=== PATIENT | male | born 1945 | race Caucasian/White ===

== ENCOUNTER 2017-01-24 19:49 | Inpatient (IN) | payer OTHER ==
[~2017-01-24] VITALS: Ht 162.6 cm; Wt 56.8 kg
[~2017-01-24 19:49] MED LIST: ASPEC81 PO; CHIA1POW PO; CHOL100027 PO; CYAN100020 PO; FOLI800T PO; LEVO150T PO; LPT40 PO; MULTCAP36 PO; NTRGSL/4 UT; PLV75 PO
[2017-01-24] MEDS ORDERED: SODIUM CHLORIDE 0.9% 500ML 500 ML IV STA (20:34)
[2017-01-24] MEDS ORDERED: ACETAMINOPHEN 500 MG TAB PO STA (20:34)
--- NOTE | 2017-01-24 20:34 | EMERGENCY ROOM VISIT NOTE ---
History Report prepared by Crystal: Brittany Patel Under the Supervision of: Dr. Kunal Alexandra M.D. First contact with patient: 20:16 Chief Complaint: ILLNESS Stated Complaint: ILLNESS History of Present Illness The patient is a 71 year old male who presents to the Emergency Room with complaints of constant chills beginning today. The patient states that he was running on the treadmill today when he began to feel cold. He reports that he has had chills and shakiness since with some difficulty speaking that has improved with warming up. He denies any cough, sore throat, fever, abdominal pain, and nausea. Source of History: patient Onset: today Position: other (global) Quality: other (chills) Timing: constant Associated Symptoms: No fevers, No sorethroat, No cough, No nausea, No abdominal pain Note: Pt complains of shakiness and difficulty speaking that has resolved. Review of Systems See HPI for pertinent positives & negatives. A total of 10 systems reviewed and were otherwise negative. Past Medical & Surgical Medical Problems: (1) Cardiac ischemia (2) Coronary artery disease (3) Hypotension (4) Myocardial infarction (5) Pneumonia (6) Wide-complex tachycardia Surgical Problems: (1) H/O cardiac catheterization (2) Stented coronary artery Family History Cancer Diabetes mellitus Heart disease Social History Smoking Status: Former Smoker Alcohol Use: none Housing Status: lives alone Occupation Status: retired Current/Historical Medications Scheduled Aspirin (Aspirin Ec), 81 MG PO DAILY Atorvastatin (Lipitor), 40 MG PO DAILY Cholecalciferol (Vitamin D 1000 Unit), 1,000 INTER.UNIT PO TID Coenzyme Q10 (Ubidecarenone) (Co Q 10), 300 MG PO DAILY Cyanocobalamin (Vitamin B12), 1,000 MCG PO DAILY Enalapril Maleate (Vasotec), 0.5 MG PO BID Flaxseed (Linseed) (Flax Seeds), 2 TBS PO BID Folic Acid (Folic Acid), 800 MCG PO DAILY Levofloxacin (Levaquin), 500 MG PO DAILY Levothyroxine Sodium (Levothyroxine Sodium), 100 MCG PO DAILY Metoprolol Succinate (Metoprolol Succinate ER), 25 MG PO DAILY Multiple Vitamins W/ Minerals (Preservision/Lutein), 1 CAP PO AMPM Nitroglycerin (Nitrostat), 0.4 MG UT PRN Allergies Coded Allergies: No Known Allergies (Unverified , 07/15/14) Physical Exam Vital Signs Date Time Temp Pulse Resp B/P (MAP) Pulse Ox O2 Delivery O2 Flow Rate FiO2 01/25/17 00:35 79 20 99 01/25/17 00:30 117/63 01/25/17 00:20 72 24 98 01/25/17 00:05 66 19 97 01/25/17 00:00 110/58 01/24/17 23:50 68 14 98 01/24/17 23:35 63 19 97 01/24/17 23:30 114/65 01/24/17 23:24 66 25 99 01/24/17 23:15 135/70 01/24/17 23:09 70 24 99 01/24/17 23:06 65 01/24/17 22:49 68 23 99 01/24/17 22:34 61 20 97 01/24/17 22:30 116/67 01/24/17 22:19 66 24 98 01/24/17 22:04 65 99 01/24/17 22:00 111/64 01/24/17 21:49 54 18 98 01/24/17 21:44 37.2 56 17 98 01/24/17 21:30 123/71 01/24/17 21:29 61 21 100 01/24/17 21:14 58 13 100 01/24/17 21:09 58 100 01/24/17 20:54 61 19 01/24/17 20:49 37.0 59 24 01/24/17 20:34 55 100 01/24/17 20:30 131/72 01/24/17 20:19 62 100 01/24/17 20:04 60 100 Room Air 01/24/17 20:02 147/71 01/24/17 19:54 37.5 58 18 118/64 100 Room Air Physical Exam GENERAL: Patient is a healthy-appearing well-nourished [] HEAD: Normocephalic atraumatic EYES: Ocular movements intact pupils equal and react to light OROPHARYNX mucous membranes are moist no exudates present no erythema or edema present NECK: Supple no nuchal rigidity CHEST: Good equal expansion LUNGS: Clear and equal to auscultation CARDIAC: Normal S1 and S2 ABDOMEN: Soft nontender no guarding BACK: No CVA tenderness EXTREMITIES: No pain upon palpation normal muscle strength in all groups no clubbing cyanosis or edema NEURO: Patient is following commands and answering questions appropriately. Alert and oriented x3 Cranial Nerves 2-12 grossly intact Medical Decision & Procedures ER Provider Diagnostic Interpretation: Radiology results as stated below per my review and radiologist interpretation: CT HEAD: No acute intracranial process. Involutional changes. Radiologist: Ashley Damico M.D. CHEST ONE VIEW PORTABLE FINDINGS: No pneumothorax. No pleural effusions. The heart remains mildly enlarged. There are hazy bibasilar densities. The upper lung zones are clear. No pneumothorax. No pleural effusions. IMPRESSION: 1. Hazy bibasilar densities. This favors a pneumonia. Recommend follow-up to ensure resolution. 2. Stable cardiomegaly. Electronically signed by: Jefferson Chino M.D. 01/24/2017 9:56 PM Dictated Date/Time: 01/24/2017 9:54 PM Laboratory Results 01/24/17 18:55 Red Blood Count 3.90, Mean Corpuscular Volume 96.4, Mean Corpuscular Hemoglobin 32.1, Mean Corpuscular Hemoglobin Concent 33.2, Mean Platelet Volume 10.7, Neutrophils (%) (Auto) 76.9, Lymphocytes (%) (Auto) 14.1, Monocytes (%) (Auto) 6.1, Eosinophils (%) (Auto) 2.4, Basophils (%) (Auto) 0.5, Neutrophils # (Auto) 3.17, Lymphocytes # (Auto) 0.58, Monocytes # (Auto) 0.25, Eosinophils # (Auto) 0.10, Basophils # (Auto) 0.02 01/24/17 18:55 Test 01/24/17 18:55 01/24/17 22:45 White Blood Count 4.12 K/uL (4.8-10.8) Red Blood Count 3.90 M/uL (4.7-6.1) Hemoglobin 12.5 g/dL (14.0-18.0) Hematocrit 37.6 % (42-52) Mean Corpuscular Volume 96.4 fL (80-100) Mean Corpuscular Hemoglobin 32.1 pg (25-34) Mean Corpuscular Hemoglobin Concent 33.2 g/dl (32-36) Platelet Count 140 K/uL (130-400) Mean Platelet Volume 10.7 fL (7.4-10.4) Neutrophils (%) (Auto) 76.9 % Lymphocytes (%) (Auto) 14.1 % Monocytes (%) (Auto) 6.1 % Eosinophils (%) (Auto) 2.4 % Basophils (%) (Auto) 0.5 % Neutrophils # (Auto) 3.17 K/uL (1.4-6.5) Lymphocytes # (Auto) 0.58 K/uL (1.2-3.4) Monocytes # (Auto) 0.25 K/uL (0.11-0.59) Eosinophils # (Auto) 0.10 K/uL (0-0.5) Basophils # (Auto) 0.02 K/uL (0-0.2) RDW Standard Deviation 44.3 fL (36.4-46.3) RDW Coefficient of Variation 12.8 % (11.5-14.5) Immature Granulocyte % (Auto) 0.0 % Immature Granulocyte # (Auto) 0.00 K/uL (0.00-0.02) Urine Color YELLOW Urine Appearance CLEAR (CLEAR) Urine pH 7.5 (4.5-7.5) Urine Specific [place] 1.017 (1.000-1.030) Urine Protein NEG (NEG) Urine Glucose (UA) NEG (NEG) Urine Ketones NEG (NEG) Urine Occult Blood NEG (NEG) Urine Nitrite NEG (NEG) Urine Bilirubin NEG (NEG) Urine Urobilinogen NEG (NEG) Urine Leukocyte Esterase NEG (NEG) Anion Gap 6.0 mmol/L (3-11) Est Creatinine Clear Calc Drug Dose 66.4 ml/min Estimated GFR () 101.2 Estimated GFR (Non- 87.3 BUN/Creatinine Ratio 22.4 (10-20) Calcium Level 8.9 mg/dl (8.5-10.1) Total Bilirubin 0.4 mg/dl (0.2-1) Direct Bilirubin 0.2 mg/dl (0-0.2) Aspartate Amino Transf (AST/SGOT) 38 U/L (15-37) Alanine Aminotransferase (ALT/SGPT) 52 U/L (12-78) Alkaline Phosphatase 71 U/L (45-117) Total Creatine Kinase 195 U/L (39-308) Total Protein 7.0 gm/dl (6.4-8.2) Albumin 3.6 gm/dl (3.4-5.0) Bedside Glucose 94 mg/dl (70-99) Labs reviewed by ED physician. Medications Administered Medications (Trade) Dose Ordered Sig/Merna Route Start Time Stop Time Status Last Admin Dose Admin Sodium Chloride 500 ml @ 999 mls/hr Q31M STAT IV 01/24/17 20:34 01/24/17 21:04 DC 01/24/17 21:08 999 MLS/HR Acetaminophen (Tylenol Tab) 1,000 mg NOW STAT PO 01/24/17 20:34 01/24/17 20:36 DC 01/24/17 20:52 1,000 MG Levofloxacin (Levaquin / D5W) 500 mg NOW STAT IV 01/24/17 22:44 01/24/17 22:45 DC 01/24/17 23:17 500 MG ED Course 2016: Past medical records reviewed. The patient was evaluated in room C12. A complete history and physical examination was performed. 2033: Tylenol Tab 1000mg PO, Sodium Chloride 500 ml @ 999 mls/hr IV. 2239: Azithromycin 500mg PO. 2244: Levofloxacin 500mg IV. 2345: Upon reexamination the patient is doing well. I discussed results and treatment plan with the patient. He verbalizes agreement and understanding. The patient is ready for discharge. Medical Decision Differential diagnosis: Etiologies such as viral syndrome, otitis, pharyngitis, pneumonia, influenza, meningitis, urinary tract infection, sepsis, bacteremia, as well as others were entertained. This is a 71-year-old male who presents emergency department complaining of rigors. Upon arrival to the emergency department the patient does not have an elevation in his white blood count cell count is afebrile. Serial abdominal examinations were performed on the patient in the emergency department and at no time did the patient exhibited a surgical abdomen. An IV was established, patient given normal saline bolus. He does appear to have pneumonia on his chest x-ray therefore the patient will be started on Levaquin. As her is discussing this with the patient he appeared to become somewhat confused therefore he was sent for a CAT scan of the head which did not show any acute process. His blood sugar at that point was 90 and the patient was fed this seemed to resolve the confusion. I believe based on this that the patient can safely be discharged home. The patient does not wish to stay and is asking to be discharged home. However upon reevaluating the patient he is again confused so I discussed the case with the hospitalist service who agreed to admit the patient. Medication Reconcilliation Current Medication List: was personally reviewed by me Blood Pressure Screening Patient's blood pressure: Normal blood pressure Blood pressure disposition: Did not require urgent referral Impression Primary Impression: Pneumonia Scribe Attestation The scribe's documentation has been prepared under my direction and personally reviewed by me in its entirety. I confirm that the note above accurately reflects all work, treatment, procedures, and medical decision making performed by me. Departure Information Dispostion Home / Self-Care Prescriptions Levofloxacin (Levaquin) 500 Mg Tab 500 MG PO DAILY for 7 Days, #7 TAB Prov: Kunal Alexandra MD 01/24/17 Referrals Randell Gómez M.D. (PCP) Patient Instructions My [facility] Problem Qualifiers Primary Impression: Pneumonia Pneumonia type: due to unspecified organism Laterality: bilateral Lung location: unspecified part of lung Qualified Codes: J18.9 - Pneumonia, unspecified organism
[2017-01-24 21:19] LABS: URINE APPEARANCE CLEAR (CLEAR); URINE BILIRUBIN NEG (NEG); URINE COLOR YELLOW; URINE NITRITE NEG (NEG); URINE PH 7.5 (4.5-7.5); URINE SPECIFIC GRAVITY 1.017 (1.000-1.030); UROBILINOGEN NEG (NEG)
[2017-01-24 21:20] LABS: MANUAL MICROSCOPIC REQUIRED? NO; REVIEW REQ? NO
[2017-01-24] MEDS ORDERED: NTRGSL/4 UT (21:41)
[2017-01-24] MEDS ORDERED: ENAL2.5T PO (21:41)
[2017-01-24] MEDS ORDERED: COEN1CAP17 PO (21:41)
[2017-01-24] MEDS ORDERED: ASPI81TA28 PO (21:41)
[2017-01-24] MEDS ORDERED: ATOR-24 PO (21:41)
[2017-01-24] MEDS ORDERED: LEVO100T7 PO (21:41)
[2017-01-24] MEDS ORDERED: TPRSR/25 PO (21:41)
[2017-01-24 21:44] LABS: BASO % 0.5 %; BASO ABS # 0.02 K/uL (0-0.2); COMPLETE YES; EOS % 2.4 %; HEMATOCRIT 37.6 % (42-52); LYMPH % 14.1 %; LYMPH ABS # 0.58 K/uL (1.2-3.4); MEAN CELL VOLUME 96.4 fL (80-100); MEAN CORPUSCULAR HEMOGLOBIN 32.1 pg (25-34); MEAN CORPUSCULAR HGB CONC 33.2 g/dl (32-36); MEAN PLATELET VOLUME 10.7 fL (7.4-10.4); MONO % 6.1 %; NEUT % 76.9 %; PLATELET COUNT 140 K/uL (130-400); WHITE BLOOD COUNT 4.12 K/uL (4.8-10.8)
--- NOTE | 2017-01-24 21:57 | DIAGNOSTIC IMAGING REPORT ---
CHEST ONE VIEW PORTABLE HISTORY: Pt c/o fever COMPARISON: Chest 07/17/2014. FINDINGS: No pneumothorax. No pleural effusions. The heart remains mildly enlarged. There are hazy bibasilar densities. The upper lung zones are clear. No pneumothorax. No pleural effusions. IMPRESSION: 1. Hazy bibasilar densities. This favors a pneumonia. Recommend follow-up to ensure resolution. 2. Stable cardiomegaly. Electronically signed by: Jefferson Chino M.D. 01/24/2017 9:56 PM Dictated Date/Time: 01/24/2017 9:54 PM
[2017-01-24] MEDS ORDERED: FLAXPOW2 PO (22:08)
[2017-01-24 22:10] LABS: BUN/CREATININE RATIO 22.4 (10-20); CALCIUM 8.9 mg/dl (8.5-10.1); CREATININE 0.83 mg/dl (0.60-1.40); POTASSIUM 4.3 mmol/L (3.5-5.1)
[2017-01-24] MEDS ORDERED: AZITHROMYCIN 250 MG TAB PO STA (22:39)
[2017-01-24] MEDS ORDERED: LEVAQUIN 500MG / 100ML D5W IV STA (22:44)
[2017-01-24] MEDS ORDERED: LEVO-366 PO (23:40)
[2017-01-25] VITALS (7 sets, daily range): BP systolic 91–117; BP diastolic 52–65; PULSE 40–106; TEMP 36.9–37.7; O2SAT 90–98; Ht 162.6 cm; Wt 56.8 kg
--- NOTE | 2017-01-25 02:55 | History and Physical ---
History & Physical Date & Time of Service: Jan 25, 2017 at 02:42 Chief Complaint: Pneumonia Primary Care Physician: Randell Gómez M.D. History of Present Illness Source: patient, clinic records, hospital records 71 year old male with history of CAD, Mitral Valve Regurgitation, CKD 2, HLD, Hypothyroidism presenting with chills x [address] Paniagua for Primary Care. Patient was apparently at his usual state of health, until earlier today, after working out in the treadmill, patient apparently had shaking chills, apparent difficulty in speaking per ER Physician documentation. He was then brought to the ER for evaluation. He arrived with stable VS, CXR showed bibasilar pneumonia and was given Levofloxacin IV. Patient was about to be discharged when he was noticed to be confused, which appears to be waxing and waning. CT head negative. On exam, patient seen resting in bed, comfortable, not in distress. States he feels fine overall, Oriented x 2. Answers most questions appropriately, occasionally has to think hard with simple questions, and forgets easily. Denies active dyspnea, cough, chills, headache, changes with vision, focal weakness/numbness. Denies abdominal pain, dysuria, diarrhea. No other symptoms. Past Medical/Surgical History Medical Problems: (1) Cardiac ischemia Status: Resolved (2) Coronary artery disease Status: Chronic (3) Hypotension Status: Resolved (4) Myocardial infarction Status: Resolved (5) Wide-complex tachycardia Status: Resolved Surgical Problems: (1) H/O cardiac catheterization Status: Resolved (2) Stented coronary artery Status: Chronic Family History Cancer Diabetes mellitus Heart disease Social History Smoking Status: Former Smoker Smokeless Tobacco Use: No Alcohol Use: none Drug Use: none Marital Status: single Housing status: lives alone Occupational Status: retired Allergies Coded Allergies: No Known Allergies (Unverified , 07/15/14) Home Medications Scheduled Aspirin (Aspirin Ec), 81 MG PO DAILY Atorvastatin (Lipitor), 40 MG PO DAILY Cholecalciferol (Vitamin D 1000 Unit), 1,000 INTER.UNIT PO TID Coenzyme Q10 (Ubidecarenone) (Co Q 10), 300 MG PO DAILY Cyanocobalamin (Vitamin B12), 1,000 MCG PO DAILY Enalapril Maleate (Vasotec), 0.5 MG PO BID Flaxseed (Linseed) (Flax Seeds), 2 TBS PO BID Folic Acid (Folic Acid), 800 MCG PO DAILY Levofloxacin (Levaquin), 500 MG PO DAILY Levothyroxine Sodium (Levothyroxine Sodium), 100 MCG PO DAILY Metoprolol Succinate (Metoprolol Succinate ER), 25 MG PO DAILY Multiple Vitamins W/ Minerals (Preservision/Lutein), 1 CAP PO AMPM Nitroglycerin (Nitrostat), 0.4 MG UT PRN Review of Systems Constitutional- (+) as noted above, no fever; no weight loss Eyes- no acute visual changes ENT- no sinus drainage; no pharyngitis Pulmonary- no cough, no wheezing, no shortness of breath Cardiac- no chest pain, no palpitations, no orthopnea, no dependent edema GI- no nausea, no vomiting, no diarrhea, no melena, no hematochezia - no dysuria, no hematuria Musculoskeletal- no arthralgias, no myalgias Derm- no rashes, no new skin lesions, no changing skin lesions Hematologic- no unusual bruising, no unusual bleeding Lymphatics- no adenopathy Endocrine- no polyuria or polydipsia; no heat or cold intolerance Neuro- no headaches, no focal neurologic symptoms Psych- no anxiety, no depression Physical Exam Vital Signs Date Time Temp Pulse Resp B/P (MAP) Pulse Ox O2 Delivery O2 Flow Rate FiO2 01/25/17 01:30 116/59 01/25/17 01:25 66 21 97 01/25/17 01:10 66 19 97 01/25/17 01:00 108/59 01/25/17 00:55 65 23 97 01/25/17 00:40 73 25 98 01/25/17 00:35 79 20 99 01/25/17 00:30 117/63 01/25/17 00:20 72 24 98 01/25/17 00:05 66 19 97 01/25/17 00:00 110/58 01/24/17 23:50 68 14 98 01/24/17 23:35 63 19 97 01/24/17 23:30 114/65 01/24/17 23:24 66 25 99 01/24/17 23:15 135/70 01/24/17 23:09 70 24 99 01/24/17 23:06 65 01/24/17 22:49 68 23 99 01/24/17 22:34 61 20 97 01/24/17 22:30 116/67 01/24/17 22:19 66 24 98 01/24/17 22:04 65 99 01/24/17 22:00 111/64 01/24/17 21:49 54 18 98 01/24/17 21:44 37.2 56 17 98 01/24/17 21:30 123/71 01/24/17 21:29 61 21 100 01/24/17 21:14 58 13 100 01/24/17 21:09 58 100 01/24/17 20:54 61 19 01/24/17 20:49 37.0 59 24 01/24/17 20:34 55 100 01/24/17 20:30 131/72 01/24/17 20:19 62 100 01/24/17 20:04 60 100 Room Air 01/24/17 20:02 147/71 01/24/17 19:54 37.5 58 18 118/64 100 Room Air General Appearance: WD/WN, no apparent distress Head: normocephalic, atraumatic Eyes: normal inspection, PERRL, EOMI, sclerae normal ENT: normal ENT inspection, hearing grossly normal, pharynx normal Neck: supple, no adenopathy, thyroid normal, no JVD, trachea midline Respiratory/Chest: chest non-tender, lungs clear, normal breath sounds, no respiratory distress, no accessory muscle use Cardiovascular: regular rate, rhythm, no edema, no JVD, no murmur, normal peripheral pulses Abdomen/GI: normal bowel sounds, non tender, soft Back: normal inspection, no CVA tenderness Extremities/Musculoskelatal: normal inspection, no calf tenderness, normal capillary refill, no pedal edema Neurologic/Psych: sonoscope operator II-XII nml as tested (except for possible mild right facial droop), no motor/sensory deficits, alert, normal mood/affect, oriented x 3 Skin: normal color, warm/dry, no rash Lymphatic: no adenopathy Diagnostics Laboratory Results Results Past 24 Hours Test 01/24/17 18:55 01/24/17 22:45 01/25/17 02:23 Range/Units White Blood Count 4.12 4.8-10.8 K/uL Red Blood Count 3.90 4.7-6.1 M/uL Hemoglobin 12.5 14.0-18.0 g/dL Hematocrit 37.6 42-52 % Mean Corpuscular Volume 96.4 80-100 fL Mean Corpuscular Hemoglobin 32.1 25-34 pg Mean Corpuscular Hemoglobin Concent 33.2 32-36 g/dl Platelet Count 140 130-400 K/uL Mean Platelet Volume 10.7 7.4-10.4 fL Neutrophils (%) (Auto) 76.9 % Lymphocytes (%) (Auto) 14.1 % Monocytes (%) (Auto) 6.1 % Eosinophils (%) (Auto) 2.4 % Basophils (%) (Auto) 0.5 % Neutrophils # (Auto) 3.17 1.4-6.5 K/uL Lymphocytes # (Auto) 0.58 1.2-3.4 K/uL Monocytes # (Auto) 0.25 0.11-0.59 K/uL Eosinophils # (Auto) 0.10 0-0.5 K/uL Basophils # (Auto) 0.02 0-0.2 K/uL RDW Standard Deviation 44.3 36.4-46.3 fL RDW Coefficient of Variation 12.8 11.5-14.5 % Immature Granulocyte % (Auto) 0.0 % Immature Granulocyte # (Auto) 0.00 0.00-0.02 K/uL Urine Color YELLOW Urine Appearance CLEAR CLEAR Urine pH 7.5 4.5-7.5 Urine Specific [place] 1.017 1.000-1.030 Urine Protein NEG NEG Urine Glucose (UA) NEG NEG Urine Ketones NEG NEG Urine Occult Blood NEG NEG Urine Nitrite NEG NEG Urine Bilirubin NEG NEG Urine Urobilinogen NEG NEG Urine Leukocyte Esterase NEG NEG Sodium Level 138 136-145 mmol/L Potassium Level 4.3 3.5-5.1 mmol/L Chloride Level 103 98-107 mmol/L Carbon Dioxide Level 29 21-32 mmol/L Anion Gap 6.0 3-11 mmol/L Blood Urea Nitrogen 19 7-18 mg/dl Creatinine 0.83 0.60-1.40 mg/dl Est Creatinine Clear Calc Drug Dose 66.4 ml/min Estimated GFR () 101.2 Estimated GFR (Non- 87.3 BUN/Creatinine Ratio 22.4 10-20 Random Glucose 89 70-99 mg/dl Calcium Level 8.9 8.5-10.1 mg/dl Total Bilirubin 0.4 0.2-1 mg/dl Direct Bilirubin 0.2 0-0.2 mg/dl Aspartate Amino Transf (AST/SGOT) 38 15-37 U/L Alanine Aminotransferase (ALT/SGPT) 52 12-78 U/L Alkaline Phosphatase 71 45-117 U/L Total Creatine Kinase 195 39-308 U/L Total Protein 7.0 6.4-8.2 gm/dl Albumin 3.6 3.4-5.0 gm/dl Bedside Glucose 94 110 70-99 mg/dl Microbiology Results 01/25/17 Blood Culture, Ordered Pending 01/25/17 Blood Culture, Ordered Pending Diagnostic Radiology CHEST ONE VIEW PORTABLE HISTORY: Pt c/o fever COMPARISON: Chest 07/17/2014. FINDINGS: No pneumothorax. No pleural effusions. The heart remains mildly enlarged. There are hazy bibasilar densities. The upper lung zones are clear. No pneumothorax. No pleural effusions. IMPRESSION: 1. Hazy bibasilar densities. This favors a pneumonia. Recommend follow-up to ensure resolution. 2. Stable cardiomegaly. CT head initial read: no acute intracranial process EKG pending Impression Assessment and Plan 71 year old male with history of CAD, Mitral Valve Regurgitation, CKD 2, HLD, Hypothyroidism presenting with chills x 1 day. CHILLS, LIKELY SECONDARY TO PNEUMONIA, BILATERAL BASES - ff up sputum, blood, urine cultures - given Levaquin at the ER with some confusion noted after - Ceftri + Doxy IV ordered NSS at 100cc/hr (monitor volume status, has history of mitral valve regurgitation) ALTERED MENTAL STATUS - patient noted to have mild confusion, forgetfulness , apparently after Levaquin dose - CT head negative check Brain MRI without contrast to r/o Acute CVA check UDS - neurochecks HISTORY OF CAD - denies cardiac symptoms - ekg pending - continue Aspirin, Metoprolol, Enalapril HISTORY OF MITRAL VALVE REGURGITATION - monitor while on IV fluids CKD 2 - stable DVT proph - SCDs for now FULL CODE PER PATIENT DISPOSITION lives at home, alone, independent ff up with PCP Dr. Gómez VTE Prophylaxis VTE Risk Assessment Done? Y/N: Yes Risk Level: Moderate Given or contraindicated: SCD's
[2017-01-25 03:18] LABS: BENZODIAZEPINE, URINE NEG (NEG); COCAINE,URINE NEG (NEG); PHENCYCLIDINE, URINE NEG (NEG)
[2017-01-25] MEDS: SODIUM CHLORIDE 0.9% 1000ML 1,000 ML IV SCH ×3 (04:25→23:56)
[2017-01-25] MEDS: CEFTRIAXONE SOD INJ 2,000 MG in DEXTROSE 5% 50ML 50 ML IV SCH (05:27)
[2017-01-25] MEDS: LEVOTHYROXINE 100 MCG TAB PO SCH (05:27)
[2017-01-25 05:29] LABS: BASO % 0.3 %; BASO ABS # 0.02 K/uL (0-0.2); COMPLETE YES; EOS % 0.7 %; HEMATOCRIT 32.8 % (42-52); IG% 0.2 %; LYMPH % 12.2 %; MEAN CELL VOLUME 94.3 fL (80-100); MEAN CORPUSCULAR HEMOGLOBIN 32.2 pg (25-34); MEAN CORPUSCULAR HGB CONC 34.1 g/dl (32-36); MEAN PLATELET VOLUME 9.7 fL (7.4-10.4); MONO % 8.9 %; NEUT % 77.7 %; PLATELET COUNT 113 K/uL (130-400); RED BLOOD COUNT 3.48 M/uL (4.7-6.1); WHITE BLOOD COUNT 5.72 K/uL (4.8-10.8)
[2017-01-25 05:47] LABS: BUN/CREATININE RATIO 17.8 (10-20); CREATININE 0.91 mg/dl (0.60-1.40)
[2017-01-25 05:53] LABS: CKMB/CK RATIO 2.1 (0-3.0)
--- NOTE | 2017-01-25 06:29 | DIAGNOSTIC IMAGING REPORT ---
CT HEAD WITHOUT CONTRAST (CT) CLINICAL HISTORY: Acute change in mental status COMPARISON STUDY: No previous studies for comparison. TECHNIQUE: Axial CT of the brain is performed from the vertex to the skull base. IV contrast was not administered for this examination. A dose lowering technique was utilized adhering to the principles of ALARA. CT DOSE: 537.48 mGy.cm FINDINGS: No intra or extra-axial mass lesions are visualized. There is no CT evidence of acute cortical infarction. There is no evidence of midline shift. There is no acute hemorrhage. No calvarial fractures are visualized. There are patchy white matter hypodensities likely on a small vessel basis. There is no evidence of pathologic ventricular dilatation. There is no evidence of acute sinusitis IMPRESSION: No acute intracranial findings Electronically signed by: Nick Miller M.D. 01/25/2017 6:27 AM Dictated Date/Time: 01/25/2017 6:27 AM
--- NOTE | 2017-01-25 06:50 | DIAGNOSTIC IMAGING REPORT ---
BRAIN WITHOUT CONTRAST HISTORY: Mental status change r/o cava TECHNIQUE: Multiplanar multisequence MRI of the brain was performed without the use of contrast. COMPARISON STUDY: None. FINDINGS: There are no areas of restricted diffusion to suggest acute infarction. The midline structures are intact. The paranasal sinuses are clear. The mastoid air cells are clear. The ventricles and sulci are within normal limits for age. There is no mass, hematoma, midline shift. The major vascular flow-voids at the skull base are well maintained. Chronic small vessel change of aging. Mild cerebral atrophy. IMPRESSION: No acute intracranial abnormality. Age-related change The above report was generated using voice recognition software. It may contain grammatical, syntax or spelling errors. Electronically signed by: Elias Chang M.D. 01/25/2017 6:49 AM Dictated Date/Time: 01/25/2017 6:47 AM
[2017-01-25] MEDS ORDERED: PERFLUTREN LIPID MICROSPHERE (DEFINITY) IV ONE (07:11)
[2017-01-25] MEDS: DOXYCYCLINE IV 100 MG in DEXTROSE 5% 100ML 100 ML IV SCH ×2 (07:56→21:07)
[2017-01-25] MEDS ORDERED: METOPROLOL SUCC 25MG EXT REL TAB PO SCH (09:00)
[2017-01-25] MEDS: ASPIRIN 81 MG ECTAB PO SCH (09:52)
[2017-01-25] MEDS: ENALAPRIL MALEATE 5 MG TAB PO SCH ×2 (09:52→21:08)
[2017-01-25] MEDS: ATORVASTATIN 40 MG TAB PO SCH (09:52)
[2017-01-25 11:33] LABS: CKMB/CK RATIO 1.7 (0-3.0)
--- NOTE | 2017-01-25 15:15 | Progress Note ---
Internal Med Progress Note Date of Service: Jan 25, 2017. Provider Documentation: SUBJECTIVE: Seen and examined at bedside States feeling much better today confusion resolved Denies chest pain, cough, SOB Offers no other symptoms OBJECTIVE: Vital Signs-as noted below Physical Exam: General Appearance:Moderately built and nourished, no apparent distress Head: normocephalic, Atraumatic Eyes: normal inspection, EOMI, PERRL Neck: supple, Trachea midline Respiratory/Chest: Normal breath sounds, CTA Cardiovascular: S1, S2, No murmur Abdomen/GI:Soft, Non tender, Bowel sounds present Extremities/Musculoskelatal:normal inspection, no edema Neurologic/Psych:grossly no focal neurological deficits Skin: normal color, warm Lab data as noted below. ASSESSMENT & PLAN: Patient is a 71 yr male with H/O CAD, Mitral Valve Regurgitation, CKD 2, HLD, Hypothyroidism presented with chills x 1 day. 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 Gómez Vital Signs: Date Time Temp Pulse Resp B/P (MAP) Pulse Ox O2 Delivery O2 Flow Rate FiO2 01/25/17 15:17 37.0 49 18 91/56 (68) 98 Room Air 01/25/17 12:29 Room Air 01/25/17 10:55 37.7 106 20 95/57 (70) 97 01/25/17 08:00 Room Air 01/25/17 07:19 37.2 20 111/65 (80) 90 01/25/17 02:30 Room Air 01/25/17 02:30 37.5 60 16 117/52 01/25/17 01:30 116/59 01/25/17 01:25 66 21 97 01/25/17 01:10 66 19 97 01/25/17 01:00 108/59 01/25/17 00:55 65 23 97 01/25/17 00:40 73 25 98 01/25/17 00:35 79 20 99 01/25/17 00:30 117/63 01/25/17 00:20 72 24 98 01/25/17 00:05 66 19 97 01/25/17 00:00 110/58 01/24/17 23:50 68 14 98 01/24/17 23:35 63 19 97 01/24/17 23:30 114/65 01/24/17 23:24 66 25 99 01/24/17 23:15 135/70 01/24/17 23:09 70 24 99 01/24/17 23:06 65 01/24/17 22:49 68 23 99 01/24/17 22:34 61 20 97 01/24/17 22:30 116/67 01/24/17 22:19 66 24 98 01/24/17 22:04 65 99 01/24/17 22:00 111/64 01/24/17 21:49 54 18 98 01/24/17 21:44 37.2 56 17 98 01/24/17 21:30 123/71 01/24/17 21:29 61 21 100 01/24/17 21:14 58 13 100 01/24/17 21:09 58 100 01/24/17 20:54 61 19 01/24/17 20:49 37.0 59 24 01/24/17 20:34 55 100 01/24/17 20:30 131/72 01/24/17 20:19 62 100 01/24/17 20:04 60 100 Room Air 01/24/17 20:02 147/71 01/24/17 19:54 37.5 58 18 118/64 100 Room Air Lab Results: Results Past 24 Hours Test 01/24/17 18:55 01/24/17 22:45 01/25/17 02:23 01/25/17 02:53 Range/Units White Blood Count 4.12 4.8-10.8 K/uL Red Blood Count 3.90 4.7-6.1 M/uL Hemoglobin 12.5 14.0-18.0 g/dL Hematocrit 37.6 42-52 % Mean Corpuscular Volume 96.4 80-100 fL Mean Corpuscular Hemoglobin 32.1 25-34 pg Mean Corpuscular Hemoglobin Concent 33.2 32-36 g/dl Platelet Count 140 130-400 K/uL Mean Platelet Volume 10.7 7.4-10.4 fL Neutrophils (%) (Auto) 76.9 % Lymphocytes (%) (Auto) 14.1 % Monocytes (%) (Auto) 6.1 % Eosinophils (%) (Auto) 2.4 % Basophils (%) (Auto) 0.5 % Neutrophils # (Auto) 3.17 1.4-6.5 K/uL Lymphocytes # (Auto) 0.58 1.2-3.4 K/uL Monocytes # (Auto) 0.25 0.11-0.59 K/uL Eosinophils # (Auto) 0.10 0-0.5 K/uL Basophils # (Auto) 0.02 0-0.2 K/uL RDW Standard Deviation 44.3 36.4-46.3 fL RDW Coefficient of Variation 12.8 11.5-14.5 % Immature Granulocyte % (Auto) 0.0 % Immature Granulocyte # (Auto) 0.00 0.00-0.02 K/uL Urine Color YELLOW Urine Appearance CLEAR CLEAR Urine pH 7.5 4.5-7.5 Urine Specific [place] 1.017 1.000-1.030 Urine Protein NEG NEG Urine Glucose (UA) NEG NEG Urine Ketones NEG NEG Urine Occult Blood NEG NEG Urine Nitrite NEG NEG Urine Bilirubin NEG NEG Urine Urobilinogen NEG NEG Urine Leukocyte Esterase NEG NEG Sodium Level 138 136-145 mmol/L Potassium Level 4.3 3.5-5.1 mmol/L Chloride Level 103 98-107 mmol/L Carbon Dioxide Level 29 21-32 mmol/L Anion Gap 6.0 3-11 mmol/L Blood Urea Nitrogen 19 7-18 mg/dl Creatinine 0.83 0.60-1.40 mg/dl Est Creatinine Clear Calc Drug Dose 66.4 ml/min Estimated GFR () 101.2 Estimated GFR (Non- 87.3 BUN/Creatinine Ratio 22.4 10-20 Random Glucose 89 70-99 mg/dl Calcium Level 8.9 8.5-10.1 mg/dl Total Bilirubin 0.4 0.2-1 mg/dl Direct Bilirubin 0.2 0-0.2 mg/dl Aspartate Amino Transf (AST/SGOT) 38 15-37 U/L Alanine Aminotransferase (ALT/SGPT) 52 12-78 U/L Alkaline Phosphatase 71 45-117 U/L Total Creatine Kinase 195 39-308 U/L Total Protein 7.0 6.4-8.2 gm/dl Albumin 3.6 3.4-5.0 gm/dl Bedside Glucose 94 110 70-99 mg/dl Urine Opiates Screen NEG NEG Urine Methadone, Qualitative NEG NEG Urine Barbiturates NEG NEG Urine Phencyclidine (PCP) Level NEG NEG Ur Amphetamine/Methamphetamine NEG NEG MDMA (Ecstasy) Screen NEG NEG Urine Benzodiazepines Screen NEG NEG Urine Cocaine Metabolite NEG NEG Urine Marijuana (THC) NEG NEG Test 01/25/17 05:19 01/25/17 10:54 Range/Units White Blood Count 5.72 4.8-10.8 K/uL Red Blood Count 3.48 4.7-6.1 M/uL Hemoglobin 11.2 14.0-18.0 g/dL Hematocrit 32.8 42-52 % Mean Corpuscular Volume 94.3 80-100 fL Mean Corpuscular Hemoglobin 32.2 25-34 pg Mean Corpuscular Hemoglobin Concent 34.1 32-36 g/dl Platelet Count 113 130-400 K/uL Mean Platelet Volume 9.7 7.4-10.4 fL Neutrophils (%) (Auto) 77.7 % Lymphocytes (%) (Auto) 12.2 % Monocytes (%) (Auto) 8.9 % Eosinophils (%) (Auto) 0.7 % Basophils (%) (Auto) 0.3 % Neutrophils # (Auto) 4.44 1.4-6.5 K/uL Lymphocytes # (Auto) 0.70 1.2-3.4 K/uL Monocytes # (Auto) 0.51 0.11-0.59 K/uL Eosinophils # (Auto) 0.04 0-0.5 K/uL Basophils # (Auto) 0.02 0-0.2 K/uL RDW Standard Deviation 42.3 36.4-46.3 fL RDW Coefficient of Variation 12.6 11.5-14.5 % Immature Granulocyte % (Auto) 0.2 % Immature Granulocyte # (Auto) 0.01 0.00-0.02 K/uL Sodium Level 140 136-145 mmol/L Potassium Level 4.0 3.5-5.1 mmol/L Chloride Level 108 98-107 mmol/L Carbon Dioxide Level 29 21-32 mmol/L Anion Gap 3.0 3-11 mmol/L Blood Urea Nitrogen 16 7-18 mg/dl Creatinine 0.91 0.60-1.40 mg/dl Est Creatinine Clear Calc Drug Dose 58.1 ml/min Estimated GFR () 96.6 Estimated GFR (Non- 83.3 BUN/Creatinine Ratio 17.8 10-20 Random Glucose 91 70-99 mg/dl Calcium Level 8.0 8.5-10.1 mg/dl Total Creatine Kinase 165 172 39-308 U/L Creatine Kinase MB 3.5 2.9 0.5-3.6 ng/ml Creatine Kinase MB Ratio 2.1 1.7 0-3.0 Troponin I 0.042 0.044 0-0.045 ng/ml Microbiology Results 01/25/17 Blood Culture, Received Pending 01/25/17 Blood Culture, Received Pending 01/25/17 Urine Culture, Received Pending
--- NOTE | 2017-01-25 16:11 | ECHOCARDIOGRAM REPORT ---
*NOTICE TO RECEIVING [employer] This information is strictly Confidential and protected under [place] law. [place] law prohibits you from making any further disclosure of this information unless further disclosure is expressly permitted by the written consent of the person to whom it pertains or is authorized by law. A general authorization for the release of medical or other information is not sufficient for this purpose. Hospital accepts no responsibility if the information is made available to any other person, INCLUDING THE PATIENT. Interpretation Summary * Name: BRUNO MAGANA Study Date: 01/25/2017 06:33 AM BP: 117/52 mmHg * [facility]\S\N289\S\1 HR: 69 * : 1945 (M/d/yyyy) Gender: Male Height: 72 in * Age: 71 yrs Ethnicity: [place] Weight: 125 lb * Ordering Physician: Lan Little * Referring Physician: Self, Referred * Performed By: Patricia Santiago RCS * * Reason For Study: T WAVE INVERSIONS LATERAL LEADS * BSA: 1.7 m2 * -- Conclusions -- * The left ventricle is moderately dilated. * Akinesis of the entire apical, anterior and anteroseptal siddiqui * Ejection Fraction = 20-25%. * The right ventricle is mildly dilated. * The right ventricular systolic function is mildly reduced. * The left atrial size is normal. * The right atrium is moderately dilated. * There is mild mitral regurgitation. Procedure Details * A complete two-dimensional transthoracic echocardiogram was performed (2D, M-mode, Doppler and color flow Doppler). * A saline contrast injection was performed to assess for cardiac shunting. * The injection was performed through an intravenous line in the right arm. * The attending nurse who injected the saline contrast was PATITO ORR, RN. * A total of 10 cc of agitated saline was given. * A contrast injection of Definity was performed to improve assessment of LV function. * Contrast was injected into an intravenous site in the right arm. * One vial of Definity ultrasound contrast was diluted in normal saline to a total volume of 10 ml. A total of '2' ml of solution was administered during imaging. * Lot # [id number] of Definity utilized for procedure. * Expiration date 1 OCT 18. * The attending nurse who injected the contrast agent was PATITO ORR, RN. Left Ventricle * The left ventricle is moderately dilated. * Ejection Fraction = 20-25%. * Akinesis of the entire apical, anterior and anteroseptal siddiqui Right Ventricle * The right ventricle is mildly dilated. * The right ventricular systolic function is mildly reduced. Atria * The left atrial size is normal. * The right atrium is moderately dilated. Mitral Valve * The mitral valve anatomy is normal. * There is mild mitral regurgitation. Tricuspid Valve * The tricuspid valve is not well visualized. * Significant tricuspid regurgitation is absent. Aortic Valve * The aortic valve is tricuspid. The leaflet thickness if normal. There is no aortic stenosis, and no significant insufficiency. * Aortic stenosis is absent. * Trace aortic regurgitation. Pulmonic Valve * The pulmonic valve is not well visualized. Great Vessels * The aortic root and proximal ascending aorta are normal sized. Pericardium/Pleural * There is no pericardial effusion. MMode 2D Measurements and Calculations IVSd 1.5 cm IVSs 1.9 cm LVIDd 4.7 cm LVIDs 3.3 cm LVPWd 1.3 cm LVPWs 1.4 cm IVS/LVPW 1.1 FS 30.3 % EDV(Teich) 104.2 ml ESV(Teich) 44.1 ml EF(Teich) 57.7 % EDV(cubed) 106.3 ml ESV(cubed) 35.9 ml EF(cubed) 66.2 % % IVS thick 33.1 % % LVPW thick 10.9 % LV mass(C)d 260.8 grams LV mass(C)dI 149.5 grams/m\S\2 LV mass(C)s 217.5 grams LV mass(C)sI 124.7 grams/m\S\2 SV(Teich) 60.1 ml SI(Teich) 34.5 ml/m\S\2 SV(cubed) 70.3 ml SI(cubed) 40.3 ml/m\S\2 Ao root diam 3.5 cm Ao root area 9.6 cm\S\2 ACS 2.6 cm LA dimension 3.2 cm LA/Ao 0.92 LVOT diam 2.0 cm LVOT area 3.1 cm\S\2 Doppler Measurements and Calculations MV E max krissy 76.0 cm/sec MV A max krissy 84.7 cm/sec MV E/A 0.90 MV P1/2t max krissy 106.9 cm/sec MV P1/2t 78.7 msec MVA(P1/2t) 2.8 cm\S\2 MV dec slope 397.8 cm/sec\S\2 MV dec time 0.32 sec Ao V2 max 110.7 cm/sec Ao max PG 4.9 mmHg Ao max PG (full) 1.4 mmHg DAMIEN(V,A) 2.7 cm\S\2 DAMIEN(V,D) 2.7 cm\S\2 AI max krissy 431.0 cm/sec AI max PG 74.3 mmHg AI dec slope 128.0 cm/sec\S\2 AI P1/2t 986.4 msec LV V1 max PG 3.5 mmHg LV V1 max 93.8 cm/sec MR max krissy 533.3 cm/sec MR max PG 113.8 mmHg PA V2 max 95.3 cm/sec PA max PG 3.6 mmHg PI max krissy 175.3 cm/sec PI max PG 12.3 mmHg PI dec slope 132.6 cm/sec\S\2 PI P1/2t 387.1 msec TR max krissy 265.9 cm/sec
[2017-01-25 17:46] LABS: CKMB/CK RATIO 1.5 (0-3.0)
[2017-01-26] VITALS (8 sets, daily range): BP systolic 105–114; BP diastolic 54–65; PULSE 39–52; TEMP 36.5–36.9; O2SAT 97–99
[2017-01-26 00:36] LABS: BASO % 0.3 %; BASO ABS # 0.01 K/uL (0-0.2); COMPLETE YES; EOS % 3.3 %; HEMATOCRIT 33.8 % (42-52); IG% 0.3 %; LYMPH % 27.9 %; LYMPH ABS # 1.03 K/uL (1.2-3.4); MEAN CELL VOLUME 97.4 fL (80-100); MEAN CORPUSCULAR HEMOGLOBIN 32.6 pg (25-34); MEAN CORPUSCULAR HGB CONC 33.4 g/dl (32-36); MEAN PLATELET VOLUME 9.9 fL (7.4-10.4); MONO % 7.6 %; NEUT % 60.6 %; PLATELET COUNT 101 K/uL (130-400); RED BLOOD COUNT 3.47 M/uL (4.7-6.1); WHITE BLOOD COUNT 3.69 K/uL (4.8-10.8)
[2017-01-26 00:56] LABS: BUN/CREATININE RATIO 20.1 (10-20); CALCIUM 8.3 mg/dl (8.5-10.1); CREATININE 0.97 mg/dl (0.60-1.40); MAGNESIUM 1.8 mg/dl (1.8-2.4); POTASSIUM 4.3 mmol/L (3.5-5.1)
[2017-01-26 01:07] LABS: THYROID STIMULATING HORMONE 0.913 uIu/ml (0.300-4.500)
[2017-01-26] MEDS ORDERED: MAGNESIUM SULFATE 1GM / D5W 1 GM in PREMIXED IN D5W 100 ML IV ONE (01:30)
[2017-01-26] MEDS ORDERED: ATROPINE SO4 1 MG/ML 1ML VIAL IV PRN (05:00)
[2017-01-26] MEDS: LEVOTHYROXINE 100 MCG TAB PO SCH (06:06)
[2017-01-26] MEDS: CEFTRIAXONE SOD INJ 2,000 MG in DEXTROSE 5% 50ML 50 ML IV SCH (06:06)
[2017-01-26] MEDS: DOXYCYCLINE IV 100 MG in DEXTROSE 5% 100ML 100 ML IV SCH (08:19)
[2017-01-26] MEDS: ASPIRIN 81 MG ECTAB PO SCH (08:22)
[2017-01-26] MEDS: ENALAPRIL MALEATE 5 MG TAB PO SCH (08:22)
[2017-01-26] MEDS: ATORVASTATIN 40 MG TAB PO SCH (08:22)
[2017-01-26] MEDS ORDERED: METOPROLOL SUCC 25MG EXT REL TAB PO SCH (09:00)
--- NOTE | 2017-01-26 10:12 | Clinical Documentation Query ---
CLINICAL DOCUMENTATION QUERY Dr. ROBLES, In your clinical opinion is this patient being managed for: ( X ) Likely Toxic encephalopathy possibly due to levaquin infusion, treated and resolved but unsure ( ) Not Agree ( ) Other explanation of clinical findings (Please Explain) ( ) Unable to determine (Please Define) ( ) Need to Discuss The medical record reflects the following clinical findings, treatment, and risk factors. Clinical Indicators: 71 yo male presented with chills, pneumonia. Initially presented as alert and oriented however at one point pt became slightly confused. Initially BG was 90 and pt was fed which seemed to improve the confusion however shortly thereafter confusion returned and was suggested that it was possibly related to IV levaquin infusion, administered earlier. Treatment: neuro work up with CT head, Brain MRI, neurochecks, other antibiotics selected for treatment (IV rocephin and IV doxycycline) Risk Factors: IV levaquin Please clarify and document your clinical opinion in the progress notes and discharge summary. Terms such as "probable", "suspected", "likely", "questionable", "possible", or "still to be ruled out" are acceptable. IF IN AGREEMENT, YOU MUST DOCUMENT ABOVE DIAGNOSTIC STATEMENT IN DAILY PROGRESS NOTES AND DISCHARGE SUMMARY. This document is not part of the patient's record. Thank You, Fara Kumar RN [phone]
--- NOTE | 2017-01-26 15:10 | Progress Note ---
Internal Med Progress Note Date of Service: Jan 26, 2017. Provider Documentation: SUBJECTIVE: Seen and examined at bedside Doing well Denies chest pain, cough, SOB, dizziness Offers no other symptoms Eager to get discharged OBJECTIVE: Vital Signs-as noted below Physical Exam: General Appearance:Moderately built and nourished, no apparent distress Head: normocephalic, Atraumatic Eyes: normal inspection, EOMI, PERRL Neck: supple, Trachea midline Respiratory/Chest: Normal breath sounds, CTA Cardiovascular: S1, S2, No murmur Abdomen/GI:Soft, Non tender, Bowel sounds present Extremities/Musculoskelatal:normal inspection, no edema Neurologic/Psych:grossly no focal neurological deficits Skin: normal color, warm Lab data as noted below. ASSESSMENT & PLAN: Patient is a 71 yr male with H/O CAD, Mitral Valve Regurgitation, CKD 2, HLD, Hypothyroidism presented with chills x 1 day. COMMUNITY ACQUIRED PNEUMONIA blood, urine cultures pending Received Levaquin in ER with some confusion noted after Continue Ceftriaxone, Doxycycline S/P IV fluids ALTERED MENTAL STATUS Resolved Likely secondary to Levaquin CT head/MRI head negative H/O CAD denies cardiac symptoms EKG showed some changes from previous [place] continue Aspirin, Metoprolol, Enalapril Cardiac enzymes negative ECHO unchanged from previous Discussed with cardiology Dr. Veras about EKG, ECHO and sinus bradycardia Will discontinue Metoprolol for now Follow up with on 01/28/17 at 9:45 am as outpatient H/O MITRAL VALVE REGURGITATION monitor while on IV fluids CKD II stable DVT px SCDs Code Status: FULL CODE DISPOSITION Plan to discharge home today Follow up with Dr. Gómez on 01/31/17 at 2:45pm Follow up with Cardiology on 01/28/17 at 9:45AM Your Metoprolol is discontinued secondary to low heart rate (Bradycardia) Complete the antibiotic course as prescribed Seek immediate medical attention if your symptoms reoccur or worsen PROCEDURES: ECHO: * The left ventricle is moderately dilated. * Akinesis of the entire apical, anterior and anteroseptal siddiqui * Ejection Fraction = 20-25%. * The right ventricle is mildly dilated. * The right ventricular systolic function is mildly reduced. * The left atrial size is normal. * The right atrium is moderately dilated. * There is mild mitral regurgitation. Vital Signs: Date Time Temp Pulse Resp B/P (MAP) Pulse Ox O2 Delivery O2 Flow Rate FiO2 01/26/17 15:10 36.9 48 16 108/65 (79) 99 Room Air 01/26/17 12:41 Room Air 01/26/17 11:28 36.9 47 18 105/61 (76) 98 Room Air 01/26/17 08:27 98 Room Air 01/26/17 08:07 36.7 52 16 114/54 (74) 98 Room Air 01/26/17 08:00 Room Air 01/26/17 04:00 98 Room Air 01/26/17 03:57 36.5 39 18 105/58 (74) 97 01/26/17 00:00 98 Room Air 01/25/17 23:12 36.9 40 18 100/61 (74) 98 Room Air 01/25/17 20:00 Room Air 01/25/17 19:35 37.1 46 18 92/54 (67) 98 Room Air 01/25/17 16:00 98 Room Air Lab Results: Results Past 24 Hours Test 01/25/17 16:56 01/26/17 00:18 Range/Units Total Creatine Kinase 185 39-308 U/L Creatine Kinase MB 2.7 0.5-3.6 ng/ml Creatine Kinase MB Ratio 1.5 0-3.0 Troponin I 0.028 0-0.045 ng/ml White Blood Count 3.69 4.8-10.8 K/uL Red Blood Count 3.47 4.7-6.1 M/uL Hemoglobin 11.3 14.0-18.0 g/dL Hematocrit 33.8 42-52 % Mean Corpuscular Volume 97.4 80-100 fL Mean Corpuscular Hemoglobin 32.6 25-34 pg Mean Corpuscular Hemoglobin Concent 33.4 32-36 g/dl Platelet Count 101 130-400 K/uL Mean Platelet Volume 9.9 7.4-10.4 fL Neutrophils (%) (Auto) 60.6 % Lymphocytes (%) (Auto) 27.9 % Monocytes (%) (Auto) 7.6 % Eosinophils (%) (Auto) 3.3 % Basophils (%) (Auto) 0.3 % Neutrophils # (Auto) 2.24 1.4-6.5 K/uL Lymphocytes # (Auto) 1.03 1.2-3.4 K/uL Monocytes # (Auto) 0.28 0.11-0.59 K/uL Eosinophils # (Auto) 0.12 0-0.5 K/uL Basophils # (Auto) 0.01 0-0.2 K/uL RDW Standard Deviation 45.3 36.4-46.3 fL RDW Coefficient of Variation 12.9 11.5-14.5 % Immature Granulocyte % (Auto) 0.3 % Immature Granulocyte # (Auto) 0.01 0.00-0.02 K/uL Sodium Level 145 136-145 mmol/L Potassium Level 4.3 3.5-5.1 mmol/L Chloride Level 111 98-107 mmol/L Carbon Dioxide Level 30 21-32 mmol/L Anion Gap 4.0 3-11 mmol/L Blood Urea Nitrogen 19 7-18 mg/dl Creatinine 0.97 0.60-1.40 mg/dl Est Creatinine Clear Calc Drug Dose 54.5 ml/min Estimated GFR () 89.4 Estimated GFR (Non- 77.1 BUN/Creatinine Ratio 20.1 10-20 Random Glucose 79 70-99 mg/dl Calcium Level 8.3 8.5-10.1 mg/dl Magnesium Level 1.8 1.8-2.4 mg/dl Thyroid Stimulating Hormone (TSH) 0.913 0.300-4.500 uIu/ml
[2017-01-26] MEDS ORDERED: DOXY-300 PO (15:29)
[2017-01-26] MEDS ORDERED: CEFU1TAB35 PO (15:29)
--- NOTE | 2017-01-26 15:32 | Discharge Summary ---
Discharge Summary Date of Service Jan 26, 2017. Discharge Summary Admission Date: Jan 25, 2017 at 00:54 Discharge Date: Jan 26, 2017 Discharge Disposition: Home Principal Diagnosis: Pneumonia, Sinus bradycardia Procedures: MRI Brain: No acute intracranial abnormality. Age-related change ECHO: * The left ventricle is moderately dilated. * Akinesis of the entire apical, anterior and anteroseptal siddiqui * Ejection Fraction = 20-25%. * The right ventricle is mildly dilated. * The right ventricular systolic function is mildly reduced. * The left atrial size is normal. * The right atrium is moderately dilated. * There is mild mitral regurgitation. Consultations: None Pending Studies/Follow-Up: Follow up with Dr. Gómez on 01/31/17 at 2:45pm Follow up with Cardiology on 01/28/17 at 9:45AM Your Metoprolol is discontinued secondary to low heart rate (Bradycardia) Complete the antibiotic course as prescribed Seek immediate medical attention if your symptoms reoccur or worsen Medication Reconciliation New Medications: Cefuroxime Axetil (Cefuroxime Axetil) 500 Mg Tab 500 MG PO BID for 5 Days, #10 TAB Doxycycline (Monohydrate) (Doxycycline) 100 Mg Cap 100 MG PO BID for 5 Days, #10 CAP Continued Medications: Aspirin (Aspirin Ec) 81 Mg Tab 81 MG PO DAILY Atorvastatin (Lipitor) 40 Mg Tab 40 MG PO DAILY, TAB Cholecalciferol (Vitamin D 1000 Unit) 1,000 Unit Cap 1000 INTER.UNIT PO TID, CAP Coenzyme Q10 (Ubidecarenone) (Co Q 10) 100 Mg Cap 300 MG PO DAILY Cyanocobalamin (Vitamin B12) 1,000 Mcg Tab 1000 MCG PO DAILY Enalapril Maleate (Vasotec) 2.5 Mg Tab 0.5 TAB PO BID, #90 Flaxseed (Linseed) (Flax Seeds) 1 Pow Pow 2 TBS PO BID Folic Acid (Folic Acid) 800 Mcg Tab 800 MCG PO DAILY Levothyroxine Sodium (Levothyroxine Sodium) 100 Mcg Tab 100 MCG PO DAILY, #90 Multiple Vitamins W/ Minerals (Preservision/Lutein) 1 Cap Cap 1 CAP PO AMPM Nitroglycerin (Nitrostat) 0.4 Mg Tab 0.4 MG UT PRN, BTL Discontinued Medications: Levofloxacin (Levaquin) 500 Mg Tab 500 MG PO DAILY for 7 Days, #7 TAB Metoprolol Succinate (Metoprolol Succinate ER) 25 Mg Tabcr 25 MG PO DAILY, #90 Admission Information HPI (per Admitting provider): 71 year old male with history of CAD, Mitral Valve Regurgitation, CKD 2, HLD, Hypothyroidism presenting with chills x [address] Paniagua for Primary Care. Patient was apparently at his usual state of health, until earlier today, after working out in the treadmill, patient apparently had shaking chills, apparent difficulty in speaking per ER Physician documentation. He was then brought to the ER for evaluation. He arrived with stable VS, CXR showed bibasilar pneumonia and was given Levofloxacin IV. Patient was about to be discharged when he was noticed to be confused, which appears to be waxing and waning. CT head negative. On exam, patient seen resting in bed, comfortable, not in distress. States he feels fine overall, Oriented x 2. Answers most questions appropriately, occasionally has to think hard with simple questions, and forgets easily. Denies active dyspnea, cough, chills, headache, changes with vision, focal weakness/numbness. Denies abdominal pain, dysuria, diarrhea. No other symptoms. Physical Exam (per Admitting): General Appearance: WD/WN, no apparent distress Head: normocephalic, atraumatic Eyes: normal inspection, PERRL, EOMI, sclerae normal ENT: normal ENT inspection, hearing grossly normal, pharynx normal Neck: supple, no adenopathy, thyroid normal, no JVD, trachea midline Respiratory/Chest: chest non-tender, lungs clear, normal breath sounds, no respiratory distress, no accessory muscle use Cardiovascular: regular rate, rhythm, no edema, no JVD, no murmur, normal peripheral pulses Abdomen/GI: normal bowel sounds, non tender, soft Back: normal inspection, no CVA tenderness Extremities/Musculoskelatal: normal inspection, no calf tenderness, normal capillary refill, no pedal edema Neurologic/Psych: treatment manager II-XII nml as tested (except for possible mild right facial droop), no motor/sensory deficits, alert, normal mood/affect, oriented x 3 Skin: normal color, warm/dry, no rash Lymphatic: no adenopathy Hospital Course Patient is a 71 yr male with H/O CAD, Mitral Valve Regurgitation, CKD 2, HLD, Hypothyroidism presented with chills x 1 day. COMMUNITY ACQUIRED PNEUMONIA blood, urine cultures pending Received Levaquin in ER with some confusion noted after Continue Ceftriaxone, Doxycycline S/P IV fluids ALTERED MENTAL STATUS Resolved Likely secondary to Levaquin CT head/MRI head negative H/O CAD denies cardiac symptoms EKG showed some changes from previous DC continue Aspirin, Metoprolol, Enalapril Cardiac enzymes negative ECHO unchanged from previous Discussed with cardiology Dr. Veras about EKG, ECHO and sinus bradycardia Will discontinue Metoprolol for now Follow up with on 01/28/17 at 9:45 am as outpatient H/O MITRAL VALVE REGURGITATION monitor while on IV fluids CKD II stable DVT px SCDs Code Status: FULL CODE DISPOSITION Plan to discharge home today Follow up with Dr. Gómez on 01/31/17 at 2:45pm Follow up with Cardiology on 01/28/17 at 9:45AM Your Metoprolol is discontinued secondary to low heart rate (Bradycardia) Complete the antibiotic course as prescribed Seek immediate medical attention if your symptoms reoccur or worsen PROCEDURES: ECHO: * The left ventricle is moderately dilated. * Akinesis of the entire apical, anterior and anteroseptal siddiqui * Ejection Fraction = 20-25%. * The right ventricle is mildly dilated. * The right ventricular systolic function is mildly reduced. * The left atrial size is normal. * The right atrium is moderately dilated. * There is mild mitral regurgitation. Total time spent on discharge = 32 minutes This includes examination of the patient, discharge planning, medication reconciliation, and communication with other providers. Discharge Instructions Discharge Instructions Date of Service Jan 26, 2017. Admission Reason for Admission: Pneumonia Discharge Discharge Diagnosis / Problem: Pneumonia, Sinus bradycardia Discharge Goals Goal(s): Decrease discomfort, Improve function Activity Recommendations Activity Limitations: per Instructions/Follow-up section Lifting Limitations: gradually increase as tolerated Exercise/Sports Limitations: gradually increase as tolerated Driving or Machine Use: Do not drive until cleared by your refueler . Instructions / Follow-Up Instructions / Follow-Up Follow up with Dr. Gómez on 01/31/17 at 2:45pm Follow up with Cardiology on 01/28/17 at 9:45AM Your Metoprolol is discontinued secondary to low heart rate (Bradycardia) Complete the antibiotic course as prescribed Seek immediate medical attention if your symptoms reoccur or worsen Current Hospital Diet Patient's current hospital diet: AHA Diet (Heart Healthy) Discharge Diet Recommended Diet: AHA Diet (Heart Healthy) Pending Studies Studies pending at discharge: no Medical Emergencies . Who to Call and When: Medical Emergencies: If at any time you feel your situation is an emergency, please call 911 immediately. . Non-Emergent Contact Non-Emergency issues call your: Primary Care Provider, Weapons Officer [employer] Call Non-Emergent contact if: you have a fever, your pain is not controlled, your pain is worsening, your pain is unusual for you, your pain is concerning you, you have any medication questions Seek immediate medical attention if your symptoms reoccur or worsen . . "Provider Documentation" section prepared by Alexey Sinclair. . VTE Core Measure Inpt VTE Proph given/why not?: SCD's
[2017-02-23] MEDS ORDERED: TPRSR25 PO (17:05)
[2017-02-23] MEDS ORDERED: CRD200 PO (17:05)
== END 2017-01-26 18:06 | disposition home or self-care (01) | DRG 195 ==
LOC: C.EDC 19:53 → C.MED 01-25 00:54 → ENRESERV 01-25 01:10
PROVIDERS: ADMIT Internal Medicine; ATTEND Internal Medicine
DX: J18.9 Pneumonia, unspecified organism (principal); R00.1 Bradycardia, unspecified; R41.82 Altered mental status, unspecified; T37.8X5A Adverse effect of other specified systemic anti-infectives and antiparasitics, initial encounter; Y92.239 Unspecified place in hospital as the place of occurrence of the external cause; I25.10 Atherosclerotic heart disease of native coronary artery without angina pectoris; I34.0 Nonrheumatic mitral (valve) insufficiency; N18.2 Chronic kidney disease, stage 2 (mild); E78.5 Hyperlipidemia, unspecified; E03.9 Hypothyroidism, unspecified; I25.2 Old myocardial infarction; Z95.5 Presence of coronary angioplasty implant and graft; Z87.891 Personal history of nicotine dependence; Z79.82 Long term (current) use of aspirin; Z79.899 Other long term (current) drug therapy

== ENCOUNTER 2017-02-23 13:15 | Observation (INO) | payer OTHER ==
[2017-02-23] VITALS (10 sets, daily range): BP systolic 107–139; BP diastolic 60–81; PULSE 45–61; TEMP 36.6–36.8; O2SAT 98–100; Ht 162.6 cm; Wt 55.2 kg
[~2017-02-23] VITALS: Ht 162.6 cm; Wt 55.2 kg
[~2017-02-23 13:15] MED LIST changes: -ASPEC81 PO; +ASPI81TA28 PO; +ATOR-24 PO; +CEFAZOLIN 1000MG/55 ML D5W IV SCH; +CEFAZOLIN IV 1,000 MG in DEXTROSE 5% 50ML IV SCH; +CEFU1TAB35 PO; -CHIA1POW PO; +COEN1CAP17 PO; +DOXY-300 PO; +ENAL2.5T PO; +FLAXPOW2 PO; +LACTATED RINGER'S 1000ML IV SCH; +LEVO100T7 PO; -LEVO150T PO; -LPT40 PO; -PLV75 PO
--- NOTE | 2017-02-23 14:36 | History & Physical Bridge Note ---
H&P Re-Evaluation Bridge Note: I have examined the patient, reviewed the History & Physical and in the interval since the performance of the History & Physical I have noted the following changes of clinical significance: No changes noted
--- NOTE | 2017-02-23 14:36 | Procedure Note ---
Pre-Mod Sedation Assessment General Date of Moderate Sedation: Feb 23, 2017. Vital Signs: Vital Signs Past 12 Hours Date Time Temp Pulse Resp B/P (MAP) Pulse Ox O2 Delivery O2 Flow Rate FiO2 02/23/17 13:44 36.7 45 20 109/60 (76) 100 Room Air Review Cardiovascular: regular rate, rhythm, + bradycardia Abdomen: soft Lungs: lungs clear Airway Class: II Pre-Sedation Airway Assessment Oral Cavity: WNL Short Thick Neck: No Hx of Sleep Apnea: No Smoking Status: Former Smoker Mallampati Classification: Class II ASA Classification: Class II Procedure Planning Contraindications-for Mod Sed: None Yes Notes The planned sedation has been discussed with the patient and consent obtained. I have identified the patient, determined the appropriateness of sedation and have assessed the patient immediately prior to the procedure. All medicine(s) and interventions are by my order.
[2017-02-23] MEDS ORDERED: BACITRACIN 50000 UNIT VIAL ONE (14:56)
[2017-02-23] MEDS ORDERED: LIDOCAINE HCL 1% 20 ML VIAL ONE (14:56)
[2017-02-23] MEDS ORDERED: MIDAZOLAM HCL 5 MG/ML 1 ML VIAL ONE (15:07)
[2017-02-23] MEDS ORDERED: FENTANYL CITRATE INJ 50 MCG/1 ML 2 ML VIAL ONE (15:07)
[2017-02-23] MEDS ORDERED: NITROGLYCERIN 0.4 MG SL PER TAB CHARGE UT SCH (17:00)
[2017-02-23] MEDS ORDERED: ACETAMINOPHEN 325 MG TAB PO PRN (17:00)
--- NOTE | 2017-02-23 17:03 | Procedure Note ---
Post-Mod Sedation Assessment General Date of Moderate Sedation Feb 23, 2017. Vital Signs: Vital Signs Past 12 Hours Date Time Temp Pulse Resp B/P (MAP) Pulse Ox O2 Delivery O2 Flow Rate FiO2 02/23/17 16:45 60 16 119/70 (86) 100 Mask 02/23/17 13:44 36.7 45 20 109/60 (76) 100 Room Air Review - Discharge Criteria Vital Signs Stable: Yes Alert/Oriented/Conversant: Yes Returned to Baseline Mental St: Yes Nausea Absent/Minimal: Yes Pain/Discomfort/Absent/Minimal: Yes Normal/Baseline Respirations: Yes Active Bleeding?: No Pt Received D/C Instructions: N/A Prescriptions Given: None Specific Proced. D/C Criteria Distal Pulses Present (Cardiac: N/A Groin site assessed-Card Cath: N/A Voided Prior To Discharge: N/A Discharged Patients Adult Escort/Transportation: N/A
--- NOTE | 2017-02-23 17:04 | [facility] Post Operative Brief Note ---
Immediate Operative Summary Operative Date Feb 23, 2017. Pre-Operative Diagnosis ICM, SINUS BRADYCARDIA Post-Operative Diagnosis SAME Procedure(s) Performed DUAL CHAMBER RATE RESPONSIVE ICD Surgeon ABDOULAYE BREEN Label Press Operator Surgeon(s) NONE Estimated Blood Loss <20CC Findings SEE OFFICIAL REPORT Fluids (cc crystalloids) 250CC Specimens NONE Drains NONE Anesthesia 5MG VERSED AND 100MCG FENTATNYL Complication(s) None Disposition PCU
[2017-02-23] MEDS ORDERED: CRD200 PO (17:05)
[2017-02-23] MEDS ORDERED: TPRSR25 PO (17:05)
--- NOTE | 2017-02-23 17:06 | Discharge Instructions ---
Discharge Instructions Date of Service Feb 23, 2017. Admission Reason for Admission: Ischemic Cardiomyopathy Discharge Discharge Diagnosis / Problem: ICM, SINUS BRADYCARDIA Discharge Goals Goal(s): Improve function Activity Recommendations Activity Limitations: as noted below Lifting Limitations: no more than 10 pounds (DO NOT LIFT THE LEFT ELBOW OVER THE LEFT SHOULDER FOR 1 MONTH; DO NOT LIFT MORE THAN 10 POUNDS WITH THE LEFT ARM FOR 2 WEEKS) Shower/Bathe: tomorrow Driving or Machine Use: resume 1 day after discharge . Instructions / Follow-Up Instructions / Follow-Up ACTIVITY RECOMMENDATIONS: * Do not raise affected arm over head for 4 weeks. SPECIAL CARE INSTRUCTIONS: * If bleeding occurs, apply direct pressure to area for 5 minutes. * Call your doctor if you have severe pain, fever, drainage or bleeding at site. * Keep dressing on and dry for 24 hours then remove. * Keep any scheduled doctor's appointment. * Implant Card - hand held device with website information given. SKIN IRRITATION: * You may experience some redness and/or swelling in the area where radiation was administered. If any skin irritation occurs, please contact your family physician. FOLLOW UP VISIT: Keep any scheduled doctor appointments. Current Hospital Diet Patient's current hospital diet: AHA Diet (Heart Healthy), Low Sodium Diet (2gm Na) Discharge Diet Recommended Diet: AHA Diet (Heart Healthy), Low Sodium Diet (2gm Na) Procedures Procedures Performed: DUAL CHAMBER RATE RESPONSIVE ICD Pending Studies Studies pending at discharge: no Medical Emergencies . Who to Call and When: Medical Emergencies: If at any time you feel your situation is an emergency, please call 911 immediately. . Non-Emergent Contact Non-Emergency issues call your: Mechanical Maintenance Instructor . . "Provider Documentation" section prepared by Manda Waite. . VTE Core Measure Inpt VTE Proph given/why not?: Chino Nieves
--- NOTE | 2017-02-23 17:12 | Discharge Summary ---
Discharge Summary Date of Service Feb 23, 2017. Discharge Summary Admission Date: 02/23/2017 Discharge Date: Feb 24, 2017 Discharge Disposition: Home Principal Diagnosis: ICM SINUS BRADYCARDIA Secondary Diagnoses/Problems: CAD H/O PCI TO LAD AND RCA 2BMS TO MID AND PROX RCA HLD MILD MR CKD STAGE III Procedures: DUAL CHAMBER RATE RESPONSIVE ICD Medication Reconciliation New Medications: Metoprolol Succinate (Metoprolol Succinate ER) 25 Mg Tabcr 25 MG PO QAM for 30 Days, #30 Continued Medications: Aspirin (Aspirin Ec) 81 Mg Tab 81 MG PO DAILY Atorvastatin (Lipitor) 40 Mg Tab 40 MG PO DAILY, TAB Cholecalciferol (Vitamin D 1000 Unit) 1,000 Unit Cap 1000 INTER.UNIT PO TID, CAP Coenzyme Q10 (Ubidecarenone) (Co Q 10) 100 Mg Cap 300 MG PO DAILY Cyanocobalamin (Vitamin B12) 1,000 Mcg Tab 1000 MCG PO DAILY Enalapril Maleate (Vasotec) 2.5 Mg Tab 0.5 TAB PO BID, #90 Flaxseed (Linseed) (Flax Seeds) 1 Pow Pow 2 TBS PO BID Folic Acid (Folic Acid) 800 Mcg Tab 800 MCG PO DAILY Levothyroxine Sodium (Levothyroxine Sodium) 100 Mcg Tab 100 MCG PO DAILY, #90 Nitroglycerin (Nitrostat) 0.4 Mg Tab 0.4 MG UT PRN, BTL Admission Information Physical Exam (per Admitting): aaox3, NAD Supple, No JVD Nrl S1/S2, bradycardia cta b/l no w/r/r soft nt/nd no edema b/l le no focal deficits skin intact Hospital Course pt admitted for elective icd due to icm and sinus bradycardia. Pt underwent procedure without any complications. Monitored overnight and discharged home following morning. Restarted back on toprol. Total time spent on discharge = 30 minutes This includes examination of the patient, discharge planning, medication reconciliation, and communication with other providers. Discharge Instructions ACTIVITY RECOMMENDATIONS: * Do not raise affected arm over head for 4 weeks. SPECIAL CARE INSTRUCTIONS: * If bleeding occurs, apply direct pressure to area for 5 minutes. * Call your doctor if you have severe pain, fever, drainage or bleeding at site. * Keep dressing on and dry for 48 hours then remove. * Keep any scheduled doctor's appointment. * Implant Card - hand held device with website information given. SKIN IRRITATION: * You may experience some redness and/or swelling in the area where radiation was administered. If any skin irritation occurs, please contact your family physician. FOLLOW UP VISIT: Keep any scheduled doctor appointments.
--- NOTE | 2017-02-23 18:24 | OPERATIVE REPORT ---
DATE OF OPERATION: 02/23/2017 PREOPERATIVE DIAGNOSES: Sinus bradycardia and ischemic cardiomyopathy. POSTOPERATIVE DIAGNOSES: Same. PROCEDURE: Dual chamber rate responsive implantable cardiac defibrillator under fluoroscopic guidance. SURGEON: Manda Waite DO SPA MANAGER: None. ANESTHESIA: Moderate conscious sedation was given under my supervision by Yuan Shine, start time 15:16, end times 6-45, a total of 5 mg of Versed and a 100 mcg of fentanyl. INTRAVENOUS FLUIDS: 250 mL. ANTIBIOTICS: 1 gram Ancef. BLOOD LOSS: Less than 20 mL. COMPLICATIONS: None. CONDITION: Stable. URINE OUTPUT: Not applicable. SPECIMENS: None. FINDINGS: See below. DRAINS: None. INDICATIONS FOR PROCEDURE: This is a 71-year-old gentleman who has a past medical history for ischemic cardiomyopathy, ejection fraction 20-25%, sinus bradycardia, history of VT previously reported to be amiodarone, although he does not remember it, but this was stopped secondary to sinus bradycardia, coronary artery disease, history of PCI to the LAD and RCA as well as 2 bare metal stents to the mid and proximal RCA in 2014, hyperlipidemia, mild mitral regurgitation, chronic kidney disease stage III. Due to his sinus bradycardia, ischemic cardiomyopathy, he was recommended a dual chamber implantable cardiac defibrillator. CONSENT: Consent was obtained prior to the patient going into the electrophysiology lab. The patient was informed of risks, benefits, alternatives of procedure not limited to sudden cardiac ; cardiac arrhythmias; cerebrovascular accident; myocardial infarction; injury to the blood vessels, chamber of the heart, lungs, bleeding and infection. The patient understood and agreed to go to the procedure as planned. Informed consent was obtained. DESCRIPTION OF THE PROCEDURE: The patient was brought into the electrophysiology lab in a fasting state. He was connected to continuous cardiac catheterization technician. A timeout was performed to ensure patient's identity and procedure correctly. The patient was prepped and draped over the left subclavian space in normal surgical standard fashion. Moderate sedation was given throughout. [place] precautions were maintained throughout the procedure. A 10 mL of 1% lidocaine, bupivacaine mixture were given in the left deltopectoral groove. Incision was made within left deltopectoral groove. Dissection was identified cephalic vein. The cephalic vein was identified and isolated using 0 silk ties. It was nicked with an 11 blade and the guidewire was inserted without any resistance. The 8-Israeli sheath was inserted over the guidewire without any resistance and the dilator was removed. A second guidewire was inserted through the 8-Israeli sheath to allow for retained venous access. The sheath was removed and a 9.5-Israeli sheath was inserted over the guidewire resistance. The guidewire and dilator were removed. The right ventricular defibrillator lead was then advanced into the right ventricle and positioned into the right ventricular apex under fluoroscopic guidance. There was adequate pacing and sensing thresholds and no diaphragmatic stimulation with high output pacing. The 9.5 sheath was peeled away and lead was fixated to pectoralis muscle using 0 silk suture. The 8-Israeli sheath was then advanced over this retained guidewire without any resistance. The guidewire and dilator were removed. The right atrial pacing lead was advanced into the right atrium. I initially had a blue dye, then I tried a white, then I tried the rader and at one point, we thought maybe on the lateral wall it would work, but then sludge. I then with the rader found to have , but then that did give me adequate, so I ultimately ended up using the blue dye, got into the appendage. We had stable sensing and thresholds, no diaphragmatic stimulation with high output pacing. The 8-Israeli sheath was peeled away and lead was fixated to the pectoralis muscle using 0 silk suture. A defibrillator pocket was then created over the pectoralis muscle within the fascia using blunt dissection. The area was flushed with bacitracin saline wash and inspected for hemostasis. The defibrillator was then attached to the leads making sure that the pins were in appropriate position, passed the set screws and the set screws were all tightened. A stay stitch using 0 silk suture was used to secure the device to the pectoralis muscle. There was a little bit more oozing than I liked, so I did used the Aristastat in the pocket and the incision was closed using a 2-0 Vicryl interrupted suture, followed by a 3-0 Vicryl interrupted suture, followed by a 4-0 Monocryl running stitch and Dermabond was applied and I followed them by a pressure dressing. EQUIPMENT: 1. Defibrillator Medtronic Evera MRI XT DR Hernandez [id number], serial number [id number]. 2. Atrial lead Medtronic 5076-52 cm, serial number [id number]. 3. Right ventricular lead Medtronic 6935M-62 cm, serial [id number]. INTRAOPERATIVE TESTIN. Right atrial lead: P waves 1.8 millivolts, impedance 524 ohms, threshold 0.5 volts at 1.2 milliamp. 2. Right ventricular lead: R-wave 14.0 millivolts, impedance 582 ohms, threshold 0.6 volts at 0.9 milliamps. FINAL MEASUREMENTS THROUGH THE DEVICE: 1. Right atrial lead: P-waves 1.8 millivolts, impedance 300 ohms, threshold 1 volt at 0.4 milliseconds. 2. Right ventricular lead 18.8 millivolts, impedance 513 ohms, threshold 0.5 volts at 0.4 milliseconds. 3. RV coil 53 ohms. FINAL PARAMETERS: 1. MP-R 60/130. Right atrial and right ventricular amplitude 3.5 volts, thresholds 4 milliseconds, sensitivity 0.3 millivolts. 2. A monitor VT zone at 140 beats per minute with 13 detection intervals. zone at 160 with heart rate of 76 beats per minute detection intervals. VF zone of 200 minute with 30/40 detection intervals. IMPRESSION: Successful implantation of a dual chamber implantable rate responsive cardiac defibrillator under fluoroscopic guidance secondary to sinus bradycardia and ischemic cardiomyopathy. PLAN: Monitor patient overnight, 12-lead ECG, chest x-ray. He can continue the medication. I will start him back on his beta kojo, metoprolol mg daily. I talked him about amiodarone . He is not allowed to lift the left elbow over the left shoulder for 1 month and he is not to lift more than 10 pounds with the left arm for 2 weeks. He should follow up with the [facility] office for a device and wound check in 7-10 days. I attest to the content of the Intraoperative Record and any orders documented therein. Any exception s are noted below.
[2017-02-23] MEDS ORDERED: FLAXSEED PO SCH (21:00)
[2017-02-23] MEDS: CHOLECALCIFEROL 1000 INTER.UNIT TAB PO SCH (21:07)
[2017-02-23] MEDS: ENALAPRIL MALEATE 5 MG TAB PO SCH (21:08)
[2017-02-24] MEDS: ACETAMINOPHEN/CODEINE 300/30MG TAB PO PRN ×2 (00:08→05:48)
[2017-02-24 00:10] VITALS: BP 128/78; PULSE 66; TEMP 36.8; O2SAT 98
[2017-02-24] MEDS ORDERED: IV FLUIDS COMPLETED PRN (01:00)
[2017-02-24 03:44] VITALS: BP 98/58; PULSE 62; TEMP 36.7; O2SAT 97
[2017-02-24] MEDS ORDERED: LEVOTHYROXINE 100 MCG TAB PO SCH (06:00)
--- NOTE | 2017-02-24 07:29 | DIAGNOSTIC IMAGING REPORT ---
TWO VIEW CHEST CLINICAL HISTORY: Cardiac pacemaker implantation. FINDINGS: PA and lateral chest radiographs are compared to study dated 01/24/2017. A 2-lead cardiac AICD has been placed and partially obscures the left upper chest. Leads project over the right atrial appendage and the right ventricle. The heart is enlarged and there is atherosclerotic calcification of the thoracic aorta. The pulmonary vasculature is noncongested. Chronic interstitial thickening is similar to previous. Emphysematous change is suspected. There is a questionable nodular density in the left lower lobe along the left heart border. No airspace consolidation or pleural effusion is identified. There is no pneumothorax. The skeletal structures are osteopenic. The bony thorax appears intact. Degenerative change is seen throughout the thoracic spine. IMPRESSION: 1. A 2-lead cardiac AICD has been placed as detailed above. No pneumothorax is identified post procedure. 2. Cardiomegaly without radiographic evidence of congestive failure. 3. Suspect obstructive physiology. No airspace consolidation or pleural effusion is identified. 4. There is a questionable nodular density in the left lower lung along left cardiac border. This is nonspecific and may represent overlying soft tissues. Correlation with a chest CT is recommended for confirmation and to exclude underlying pulmonary lesion. Electronically signed by: Roger Pappas M.D. 02/24/2017 7:27 AM Dictated Date/Time: 02/24/2017 7:24 AM
[2017-02-24] MEDS: ENALAPRIL MALEATE 5 MG TAB PO SCH (07:30)
[2017-02-24] MEDS: CHOLECALCIFEROL 1000 INTER.UNIT TAB PO SCH (07:30)
[2017-02-24 08:01] VITALS: BP 99/63; PULSE 59; TEMP 36.9; O2SAT 98
[2017-02-24] MEDS ORDERED: COENZYME Q10 300 MG PO SCH (09:00)
[2017-02-24] MEDS ORDERED: METOPROLOL SUCC 25MG EXT REL TAB PO SCH (09:00)
[2017-02-24] MEDS ORDERED: AMIODARONE 200 MG TAB PO SCH (09:00)
[2017-02-24] MEDS ORDERED: ATORVASTATIN 40 MG TAB PO SCH (09:00)
[2017-02-24] MEDS ORDERED: CYANOCOBALAMIN 500 MCG TAB (VIT B-12) PO SCH (09:00)
[2017-02-24] MEDS ORDERED: FoLIC ACID TAB 400 MCG TAB PO SCH (09:00)
[2017-02-24] MEDS ORDERED: ASPIRIN 81 MG ECTAB PO SCH (09:00)
--- NOTE | 2017-02-24 10:04 | Cardiology Follow-Up ---
Subjective General Date of Service: Feb 24, 2017. Chief Complaint: s/p pacemaker/ICD Pt evaluation today including: conversation w/ patient, physical exam, chart review, lab review, review of studies, review of inpatient medication list History of Present Illness Patient feeling well this AM. No significant incisional pain. Incision appears dry and intact under dressing. No chest pain or palpitations. No dizziness. Telemetry reviewed - Predominantly atrial pacing. PVC's with intermittent non sustained VT noted. asymptomatic. Allergies Coded Allergies: No Known Allergies (Unverified , 02/23/17) Social History Smoking Status: Former Smoker Hx Tobacco Use In Past Year?: No Hx Alcohol Use - Type And Amou: No Hx Substance Use - Type And Am: No Problem List Medical Problems: (1) Pneumonia Status: Acute Review of Systems Respiratory: No cough, No sputum, No wheezing, No shortness of breath, No dyspnea at rest, No hemoptysis Cardiac: No chest pain, No orthopnea, No PND, No edema, No palpitations Physical Exam Vital Signs Last Vital Signs Documentation Date Time Temp Pulse Resp B/P (MAP) Pulse Ox O2 Delivery O2 Flow Rate FiO2 02/24/17 08:01 36.9 59 18 99/63 (75) 98 Room Air Physical Exam Constitutional: General Apperance: heathly-appearing Level of Distress: NAD Psychiatric: Mental Status: active & alert Orientation: to time, to place, to person Head: normocephalic Eyes: Pupils: PERRLA Neck: supple Lungs: Respiratory effort: no dyspnea Auscultation: no wheezing, no rales/crackles Cardiovascular: Apical Impulse: not displaced Heart Auscultation: RRR, normal S1, normal S2, II/ KARIME Extremities: no edema Assessment and Plan Assessment and Plan 71 year old male 1. S/P dual chamber pacemaker/ICD implant. -tolerated procedure 2. Non sustained VT, history of with PVC's -Metoprolol succinate started - prescription sent to pharmacy -? previously on amiodarone, stopped due to bradycardia. Patient does not believe he has been taking in awhile. 3. History of ischemic cardiomyopathy 4. Abnormal Chest xray this AM - There is a questionable nodular density in the left lower lung along left cardiac border. This is nonspecific and may represent overlying soft tissues. Correlation with a chest CT is recommended for confirmation and to exclude underlying pulmonary lesion. -He was recently treated for pneumonia. -No symptoms currently -recommend f/u with PCP office in several weeks for re-evaluation - consider repeat chest xray or CT scan - will be unable to lift arm above head for imaging for 30 days. 1 week device check - already scheduled.\ Keep f/u with cardiology as scheduled as well. CARDIOLOGY ATTENDING ADDENDUM: The patient was seen and personally examined. Agree with Radha Brewster PA-C's findings and plans as documented above.
[2017-02-24 11:08] VITALS: BP 96/57; PULSE 69; TEMP 36.8; O2SAT 97
== END 2017-02-24 12:52 | disposition home or self-care (01) ==
LOC: C.ACU 13:15 → ENRESERV 16:11 → C.2E 17:02
PROVIDERS: ADMIT Internal Medicine; ATTEND Internal Medicine
DX: I25.5 Ischemic cardiomyopathy (principal); R00.1 Bradycardia, unspecified; I25.10 Atherosclerotic heart disease of native coronary artery without angina pectoris; E78.5 Hyperlipidemia, unspecified; N18.3 Chronic kidney disease, stage 3 (moderate); E03.9 Hypothyroidism, unspecified; Z79.899 Other long term (current) drug therapy; Z79.82 Long term (current) use of aspirin; Z87.891 Personal history of nicotine dependence; Z95.5 Presence of coronary angioplasty implant and graft

== ENCOUNTER 2020-12-15 19:00 | Observation (INO) ==
[2020-12-15] MEDS ORDERED: SODIUM CHLORIDE 0.9% 500 ML IV STA (19:10)
[2020-12-15] MEDS ORDERED: ONDANSETRON INJ 2 MG/ML 2 ML VIAL IV STA (19:10)
--- NOTE | 2020-12-15 19:17 | Emergency Department Note ---
Impression & Plan Abdominal pain, Diarrhea, Near syncope ED Provider Note Provider: Daron Quiles MD DATE OF SERVICE: 12/15/2020 CHIEF COMPLAINT: Abdominal pain HISTORY OF PRESENT ILLNESS: Patient is a 75-year-old gentleman history of CAD and cardiomyopathy with AICD presenting via ambulance today from his home where he lives alone with lower abdominal discomfort and a stomachache. Patient states this started today. Patient states he had a bowel movement approximately 3 days and thought that he may be constipated. Given this he took 2 tablets of Dulcolax just after lunch today. Shortly after he had experienced lower abdominal discomfort. Did have some nausea yesterday and then today. Was able to eat breakfast today. States he felt unsteady at home and like he was going to fall but did not fall. This happened several times. Patient's denies striking his head. States he is a history of some vertigo which has been unchanged. EMS report that he was so pale and diaphoretic for them with initial blood pressure of 77/49. Patient was given 600 mL of IV fluid prior to arrival and patient states upon arrival that he is feeling quite chilly and shaking. Patient denies fever at home but states he did feel a bit chilly at home but not having the shakes like now. Patient reports he has had his appendix removed. Patient lives at home alone. Patient denies chest pain or shortness of breath. REVIEW OF SYSTEMS: A total of 10 review of systems was obtained and negative except as stated above in the HPI. PAST MEDICAL HISTORY: As noted above MEDICATIONS: Reviewed home medication list SOCIAL HISTORY: Lives at home by himself PHYSICAL EXAM: GENERAL: alert and oriented on the stretcher with some mild rigors. Head: normocephalic and atraumatic EYES: No injection, discharge or icterus. PERRL NECK: Trachea midline. Supple. ENT: Mucous membranes pink and moist. LUNGS: Airway patent. No retractions. Breath sounds clear with good air entry bilaterally. HEART: Tachycardic rate and rhythm. No chest wall tenderness with a left upper chest wall AICD in place ABDOMEN: Soft with minimal lower abdominal tenderness. Not peritoneal without guarding. SKIN: Acyanotic, warm, dry, without rashes EXTREMITIES: Without swelling, tenderness or deformity NEUROLOGICAL: No focal deficits moving all extremities to command but is experiencing some tremors. No aphasia. No facial droop or slurred speech. Ambulatory here with a little bit unsteady on his feet EK bpm atrially paced rhythm without PVC. Some nonspecific lateral T wave changes noted without clear acute ST segment elevation or other depression noted. CONTINUOUS CARDIAC MONITORING: was ordered and showed a heart rate of bpm in atrially paced rhythm 1 view chest x-ray: No evidence of acute pneumonia, pulmonary edema, pneumothorax Patient's laboratory studies and imaging reviewed. Differential includes Infection, dehydration, metabolic abnormality, hypo/hyperglycemia, electrolyte disturbance, anemia, hypoxia, cardiac sources, intracerebral event, toxicologic, neurologic, as well as other pathologies. IMPRESSION/MEDICAL DECISION MAKING: Patient reports approximately 3 days of no bowel movement with some developing lower abdominal pain today predominantly after taking several tablets of Dulcolax. Patient reports nausea yesterday and today. Denies fever but does report little bit of chills at home he states now with active shaking upon arrival. Received IV fluid prior to arrival. Was somewhat diaphoretic and hypotensive for EMS upon their arrival per the report. Patient's blood pressure is improved here but somewhat tachycardic. Denies any chest pain or shortness of breath. Water was ordered. CT scan of the abdomen pelvis will be obtained. Symptoms could be related to the Dulcolax he took to stimulate a bowel movement. Is not having significant diffuse abdominal tenderness I expect with hemoperitoneum or perforation. Question if a possible infectious etiology is occurring as well given his rigors upon arrival but again he is afebrile. No anemia or leukocytosis. No severe electrolyte abnormality but lactate is elevated 3.1. Troponin is negative. EKG questions a little bit of some lateral T wave changes the patient not having chest pain. Interrogation without significant abnormality noted. Patient does relay some near syncopal episodes earlier and here has had copious amounts of diarrhea. Doubt this is C. difficile given the clinical history. Trace amount of blood was noted later with his last bowel movement. Patient states his abdominal pain is improving. CT scan was reassuring. Covid test was negative. Patient given some IV fluid hydration here. Given his significant diarrhea felt hesitant to go home given earlier events and significant mount of diarrhea. I doubt GI bleed. Given his age and the fact he lives alone I feel is reasonable to monitor him overnight resolution of his diarrhea symptoms. Believe a large component of this is related to the laxative he took earlier and will hopefully wear off over the course of the night. Hospitalist contacted. DIAGNOSIS: Abdominal pain, diarrhea, near syncope DISPOSITION: Hospitalist will evaluate Patient was agreeable with this plan. Preliminary Findings Only See Final Report For Complete Findings CT ABDOMEN & PELVIS With Contrast: Diffuse respiratory motion artifact. No acute findings. No evidence of bowel obstruction. The appendix is not identified. No evidence of diverticulitis. No abnormal fluid or regional inflammatory reaction. Radiologist: Efren Holden MD Study ready at 23:04 and initial results transmitted at 23:22 Past Med/Surg History Medical History (Updated 12/16/20 @ 00:25 by Daron Quiles M.D.) Cardiac ischemia Coronary artery disease Hypotension Ischemic cardiomyopathy Myocardial infarction Pacemaker Pneumonia Wide-complex tachycardia Surgical History H/O cardiac catheterization Stented coronary artery Family History Other Family history non-contributory Social History Smoking Status: Former smoker Tobacco Type: Cigarettes Preferred Language: Belarusian marital status: Single Current Living Situation: Alone current occupational status: retired Feels Safe at Home: Yes Allergies Allergies Allergy/AdvReac Type Severity Reaction Status Date / Time No Known Allergies Allergy Unverified 12/15/20 19:45 Home Meds Home Medications Medication Instructions Recorded Confirmed aspirin 81 mg tablet,delayed 81 mg PO DAILY 08/27/18 12/15/20 release (Aspirin Low Dose) atorvastatin 40 mg tablet 40 mg PO DAILY 08/27/18 12/15/20 cholecalciferol (vitamin D3) 25 1,000 unit PO DAILY 08/27/18 12/15/20 mcg (1,000 unit) capsule (Vitamin D3) enalapril maleate 2.5 mg tablet 2.5 mg PO DAILY 08/27/18 12/15/20 flaxseed oil 1,000 mg capsule 1,000 mg PO BID 08/27/18 12/15/20 levothyroxine 100 mcg tablet 100 mcg PO DAILY 08/27/18 12/15/20 metoprolol succinate 25 mg 25 mg PO DAILY 08/27/18 12/15/20 tablet,extended release 24 hr nitroglycerin 0.4 mg sublingual 0.4 mg SUBLINGUAL DIRECTED 08/27/18 12/15/20 tablet multivitamin 1 tab PO DAILY 12/15/20 12/15/20 Results & Data (ED) Vital Signs Vital Signs - 24 hr 12/15/20 19:08 12/15/20 19:31 12/15/20 20:21 Temperature 36.5 C Temperature Source Oral Pulse Rate 112 H 94 H 120 H Pulse Rate from SpO2 Sensor 94 H Pulse Rhythm Regular Pulse Strength Normal Respiratory Rate 32 H 24 31 H Respiratory Effort / Characteristics Non-Labored Spontaneous Respiratory Depth Normal Respiratory Pattern Regular Blood Pressure 113/68 111/64 Blood Pressure Mean 83 79 Blood Pressure Position Lying Pulse Oximetry 95 95 Oxygen Delivery Method Room Air Sepsis Recent Fever Within 48 Hours No Sepsis New/Unexplained Change in Mental Status No Sepsis Action Taken by Nursing No Action Required 12/15/20 20:30 12/15/20 21:00 12/15/20 21:30 Temperature Temperature Source Pulse Rate 118 H 79 77 Pulse Rate from SpO2 Sensor 121 H 81 77 Pulse Rhythm Pulse Strength Respiratory Rate 21 18 18 Respiratory Effort / Characteristics Respiratory Depth Respiratory Pattern Blood Pressure 119/61 131/75 129/78 Blood Pressure Mean 80 93 95 Blood Pressure Position Pulse Oximetry 84 L 100 99 Oxygen Delivery Method Sepsis Recent Fever Within 48 Hours Sepsis New/Unexplained Change in Mental Status Sepsis Action Taken by Nursing 12/15/20 22:15 12/15/20 22:30 12/15/20 23:01 Temperature Temperature Source Pulse Rate 93 H 67 76 Pulse Rate from SpO2 Sensor 67 76 Pulse Rhythm Pulse Strength Respiratory Rate 16 20 25 H Respiratory Effort / Characteristics Respiratory Depth Respiratory Pattern Blood Pressure 135/79 Blood Pressure Mean 97 Blood Pressure Position Pulse Oximetry 98 98 Oxygen Delivery Method Sepsis Recent Fever Within 48 Hours Sepsis New/Unexplained Change in Mental Status Sepsis Action Taken by Nursing 12/15/20 23:30 12/16/20 00:00 12/16/20 00:30 Temperature Temperature Source Pulse Rate 68 69 Pulse Rate from SpO2 Sensor 68 Pulse Rhythm Pulse Strength Respiratory Rate 23 23 Respiratory Effort / Characteristics Respiratory Depth Respiratory Pattern Blood Pressure 135/74 150/85 H 131/89 Blood Pressure Mean 94 106 103 Blood Pressure Position Pulse Oximetry 97 Oxygen Delivery Method Sepsis Recent Fever Within 48 Hours Sepsis New/Unexplained Change in Mental Status Sepsis Action Taken by Nursing Laboratory Data Result diagrams: 12/16/20 00:40 12/15/20 19:17 Lab Results 12/15/20 12/15/20 12/15/20 Range/Units 19:17 19:17 19:17 WBC 9.96 (4.8-10.8) K/uL RBC 4.54 L (4.7-6.1) M/uL Hgb 14.7 (14.0-18.0) g/dL Hct 41.6 L (42-52) % MCV 91.6 (80-100) fL MCH 32.4 (25-34) pg MCHC 35.3 (32-36) g/dL RDW Std Deviation 42.7 (36.4-46.3) fL RDW Coeff of Kim 12.6 (11.5-14.5) % Plt Count 172 (130-400) K/uL MPV 9.3 (7.4-10.4) fL Immature Gran % (Auto) 0.1 % Neut % (Auto) 83.2 % Lymph % (Auto) 8.1 % Cowley % (Auto) 6.6 % Eos % (Auto) 1.7 % Baso % (Auto) 0.3 % Neut # (Auto) 8.28 H (1.4-6.5) K/uL Lymph # (Auto) 0.81 L (1.2-3.4) K/uL Cowley # (Auto) 0.66 H (0.11-0.59) K/uL Eos # (Auto) 0.17 (0-0.5) K/uL Baso # (Auto) 0.03 (0-0.2) K/uL Immature Gran # (Auto) 0.01 (0.00-0.02) K/uL Sodium 136 (136-145) mmol/L Potassium 4.1 (3.5-5.1) mmol/L Chloride 105 (98-107) mmol/L Carbon Dioxide 25 (21-32) mmol/L Anion Gap 5.0 (3-11) BUN 19 H (7-18) mg/dl Creatinine 1.21 (0.6-1.4) mg/dl Est Cr Clr Drug Dosing 48.5 ml/min Est GFR ( Amer) 66.5 ml/min Est GFR (Non-Af Amer) 57.4 ml/min BUN/Creatinine Ratio 16.0 (10-20) Glucose 137 H (70-99) mg/dl Lactate 3.1 H* (0.4-2.0) mmol/L Calcium 9.0 (8.5-10.1) mg/dl Magnesium 2.2 (1.8-2.4) mg/dl Total Bilirubin 0.5 (0.2-1) mg/dl AST 18 (15-37) U/L ALT 31 (12-78) U/L Alkaline Phosphatase 62 (45-117) U/L Troponin I < 0.015 (0-0.045) ng/ml Total Protein 7.6 (6.4-8.2) gm/dl Albumin 3.6 (3.4-5.0) gm/dl Globulin 4.0 (2.5-4.0) gm/dl Albumin/Globulin Ratio 0.9 (0.9-2) Lipase 178 (73-393) U/L TSH 2.420 (0.300-4.500) uIu/ml Urine Color Urine Appearance (Clear) Urine pH (4.5-7.5) Ur Specific [place] (1.000-1.030) Urine Protein (Negative) Urine Glucose (UA) (Negative) Urine Ketones (Negative) Urine Blood (Negative) Urine Nitrite (Negative) Urine Bilirubin (Negative) Urine Urobilinogen (Negative) Ur Leukocyte Esterase (Negative) COVID-19 Eval Order SARS-CoV-2 (PCR) (Negative) 12/15/20 12/15/20 12/15/20 Range/Units 20:54 20:54 22:21 WBC (4.8-10.8) K/uL RBC (4.7-6.1) M/uL Hgb (14.0-18.0) g/dL Hct (42-52) % MCV (80-100) fL MCH (25-34) pg MCHC (32-36) g/dL RDW Std Deviation (36.4-46.3) fL RDW Coeff of Kim (11.5-14.5) % Plt Count (130-400) K/uL MPV (7.4-10.4) fL Immature Gran % (Auto) % Neut % (Auto) % Lymph % (Auto) % Cowley % (Auto) % Eos % (Auto) % Baso % (Auto) % Neut # (Auto) (1.4-6.5) K/uL Lymph # (Auto) (1.2-3.4) K/uL Cowley # (Auto) (0.11-0.59) K/uL Eos # (Auto) (0-0.5) K/uL Baso # (Auto) (0-0.2) K/uL Immature Gran # (Auto) (0.00-0.02) K/uL Sodium (136-145) mmol/L Potassium (3.5-5.1) mmol/L Chloride (98-107) mmol/L Carbon Dioxide (21-32) mmol/L Anion Gap (3-11) BUN (7-18) mg/dl Creatinine (0.6-1.4) mg/dl Est Cr Clr Drug Dosing ml/min Est GFR ( Amer) ml/min Est GFR (Non-Af Amer) ml/min BUN/Creatinine Ratio (10-20) Glucose (70-99) mg/dl Lactate (0.4-2.0) mmol/L Calcium (8.5-10.1) mg/dl Magnesium (1.8-2.4) mg/dl Total Bilirubin (0.2-1) mg/dl AST (15-37) U/L ALT (12-78) U/L Alkaline Phosphatase (45-117) U/L Troponin I (0-0.045) ng/ml Total Protein (6.4-8.2) gm/dl Albumin (3.4-5.0) gm/dl Globulin (2.5-4.0) gm/dl Albumin/Globulin Ratio (0.9-2) Lipase (73-393) U/L TSH (0.300-4.500) uIu/ml Urine Color Dark Yellow Urine Appearance Clear (Clear) Urine pH 5.5 (4.5-7.5) Ur Specific [place] 1.017 (1.000-1.030) Urine Protein Negative (Negative) Urine Glucose (UA) Negative (Negative) Urine Ketones 1+ H (Negative) Urine Blood Negative (Negative) Urine Nitrite Negative (Negative) Urine Bilirubin Negative (Negative) Urine Urobilinogen Negative (Negative) Ur Leukocyte Esterase Negative (Negative) COVID-19 Eval Order Covid19 at [facility] SARS-CoV-2 (PCR) NEGATIVE (Negative) 12/16/20 12/16/20 Range/Units 00:40 00:40 WBC (4.8-10.8) K/uL RBC (4.7-6.1) M/uL Hgb 13.9 L (14.0-18.0) g/dL Hct 38.7 L (42-52) % MCV (80-100) fL MCH (25-34) pg MCHC (32-36) g/dL RDW Std Deviation (36.4-46.3) fL RDW Coeff of Kim (11.5-14.5) % Plt Count (130-400) K/uL MPV (7.4-10.4) fL Immature Gran % (Auto) % Neut % (Auto) % Lymph % (Auto) % Cowley % (Auto) % Eos % (Auto) % Baso % (Auto) % Neut # (Auto) (1.4-6.5) K/uL Lymph # (Auto) (1.2-3.4) K/uL Cowley # (Auto) (0.11-0.59) K/uL Eos # (Auto) (0-0.5) K/uL Baso # (Auto) (0-0.2) K/uL Immature Gran # (Auto) (0.00-0.02) K/uL Sodium (136-145) mmol/L Potassium (3.5-5.1) mmol/L Chloride (98-107) mmol/L Carbon Dioxide (21-32) mmol/L Anion Gap (3-11) BUN (7-18) mg/dl Creatinine (0.6-1.4) mg/dl Est Cr Clr Drug Dosing ml/min Est GFR ( Amer) ml/min Est GFR (Non-Af Amer) ml/min BUN/Creatinine Ratio (10-20) Glucose (70-99) mg/dl Lactate 2.1 H* (0.4-2.0) mmol/L Calcium (8.5-10.1) mg/dl Magnesium (1.8-2.4) mg/dl Total Bilirubin (0.2-1) mg/dl AST (15-37) U/L ALT (12-78) U/L Alkaline Phosphatase (45-117) U/L Troponin I (0-0.045) ng/ml Total Protein (6.4-8.2) gm/dl Albumin (3.4-5.0) gm/dl Globulin (2.5-4.0) gm/dl Albumin/Globulin Ratio (0.9-2) Lipase (73-393) U/L TSH (0.300-4.500) uIu/ml Urine Color Urine Appearance (Clear) Urine pH (4.5-7.5) Ur Specific [place] (1.000-1.030) Urine Protein (Negative) Urine Glucose (UA) (Negative) Urine Ketones (Negative) Urine Blood (Negative) Urine Nitrite (Negative) Urine Bilirubin (Negative) Urine Urobilinogen (Negative) Ur Leukocyte Esterase (Negative) COVID-19 Eval Order SARS-CoV-2 (PCR) (Negative) Administered Medications Discontinued Medications Sodium Chloride (Nss) 500 mls @ 999 mls/hr IV .Q31M STA Stop: 12/15/20 19:40 Last Infusion: 12/15/20 20:54 Dose: 0 mls/hr Documented by: [id number] Admin: 12/15/20 20:00 Dose: 999 mls/hr Documented by: [id number] Sodium Chloride (Nss) 500 mls @ 999 mls/hr IV .Q31M ONE Stop: 12/15/20 21:25 Last Infusion: 12/15/20 23:45 Dose: 0 mls/hr Documented by: [id number] Admin: 12/15/20 23:15 Dose: 999 mls/hr Documented by: [id number] Ioversol (Optiray 320 100ml) 94 ml IV ONCE ONE Stop: 12/15/20 21:15 Last Admin: 12/15/20 21:14 Dose: 1 ml Documented by: [id number] Multivitamins/Minerals (Cerovite Adv Formula Tab) 1 tab PO NOW STA Stop: 12/16/20 00:37 Last Admin: 12/16/20 00:55 Dose: 1 tab Documented by: [id number] Ondansetron HCl (Ondansetron Inj 2 Mg/Ml 2 Ml Vial) 4 mg IV NOW STA Stop: 12/15/20 19:11 Last Admin: 12/15/20 20:50 Dose: 4 mg Documented by: [id number] Discharge Plan Visit Data Chief Complaint: Abdominal Pain ED Provider: Etta,Daron T Discharge Problem: Abdominal pain, Diarrhea, Near syncope Patient Disposition: Being Evaluated by Hospitalist Discharge Instructions Interventions: ED Discharge Assessment Last Done: 12/15/20 21:58 Forms Stand Alone Forms: My [facility] Prescriptions Prescriptions: No Action atorvastatin 40 mg tablet 40 mg PO DAILY RF: 0 enalapril maleate 2.5 mg tablet 2.5 mg PO DAILY RF: 0 aspirin [Aspirin Low Dose] 81 mg Tablet,Delayed Release (Dr/Ec) 81 mg PO DAILY RF: 0 levothyroxine 100 mcg tablet 100 mcg PO DAILY RF: 0 flaxseed oil 1,000 mg Capsule 1,000 mg PO BID RF: 0 metoprolol succinate 25 mg tablet extended release 24 hr 25 mg PO DAILY RF: 0 cholecalciferol (vitamin D3) [Vitamin D3] 1,000 unit Capsule 1,000 unit PO DAILY RF: 0 nitroglycerin 0.4 mg Tablet, Sublingual 0.4 mg sublingual DIRECTED RF: 0 multivitamin [Multiple Vitamin] Tablet 1 tab PO DAILY RF: 0 Referrals Referrals: Randell Gómez MD [Primary Care Provider] - Discharge Problem: Abdominal pain Qualifiers: Abdominal location: lower abdomen, unspecified Qualified Code(s): R10.30 - Lower abdominal pain, unspecified Diarrhea Qualifiers: Diarrhea type: unspecified type Qualified Code(s): R19.7 - Diarrhea, unspecified
[2020-12-15 19:46] LABS: Basophils # (auto) 0.03 K/uL (0-0.2); Basophils % (auto) 0.3 %; Eosinophils # (auto) 0.17 K/uL (0-0.5); Eosinophils % (auto) 1.7 %; Hematocrit (blood only) 41.6 % (42-52); Hemoglobin 14.7 g/dL (14.0-18.0); Immature Granulocytes # (auto) 0.01 K/uL (0.00-0.02); Immature Granulocytes % (auto) 0.1 %; Lymphocytes # (auto) 0.81 K/uL (1.2-3.4); Lymphocytes % (auto) 8.1 %; Mean Corpuscular Hemoglobin 32.4 pg (25-34); Mean Corpuscular Hgb Conc 35.3 g/dL (32-36); Mean Corpuscular Volume 91.6 fL (80-100); Mean Platelet Volume 9.3 fL (7.4-10.4); Monocytes # (auto) 0.66 K/uL (0.11-0.59); Monocytes % (auto) 6.6 %; Neutrophils # (auto) 8.28 K/uL (1.4-6.5); Neutrophils % (auto) 83.2 %; Platelet Count 172 K/uL (130-400); RDW Coefficient of Variation 12.6 % (11.5-14.5); RDW Standard Deviation 42.7 fL (36.4-46.3); Red Blood Count 4.54 M/uL (4.7-6.1); White Blood Count 9.96 K/uL (4.8-10.8)
[2020-12-15 20:07] LABS: Alanine Aminotransferase 31 U/L (12-78); Albumin Level 3.6 gm/dl (3.4-5.0); Aspartate Aminotransferase 18 U/L (15-37); Blood Urea Nitrogen 19 mg/dl (7-18); Carbon Dioxide 25 mmol/L (21-32); Chloride 105 mmol/L (98-107); Creatinine Clr Calc Pharmacy 48.5 ml/min; Est GFR (African American) 66.5 ml/min; Est GFR (Non-African American) 57.4 ml/min; Glucose 137 mg/dl (70-99); Lipase 178 U/L (73-393); Potassium 4.1 mmol/L (3.5-5.1); Sodium 136 mmol/L (136-145)
[2020-12-15 20:12] LABS: Albumin Globulin Ratio 0.9 (0.9-2); Alkaline Phosphatase 62 U/L (45-117); Bilirubin,Total 0.5 mg/dl (0.2-1); Total Protein 7.6 gm/dl (6.4-8.2); Troponin I < 0.015 ng/ml (0-0.045)
[2020-12-15] MEDS ORDERED: SODIUM CHLORIDE 0.9% 500 ML IV ONE (20:55)
[2020-12-15] MEDS ORDERED: OPTIRAY 320 100ml IV ONE (21:14)
[2020-12-15 22:37] LABS: Appearance Urine Clear (Clear); Bilirubin Urine Negative (Negative); Blood Urine Negative (Negative); Color Urine Dark Yellow; Glucose Urine UA Negative (Negative); Ketones Urine 1+ (Negative); Leukocyte Esterase Urine Negative (Negative); Nitrite Urine Negative (Negative); Protein Urine Negative (Negative); Specific Gravity Urine 1.017 (1.000-1.030); Urobilinogen Urine Negative (Negative); pH Urine 5.5 (4.5-7.5)
[2020-12-16 00:33] LABS: Magnesium 2.2 mg/dl (1.8-2.4)
--- NOTE | 2020-12-16 00:35 | History & Physical Report ---
Date of Service December 16, 2020 Assessment & Plan (1) Acute lower GI bleeding: Plan: Post laxative diarrhea Rule out C. difficile Some degree of hemodynamic instability prior to arrival at the ER chronic systolic heart failure secondary to ischemic cardiomyopathy (EF 20 to 25%, TTE 2017) sp ICD, patient on the dry side symptomatic bradycardia status post PPM, paced rhythm hypertension, patient currently normotensive although hypotensive at home as per EMS account hyperlipidemia on statin Rx hypothyroidism euthyroid as of today's TSH Hyperglycemia rule out DM past tobacco abuse OBS Medical telemetry IVF, follow lactic acid Stool C. difficile Serial H&H, transfuse PRBC if hemoglobin less than 8 and or for symptomatic anemia Appropriate to hold home aspirin until hemoglobin stable May need GI consultation if with worsening symptoms. Appropriate to hold antihypertensives until BP persistently stable. Check hemoglobin A1c DVT prophylaxis. SCDs RE L GIB Full code Text document was generated using [employer] voice recognition software. It may contain grammatical or spelling errors. Kindly contact undersigned for clarification of any documentation item in question. History of Present Illness Chief Complaint: Abdominal pain, diarrhea Primary Care Provider: Randell Gómez MD History obtained from patient and records. Medical history significant for chronic systolic heart failure secondary to ischemic cardiomyopathy (EF 20 to 25%, TTE 2017) sp ICD, symptomatic bradycardia status post PPM, CAD, hypertension, hyperlipidemia, hypothyroidism, past tobacco abuse. Last confinement February 2017 under Cardiology service for ICD placement for ischemic cardiomyopathy. Constipation symptoms noted at home about 3 days ago. Good BM after 2 tablets of Dulcolax taken 2 days ago. Recurrent constipation noted yesterday. Achy lower abdominal pain with blood tinged diarrhea noted after repeat intake of Dulcolax tablets. No chest pain, no S OB. No fever, no chills, no recent antibiotic Rx. Some lightheadedness and unsteadiness at home. SBP 70s upon arrival of EMS. Patient brought to the ER for evaluation. Patient currently uncomfortable going home. Medical History as above No prior colonoscopies as per patient. 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 Allergies Allergy/AdvReac Type Severity Reaction Status Date / Time No Known Allergies Allergy Unverified 12/15/20 19:45 Home Medications Medication Instructions Recorded Confirmed Type aspirin 81 mg tablet,delayed 81 mg PO DAILY 08/27/18 12/15/20 History release (Aspirin Low Dose) atorvastatin 40 mg tablet 40 mg PO DAILY 08/27/18 12/15/20 History cholecalciferol (vitamin D3) 25 1,000 unit PO DAILY 08/27/18 12/15/20 History mcg (1,000 unit) capsule (Vitamin D3) enalapril maleate 2.5 mg tablet 2.5 mg PO DAILY 08/27/18 12/15/20 History flaxseed oil 1,000 mg capsule 1,000 mg PO BID 08/27/18 12/15/20 History levothyroxine 100 mcg tablet 100 mcg PO DAILY 08/27/18 12/15/20 History metoprolol succinate 25 mg 25 mg PO DAILY 08/27/18 12/15/20 History tablet,extended release 24 hr nitroglycerin 0.4 mg sublingual 0.4 mg SUBLINGUAL DIRECTED 08/27/18 12/15/20 History tablet multivitamin 1 tab PO DAILY 12/15/20 12/15/20 History Past Med/Surg History Medical History (Updated 12/16/20 @ 03:00 by Jimmy Ohara MD) Cardiac ischemia Coronary artery disease Hypotension Ischemic cardiomyopathy Myocardial infarction Pacemaker Pneumonia Wide-complex tachycardia Surgical History H/O cardiac catheterization Stented coronary artery Family History Other Family history non-contributory Social History Smoking Status: Former smoker Tobacco Type: Cigarettes Smoking End Date: Pt. states quitting many years ago; Second Hand Exposure: No; Do You Dip or Chew Tobacco: No; Tobacco Cessation Education Requested by Patient: No Hx Alcohol Use: No Hx Substance Use: No Preferred Language: Dutch Communication Ability: Effective Convolute Tube Winder Required: No Beliefs That Will Affect Care: None marital status: Single Current Living Situation: Alone Current Living Situation Comment: Lives at home alone current occupational status: retired Other Information That Helps Us Care for You: No Feels Safe at Home: Yes Assistive Devices: Glasses Review of Systems Review of Systems: As per HPI, all 10 systems reviewed, all other ROS negative Physical Exam Physical Exam: GENERAL: Comfortable, pleasant, slightly hard of hearing, no respiratory distress SKIN: Normal color, warm HEENT: [place] palpebral conjunctivae, no ptosis, dry buccal mucosa NECK : Supple, no tenderness CHEST : CTA, no tenderness HEART : RRR, diminished S1 S2, systolic murmur best heard over left sternal border ABDOMEN: Some distention, minimal hypogastric tenderness EXTREMITIES : No LE swelling/tenderness, no other conspicuous deformities noted NEUROLOGIC : Coherent, no facial asymmetry, mild hearing impairment, no other gross focality Results & Data Results & Data ([facility]) Vital Signs (Past 12 Hours) Vital Signs Temp Pulse Resp BP Pulse Ox 12/15/20 20:30 118 H 21 119/61 84 L 12/15/20 20:21 120 H 31 H 12/15/20 19:31 94 H 24 111/64 95 12/15/20 19:08 36.5 C 112 H 32 H 113/68 95 Laboratory Results Laboratory Results WBC 9.96 K/uL (4.8-10.8) 12/15/20 19:17 RBC 4.54 M/uL (4.7-6.1) L 12/15/20 19:17 Hgb 14.7 g/dL (14.0-18.0) 12/15/20 19:17 Hct 41.6 % (42-52) L 12/15/20 19:17 MCV 91.6 fL (80-100) 12/15/20 19:17 MCH 32.4 pg (25-34) 12/15/20 19:17 MCHC 35.3 g/dL (32-36) 12/15/20 19:17 RDW Std Deviation 42.7 fL (36.4-46.3) 12/15/20 19:17 RDW Coeff of Kim 12.6 % (11.5-14.5) 12/15/20 19:17 Plt Count 172 K/uL (130-400) 12/15/20 19:17 MPV 9.3 fL (7.4-10.4) 12/15/20 19:17 Immature Gran % (Auto) 0.1 % 12/15/20 19:17 Neut % (Auto) 83.2 % 12/15/20 19:17 Lymph % (Auto) 8.1 % 12/15/20 19:17 [place] % (Auto) 6.6 % 12/15/20 19:17 Eos % (Auto) 1.7 % 12/15/20 19:17 Baso % (Auto) 0.3 % 12/15/20 19:17 Neut # (Auto) 8.28 K/uL (1.4-6.5) H 12/15/20 19:17 Lymph # (Auto) 0.81 K/uL (1.2-3.4) L 12/15/20 19:17 [place] # (Auto) 0.66 K/uL (0.11-0.59) H 12/15/20 19:17 Eos # (Auto) 0.17 K/uL (0-0.5) 12/15/20 19:17 Baso # (Auto) 0.03 K/uL (0-0.2) 12/15/20 19:17 Immature Gran # (Auto) 0.01 K/uL (0.00-0.02) 12/15/20 19:17 Sodium 136 mmol/L (136-145) 12/15/20 19:17 Potassium 4.1 mmol/L (3.5-5.1) 12/15/20 19:17 Chloride 105 mmol/L (98-107) 12/15/20 19:17 Carbon Dioxide 25 mmol/L (21-32) 12/15/20 19:17 Anion Gap 5.0 (3-11) 12/15/20 19:17 BUN 19 mg/dl (7-18) H 12/15/20 19:17 Creatinine 1.21 mg/dl (0.6-1.4) 12/15/20 19:17 Est Cr Clr Drug Dosing 48.5 ml/min 12/15/20 19:17 Est GFR ( Amer) 66.5 ml/min 12/15/20 19:17 Est GFR (Non-Af Amer) 57.4 ml/min 12/15/20 19:17 BUN/Creatinine Ratio 16.0 (10-20) 12/15/20 19:17 Glucose 137 mg/dl (70-99) H 12/15/20 19:17 Lactate 3.1 mmol/L (0.4-2.0) H* 12/15/20 19:17 Calcium 9.0 mg/dl (8.5-10.1) 12/15/20 19:17 Magnesium 2.2 mg/dl (1.8-2.4) 12/15/20 19:17 Total Bilirubin 0.5 mg/dl (0.2-1) 12/15/20 19:17 AST 18 U/L (15-37) 12/15/20 19:17 ALT 31 U/L (12-78) 12/15/20 19:17 Alkaline Phosphatase 62 U/L (45-117) 12/15/20 19:17 Troponin I < 0.015 ng/ml (0-0.045) 12/15/20 19:17 Total Protein 7.6 gm/dl (6.4-8.2) 12/15/20 19:17 Albumin 3.6 gm/dl (3.4-5.0) 12/15/20 19:17 Globulin 4.0 gm/dl (2.5-4.0) 12/15/20 19:17 Albumin/Globulin Ratio 0.9 (0.9-2) 12/15/20 19:17 Lipase 178 U/L (73-393) 12/15/20 19:17 TSH 2.420 uIu/ml (0.300-4.500) 12/15/20 19:17 Urine Color Dark Yellow 12/15/20 22:21 Urine Appearance Clear (Clear) 12/15/20 22:21 Urine pH 5.5 (4.5-7.5) 12/15/20 22:21 Ur Specific [place] 1.017 (1.000-1.030) 12/15/20 22:21 Urine Protein Negative (Negative) 12/15/20 22:21 Urine Glucose (UA) Negative (Negative) 12/15/20 22:21 Urine Ketones 1+ (Negative) H 12/15/20 22:21 Urine Blood Negative (Negative) 12/15/20 22:21 Urine Nitrite Negative (Negative) 12/15/20 22:21 Urine Bilirubin Negative (Negative) 12/15/20 22:21 Urine Urobilinogen Negative (Negative) 12/15/20 22:21 Ur Leukocyte Esterase Negative (Negative) 12/15/20 22:21 COVID-19 Eval Order Covid19 at [facility] 12/15/20 20:54 SARS-CoV-2 (PCR) NEGATIVE (Negative) 12/15/20 20:[address] abdomen pelvis initial read: No acute findings. No evidence of bowel obstruction. Appendix is not identified. No evidence of diverticulitis. No abnormal fluid or regional inflammatory reaction. Chest x-ray as per my interpretation borderline cardiomegaly EKG as per my interpretation : Rate 90, paced rhythm
[2020-12-16] MEDS ORDERED: CEROVITE ADV FORMULA TAB PO STA (00:36)
[2020-12-16 01:02] LABS: Hematocrit (blood only) 38.7 % (42-52); Hemoglobin 13.9 g/dL (14.0-18.0)
[2020-12-16] MEDS ORDERED: NSS + 20MEQ KCL 20 MEQ/1,000 ML BAG IV ONE (01:37)
[2020-12-16] MEDS ORDERED: PROMETHAZINE HCL 6.25 MG in SODIUM CHLORIDE 0.9% 50 ML IV PRN (02:05)
[2020-12-16] MEDS ORDERED: traMADol HCL 50 MG TABLET PO PRN (02:05)
[2020-12-16] MEDS: LEVOTHYROXINE SODIUM 100 MCG TABLET PO SCH (05:40)
[2020-12-16 07:04] LABS: Basophils # (auto) 0.01 K/uL (0-0.2); Basophils % (auto) 0.1 %; Eosinophils # (auto) 0.01 K/uL (0-0.5); Eosinophils % (auto) 0.1 %; Hematocrit (blood only) 37.4 % (42-52); Hemoglobin 13.2 g/dL (14.0-18.0); Immature Granulocytes # (auto) 0.03 K/uL (0.00-0.02); Immature Granulocytes % (auto) 0.2 %; Lymphocytes # (auto) 0.83 K/uL (1.2-3.4); Lymphocytes % (auto) 6.8 %; Mean Corpuscular Hemoglobin 31.7 pg (25-34); Mean Corpuscular Hgb Conc 35.3 g/dL (32-36); Mean Corpuscular Volume 89.9 fL (80-100); Mean Platelet Volume 8.9 fL (7.4-10.4); Monocytes # (auto) 1.11 K/uL (0.11-0.59); Monocytes % (auto) 9.1 %; Neutrophils # (auto) 10.21 K/uL (1.4-6.5); Neutrophils % (auto) 83.7 %; Platelet Count 124 K/uL (130-400); RDW Coefficient of Variation 12.8 % (11.5-14.5); RDW Standard Deviation 41.7 fL (36.4-46.3); Red Blood Count 4.16 M/uL (4.7-6.1)
[2020-12-16 07:28] LABS: Estimated Average Glucose 108 mg/dl; Hemoglobin A1C 5.4 % (4.5-5.6)
--- NOTE | 2020-12-16 07:34 | CT Scan Report ---
CT abd pelvis IV con only CLINICAL HISTORY: lower abd pain, nausea, near syncope COMPARISON STUDY: December 20, 2019 TECHNIQUE: A dose lowering technique was utilized adhering to the principles of ALARA. CT DOSE: 257.78 mGy.cm FINDINGS: Lower chest: Minimal scarring within medial basal segment of the right lower lobe. Small atelectasis at dependent portion of the right lower lobe. Evaluation of lung parenchyma is significantly limited due to motion artifact.. Liver: The contrast-enhanced liver is normal in size, contour, and attenuation. Multiple hypoattenuat ing lesions throughout right and left lobe of the liver appears similar to prior study, statistically most likely represent cysts or hemangiomas. There is minimal prominence of the central intrahepatic biliary ducts which is unchanged since prior.. Gallbladder: Is fluid-filled normal in size. No definite intraluminal calculi are seen. Possible mini mal pericholecystic edema at its distal aspect however evaluation is limited due to motion artifact. Spleen: Normal in size and attenuation. Pancreas: Unremarkable. Adrenal glands: Unremarkable. Kidneys: There is symmetric renal cortical enhancement. The kidneys are normal in size without hydron ephrosis.No definite nephrolithiasis is seen. Few renal cortical cysts are again seen on the left, la rgest is measuring 3.1 x 3.3 cm in size, stable since prior. Pelvic viscera: Urinary bladder is fluid-filled and partially decompressed which limits evaluation. P rostate gland is mildly enlarged. Bowel: Loops of small and large bowel are nondilated. Multiple fluid-filled loops of small bowel show s minimal wall thickening and diffuse mucosal enhancement . Appendix is not well seen. Possible liqu id content within the rectum. Evaluation is limited due to motion artifact. Peritoneum: There is no intraperitoneal free air or abdominal ascites. Limited exam due to very littl e amount of intra-abdominal fat and motion artifact. Vasculature: Abdominal aorta is tortuous, normal in caliber with scattered calcifications of its wall . Adenopathy: Multiple small retroperitoneal lymph nodes are seen, measuring less than 1 cm in short ax is and considered nonpathological by CT size criteria. Skeletal structures: Diffuse osteopenia and multilevel degenerative changes of the spine. IMPRESSION: 1. Fluid content, possible wall thickening and mucosal enhancement of the multiple loops of small aleida wel might represent enteritis. Fluid-filled nondilated loops of large bowel could be seen in diarrhea l state. 2. Left renal cortical cysts are stable since prior. 3. Multiple small retroperitoneal lymph nodes, could be reactive. 4. Limited exam due to motion artifact. 5. The rest of findings as above. ACT 112: Negative or not required by law. The above report was generated using voice recognition software. It may contain grammatical, syntax o r spelling errors. Electronically signed by: Patience Batista DO 12/16/2020 7:33 AM
[2020-12-16 07:36] LABS: BUN Creatinine Ratio 14.2 (10-20); Calcium 8.4 mg/dl (8.5-10.1); Creatinine Clr Calc Pharmacy 52.2 ml/min; Est GFR (African American) 80.8 ml/min; Est GFR (Non-African American) 69.7 ml/min; Potassium 4.5 mmol/L (3.5-5.1)
[2020-12-16] MEDS: ATORVASTATIN 40 MG TAB PO SCH (08:15)
[2020-12-16] MEDS: METOPROLOL SUCC 25MG EXT REL TAB PO SCH (08:15)
--- NOTE | 2020-12-16 08:52 | XRay Report ---
XR chest 1V portable CLINICAL HISTORY: low o2 COMPARISON STUDY: August 27, 2018 FINDINGS: No pneumothorax. No pleural effusion. No large infiltrates or consolidative lesions are seen. Cardiomediastinal silhouette is within upper limits of normal. Aorta is tortuous and calcified. No significant pulmonary vascular congestion.. Osseous structures: unremarkable Stable position of left-sided dual-lead pacemaker with battery pack partially obscuring left lung par enchyma. IMPRESSION: 1. No large infiltrates or consolidative lesions. 2. Cardiomediastinal silhouette is within upper limits of normal. ACT 112: Negative or not required by law. The above report was generated using voice recognition software. It may contain grammatical, syntax o r spelling errors. Electronically signed by: Patience Batista DO 12/16/2020 8:51 AM
--- NOTE | 2020-12-16 12:13 | Communication Note ---
Date of Service: December 16, 2020 Doing okay this morning. However, continues to have lower abdominal pain. Reports the pain as 3 out of 10. No further nausea or vomiting. Have been tolerating diet. CT abdomen/pelvis with Fluid content, possible wall thickening and mucosal enhancement of the multiple loops of small bowel might represent enteritis. C. difficile is pending. Diarrhea is improved. Noted to have some leukocytosis today. Lactic acidosis is resolved. Continue supportive management. Continue with maintenance IV fluids. Promethazinne as needed for nausea. Can likely be discharged tomorrow if pain is improved and have been tolerating diet.
[2020-12-16] MEDS: ACETAMINOPHEN 325 MG TAB PO PRN ×2 (12:30→23:40)
[2020-12-16 12:54] LABS: Hematocrit (blood only) 38.2 % (42-52); Hemoglobin 13.2 g/dL (14.0-18.0)
[2020-12-17] MEDS: LEVOTHYROXINE SODIUM 100 MCG TABLET PO SCH (05:32)
[2020-12-17] MEDS: ATORVASTATIN 40 MG TAB PO SCH (08:03)
[2020-12-17] MEDS: METOPROLOL SUCC 25MG EXT REL TAB PO SCH (08:03)
[2020-12-17 08:11] LABS: Hematocrit (blood only) 36.3 % (42-52); Hemoglobin 12.7 g/dL (14.0-18.0); Mean Corpuscular Hemoglobin 31.6 pg (25-34); Mean Corpuscular Volume 90.3 fL (80-100); Mean Platelet Volume 9.3 fL (7.4-10.4); Platelet Count 109 K/uL (130-400); RDW Coefficient of Variation 12.9 % (11.5-14.5); RDW Standard Deviation 42.3 fL (36.4-46.3); Red Blood Count 4.02 M/uL (4.7-6.1); White Blood Count 11.43 K/uL (4.8-10.8)
--- NOTE | 2020-12-17 08:38 | Gastrointestinal Consultation ---
Date of Consultation December 17, 2020 Assessment & Plan (1) Acute lower GI bleedin75 year old male with constipation at home, near syncopal response w/ straining after laxative use. He moved two large BMs since admission and yesterday had loose stools with bright red blood. He has remained hemodynamically stable w/ stable HGB DDX discussed; hemorrhoids, fissure, polyp, malignancy vs other He has never had a colonoscopy. Given change in bowel habits, episode of bleeding, OP colonoscopy was recommended. He deferred this. NO GI contraindication to diet Colace 100 mg twice daily Miralax 1-2 capfuls once daily Dulcolax PRN if above regimen fails Please contact us to arrange OP colonoscopy if you are agreeable to testing Recall GI as needed. Thank you for allowing us to participate in the care of this patient. Please call with any acute changes, questions or concerns. Please see addendum below with additional recommendation from my supervising physician. Supervising Physician Co-Signing Physician Notes I have seen and examined the patient with KIRSTIE Jauregui whose note reflects our findings and plan. Patient with some bleeding in the setting of constipation and vasovagal event. Patient should have an outpatient colonoscopy after he has been on a proper bowel regimen for several weeks. He does not wish to pursue colonoscopy at this time. PCP can arrange outpatient colonoscopy if patient changes his mind. Please call with questions. History of Present Illness Reason for Consultation: rectal bleeding Requesting Physician: Saniya Attending Physician: Any Zhong MD History of Present Illness 75 year old male with history of CAD, cardiac cath, cardiomyopathy sp ICD, symptomatic bradycardia status post PPM, HTN, dyslipidemia others below admitted w/ lightheadness and near syncopal evant after laxatie use. GI asked to evaluate for bleeding. Notes recent issues with constipation. Has been using dulcolax PRN at home. Notes after use this week he felt dizzy, low BP. Sought ED care. Moved large, formed BM x 2. Had a loose BM yesterday and noted fresh, bright red blood in the toilet. No black stools. This AM feeling well. No abd pain. No nausea, vomiting. No further BM or bleedign episode since yesterday. HGB stable BUN not elevated CTAP: . Fluid content, possible wall thickening and mucosal enhancement of the multiple loops of small bowel might represent enteritis. Fluid-filled nondilated loops of large bowel could be seen in diarrheal state. Left renal cortical cysts are stable since prior.Multiple small retroperitoneal lymph nodes, could be reactive. Limited exam due to motion artifact. The rest of findings as above. Allergies Allergy/AdvReac Type Severity Reaction Status Date / Time No Known Allergies Allergy Unverified 12/15/20 19:45 Home Medications Medication Instructions Recorded Confirmed Type aspirin 81 mg tablet,delayed 81 mg PO DAILY 08/27/18 12/15/20 History release (Aspirin Low Dose) atorvastatin 40 mg tablet 40 mg PO DAILY 08/27/18 12/15/20 History cholecalciferol (vitamin D3) 25 1,000 unit PO DAILY 08/27/18 12/15/20 History mcg (1,000 unit) capsule (Vitamin D3) enalapril maleate 2.5 mg tablet 2.5 mg PO DAILY 08/27/18 12/15/20 History flaxseed oil 1,000 mg capsule 1,000 mg PO BID 08/27/18 12/15/20 History levothyroxine 100 mcg tablet 100 mcg PO DAILY 08/27/18 12/15/20 History metoprolol succinate 25 mg 25 mg PO DAILY 08/27/18 12/15/20 History tablet,extended release 24 hr nitroglycerin 0.4 mg sublingual 0.4 mg SUBLINGUAL DIRECTED 08/27/18 12/15/20 History tablet multivitamin 1 tab PO DAILY 12/15/20 12/15/20 History Patient History Medical History (Updated 12/16/20 @ 03:00 by Jimmy Ohara MD) Cardiac ischemia Coronary artery disease Hypotension Ischemic cardiomyopathy Myocardial infarction Pacemaker Pneumonia Wide-complex tachycardia Surgical History H/O cardiac catheterization Stented coronary artery Family History Other Family history non-contributory Social History Smoking Status: Former smoker Tobacco Type: Cigarettes Smoking End Date: Pt. states quitting many years ago; Second Hand Exposure: No; Do You Dip or Chew Tobacco: No; Tobacco Cessation Education Requested by Patient: No Hx Alcohol Use: No Hx Substance Use: No Preferred Language: Maltese Communication Ability: Effective Auto Bumper Straightener Required: No Beliefs That Will Affect Care: None marital status: Single Current Living Situation: Alone Current Living Situation Comment: Lives at home alone current occupational status: retired Other Information That Helps Us Care for You: No Feels Safe at Home: Yes Assistive Devices: None Review of Systems Review of Systems: All systems reviewed & are unremarkable except as noted in HPI & below Physical Exam Constitutional: WD/WN, vitals as above Respiratory: normal respiratory effort, lungs clear to auscultation Cardiovascular: Rate/Rhythm: regular rate and regular rhythm Heart Sounds: + murmur Gastrointestinal (Abdomen): normal bowel sounds, soft, nontender, no hepatosplenomegaly Results & Data ([facility]) Vital Signs (Past 12 Hours) Vital Signs Temp Pulse Pulse Resp BP Pulse Ox 12/17/20 07:11 36.9 C 67 16 131/82 98 12/17/20 06:19 60 12/17/20 04:11 37 C 62 16 145/80 H 97 12/17/20 00:20 36.9 C 12/16/20 23:20 37.9 C H 67 20 113/70 97 12/16/20 22:19 64 Laboratory Results 12/17/20 12/17/20 12/16/20 Range/Units 07:55 07:55 15:13 WBC 11.43 H (4.8-10.8) K/uL RBC 4.02 L (4.7-6.1) M/uL Hgb 12.7 L (14.0-18.0) g/dL Hct 36.3 L (42-52) % MCV 90.3 (80-100) fL MCH 31.6 (25-34) pg MCHC 35.0 (32-36) g/dL RDW Std Deviation 42.3 (36.4-46.3) fL RDW Coeff of Kim 12.9 (11.5-14.5) % Plt Count 109 L (130-400) K/uL MPV 9.3 (7.4-10.4) fL Sodium Pending Potassium Pending Chloride Pending Carbon Dioxide Pending Anion Gap Pending BUN Pending Creatinine Pending Est Cr Clr Drug Dosing Pending Est GFR ( Amer) Pending Est GFR (Non-Af Amer) Pending BUN/Creatinine Ratio Pending Glucose Pending Calcium Pending Stl C. diff Tox B Gene Negative Cdiff Gene (Neg) 12/16/20 Range/Units 12:16 WBC (4.8-10.8) K/uL RBC (4.7-6.1) M/uL Hgb 13.2 L (14.0-18.0) g/dL Hct 38.2 L (42-52) % MCV (80-100) fL MCH (25-34) pg MCHC (32-36) g/dL RDW Std Deviation (36.4-46.3) fL RDW Coeff of Kim (11.5-14.5) % Plt Count (130-400) K/uL MPV (7.4-10.4) fL Sodium Potassium Chloride Carbon Dioxide Anion Gap BUN Creatinine Est Cr Clr Drug Dosing Est GFR ( Amer) Est GFR (Non-Af Amer) BUN/Creatinine Ratio Glucose Calcium Stl C. diff Tox B Gene (Neg)
[2020-12-17 08:45] LABS: BUN Creatinine Ratio 9.7 (10-20); Calcium 8.3 mg/dl (8.5-10.1); Creatinine Clr Calc Pharmacy 58.5 ml/min; Est GFR (African American) 92.7 ml/min; Est GFR (Non-African American) 79.9 ml/min
[2020-12-17] MEDS ORDERED: CEROVITE ADV FORMULA TAB PO SCH (09:00)
--- NOTE | 2020-12-17 09:55 | Discharge Summary ---
Date of Service December 17, 2020 Admission HPI Per Admitting Provider History obtained from patient and records. Medical history significant for chronic systolic heart failure secondary to ischemic cardiomyopathy (EF 20 to 25%, TTE 2017) sp ICD, symptomatic bradycardia status post PPM, CAD, hypertension, hyperlipidemia, hypothyroidism, past tobacco abuse. Last confinement February 2017 under Cardiology service for ICD placement for ischemic cardiomyopathy. Constipation symptoms noted at home about 3 days ago. Good BM after 2 tablets of Dulcolax taken 2 days ago. Recurrent constipation noted yesterday. Achy lower abdominal pain with blood tinged diarrhea noted after repeat intake of Dulcolax tablets. No chest pain, no S OB. No fever, no chills, no recent antibiotic Rx. Some lightheadedness and unsteadiness at home. SBP 70s upon arrival of EMS. Patient brought to the ER for evaluation. Patient currently uncomfortable going home. Medical History as above No prior colonoscopies as per patient. 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 Admission Exam Per Admitting Provider GENERAL: Comfortable, pleasant, slightly hard of hearing, no respiratory distress SKIN: Normal color, warm HEENT: [place] palpebral conjunctivae, no ptosis, dry buccal mucosa NECK : Supple, no tenderness CHEST : CTA, no tenderness HEART : RRR, diminished S1 S2, systolic murmur best heard over left sternal border ABDOMEN: Some distention, minimal hypogastric tenderness EXTREMITIES : No LE swelling/tenderness, no other conspicuous deformities noted NEUROLOGIC : Coherent, no facial asymmetry, mild hearing impairment, no other gross focality Principal Diagnosis Post laxative diarrhea Acute lower GI bleeding Discharge Exam Constitutional + well hydrated; no acute distress Eyes PERRL, conjunctivae normal, anicteric sclerae ENMT external ear and nose normal, oropharynx normal Respiratory normal respiratory effort, lungs clear to auscultation Cardiovascular Rate/Rhythm: regular rate and regular rhythm S1-S2 Gastrointestinal (Abdomen) normal bowel sounds, soft, nontender, no hepatosplenomegaly Musculoskeletal no cyanosis or clubbing, extremities motor strength 5/5 No pedal edema Neurologic PERRL, EOMI, accommodation nl, no face palsy, no dysarthria Psychiatric A+Ox3, euthymic affect Genitourinary no CVA tenderness Discharge Data Allergies Allergy/AdvReac Type Severity Reaction Status Date / Time No Known Allergies Allergy Unverified 12/15/20 19:45 Consultations 12/15/20 23:57 ED Decision to Admit Stat 12/16/20 15:11 Consult Gastroenterology Routine Ordered Studies 12/15/20 19:10 CT abd pelvis IV con only Urgent CT abd pelvis IV con only CLINICAL HISTORY: lower abd pain, nausea, near syncope COMPARISON STUDY: December 20, 2019 TECHNIQUE: A dose lowering technique was utilized adhering to the principles of ALARA. CT DOSE: 257.78 mGy.cm FINDINGS: Lower chest: Minimal scarring within medial basal segment of the right lower lobe. Small atelectasis at dependent portion of the right lower lobe. Evaluation of lung parenchyma is significantly limited due to motion artifact.. Liver: The contrast-enhanced liver is normal in size, contour, and attenuation. Multiple hypoattenuating lesions throughout right and left lobe of the liver appears similar to prior study, statistically most likely represent cysts or hemangiomas. There is minimal prominence of the central intrahepatic biliary ducts which is unchanged since prior.. Gallbladder: Is fluid-filled normal in size. No definite intraluminal calculi are seen. Possible minimal pericholecystic edema at its distal aspect however evaluation is limited due to motion artifact. Spleen: Normal in size and attenuation. Pancreas: Unremarkable. Adrenal glands: Unremarkable. Kidneys: There is symmetric renal cortical enhancement. The kidneys are normal in size without hydronephrosis.No definite nephrolithiasis is seen. Few renal cortical cysts are again seen on the left, largest is measuring 3.1 x 3.3 cm in size, stable since prior. Pelvic viscera: Urinary bladder is fluid-filled and partially decompressed which limits evaluation. Prostate gland is mildly enlarged. Bowel: Loops of small and large bowel are nondilated. Multiple fluid-filled loops of small bowel shows minimal wall thickening and diffuse mucosal enhancement . Appendix is not well seen. Possible liquid content within the rectum. Evaluation is limited due to motion artifact. Peritoneum: There is no intraperitoneal free air or abdominal ascites. Limited exam due to very little amount of intra-abdominal fat and motion artifact. Vasculature: Abdominal aorta is tortuous, normal in caliber with scattered calcifications of its wall. Adenopathy: Multiple small retroperitoneal lymph nodes are seen, measuring less than 1 cm in short axis and considered nonpathological by CT size criteria. Skeletal structures: Diffuse osteopenia and multilevel degenerative changes of the spine. IMPRESSION: 1. Fluid content, possible wall thickening and mucosal enhancement of the multiple loops of small bowel might represent enteritis. Fluid-filled nondilated loops of large bowel could be seen in diarrheal state. 2. Left renal cortical cysts are stable since prior. 3. Multiple small retroperitoneal lymph nodes, could be reactive. 4. Limited exam due to motion artifact. 5. The rest of findings as above. Hospital Course (1) Acute lower GI bleeding: Post laxative diarrhea C. difficile negative Had constipation and took Dulcolax at home which led to diarrhea. Initial episodes of diarrhea was nonbloody. However, subsequent bowel movement today was mixed with blood. Patient was was evaluated by gastroenterology Gastroenterology recommended outpatient evaluation with colonoscopy. Patient is reluctant about colonoscopy. Provided patient education about need for colonoscopy since he has never had 1 before. He was advised to stay today to monitor BM and Hb but he insisted he wants to go home today. Patient advised to follow-up with GI for colonoscopy outpatient Hemoglobin was 14.3 on admission, dropped to 12.7 on discharge today. Patient advised to follow up with PCP if bloody diarrhea persists so that his hemoglobin is monitored Chronic systolic heart failure secondary to ischemic cardiomyopathy (EF 20 to 25%, TTE 2017) sp ICD, patient on the dry side Status post PPM, paced rhythm Hypertension, patient currently normotensive although hypotensive at home as per EMS account Hyperlipidemia on statin Rx Hypothyroidism -euthyroid based on TSH Total Time Total Time Spent Total Time Spent (In Minutes): 50 Total Time Includes: Examination of the Patient, Discharge Planning, Medication Reconciliation and Communication With Other Providers Discharge Plan Discharge Items Patient Disposition: Home - Self-Care Reason For Visit: Constipation followed by diarrhea Discharge Diagnosis: Post laxative diarrhea Acute lower GI bleeding Activity: Resume your previous activity Non-emergency contact: Primary Care Provider and Milk Treater Call non-emergency contact if: you have any medication questions and your symptoms worsen Follow-up/Referrals: Randell Gómez MD [Primary Care Provider] - Kathleen Healy CRNP [Nurse Practitioner] - (Call within the week for follow-up appointment with gastroenterology) Diet: Regular Addtl Attending Provider Instructions: Mr Khalil You came to the hospital complaining of diarrhea that started after taking Dulcolax with constipation. You also had bloody bowel movement while in the hospital. You were evaluated by cane burner who recommended outpatient colonoscopy. You are currently hesitant about the colonoscopy. However, this is strongly recommended since you have never had a colonoscopy before. Please ensure you call gastroenterology outpatient to schedule colonoscopy. Please ensure follow-up with your primary care doctor. It was a pleasure taking care of you. Pending Studies at Discharge: No Stand-Alone Forms: My [facility], Smoking Cessation Medications and DC Order Prescriptions: Continued atorvastatin 40 mg tablet 40 mg PO DAILY RF: 0 enalapril maleate 2.5 mg tablet 2.5 mg PO DAILY RF: 0 aspirin [Aspirin Low Dose] 81 mg Tablet,Delayed Release (Dr/Ec) 81 mg PO DAILY RF: 0 levothyroxine 100 mcg tablet 100 mcg PO DAILY RF: 0 flaxseed oil 1,000 mg Capsule 1,000 mg PO BID RF: 0 metoprolol succinate 25 mg tablet extended release 24 hr 25 mg PO DAILY RF: 0 cholecalciferol (vitamin D3) [Vitamin D3] 1,000 unit Capsule 1,000 unit PO DAILY RF: 0 nitroglycerin 0.4 mg Tablet, Sublingual 0.4 mg sublingual DIRECTED RF: 0 multivitamin Tablet 1 tab PO DAILY RF: 0 Discharge Orders: Discharge Order (Routine); Ordered 12/17/20 Ordered By: Any Zhong Admission Data Admit Date/Time: 12/16/20 00:39 Attending Provider: Any Zhong I. Admit Provider: Jimmy Ohara Primary Care Provider: Randell Gómez Other Providers: Jimmy Ohara ; Julien Garcias ; Parisa White ; Quinn Sepulveda ; Abi Robb ; Yuan Bowen ; Kaz Uribe ; Juan Bae ; Carmine Constantino ; Kathleen Healy ; Cayla Mujica ; Nayla Mejia ; Marce Keene ; Castro Payton ; Gregory Kothari Other Interventions: Discharge Summary Assessment (RN) Last Done: 12/17/20 16:00
--- NOTE | 2020-12-18 05:47 | Electrocardiogram Report ---
Test Reason : Blood Pressure : / mmHG Vent. Rate : 088 BPM Atrial Rate : 090 BPM P-R Int : 296 ms QRS Dur : 116 ms QT Int : 352 ms P-R-T Axes : 000 -76 092 degrees QTc Int : 425 ms Atrial-paced rhythm with prolonged AV conduction Left anterior fascicular block Left ventricular hypertrophy with QRS widening and repolarization abnormality Poor R wave progression, consider anterior NJ vs. lead placement vs. LVH Abnormal ECG When compared with ECG of 20-DEC-2019 17:26, Left anterior fascicular block is now Present Confirmed by Rick Farmer ([id number]) on 12/18/2020 5:46:50 AM Referred By: REFERRED SELF Confirmed By:Rick Farmer
== END 2020-12-17 19:39 | disposition home or self-care (01) ==
LOC: EDINP 19:00 → ED 19:00 → SUATTDRO 12-16 00:39 → 2N 12-16 03:24

== ENCOUNTER 2023-06-09 03:03 | Observation (INO) ==
[2023-06-09] MEDS ORDERED: METOPROLOL TARTRATE 1 MG/ML VIAL IV STA ×2 (03:26→04:04)
[2023-06-09] MEDS ORDERED: SODIUM CHLORIDE 0.9% 1,000 ML IV SCH (03:30)
[2023-06-09 03:41] LABS: Basophils # (auto) 0.03 K/uL (0.00-0.20); Basophils % (auto) 0.4 %; Eosinophils # (auto) 0.07 K/uL (0.00-0.50); Hematocrit (blood only) 35.3 % (42.0-52.0); Hemoglobin 12.2 g/dl (14.0-18.0); Immature Granulocytes # (auto) 0.02 K/uL (0.01-0.20); Immature Granulocytes % (auto) 0.3 %; Lymphocytes # (auto) 0.43 K/uL (1.20-3.40); Lymphocytes % (auto) 6.2 %; Mean Corpuscular Hemoglobin 30.6 pg (25.0-34.0); Mean Corpuscular Hgb Conc 34.6 g/dL (32.0-36.0); Mean Corpuscular Volume 88.5 fL (80.0-100.0); Mean Platelet Volume 8.2 fL (9.4-12.4); Monocytes # (auto) 0.67 K/uL (0.11-0.59); Monocytes % (auto) 9.6 %; Neutrophils # (auto) 5.76 K/uL (1.40-6.50); Neutrophils % (auto) 82.5 %; Platelet Count 288 K/uL (130-400); RDW Coefficient of Variation 11.9 % (11.5-14.5); RDW Standard Deviation 38.7 fL (36.4-46.3); Red Blood Count 3.99 M/uL (4.70-6.10); White Blood Count 6.98 K/ul (4.8-10.8)
--- NOTE | 2023-06-09 03:53 | Emergency Department Note ---
Impression & Plan Atrial fibrillation with rapid ventricular response ED Provider Note NAME: BRUNO MAGANA AGE: 77 SEX: Male INFORMANT: Patient ED PROVIDER(S): Lauro Cervantes MD CHIEF COMPLAINT: Palpitations PLAN: Disposition: Admitted Outpatient prescription management: none Referral: None MEDICAL DECISION MAKING: Patient presented because of palpitations. He was found to be in atrial fibrillation with rapid ventricular response. Patient does have a significant cardiac history. Laboratory testing performed. ECG showed no ischemia. Patient was treated with IV NSS and metoprolol was ordered. Patient spontaneously converted to sinus before metoprolol and blood pressure improved. Patients troponin is elevated and his mag and potassium are low normal. He was given mag and potassium IV. Discussed interrogation with the [employer] rep who noted significant episodes of ventricular dysrhythmias and one requiring burst pacing. Patient will need admission. Consulted with the hospitalist service for admission. Care/management discussed with: Discussed patient's prehospital course with assistant boiler operator. Level of care consideration(s): After review of the information above and other included data, I feel the patient requires escalation of care to admission. Triage Nursing notes: reviewed and agree them. Vital Signs: reviewed and remarkable for tachycardia Additional History obtained from: Marketing Operations Specialist Chronic Medical/Social Conditions affecting care: CAD Prior/ Outside/ External records reviewed: none Differential Diagnosis: Premature contractions, electrolyte abnormality, cardiac dysrhythmia, thyroid dysfunction, pulmonary embolism, infection, gastrointestinal, as well as other pathologies. Diagnostics, independently interpreted by me: ECG: Twelve-lead ECG reveals atrial fibrillation with rapid ventricular response at 130 bpm. Left axis deviation and nonspecific interventricular conduction delay present. Cardiac Monitoring: Cardiac monitoring ordered by me: The patient was placed on continuous cardiac monitoring and observed. It revealed atrial fibrillation at 147 bpm Medical decision rules: none Imaging studies: CXR reveals mild PVC and enlarge cardiac silhouette. HPI: 77 year old Male arrives for evaluation of palpitations. This started this evening and is persisting. The patient also notes the following associated symptoms, chest tightness and mild dizziness. The patient has taken no medication for relieving factors. Current pain is rated as 0/10. Pt denies LOC, headache, fevers, chills, diaphoresis, visual changes, neck pain, chest pain, breathing difficulties, nausea, vomiting, abdominal pain, back pain, melena, hematochezia, urinary symptoms, numbness, weakness, lymphadenopathy, rash, or other complaints. PAST MEDICAL HISTORY: See Below, CAD, possible atrial fibrillation PAST SURGICAL HISTORY: See Below, pacemaker SOCIAL HISTORY: See Below, retired HOME MEDICATIONS: See Below ALLERGIES: See Below VITALS: See Below PHYSICAL EXAMINATION: GENERAL: Awake, alert, well-appearing, in no distress HENT: Normocephalic, atraumatic. Oropharynx unremarkable. EYES: Normal conjunctiva. Sclera non-icteric. NECK: Inspection normal. Non-tender. Supple. No nuchal rigidity. FROM. No masses. RESPIRATORY: Clear to auscultation. No wheezes. No rales. Normal respiratory effort. CARDIAC: Tachycardic rate. Irregular rhythm. No murmurs. No rubs. Extremities warm and well perfused. Pulses equal. No JVD. GI: Soft, non-distended. No tenderness to palpation. No rebound or guarding. No masses. RECTAL: Deferred. MUSCULOSKELETAL: Atraumatic. Chest examination reveals no tenderness. The back is symmetrical on inspection without obvious abnormality. There is no CVA tenderness to palpation. No joint edema. LOWER EXTREMITIES: Calves are equal size bilaterally and non-tender. No edema. No discoloration. NEURO: Normal sensorium. No sensory or motor deficits noted. SKIN: No rash or jaundice noted. PROCEDURES: none CRITICAL CARE: none OBSERVATION NOTE: none Past Med/Surg History Medical History (Updated 06/09/23 @ 14:11 by Daniel Del Angel MD) Pacemaker Wide-complex tachycardia Pneumonia Ischemic cardiomyopathy Hypotension Cardiac ischemia Coronary artery disease Myocardial infarction Surgical History Stented coronary artery H/O cardiac catheterization Family History Other Family history non-contributory Social History Smoking Status: Former smoker Tobacco Type: Cigarettes Second Hand Exposure: No; Do You Dip or Chew Tobacco: No; Hx Alcohol Use: No Hx Substance Use: No Preferred Language: Irish Communication Ability: Effective Gallery Or Museum Attendant Required: No Beliefs That Will Affect Care: None marital status: Single Current Living Situation: Alone Current Living Situation Comment: Lives at home alone current occupational status: retired Feels Safe at Home: Yes Assistive Devices: None Allergies Allergies Allergy/AdvReac Type Severity Reaction Status Date / Time No Known Allergies Allergy Verified 06/09/23 08:13 Home Meds Home Medications Medication Instructions Recorded Confirmed atorvastatin 40 mg tablet 40 mg PO HS 08/27/18 06/09/23 cholecalciferol (vitamin D3) 25 See Rx Instructions .Route .COMPLEX 08/27/18 06/09/23 mcg (1,000 unit) capsule (Vitamin D3) enalapril maleate 2.5 mg tablet 1.25 mg PO BID 08/27/18 06/09/23 levothyroxine 100 mcg tablet 100 mcg PO DAILYBB 08/27/18 06/09/23 nitroglycerin 0.4 mg sublingual 0.4 mg sublingual DIRECTED PRN 08/27/18 06/09/23 tablet Chest Pain multivitamin 1 tab PO QPM 12/15/20 06/09/23 vit C 250 mg-vit E 90 mg-zinc 40 1 tab PO BID 08/25/21 06/09/23 mg-copper 1 [id number] capsule (PreserVision AREDS-2) Previous Rx's Medication Instructions Recorded amiodarone 200 mg tablet 200 mg PO BID 30 days #60 tabs 06/10/23 apixaban 5 mg tablet (Eliquis) 5 mg PO BID 30 days #60 tabs 06/10/23 aspirin 81 mg chewable tablet 81 mg PO QAM #30 tabs 06/10/23 Results & Data (ED) Vital Signs Vital Signs - 24 hr 06/09/23 03:25 Temperature 36.8 C Temperature Source Oral Pulse Rate 147 H Respiratory Rate 18 Blood Pressure 117/72 Blood Pressure Mean 87 Pulse Oximetry 92 Oxygen Delivery Method Room Air Sepsis Recent Fever Within 48 Hours No Sepsis New/Unexplained Change in Mental Status No Sepsis Action Taken by Nursing No Action Required Laboratory Data 06/10/23 06:28 06/10/23 06:28 Lab Results 06/09/23 Range/Units 03:16 WBC 6.98 (4.8-10.8) K/ul RBC 3.99 L (4.70-6.10) M/uL Hgb 12.2 L (14.0-18.0) g/dl Hct 35.3 L (42.0-52.0) % MCV 88.5 (80.0-100.0) fL MCH 30.6 (25.0-34.0) pg MCHC 34.6 (32.0-36.0) g/dL RDW Std Deviation 38.7 (36.4-46.3) fL RDW Coeff of Kim 11.9 (11.5-14.5) % Plt Count 288 (130-400) K/uL MPV 8.2 L (9.4-12.4) fL Immature Gran % (Auto) 0.3 % Neut % (Auto) 82.5 % Lymph % (Auto) 6.2 % Schley % (Auto) 9.6 % Eos % (Auto) 1.0 % Baso % (Auto) 0.4 % Neut # (Auto) 5.76 (1.40-6.50) K/uL Lymph # (Auto) 0.43 L (1.20-3.40) K/uL Schley # (Auto) 0.67 H (0.11-0.59) K/uL Eos # (Auto) 0.07 (0.00-0.50) K/uL Baso # (Auto) 0.03 (0.00-0.20) K/uL Immature Gran # (Auto) 0.02 (0.01-0.20) K/uL PT 11.8 (9.0-12.0) Seconds INR 1.1 (0.9-1.1) APTT 26 (21-31) Seconds PTT Ratio 0.9 Sodium 132 L (136-145) mmol/L Potassium 3.7 (3.5-5.1) mmol/L Chloride 98 (98-107) mmol/L Carbon Dioxide 26 (21-32) mmol/L Anion Gap 8 (3-11) BUN 18 (6-23) mg/dl Creatinine 0.90 (0.6-1.4) mg/dl Est Cr Clr Drug Dosing 57.9 ml/min Est GFR ( Amer) 93.8 ml/min Est GFR (Non-Af Amer) 80.9 ml/min BUN/Creatinine Ratio 20.0 (10-20) Glucose 159 H (70-99(Fasting)) mg/dl Calcium 9.3 (8.6-10.3) mg/dl Magnesium 1.8 (1.7-2.4) mg/dl Total Bilirubin 0.6 (0.2-1.0) mg/dl AST 24 (13-39) U/L ALT 18 (7-52) U/L Alkaline Phosphatase 60 (34-104) U/L Troponin I High Sens 30.4 H (0-20) pg/ml Total Protein 7.6 (6.0-8.3) gm/dl Albumin 3.6 (3.4-5.0) gm/dl Globulin 4.0 (2.5-4.0) gm/dl Albumin/Globulin Ratio 0.9 (0.9-2) TSH 5.646 H (0.300-4.500) uIu/ml Free T4 1.09 (0.61-1.60) ng/dl Administered Medications Discontinued Medications Amiodarone HCl (Amiodarone 200 Mg Tab) 200 mg PO NOW ONE Stop: 06/09/23 11:16 Last Admin: 06/09/23 12:17 Dose: 200 mg Documented By: OSWALD Amiodarone HCl (Amiodarone 200 Mg Tab) 200 mg PO TID [facility] Stop: 07/09/23 13:59 Last Admin: 06/10/23 08:21 Dose: 200 mg Documented By: Admin: 06/09/23 21:40 Dose: 200 mg Documented By: Admin: 06/09/23 15:39 Dose: 200 mg Documented By: OSWALD Aspirin (Aspirin 81 Mg Chew) 81 mg PO QAM [facility] Stop: 07/09/23 08:59 Last Admin: 06/10/23 08:20 Dose: 81 mg Documented By: Admin: 06/09/23 09:24 Dose: 81 mg Documented By: OSWALD Atorvastatin Calcium (Atorvastatin 40 Mg Tab) 40 mg PO HS [facility] Stop: 07/09/23 20:59 Last Admin: 06/09/23 21:39 Dose: 40 mg Documented By: FROY Bisacodyl (Bisacodyl 5 Mg Tabec) 5 mg PO BID PRN PRN Reason: Constipation Stop: 07/09/23 15:39 Last Admin: 06/09/23 16:14 Dose: 5 mg Documented By: OSWALD Bisacodyl (Bisacodyl 5 Mg Tabec) 5 mg PO BID [facility] Stop: 07/09/23 20:59 Last Admin: 06/10/23 08:20 Dose: 5 mg Documented By: Admin: 06/09/23 21:39 Dose: 5 mg Documented By: FROY Enalapril Maleate (Enalapril Maleate 5 Mg Tab) 1.25 mg PO BID [facility] Stop: 07/09/23 08:59 Last Admin: 06/10/23 08:20 Dose: 1.25 mg Documented By: Admin: 06/09/23 21:40 Dose: 1.25 mg Documented By: Admin: 06/09/23 09:25 Dose: 1.25 mg Documented By: OSWALD Enoxaparin Sodium (Enoxaparin Inj 40 Mg/0.4 Ml Syr) 40 mg SQ QAM [facility] Stop: 07/09/23 08:59 Last Admin: 06/10/23 08:21 Dose: 40 mg Documented By: Admin: 06/09/23 09:26 Dose: 40 mg Documented By: OSWALD Sodium Chloride (Nss) 1,000 mls @ 125 mls/hr IV .Q8H [facility] Stop: 07/09/23 03:29 Last Admin: 06/09/23 04:57 Dose: Not Given Documented By: JOSELIN Sodium Chloride (Nss) 500 mls @ 999 mls/hr IV .Q31M ONE Stop: 06/09/23 04:34 Last Infusion: 06/09/23 04:52 Dose: Infused Documented By: Admin: 06/09/23 04:08 Dose: 999 mls/hr Documented By: JOSELIN Potassium Chloride (K Issa / Wtr) 10 meq in 100 mls @ 100 mls/hr IV ONE ONE Stop: 06/09/23 05:08 Last Admin: 06/09/23 05:12 Dose: Not Given Documented By: JOSELIN Magnesium Sulfate/Dextrose (Magnesium Sulfate / D5w) 1 gm in 100 mls @ 50 mls/hr IV ONE ONE Stop: 06/09/23 06:08 Last Infusion: 06/09/23 07:54 Dose: Infused Documented By: Admin: 06/09/23 05:13 Dose: 50 mls/hr Documented By: JOSELIN Sodium Chloride (Nss) 250 mls @ 999 mls/hr IV .Q16M ONE Stop: 06/09/23 04:59 Last Infusion: 06/09/23 05:03 Dose: Infused Documented By: Admin: 06/09/23 04:54 Dose: 999 mls/hr Documented By: JOSELIN Potassium Chloride/Sodium Chloride (Normal Saline W/20 Meq Kcl) 20 meq in 1,000 mls @ 60 mls/hr IV .[id number] ONE; Protocol Stop: 06/09/23 21:50 Last Infusion: 06/09/23 14:13 Dose: Infused Documented By: Admin: 06/09/23 06:11 Dose: 60 mls/hr Documented By: JOSELIN Levothyroxine Sodium (Levothyroxine Sodium 100 Mcg Tablet) 100 mcg PO DAILYBB [facility] Stop: 07/09/23 08:59 Last Admin: 06/10/23 06:17 Dose: 100 mcg Documented By: Admin: 06/09/23 09:34 Dose: Not Given Documented By: OSWALD Metoprolol Succinate (Metoprolol Succ 25mg Ext Rel Tab) 25 mg PO QAM [facility] Stop: 07/09/23 08:59 Last Admin: 06/10/23 08:20 Dose: 25 mg Documented By: Admin: 06/09/23 09:24 Dose: 25 mg Documented By: OSWALD Metoprolol Tartrate (Metoprolol Tartrate 1 Mg/Ml Vial) 5 mg IV NOW STA Stop: 06/09/23 03:27 Last Admin: 06/09/23 04:19 Dose: Not Given Documented By: JOSELIN Metoprolol Tartrate (Metoprolol Tartrate 1 Mg/Ml Vial) 2.5 mg IV NOW STA Stop: 06/09/23 04:05 Last Admin: 06/09/23 04:52 Dose: Not Given Documented By: JOSELIN Multivitamins (Multivitamin Tab) 1 tab PO QPM [facility] Stop: 07/09/23 20:59 Last Admin: 06/09/23 21:39 Dose: 1 tab Documented By: FROY Multivitamins/Minerals (Cerovite Adv Formula Tab) 1 tab PO BID [facility] Stop: 07/09/23 08:59 Last Admin: 06/10/23 08:20 Dose: 1 tab Documented By: Admin: 06/09/23 21:39 Dose: 1 tab Documented By: Admin: 06/09/23 09:24 Dose: 1 tab Documented By: OSWALD Potassium Chloride (Potassium Chloride Crtab 20 Meq Tabcr) 40 meq PO NOW ONE Stop: 06/09/23 05:16 Last Admin: 06/09/23 05:13 Dose: 40 meq Documented By: JOSELIN Discharge Plan Visit Data Chief Complaint: Tachycardia Stated Complaint: ILLNESS, TACHYCARDIA ED Provider: Lauro Cervantes Discharge Problem: Atrial fibrillation with rapid ventricular response Patient Disposition: Admitted As Inpatient Discharge Instructions Interventions: ED Discharge Assessment Last Done: 06/09/23 08:02
[2023-06-09 03:58] LABS: Albumin Globulin Ratio 0.9 (0.9-2); Albumin Level 3.6 gm/dl (3.4-5.0); Bilirubin,Total 0.6 mg/dl (0.2-1.0); Calcium 9.3 mg/dl (8.6-10.3); Creatinine Clr Calc Pharmacy 57.9 ml/min; Est GFR (African American) 93.8 ml/min; Est GFR (Non-African American) 80.9 ml/min; Magnesium 1.8 mg/dl (1.7-2.4); Potassium 3.7 mmol/L (3.5-5.1); Total Protein 7.6 gm/dl (6.0-8.3)
[2023-06-09 04:03] LABS: Troponin I High Sensitivity 30.4 pg/ml (0-20)
[2023-06-09] MEDS ORDERED: SODIUM CHLORIDE 0.9% 500 ML IV ONE (04:04)
[2023-06-09] MEDS ORDERED: MAGNESIUM SULFATE / D5W 1 GM/100 ML BAG IV ONE (04:09)
[2023-06-09] MEDS ORDERED: POTASSIUM CHLORIDE / WTR 10 MEQ/100 ML PLCT IV ONE (04:09)
[2023-06-09 04:10] LABS: INR 1.1 (0.9-1.1); Partial Thromboplastin Ratio 0.9; Partial Thromboplastin Time 26 Seconds (21-31); Prothrombin Time 11.8 Seconds (9.0-12.0)
[2023-06-09 04:13] LABS: Thyroid Stimulating Hormone 5.646 uIu/ml (0.300-4.500)
[2023-06-09] MEDS ORDERED: SODIUM CHLORIDE 0.9% 250 ML IV ONE (04:44)
[2023-06-09 04:47] LABS: T4 Free Thyroxine 1.09 ng/dl (0.61-1.60)
--- OUTSIDE RECORDS SUMMARY | 2023-06-09 04:54 | External Medical Summary | Summary of Care ---
Author Name Unknown Organization [facility] Address [address] [place] [address] Phone [phone] Care Team Providers Care Manager Treasury Name Role Phone Randell Gómez MD Primary Care Provider Reason for Visit * Reason Onset Date Comments Advice 02/07/2023 Appointment 02/07/2023 Encounter Details Date Type Department Care Team (Late st Contact Info) Description 02/07/2023 Telephone Family Medicine [address] [place] [phone] Randell Gómez MD [address] [place] [address] [place] [phone] Advice; Appointment Allergies Active Allergy Reactions Criticality Noted Date Comments Peanut-Containing Drug Products 08/2021 Tongue tingling documented as of this encounter (statuses as of 05/09/2023) Medications Medication Sig Dispensed Refills Start Date End Date Status VITAMIN D 1000 UNITS PO CAPS 3 capsules daily 0 Active GROUND FLAX SEEDS PO POWD 2 tablespoons 2 times a day 0 Active ASPIRIN 81 MG PO TABS 1 tab daily--chewable 0 07/19/2014 Active One-A-Day Mens 50+ Oral Tablet Take by mouth . 0 Active Ondansetron 4 MG Oral Tablet Disintegrating (Zofran) Place on tongue 1 Tablet every 6 hours as needed for Nausea. 20 Tablet 0 01/05/2022 Active Metoprolol Succinate ER 25 MG Oral Tablet Extended Release 24 Hour (toPROL XL)Indications:Ather osclerosis of [place] coronary artery of [place] heart without angina pectoris,Ischemic cardiomyopathy Take 1 Tablet by mouth in the morning. 90 Tablet 3 06/21/2022 Active Atorvastatin Calcium 40 MG Oral Tablet (Lipitor)Indications :Atherosclerosis of [place] coronary artery of [place] heart without angina pectoris,Dyslipidemi a, goal LDL below 70 Take 1 Tablet by mouth at bedtime. 100 Tablet 2 01/18/2023 Active documented as of this encounter (statuses as of 05/09/2023) Active Problems Problem Noted Date Diagnosed Date HTN, goal below 140/90 12/02/2020 Ischemic cardiomyopathy 03/03/[address] 03/03/2017 Dyslipidemia, goal LDL below 70 04/22/2009 Overview: Acquired hypothyroidism 10/18/2007 Overview: TSH 4.78 ADVANCE DIRECTIVE INFORMATION 04/19/2005 Overview: No, Advance Directive brochure given to patient at prior appointment. Mitral valve regurgitation 07/21/2004 Overview: 1-2+ by echo 01/21 Coronary artery disease invo lving lyt[place] coronary artery of [place] heart without angina pectoris Iron deficiency anemia secon davy to inadequate dietary iron intake [place] (myocardial infarction) documented as of this encounter (statuses as of 05/09/2023) Resolved Problems Problem Noted Date Diagnosed Date Resolved Date Kidney disease, chronic, sta ge III (GFR 30-59 ml/min) 10/15/2010 10/28/2011 Overview: GFR 55.1 Mixed dyslipidemia 9 Overview: Per Lipid Taxonomy. CKD (chronic kidney disease), stage II 04/27/2021 documented as of this encounter (statuses as of 05/09/2023) Immunizations Name Administration Dates Next Due COVID-19 mRNA, LNP-s, No Pre serve, 2-Dose Series (Moderna) 07/19/2020,06/21/2020 COVID-19, mRNA, LNP-s, PF, B ooster, 100mcg/0.5mg (Moderna) 08/18/2021,03/17/2021 Covid-19, Mrna, Lnp-s, Pf, B ivalent, 30 Mcg, IM, 12 yrs and above (Pfizer) 05/04/2022 Pneumococcal Conjugate Vacc, 13 Valent (Prevnar) 10/28/2015 Pneumococcal Polysaccharide PPV23 (Pneumovax) 10/21/2008 Season Influenza, Quad, PF, Adjuvanted, 65+ Yrs, IM (FLUAD) 03/04/2020 Seasonal Influenza, PF, 6 M & above, IM , (FluLaval or Fluzone) 02/21/2018,03/07/2017 Seasonal Influenza, Quadriva lent Hd (Fluzone Hd) 01/28/2022,03/12/2021 Seasonal Influenza, Quadriva lent, No Preserve, IM 03/02/2016,03/18/2015 Seasonal Influenza, Split, I IV3, With Preserve, Inj 02/28/2014,02/15/2013,02/15/2012,02/17,02/10/2010,01/28/2009,02/27/2008 ,02/16/2007,02/17/2006 Seasonal Influenza, Trivalen t, Adjuvanted, 65+ yrs 03/14/2019 TDAP (age 10 and older)(Boostrix) 11/06/2012 documented as of this encounter Social History Tobacco Use Types Packs/Day Years Used Date Smoking Tobacco: Former Cigarettes 1 10 Q uit: 11/29/1970 Smokeless Tobacco: Former Snuff, Chew Quit: 11/01/1994 Alcohol Use Standard Drinks/Week Comments No 0 (1 standard drink = 0.6 oz pur e alcohol) PHQ-2 Answer Date Recorded PHQ-2 Score -1 02/03/2020 Hunger Vital Sign Answer Date Recorded Worried About Running Out of Food in the Last Ye ar Never true 05/03/2019 Ran Out of Food in the Last Year Never true 05/03/2019 Sex and Gender Information Value Date Recorded Sex Assigned at Not on file Gender Identity Not on file Sexual Orientation Not on file Job Start Date Occupation Industry Not on file Not on file Not on file documented as of this encounter Miscellaneous Notes * Telephone Encounter - Anthony Gutierrez OSA - 02/07/2023 3:07 PM EDT Reason for patient's call: Patients appointment with cardiology was cancelled on 02/08/23 and patient is calling to reschedule. Caller was [facility] to [facility] at the nurse line. documented in this encounter Plan of Treatment Upcoming Encounters Date Type Department Care Team (Late st Contact Info) Description 06/09/2023 3:30 PM EST Office Visit Cardiology [address] [place] [phone] Radha Brewster PA-C [address] [place] [phone] 07/12/2023 9:30 AM EST Cardiac Studies Cardiology [address] [place] [phone] [facility] [address] [place] [phone] 11/02/2023 5:40 PM EDT Office Visit Family Medicine [address] [place] [phone] Alphonse Ravi MD [address] [place] [address] [place] [phone] Health Maintenance Due Date Last Done Comments Hepatitis C Screening 1963 Zoster Vaccines (1 of 2) 1993 Depression Screening 02/25/2021 02/26/2020 DTaP,Tdap,and Td Vaccines (2 - Td or Tdap) 11/06/2022 11/06/2012 GFR 04/20/2024 04/20/2023, 10/15, 04/28/2022, Additional history exists TSH 04/20/2024 04/20/2023, 10/15, 10/27/2021, Additional history exists Albumin/Creatinine Ratio 11/03/2025 023, 10/27/2021, 04/30/2021, Additional history exists Pneumococcal Vaccine: 65+ Years Completed 10/28/2015, 10/21/2008, 04/20/2001, Additional history exists COVID-19 Vaccine Completed 04/20/2023, , 08/18/2021, Additional history exists Influenza Vaccine (FLU shot) Completed 10/2022, 01/28/2022, 03/12/2021, Additional history exists GARDASIL-HPV IMMUNIZATION SERIES Aged Out No longer eligible based on patient's age to complete this topic Hepatitis B Aged Out No longer eligi ble based on patient's age to complete this topic MENINGOCOCCAL (MENACTRA/MENVEO) Aged Out No longer eligible based on patient's age to complete this topic documented as of this encounter Medical Devices Not on filedocumented as of this encounter Care Teams Manager Treasury Relationship Specialty Start Date End Date Randell Gómez MD [address] [place] [address] [place] [phone] PCP - General 12/29/1995 documented as of this encounter
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
--- OUTSIDE RECORDS SUMMARY | 2023-06-09 04:55 | External Medical Summary ---
Author Name Unknown Address Unknown Organization [id number]:LABORATORY [facility] [place] - [address] [place] [id number] Laboratory Report Ordering Provider Test Date Status BERNICE RYDER 04/20/2023 08:58:14 Final Observation Date Value Abnormality Reference (Units ) Status Folic Acid 04/20/2023 08:58:14 >20.0 >4.5 (ng/ mL) Final Performing Location LAB[facility]ATORY [facility] - [address] [place] [address]
--- OUTSIDE RECORDS SUMMARY | 2023-06-09 04:55 | External Medical Summary ---
Author Name Unknown Address Unknown Organization [id number]:[facility]AT[facility] - [address] [place] [id number] Laboratory Report Ordering Provider Test Date Status BERNICE RYDER 04/20/2023 08:58:14 Final Observation Date Value Abnormality Reference (Units ) Status Iron 04/20/2023 08:58:14 100 45-176 (ug /dL) Final Performing Location [facility]ATORY [facility] - [address] [place] [address]
--- OUTSIDE RECORDS SUMMARY | 2023-06-09 04:55 | External Medical Summary | Summary of Care ---
Author Name Unknown Organization [facility] Address [address] [place] [address] Phone [phone] Care Team Providers Care Precipitator Name Role Phone Randell Queen MD Primary Care Provider Reason for Visit * Reason Onset Date Comments Medication Refill 01/16/2023 Encounter Details Date Type Department Care Team Description 01/16/2023 Refill Family Medicine [address] [place] [address] Randell Queen MD [address] [place], [place] [address] [address] Atherosclerosis of [place] coronary artery of [place] heart without angina pectoris; Dyslipidemia, goal LDL below 70 Allergies Active Allergy Reactions Severity Noted Date Comments Peanut-Containing Drug Products 08/2021 Tongue tingling documented as of this encounter (statuses as of 01/18/2023) Medications Medication Sig Dispensed Refills Start Date [...] for Nausea. 20 Tablet 0 01/05/2022 Active Escitalopram Oxalate 10 MG Oral Tablet (Lexapro)Indication s:RAFA (generalized anxiety disorder) Take by mouth 1 Tablet in the morning. 30 Tablet 5 01/28/2022 Active Nitroglycerin 0.4 MG Sublingual Tablet Sublingual (Nitrostat)Indicati ons:Atherosclerosis of [place] coronary artery of [place] heart without angina pectoris one tablet under the tongue every 5 minutes as needed for chest pain; if 3 tablets needed go to the ER 25 Tablet 11 04/06/2022 Active Additional Information Patient not taking.Reported on 12/02/2022 Metoprolol Succinate ER 25 MG Oral Tablet Extended Release 24 Hour (toPROL XL)Indications:Athe rosclerosis of [place] coronary artery of [place] heart without angina pectoris,Ischemic cardiomyopathy Take 1 Tablet by mouth in the morning. 90 Tablet 3 06/21/2022 Active Levothyroxine Sodium 100 MCG Oral Tablet (Levoxyl)Indication s:Acquired hypothyroidism Take 1 Tablet by mouth daily first thing in the morning. (at least 30 min prior to breakfast or other meds) 90 Tablet 1 08/10/2022 Active Enalapril Maleate 2.5 MG Oral Tablet (Vasotec)Indication s:Atherosclerosis of [place] coronary artery of [place] heart without angina pectoris,LV dysfunction take 1/2 tablet twice a day 90 Tablet 1 11/08/2022 Active Atorvastatin Calcium 40 MG Oral Tablet (Lipitor)Indication s:Atherosclerosis of [place] coronary artery of [place] heart without angina pectoris,Dyslipidem ia, goal LDL below 70 Take 1 Tablet by mouth at bedtime. 100 Tablet 2 01/18/2023 Active Atorvastatin Calcium 40 MG Oral Tablet (Lipitor)Indication s:Atherosclerosis of [place] coronary artery of [place] heart without angina pectoris,Dyslipidem ia, goal LDL below 70 Take 1 Tablet by mouth at bedtime. 90 Tablet 1 07/26/2022 3 Discontinu ed(Refill) documented as of this encounter (statuses as of 01/18/2023) Active Problems Problem Noted Date HTN, goal below 140/90 12/02/2020 Ischemic cardiomyopathy 03/03/[address] 7 Dyslipidemia, goal LDL below 70 04/22/20 09 Overview: Acquired hypothyroidism 10/18/2007 Overview: TSH 4.78 ADVANCE DIRECTIVE INFORMATION 04/19/2005 Overview: No, Advance Directive brochure given to patient at prior appointment. Mitral valve regurgitation 07/21/2004 Overview: 1-2+ by echo 01/21 Coronary artery disease invo lving [place] coronary artery of [place] heart without angina pectoris Iron deficiency anemia secondary to inad equate dietary iron intake Old [place] (myocardial infarction) documented as of this encounter (statuses as of 01/18/2023) Resolved Problems Problem Noted Date Resolved Date Kidney disease, chronic, stage III (GFR 30-59 ml /min) 10/15/2010 10/28/2011 Overview: GFR 55.1 Mixed dyslipidemia 04/22/2009 Overview: Per Lipid Taxonomy. CKD (chronic kidney disease), stage II 04/27/2021 documented as of this encounter (statuses as of 01/18/2023) Immunizations Name Administration Dates Next Due COVID-19 mRNA, LNP-s, No Pre serve, 2-Dose Series (Moderna) 07/19/2020,06/21/2020 Covid-19 Mrna, Lnp-s, No Pre serve, Booster (Moderna) 08/18/2021,03/17/2021 Covid-19, Mrna, Lnp-s, Pf, B ivalent, 30 Mcg, IM, 12 yrs and above (Pfizer) 05/04/2022 Pneumococcal Conjugate Vacc, 13 Valent (Prevnar) 10/28/2015 Pneumococcal Polysaccharide PPV23 (Pneumovax) 10/21/2008 Season Influenza, Quad, PF, Adjuvanted, 65+ Yrs, IM (FLUAD) 03/04/2020 Seasonal Influenza, PF, 6 mo ns & Above, IM , (Flulaval) 02/21/2018,03/07/2017 Seasonal Influenza, Quadriva lent Hd (Fluzone [...] drink = 0.6 oz pur e alcohol) Food Insecurity Answer Date Recorded Within the past 12 months, y ou worried that your food would run out before you got money to buy more. Never true 05/03/2019 Within the past 12 months, t he food you bought just didn't last and you didn't have money to get more. Never true 05/03/2019 Sex Assigned at Date Recorded Not on file Job Start Date Occupation Industry Not on file Not on file Not on file documented as of this encounter Miscellaneous Notes * Telephone Encounter - Alka Mancia RPh - 01/18/2023 11:24 AM EDT Signed Prescriptions: Disp Refills Atorvastatin Calcium 40 MG Oral Tablet (Li*100 Ta*2 Sig: Take 1Tablet by mouth at bedtime.Authorizing Provider: RANDELL QUEEN User: ALKA MANCIA documented in this encounter Plan of Treatment Upcoming Encounters Date Type Specialty Care Team Description 02/08/2023 Cardiac Studies Cardiology Yudy Wilkins [address] [place] [phone] 04/21/2023 Office Visit Family Medicine Randell Queen MD [address] [place] [address] [place] [phone] 06/09/2023 Office Visit Cardiology Radha Brewster PA-C [address] [place] [address] Health Maintenance Due Date Last Done Comments Hepatitis C Screening 1963 Zoster Vaccines (1 of 2) 1993 Depression Screening, Annual for Pts 12 and Over 02/25/2021 02/26/2020 DTaP,Tdap,and Td Vaccines (2 - Td or Tdap) 11/06/2022 11/06/2012 Influenza Vaccine (FLU shot) (#1) 2023 01/28/2022, 03/12/2021, 03/04/2020, Additional history exists GFR 11/04/2023 11/03/2022, 04/15, 10/27/2021, Additional history exists TSH 11/04/2023 11/03/2022, 10/14, 04/30/2021, Additional history exists Albumin/Creatinine Ratio 11/03/2025 023, 10/27/2021, 04/30/2021, Additional history exists Pneumococcal Vaccine: 65+ Years Completed 10/28/2015, 10/21/2008, 04/20/2001, Additional history exists COVID-19 Vaccine Completed 05/04/2022, 09/2021, 03/17/2021, Additional history exists GARDASIL-HPV IMMUNIZATION SERIES Aged [...] as of this encounter Visit Diagnoses Diagnosis Atherosclerosis of [place] coronary artery of [place] heart without angina pectoris Dyslipidemia, goal LDL below 70 Other and unspecified hyperlipidemia documented in this encounter Care Teams Precipitator Relationship Specialty Start Date End Date Randell Queen MD [address] [place] [address] [place] [address] PCP - General 12/29/1995 documented as of this encounter
--- OUTSIDE RECORDS SUMMARY | 2023-06-09 04:55 | External Medical Summary | Summary of Care ---
Author Name Unknown Organization [facility] Address [address] [place] [address] Phone [phone] Care Team Providers Care Pediatric Orthodontist Name Role Phone Randell Gómez MD Primary Care Provider [phone] Encounter Details Date Type Department Care Team (Late st Contact Info) Description 04/20/2023 1:00 PM EST Immunization Ancillary [address] [place] [address] [facility] Covid19 Vaccine [address] [place] [address] Allergies Active Allergy Reactions Criticality Noted Date Comments Peanut-Containing Drug Products 0408/2021 Tongue tingling documented as of this encounter (statuses as of 04/20/2023) Medications Medication Sig Dispensed Refills Start Date [...] Active Escitalopram Oxalate 10 MG Oral Tablet (Lexapro)Indications :RAFA (generalized anxiety disorder) Take by mouth 1 Tablet in the morning. 30 Tablet 5 01/28/2022 Active Metoprolol Succinate ER 25 MG Oral Tablet Extended Release 24 Hour (toPROL XL)Indications:Ather osclerosis of [place] coronary artery of [place] heart without angina pectoris,Ischemic cardiomyopathy Take 1 Tablet by mouth in the morning. 90 Tablet 3 06/21/2022 Active Enalapril Maleate 2.5 MG Oral Tablet (Vasotec)Indications :Atherosclerosis of [place] coronary artery of [place] heart without angina pectoris,LV dysfunction take 1/2 tablet twice a day 90 Tablet 1 11/08/2022 Active Atorvastatin Calcium 40 MG Oral Tablet (Lipitor)Indications :Atherosclerosis of [place] coronary artery of [place] heart without angina pectoris,Dyslipidemi a, goal LDL below 70 Take 1 Tablet by mouth at bedtime. 100 Tablet 2 01/18/2023 Active Levothyroxine Sodium 100 MCG Oral Tablet (Levoxyl)Indications :Acquired hypothyroidism Take 1 Tablet by mouth daily first thing in the morning. (at least 30 min prior to breakfast or other meds) 90 Tablet 3 02/09/2023 Active Nitroglycerin 0.4 MG Sublingual Tablet Sublingual (Nitrostat)Indicatio ns:Atherosclerosis of [place] coronary artery of [place] heart without angina pectoris take 1 tablet under the tongue every 5 minutes as needed for chest pain; if 3 tablets needed go to the er. 25 Tablet 3 04/11/2023 Active documented as of this encounter (statuses as of 04/20/2023) Active Problems Problem Noted Date Diagnosed Date HTN, goal below 140/90 12/02/2020 Ischemic cardiomyopathy 03/03/[address] 03/03/2017 Dyslipidemia, goal LDL below 70 04/22/2009 Overview: Acquired hypothyroidism 10/18/2007 Overview: TSH 4.78 ADVANCE DIRECTIVE INFORMATION 04/19/2005 Overview: No, Advance Directive brochure given to patient at prior appointment. Mitral valve regurgitation 07/21/2004 Overview: 1-2+ by echo 01/21 Coronary artery disease invo lving [place] coronary artery of [place] heart without angina pectoris Iron deficiency anemia secon davy to inadequate dietary iron intake Old [place] (myocardial infarction) documented as of this encounter (statuses as of 04/20/2023) Resolved Problems Problem Noted Date Diagnosed Date Resolved Date Kidney disease, chronic, sta ge III (GFR 30-59 ml/min) 10/15/2010 10/28/2011 Overview: GFR 55.1 Mixed dyslipidemia 9 Overview: Per Lipid Taxonomy. CKD (chronic kidney disease), stage II 04/27/2021 documented as of this encounter (statuses as of 04/20/2023) Immunizations Name Administration Dates Next Due COVID-19 [...] on file documented as of this encounter Plan of Treatment Upcoming Encounters Date Type Department Care Team (Late st Contact Info) Description 04/21/2023 5:00 PM EST Office Visit Family Medicine [address] [place] [phone] Randell Gómez MD [address] [place] [address] [place] [address] 06/09/2023 3:30 PM EST Office Visit Cardiology [address] [place] [address] Radha Brewster PA-C [address] [place] [address] 07/12/2023 9:30 AM EST Cardiac Studies Cardiology [address] [place] [address] [facility], Pacer [facility] [address] [place] [address] Health Maintenance Due Date Last Done Comments Hepatitis C Screening 1963 Zoster Vaccines (1 of 2) 1993 Depression Screening 02/25/2021 02/26/2020 DTaP,Tdap,and Td Vaccines (2 - Td or Tdap) 11/06/2022 11/06/2012 COVID-19 Vaccine (6 - season) 2023 04/20/2023, 05/04/2022, 08/18/2021, Additional history exists GFR 11/04/2023 11/03/2022, 04/15, 10/27/2021, Additional history exists TSH 11/04/2023 11/03/2022, 10/14, 04/30/2021, Additional history exists Albumin/Creatinine Ratio 11/03/2025 023, 10/27/2021, 04/30/2021, Additional history exists Pneumococcal Vaccine: 65+ Years Completed 10/28/2015, 10/21/2008, 04/20/2001, Additional history exists Influenza Vaccine (FLU shot) [...] filedocumented as of this encounter Care Teams Pediatric Orthodontist Relationship Specialty Start Date End Date Randell Gómez MD [address] [place] [address] [place] [address] PCP - General 12/29/1995 documented as of this encounter
--- OUTSIDE RECORDS SUMMARY | 2023-06-09 04:55 | External Medical Summary ---
Author Name Unknown Address Unknown Organization [id number]:[facility] [address] [place] [address] Laboratory Report Ordering Provider Test Date Status BRITNIBERNICE 04/20/2023 08:58:14 Final Observation Date Value Abnormality Reference (Units ) Status PSA 04/20/2023 08:58:14 0.74 <4.10 (ng/ mL) Final Performing Location [facility] - [address] [place] [address]
--- OUTSIDE RECORDS SUMMARY | 2023-06-09 04:55 | External Medical Summary ---
Author Name Unknown Address Unknown Organization [id number]:LABORATORY [facility] - [address] [place] [address] Laboratory Report Ordering Provider Test Date Status BERNICE RYDER 04/20/2023 08:58:14 Final Observation Date Value Abnormality Reference (Units ) Status TSH 04/20/2023 08:58:14 3.16 0.27-4.20 (uIU/mL) Final Performing Location [facility] - [address] [place] [address]
--- OUTSIDE RECORDS SUMMARY | 2023-06-09 04:55 | External Medical Summary ---
Author Name Unknown Address Unknown Organization [id number]:[facility]ORY [facility] - [address] [facility] [address] [facility] [address] Laboratory Report Ordering Provider Test Date Status BERNICE RYDER 04/20/2023 08:58:14 Final Observation Date Value Abnormality Reference (Units ) Status WBC, Total 04/20/2023 08:58:14 4.84 4.00-10.80 (K/uL) Final RBC 04/20/2023 08:58:14 4.33 4.50-5.25 (M/uL) Final Hemoglobin 04/20/2023 08:58:14 14.0 14.0-16.8 (g/dL) Final HCT 04/20/2023 08:58:14 41.6 40.0-48.4 (%) Final MCV 04/20/2023 08:58:14 96.1 82.0-99.5 (fL) Final MCH 04/20/2023 08:58:14 32.3 27.0-34.0 (pg) Final MCHC 04/20/2023 08:58:14 33.7 32.0-36.0 (g/dL) Final RDW 04/20/2023 08:58:14 12.4 11.5-15.5 (%) Final Platelets 04/20/2023 08:58:14 173 140-400 (K/uL) Final MPV 04/20/2023 08:58:14 10.1 6.6-11.1 (fL) Final Nucleated erythrocytes/100 leukocytes [Ratio] in Blood by Automated count 04/20/2023 08:58:14 0 <=0 (/100 WBCs) Final Performing Location [facility]ORY [facility] - [address] [place] [address]
--- OUTSIDE RECORDS SUMMARY | 2023-06-09 04:55 | External Medical Summary | Summary of Care ---
Author Name Unknown Organization [facility] Address [address] [place] [facility] [place] [place] [address] Phone [phone] Care Team Providers Care Early Childhood Education Worker Name Role Phone Randell Gómez MD Primary Care Provider Reason for Visit * Reason Comments eRx-Medication Refill Encounter Details Date Type Department Care Team (Late st Contact Info) Description 04/08/2023 Refill Cardiology, [facility] [address] [place] [phone] Master Moya PA-C [address] [place] [address] Atherosclerosis of [place] coronary artery of [place] heart without angina pectoris Allergies Active Allergy Reactions Criticality Noted Date Comments Peanut-Containing Drug Products 08/2021 Tongue tingling documented as of this encounter (statuses as of 04/11/2023) Medications Medication Sig Dispensed Refills Start Date End Date Status VITAMIN D 1000 UNITS PO CAPS 3 capsules daily 0 Active GROUND FLAX SEEDS PO POWD 2 tablespoons 2 times a day 0 Active ASPIRIN 81 MG PO TABS 1 tab daily--chewable 0 5 Active One-A-Day Mens 50+ Oral Tablet Take by mouth . 0 Active Ondansetron 4 MG Oral Tablet Disintegrating (Zofran) Place on tongue 1 Tablet every 6 hours as needed for Nausea. 20 Tablet 0 2 Active Escitalopram Oxalate 10 MG Oral Tablet (Lexapro)Indication s:RAFA (generalized anxiety disorder) Take by mouth 1 Tablet in the morning. 30 Tablet 5 2 Active Metoprolol Succinate ER 25 MG Oral Tablet Extended Release 24 Hour (toPROL XL)Indications:Athe rosclerosis of [place] coronary artery of [place] heart without angina pectoris,Ischemic cardiomyopathy Take 1 Tablet by mouth in the morning. 90 Tablet 3 3 Active Enalapril Maleate 2.5 MG Oral Tablet (Vasotec)Indication s:Atherosclerosis of [place] coronary artery of [place] heart without angina pectoris,LV dysfunction take 1/2 tablet twice a day 90 Tablet 1 3 Active Atorvastatin Calcium 40 MG Oral Tablet (Lipitor)Indication s:Atherosclerosis of [place] coronary artery of [place] heart without angina pectoris,Dyslipidem ia, goal LDL below 70 Take 1 Tablet by mouth at bedtime. 100 Tablet 2 3 Active Levothyroxine Sodium 100 MCG Oral Tablet (Levoxyl)Indication s:Acquired hypothyroidism Take 1 Tablet by mouth daily first thing in the morning. (at least 30 min prior to breakfast or other meds) 90 Tablet 3 3 Active Nitroglycerin 0.4 MG Sublingual Tablet Sublingual (Nitrostat)Indicati ons:Atherosclerosis of [place] coronary artery of [place] heart without angina pectoris take 1 tablet under the tongue every 5 minutes as needed for chest pain; if 3 tablets needed go to the er. 25 Tablet 3 3 Active Nitroglycerin 0.4 MG Sublingual Tablet Sublingual (Nitrostat)Indicati ons:Atherosclerosis of [place] coronary artery of [place] heart without angina pectoris one tablet under the tongue every 5 minutes as needed for chest pain; if 3 tablets needed go to the ER 25 Tablet 11 2 04/11/20 23 Discontinued documented as of this encounter (statuses as of 04/11/2023) Active Problems Problem Noted Date Diagnosed Date HTN, goal below 140/90 12/02/2020 Ischemic cardiomyopathy 03/03/[address] 03/03/2017 Dyslipidemia, goal LDL below 70 04/22/2009 Overview: Acquired hypothyroidism 10/18/2007 Overview: TSH 4.78 ADVANCE DIRECTIVE INFORMATION 04/19/2005 Overview: No, Advance Directive brochure given to patient at prior appointment. Mitral valve regurgitation 07/21/2004 Overview: 1-2+ by echo 01/21 Coronary artery disease invo lving [place] coronary artery of [place] heart without angina pectoris Iron deficiency anemia secon davy to inadequate dietary iron intake Old [place] (myocardial infarction) documented as of this encounter (statuses as of 04/11/2023) Resolved Problems Problem Noted Date Diagnosed Date Resolved Date Kidney disease, chronic, sta ge III (GFR 30-59 ml/min) 10/15/2010 10/28/2011 Overview: GFR 55.1 Mixed dyslipidemia 9 Overview: Per Lipid Taxonomy. CKD (chronic kidney disease), stage II 04/27/2021 documented as of this encounter (statuses as of 04/11/2023) Immunizations Name Administration Dates Next Due COVID-19 [...] encounter Miscellaneous Notes * Telephone Encounter - Master Moya PA-C - 04/11/2023 3:16 PM EST Signed Prescriptions: Disp Refills Nitroglycerin 0.4 MG Sublingual Tablet Sub*25 Tab*3 Sig: take 1 tablet under the tongue every 5 minutes as needed for chest pain; if 3 tablets needed go to the er. Authorizing Provider: MASTER MOYA * Telephone Encounter - Gretel Forte COT - 04/11/2023 8:18 AM ESTPending Prescriptions: Disp Refills Nitroglycerin 0.4 MG Sublingual Tablet Sub*25 Tab*3 Sig: take 1 tablet under the tongue every 5 minutes as needed for chest pain; if 3 tablets needed go to the er. * Telephone Encounter - Gretel Forte COT - 04/11/2023 8:13 AM EST Did you pend patient's preferred pharmacy and medication before forwarding?yes Pharmacy: [id number] [address] [facility] Pending Prescriptions: Disp Refills Nitroglycerin 0.4 MG Sublingual Tablet [place]*25 Tab*3 Sig: take 1 tablet under the tongue every 5 minutes as needed for chest pain; if 3 tablets needed go to the er. Last Visit: 05/02/2020 (in office), Visit date not found (telemedicine) Next Visit: Visit date not found If no future appointments scheduled, and last appointment is greater than a year ago, please schedule patient for a follow-up appointment Last date the medication was ordered: 04-06-2022 Is this request for a controlled substance?No Urine Drug Screen:No results found for this or any previous visit. Patient Phone Numbers Labs: Lab Results Component Value Date/Time CREAT 1.0 11/03/2022 10:45 AM CREAT 0.83 09/10/2021 12:00 AM CREAT 1.0 04/24/2020 09:48 AM POTASSIUM 4.4 11/03/2022 10:45 AM POTASSIUM 4.2 09/10/2021 12:00 AM POTASSIUM 4.6 04/24/2020 09:48 AM TSH 1.86 11/03/2022 10:45 AM TSH 1.17 04/24/2020 09:48 AM LDLCALC 42 11/03/2022 10:45 AM LDLCALC 42 11/02/2019 09:45 AM LDLCALC 130. 03/27/1996 12:21 PM LDLDIRECT NOT APPLICABLE 11/02/2019 09:45 AM ALT 26 11/03/2022 10:45 AM ALT 41 04/24/2020 09:48 AM * Telephone Encounter - Interface, E-Rx Ss Inbound - 04/10/2023 4:32 PM EST Pending Prescriptions: Disp Refills Nitroglycerin 0.4 MG Sublingual Tablet Sub*25 Tab*0 Sig: take 1tablet under the tongue every 5 minutes as needed for chest pain; if 3 tablets needed go to the er.- documented in this encounter Plan of Treatment Upcoming Encounters Date Type Department Care Team (Late st Contact Info) Description 04/21/2023 5:00 PM EST Office Visit Family Medicine [address] [place] [phone] Randell Gómez MD [address] [place] [address] [place] [address] 06/09/2023 3:30 PM EST Office Visit Cardiology [address] [place] [address] Master Moya PA-C [address] [place] [address] 07/12/2023 9:30 AM EST Cardiac Studies Cardiology [address] [place] [address] [facility] [address] [place] [address] Health Maintenance Due Date Last Done Comments Hepatitis C Screening 1963 Zoster Vaccines (1 of 2) 1993 Depression Screening 02/25/2021 02/26/2020 DTaP,Tdap,and Td Vaccines (2 - Td or Tdap) 11/06/2022 11/06/2012 COVID-19 Vaccine (6 - season) 2023 05/04/2022, 08/18/2021, 03/17/2021, Additional history exists Influenza Vaccine (FLU shot) (#1) 2023 01/28/2022, 03/12/2021, 03/04/2020, Additional history exists GFR 11/04/2023 11/03/2022, 04/15, 10/27/2021, Additional history exists TSH 11/04/2023 11/03/2022, 10/14, 04/30/2021, Additional history exists Albumin/Creatinine Ratio 11/03/2025 023, 10/27/2021, 04/30/2021, Additional history exists Pneumococcal Vaccine: 65+ Years Completed 10/28/2015, 10/21/2008, 04/20/2001, Additional history exists GARDASIL-HPV IMMUNIZATION SERIES Aged [...] this encounter Visit Diagnoses Diagnosis Atherosclerosis of [place] coronary artery of [place] heart without angina pectoris documented in this encounter Care Teams Early Childhood Education Worker Relationship Specialty Start Date End Date Randell Gómez MD [address] [place] [address] [place] [phone] PCP - General 12/29/1995 documented as of this encounter
--- OUTSIDE RECORDS SUMMARY | 2023-06-09 04:55 | External Medical Summary ---
Author Name Unknown Address Unknown Organization K01:[facility] [place] - [address] [place] [address] Laboratory Report Ordering Provider Test Date Status BERNICE RYDER 04/20/2023 08:58:14 Final Observation Date Value Abnormality Reference (Units ) Status Vitamin B12 04/20/2023 08:58:14 1527 Above high normal 232-1245 (pg/mL) Final Performing Location [facility] - [address] [place] [address]
--- OUTSIDE RECORDS SUMMARY | 2023-06-09 04:55 | External Medical Summary | Summary of Care ---
Author Name Unknown Organization [facility] Address [address] [place] [address] Phone [phone] Care Team Providers Care Surface Hydrologist Name Role Phone Randell Queen MD Primary Care Provider Reason for Visit * Reason Onset Date Comments Medication Refill 02/08/2023 Encounter Details Date Type Department Care Team Description 02/08/2023 Refill Family Medicine [address] [place] [phone] Randell Queen MD [address] [place], [place] [address] [address] Acquired hypothyroidism Allergies Active Allergy Reactions Severity Noted Date Comments Peanut-Containing Drug Products 08/2021 Tongue tingling documented as of this encounter (statuses as of 02/09/2023) Medications Medication Sig Dispensed Refills Start Date [...] MG Sublingual Tablet Sublingual (Nitrostat)Indicati ons:Atherosclerosis of [place] coronary artery of [place] heart without angina pectoris one tablet under the tongue every 5 minutes as needed for chest pain; if 3 tablets needed go to the ER 25 Tablet 11 04/06/2022 Active Additional Information Patient not taking.Reported on 12/02/2022 Metoprolol Succinate ER 25 MG Oral Tablet Extended Release 24 Hour (toPROL XL)Indications:Athe rosclerosis of [place] coronary artery of [place] heart without angina pectoris,Ischemic cardiomyopathy Take 1 Tablet by mouth in the morning. 90 Tablet 3 06/21/2022 Active Enalapril Maleate 2.5 MG Oral Tablet (Vasotec)Indication s:Atherosclerosis of [place] coronary artery of [place] heart without angina pectoris,LV dysfunction take 1/2 tablet twice a day 90 Tablet 1 11/08/2022 Active Atorvastatin Calcium 40 MG Oral Tablet (Lipitor)Indication s:Atherosclerosis of [place] coronary artery of [place] heart without angina pectoris,Dyslipidem ia, goal LDL below 70 Take 1 Tablet by mouth at bedtime. 100 Tablet 2 01/18/2023 Active Levothyroxine Sodium 100 MCG Oral Tablet (Levoxyl)Indication s:Acquired hypothyroidism Take 1 Tablet by mouth daily first thing in the morning. (at least 30 min prior to breakfast or other meds) 90 Tablet 3 02/09/2023 Active Levothyroxine Sodium 100 MCG Oral Tablet (Levoxyl)Indication s:Acquired hypothyroidism Take 1 Tablet by mouth daily first thing in the morning. (at least 30 min prior to breakfast or other meds) 90 Tablet 1 08/10/2022 3 Discontinu ed(Refill) documented as of this encounter (statuses as of 02/09/2023) Active Problems Problem Noted Date HTN, goal below 140/90 12/02/2020 Ischemic cardiomyopathy 03/03/[address] 7 Dyslipidemia, goal LDL below 70 04/22/20 09 Overview: Acquired hypothyroidism 10/18/2007 Overview: TSH 4.78 ADVANCE DIRECTIVE INFORMATION 04/19/2005 Overview: No, Advance Directive brochure given to patient at prior appointment. Mitral valve regurgitation 07/21/2004 Overview: 1-2+ by echo 01/21 Coronary artery disease invo lving [place] coronary artery of [place] heart without angina pectoris Iron deficiency anemia secondary to inad equate dietary iron intake [place] (myocardial infarction) documented as of this encounter (statuses as of 02/09/2023) Resolved Problems Problem Noted Date Resolved Date Kidney disease, chronic, stage III (GFR 30-59 ml /min) 10/15/2010 10/28/2011 Overview: GFR 55.1 Mixed dyslipidemia 04/22/2009 Overview: Per Lipid Taxonomy. CKD (chronic kidney disease), stage II 04/27/2021 documented as of this encounter (statuses as of 02/09/2023) Immunizations Name Administration Dates Next Due COVID-19 [...] encounter Miscellaneous Notes * Telephone Encounter - Roberto Cox RPh - 02/09/2023 11:44 AM EDTSigned Prescriptions: Disp Refills Levothyroxine Sodium 100 MCG Oral Tablet (*90 Tab*3 Sig: Take 1 Tablet by mouth daily first thing in the morning. (at least 30 min prior to breakfast or other meds)Authorizing Provider: RANDELL QUEEN User: ROBERTO COX documented in this encounter Plan of Treatment Upcoming Encounters Date Type Specialty Care Team Description 04/21/2023 Office Visit Family Medicine Randell Queen MD [address] [place] [address] [place] [id number] 06/09/2023 Office Visit Cardiology Radha Brewster PA-C [address] [place] [address] 07/12/2023 Cardiac Studies [facility]iology [facility] [address] [place] [address] Health Maintenance Due Date Last Done Comments [...] of this encounter Visit Diagnoses Diagnosis Acquired hypothyroidism Unspecified hypothyroidism documented in this encounter Care Teams Surface Hydrologist Relationship Specialty Start Date End Date Randell Queen MD [address] [place] [address] [place] [phone] PCP - General 12/29/1995 documented as of this encounter
--- OUTSIDE RECORDS SUMMARY | 2023-06-09 04:55 | External Medical Summary | Summary of Care ---
Author Name Unknown Organization [facility] Address [address] [place] [address] Phone [phone] Care Team Providers Care Mat Maker Name Role Phone Randell Gómez MD Primary Care Provider Reason for Visit * Reason Comments Outpatient Testing Encounter Details Date Type Department Care Team (Late st Contact Info) Description 04/20/2023 9:00 AM EST Laboratory Laboratory [address] [place] [phone] [place] [address] Iron deficiency anemia secondary to inadequate dietary iron intake; Nocturia; Acquired hypothyroidism; Ischemic cardiomyopathy; Atherosclerosis of [place] coronary artery of [place] heart without angina pectoris; Dyslipidemia, goal LDL below 70; HTN, goal below 140/90 Allergies Active Allergy Reactions Criticality Noted Date [...] Release 24 Hour (toPROL XL)Indications:Ather osclerosis of [place] coronary artery of [place] heart without angina pectoris,Ischemic cardiomyopathy Take 1 Tablet by mouth in the morning. 90 Tablet 3 06/21/2022 Active Enalapril Maleate 2.5 MG Oral Tablet (Vasotec)Indications :Atherosclerosis of [place] coronary artery of [place] heart without angina pectoris,LV dysfunction take 1/2 tablet twice a day 90 Tablet 1 11/08/2022 Active Atorvastatin Calcium 40 MG Oral Tablet (Lipitor)Indications :Atherosclerosis of [place] coronary artery of [place] heart without angina pectoris,Dyslipidemi a, goal LDL [...] MG Sublingual Tablet Sublingual (Nitrostat)Indicatio ns:Atherosclerosis of [place] coronary artery of [place] heart without angina pectoris take 1 tablet [...] echo 01/21 Coronary artery disease invo [place]ving [place] coronary artery of [place] heart without angina pectoris Iron deficiency anemia secon davy to inadequate dietary iron intake [place] (myocardial infarction) documented as of this encounter (statuses as of 04/20/2023) Resolved Problems Problem Noted Date Diagnosed Date Resolved Date Kidney disease, chronic, sta ge III (GFR 30-59 ml/min) 10/15/2010 10/28/2011 Overview: GFR 55.1 Mixed dyslipidemia Overview: Per Lipid Taxonomy. CKD (chronic kidney [...] 5:00 PM EST Office Visit Family Medicine [address] [place] [phone] Randell Gómez MD [address] [place] [address] [place] [address] 06/09/2023 3:30 PM EST Office Visit Cardiology [address] [place] [address] Radha Brewster PA-C [address] [place] [address] 07/12/2023 9:30 AM EST Cardiac Studies Cardiology [address] [place] [address] Yudy Wilkins [facility] [address] [place] [address] Pending Results Name Type Priority Associated Diagnoses Date /Time CBC Lab Routine Iron deficiency anemia secondary to inadequate dietary iron intake 04/20/2023 8:58 AM EST IRON Lab Routine Iron deficiency anemia secondary to inadequate dietary iron intake 04/20/2023 8:58 AM EST VITAMIN B12 Lab Routine Iron deficiency anemia secondary to inadequate dietary iron intake 04/20/2023 8:58 AM EST FOLIC ACID Lab Routine Iron deficiency anemia secondary to inadequate dietary iron intake 04/20/2023 8:58 AM EST PSA Lab Routine Nocturia 04/20/2023 8:58 AM EST TSH WITH FREE T4 IF INDICATED Lab Routine Acquired hypothyroidism Ischemic cardiomyopathy 04/20/2023 8:58 AM EST COMPREHENSIVE METABOLIC PANEL Lab Routine Atherosclerosis of [place] coronary artery of [place] heart without angina pectoris Dyslipidemia, goal LDL below 70 Ischemic cardiomyopathy HTN, goal below 140/90 04/20/2023 8:58 AM EST LIPID PANEL WITH DIRECT LDL IF TG IS HIGH Lab Routine Dyslipidemia, goal LDL below 70 04/20/2023 8:58 AM EST Health Maintenance Due Date Last Done Comments Hepatitis C Screening 1963 Zoster Vaccines (1 of 2) 1993 Depression Screening 02/25/2021 02/26/2020 DTaP,Tdap,and Td Vaccines (2 - Td or Tdap) 11/06/2022 11/06/2012 COVID-19 Vaccine ( - 2022- season) 2023 05/04/2022, 08/18/2021, 03/17/2021, Additional history [...] as of this encounter Visit Diagnoses Diagnosis Iron deficiency anemia secondary to inadequate dietary iron intake Nocturia Acquired hypothyroidism Unspecified hypothyroidism Ischemic cardiomyopathy Other specified forms of chronic ischemic heart disease Atherosclerosis of [place] coronary artery of [place] heart without angina pectoris Dyslipidemia, goal LDL below 70 Other and unspecified hyperlipidemia HTN, goal below 140/90 Unspecified essential hypertension documented in this encounter Care Teams Mat Maker Relationship Specialty Start Date End Date Randell Gómez MD [address] [place] [address] [place] [address] PCP - General 12/29/1995 documented as of this encounter
--- OUTSIDE RECORDS SUMMARY | 2023-06-09 04:55 | External Medical Summary | Summary of Care ---
Author Name Unknown Organization [facility] Address [address] [facility] [address] Phone [phone] Care Team Providers Care Provider Scribe Name Role Phone Randell Gómez MD Primary Care Provider Encounter Details Date Type Department Care Team (Late st Contact Info) Description 04/20/2023 9:40 AM EST Immunization Ancillary [address] [place] [address] [place] [address] [place] [address] Arrived Allergies Active Allergy Reactions Criticality Noted Date [...] Release 24 Hour (toPROL XL)Indications:Ather osclerosis of [place] coronary artery of [place] heart without angina pectoris,Ischemic cardiomyopathy Take 1 Tablet by mouth in the morning. 90 Tablet 3 06/21/2022 Active Enalapril Maleate 2.5 MG Oral Tablet (Vasotec)Indications :Atherosclerosis of [place] coronary artery of [place] heart without angina pectoris,LV dysfunction take 1/2 tablet twice a day 90 Tablet 1 11/08/2022 Active Atorvastatin Calcium 40 MG Oral Tablet (Lipitor)Indications :Atherosclerosis of [place] coronary artery of [place] heart without angina pectoris,Dyslipidemi a, goal LDL [...] MG Sublingual Tablet Sublingual (Nitrostat)Indicatio ns:Atherosclerosis of [place] coronary artery of [place] heart without angina pectoris take 1 tablet [...] echo 01/21 Coronary artery disease invo lving [place] coronary artery of [place] heart without angina pectoris Iron deficiency anemia secon davy to inadequate dietary iron intake [place] (myocardial infarction) documented as of this encounter [...] Description 04/20/2023 1:00 PM EST Immunization Ancillary [address] [place] [address] [place], Covid19 Vaccine [address] [place] [address] 04/21/2023 5:00 PM EST Office Visit Family Medicine [address] [place] [phone] Randell Gómez MD [address] [place] [address] [place] [address] 06/09/2023 3:30 PM EST Office Visit Cardiology [address] [place] [address] Radha Brewster PA-C [address] [place] [address] 07/12/2023 9:30 AM EST Cardiac Studies Cardiology [address] [place] [address] [facility] [address] [place] [address] Health Maintenance Due Date Last Done Comments Hepatitis C Screening 1963 Zoster Vaccines (1 of 2) 1993 Depression Screening 02/25/2021 02/26/2020 DTaP,Tdap,and Td Vaccines (2 - Td or Tdap) 11/06/2022 11/06/2012 COVID-19 Vaccine (6 - 2022- season) 2023 04/20/2023, 05/04/2022, 08/18/2021, Additional history [...] filedocumented as of this encounter Care Teams Provider Scribe Relationship Specialty Start Date End Date Randell Gómez MD [address] [place] [address] [place] [phone] PCP - General 12/29/1995 documented as of this encounter
[2023-06-09] MEDS ORDERED: NSS + 20MEQ KCL 20 MEQ/1,000 ML BAG IV ONE (05:11)
[2023-06-09] MEDS ORDERED: POTASSIUM CHLORIDE CRTAB 20 MEQ TABCR PO ONE (05:15)
--- NOTE | 2023-06-09 06:13 | History & Physical Report ---
Date of Service June 09, 2023 Assessment & Plan (1) Dizziness: Plan: Secondary to paroxysmal A-fib (new onset) causing hypotension Likely TBS, history symptomatic bradycardia status post PPM Patient currently NSR post spontaneous conversion at the ER Troponin elevation secondary to rapid A-fib New onset anemia, FOBT done at the ER was negative chronic systolic heart failure secondary to ischemic cardiomyopathy, patient on the dry side hx CAD hypertension, patient hypotensive upon arrival at the ER Hyperlipidemia, on statin Rx hypothyroidism, TSH slight elevated past tobacco abuse. OBS PCU IVF Follow device interrogation result Follow troponin TTE, Cardiology consult Re: PAF Anemia workup, transfuse PRBC to maintain hemoglobin of at least 8 and or for symptomatic anemia DVT prophylaxis. Lovenox subcu Full code Text document was generated using [employer] voice recognition software. It may contain grammatical or spelling errors. Kindly contact undersigned for clarification of any documentation item in question. History of Present Illness Chief Complaint: Dizziness Primary Care Provider: Randell Gómez MD History obtained from patient and records. Medical history significant for chronic systolic heart failure secondary to ischemic cardiomyopathy (EF 25 to 29%, TTE 2021) sp ICD, symptomatic bradycardia status post PPM, CAD, hypertension, hyperlipidemia, hypothyroidism, anxiety disorder, past tobacco abuse. Last confinement December 2020 for acute LGIB. Patient noted dizziness described as lightheadedness while bending over at home yesterday. Denies headache, chest pain, SOB, abdominal pain, overt GI/ bleed. Patient compliant with home medications. Patient noted to be in rapid A-fib upon arrival at the ER. Heart rate 130s to 140s, lowest SBP of 80s. Spontaneous conversion to NSR after IVF administration at the ER. Medical History as above No prior colonoscopies as per patient. 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 Allergies Allergy/AdvReac Type Severity Reaction Status Date / Time No Known Allergies Allergy Verified 06/09/23 08:13 Home Medications Medication Instructions Recorded Confirmed Type atorvastatin 40 mg tablet 40 mg PO HS 08/27/18 06/09/23 History cholecalciferol (vitamin D3) 25 See Rx Instructions .Route .COMPLEX 08/27/18 06/09/23 History mcg (1,000 unit) capsule (Vitamin D3) enalapril maleate 2.5 mg tablet 1.25 mg PO BID 08/27/18 06/09/23 History levothyroxine 100 mcg tablet 100 mcg PO DAILYBB 08/27/18 06/09/23 History metoprolol succinate 25 mg 25 mg PO QAM 08/27/18 06/09/23 History tablet,extended release 24 hr nitroglycerin 0.4 mg sublingual 0.4 mg sublingual DIRECTED PRN 08/27/18 06/09/23 History tablet Chest Pain multivitamin 1 tab PO QPM 12/15/20 06/09/23 History vit C 250 mg-vit E 90 mg-zinc 40 1 tab PO BID 08/25/21 06/09/23 History mg-copper 1 [id number] capsule (PreserVision AREDS-2) aspirin 81 mg chewable tablet 81 mg PO QAM 06/09/23 06/09/23 History Past Med/Surg History Medical History (Updated 06/09/23 @ 07:34 by Jimmy Ohara MD) Pacemaker Wide-complex tachycardia Pneumonia Ischemic cardiomyopathy Hypotension Cardiac ischemia Coronary artery disease Myocardial infarction Surgical History Stented coronary artery H/O cardiac catheterization Family History Other Family history non-contributory Social History Smoking Status: Former smoker Tobacco Type: Cigarettes Second Hand Exposure: No; Do You Dip or Chew Tobacco: No; Hx Alcohol Use: No Hx Substance Use: No Preferred Language: Kyrgyz Communication Ability: Effective Black Powder Glazing Operator Required: No Beliefs That Will Affect Care: None marital status: Single Current Living Situation: Alone Current Living Situation Comment: Lives at home alone current occupational status: retired Feels Safe at Home: Yes Assistive Devices: None Review of Systems Review of Systems: As per HPI, all other systems reviewed and negative Physical Exam Physical Exam: GENERAL: Comfortable, pleasant, slightly hard of hearing, slightly anxious, no respiratory distress SKIN: Pallor, warm HEENT: Bespectacled, pale palpebral conjunctivae, no ptosis, dry buccal mucosa NECK : Supple, no tenderness CHEST : CTA, no tenderness HEART : RRR, diminished S1 S2, systolic murmur ABDOMEN: Some distention, no tenderness RECTAL : Intact sphincter, yellow brown stool (FOBT negative) EXTREMITIES : No LE swelling/tenderness, no other conspicuous deformities noted NEUROLOGIC : Coherent, no facial asymmetry, mild hearing impairment, no other gross focality Results & Data Results & Data Vital Signs (Past 12 Hours) Vital Signs Temp Pulse Pulse Resp BP BP Pulse Ox 06/09/23 04:41 82 16 89/51 L 95 06/09/23 04:18 133 H 16 92/68 L 95 06/09/23 04:09 139 H 06/09/23 03:54 131 H 22 88/72 L 92 06/09/23 03:50 93 06/09/23 03:25 36.8 C 147 H 18 117/72 92 O2 Del Method 06/09/23 04:41 Room Air 06/09/23 04:18 Room Air 06/09/23 04:09 06/09/23 03:54 Room Air 06/09/23 03:50 Room Air 06/09/23 03:25 Room Air Laboratory Results Laboratory Results WBC 6.98 K/ul (4.8-10.8) 06/09/23 03:16 RBC 3.99 M/uL (4.70-6.10) L 06/09/23 03:16 Hgb 12.2 g/dl (14.0-18.0) L 06/09/23 03:16 Hct 35.3 % (42.0-52.0) L 06/09/23 03:16 MCV 88.5 fL (80.0-100.0) 06/09/23 03:16 MCH 30.6 pg (25.0-34.0) 06/09/23 03:16 MCHC 34.6 g/dL (32.0-36.0) 06/09/23 03:16 RDW Std Deviation 38.7 fL (36.4-46.3) 06/09/23 03:16 RDW Coeff of Kim 11.9 % (11.5-14.5) 06/09/23 03:16 Plt Count 288 K/uL (130-400) 06/09/23 03:16 MPV 8.2 fL (9.4-12.4) L 06/09/23 03:16 Immature Gran % (Auto) 0.3 % 06/09/23 03:16 Neut % (Auto) 82.5 % 06/09/23 03:16 Lymph % (Auto) 6.2 % 06/09/23 03:16 [place] % (Auto) 9.6 % 06/09/23 03:16 Eos % (Auto) 1.0 % 06/09/23 03:16 Baso % (Auto) 0.4 % 06/09/23 03:16 Neut # (Auto) 5.76 K/uL (1.40-6.50) 06/09/23 03:16 Lymph # (Auto) 0.43 K/uL (1.20-3.40) L 06/09/23 03:16 [place] # (Auto) 0.67 K/uL (0.11-0.59) H 06/09/23 03:16 Eos # (Auto) 0.07 K/uL (0.00-0.50) 06/09/23 03:16 Baso # (Auto) 0.03 K/uL (0.00-0.20) 06/09/23 03:16 Immature Gran # (Auto) 0.02 K/uL (0.01-0.20) 06/09/23 03:16 PT 11.8 Seconds (9.0-12.0) 06/09/23 03:16 INR 1.1 (0.9-1.1) 06/09/23 03:16 APTT 26 Seconds (21-31) 06/09/23 03:16 PTT Ratio 0.9 06/09/23 03:16 Sodium 132 mmol/L (136-145) L 06/09/23 03:16 Potassium 3.7 mmol/L (3.5-5.1) 06/09/23 03:16 Chloride 98 mmol/L (98-107) 06/09/23 03:16 Carbon Dioxide 26 mmol/L (21-32) 06/09/23 03:16 Anion Gap 8 (3-11) 06/09/23 03:16 BUN 18 mg/dl (6-23) 06/09/23 03:16 Creatinine 0.90 mg/dl (0.6-1.4) 06/09/23 03:16 Est Cr Clr Drug Dosing 57.9 ml/min 06/09/23 03:16 Est GFR ( Amer) 93.8 ml/min 06/09/23 03:16 Est GFR (Non-Af Amer) 80.9 ml/min 06/09/23 03:16 BUN/Creatinine Ratio 20.0 (10-20) 06/09/23 03:16 Glucose 159 mg/dl (70-99(Fasting)) H 06/09/23 03:16 Calcium 9.3 mg/dl (8.6-10.3) 06/09/23 03:16 Magnesium 1.8 mg/dl (1.7-2.4) 06/09/23 03:16 Total Bilirubin 0.6 mg/dl (0.2-1.0) 06/09/23 03:16 AST 24 U/L (13-39) 06/09/23 03:16 ALT 18 U/L (7-52) 06/09/23 03:16 Alkaline Phosphatase 60 U/L (34-104) 06/09/23 03:16 Troponin I High Sens 30.4 pg/ml (0-20) H 06/09/23 03:16 Total Protein 7.6 gm/dl (6.0-8.3) 06/09/23 03:16 Albumin 3.6 gm/dl (3.4-5.0) 06/09/23 03:16 Globulin 4.0 gm/dl (2.5-4.0) 06/09/23 03:16 Albumin/Globulin Ratio 0.9 (0.9-2) 06/09/23 03:16 TSH 5.646 uIu/ml (0.300-4.500) H 06/09/23 03:16 Free T4 1.09 ng/dl (0.61-1.60) 06/09/23 03:16 Diagnostic Findings Chest x-ray as per my interpretation cardiomegaly EKG as per my interpretation : Rate 140, A-fib, LAD, LAFB, LVH, anteroseptal infarct, T wave abnormalities lateral leads
[2023-06-09 06:46] LABS: Reticulocyte % 1.2 % (0.50-2.00); Reticulocytes # 0.04 10^6/uL (0.020-0.100)
[2023-06-09 06:47] LABS: Hematocrit (blood only) 32.4 % (42.0-52.0); Hemoglobin 11.2 g/dl (14.0-18.0)
--- NOTE | 2023-06-09 06:58 | XRay Report ---
XR chest 1V portable CLINICAL HISTORY: Dysrhythmia. COMPARISON STUDY: Chest CT December 20, 2019. Chest radiograph December 11, 2021. FINDINGS: Left subclavian pacer/AICD is in place. There is no pneumothorax or pleural effusion. Cardi ac silhouette has increased in size since prior exam. There is pulmonary vascular congestion without overt pulmonary edema. There is no consolidation to suggest pneumonia. IMPRESSION: 1. Increase in size of the cardiac silhouette. This could be due to increase in cardiomegaly or a sup erimposed pericardial effusion. 2. Pulmonary vascular congestion without overt pulmonary edema. ACT 112: Negative or not required by law. Electronically signed by: Prasanna Cabrera M.D. 06/09/2023 6:57 AM
[2023-06-09 07:22] LABS: Troponin I High Sensitivity 325.1 pg/ml (0-20)
[2023-06-09 07:28] LABS: Folate (Folic Acid),Ser orPlas 21.26 ng/ml (>5.38)
[2023-06-09] MEDS ORDERED: ACETAMINOPHEN 325 MG TAB PO PRN (08:00)
[2023-06-09] MEDS ORDERED: NITROGLYCERIN SL 0.4 MG/TAB TAB SL PRN (08:13)
--- NOTE | 2023-06-09 08:46 | Cardiology Consultation ---
Date of Consultation June 09, 2023 Assessment & Plan (1) Paroxysmal atrial fibrillation with rapid ventricular response: (2) Elevated troponin: (3) Coronary artery disease: (4) Ischemic cardiomyopathy: Plan 77-year-old male with longstanding history of severe ischemic heart disease and ischemic cardiomyopathy with thinned and akinetic LV apex and severly reduced ejection fraction Patient last evening at rest lapsed into atrial fibrillation with rapid ventricular response with associated symptoms of dizziness and tachypalpitations. Patient with spontaneous conversion to sinus rhythm. Impression: 1. Atrial fibrillation with rapid ventricular response: Spontaneous conversion to sinus but poor tolerance of arrhythmia including hypotension and symptoms. Severe underlying ischemic heart disease noted. Pacer defibrillator already in place. Will begin antiarrhythmic therapy with oral amiodarone maintain telemetry additional 24 to 48 hours. EKG in a.m. 2. Elevated troponin secondary to demand issues of rapid ventricular response. Known severe coronary artery disease 3. Severe ischemic cardiomyopathy ejection fraction 20 to 25% with thinned and expanded apical infarct. Patient on appropriate medical therapies. No signs of congestive heart failure. May consider Entresto in future versus this admission depending on clinical course. Antiarrhythmic control most pressing History of Present Illness Reason for Consultation: Paroxysmal atrial fibrillation Attending Physician: Junior Yoder MD History of Present Illness Patient is a 77-year-old male with outpatient records reflecting underlying cardiac issues 1. Extensive coronary artery disease. 2. Ischemic cardiomyopathy, EF 20-25%, status post ICD placement, 02/23/2017, [employer] Evera MRI XT DR RAYA MELO 1 D4 3. 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 4. Dyslipidemia. 5. Stage III chronic kidney disease. 6. Mitral regurgitation. 7. Hypothyroidism. Patient presents now noting acute onset of symptoms of fatigue shortness of breath and tachypalpitation with mild dizziness last evening. No chest pains, no syncope noted near syncope. No fevers or chills. No productive cough. No bleeding difficulties. Presented to the ER was found to be in atrial fibrillation with rapid response. Received IV metoprolol and IV fluids with spontaneous conversion to sinus rhythm. No further arrhythmias overnight Currently comfortable without cardiac complaint. Notes no chest pains or dizziness. No recent change in exercise capacity or symptom complaint. No signs of edema or fluid overload. Tolerating current medications as an outpatient. Review of records reflect prior use of amiodarone for atrial and ventricular arrhythmias Normally functioning pacer defibrillator in place Allergies Allergy/AdvReac Type Severity Reaction Status Date / Time No Known Allergies Allergy Verified 06/09/23 08:13 Home Medications Medication Instructions Recorded Confirmed Type atorvastatin 40 mg tablet 40 mg PO HS 08/27/18 06/09/23 History cholecalciferol (vitamin D3) 25 See Rx Instructions .Route .COMPLEX 08/27/18 06/09/23 History mcg (1,000 unit) capsule (Vitamin D3) enalapril maleate 2.5 mg tablet 1.25 mg PO BID 08/27/18 06/09/23 History levothyroxine 100 mcg tablet 100 mcg PO DAILYBB 08/27/18 06/09/23 History metoprolol succinate 25 mg 25 mg PO QAM 08/27/18 06/09/23 History tablet,extended release 24 hr nitroglycerin 0.4 mg sublingual 0.4 mg sublingual DIRECTED PRN 08/27/18 06/09/23 History tablet Chest Pain multivitamin 1 tab PO QPM 12/15/20 06/09/23 History vit C 250 mg-vit E 90 mg-zinc 40 1 tab PO BID 08/25/21 06/09/23 History mg-copper 1 [id number] capsule (PreserVision AREDS-2) aspirin 81 mg chewable tablet 81 mg PO QAM 06/09/23 06/09/23 History Patient History Medical History (Updated 06/09/23 @ 14:11 by Daniel Del Angel MD) Pacemaker Wide-complex tachycardia Pneumonia Ischemic cardiomyopathy Hypotension Cardiac ischemia Coronary artery disease Myocardial infarction Surgical History Stented coronary artery H/O cardiac catheterization Family History Other Family history non-contributory Social History Smoking Status: Former smoker Tobacco Type: Cigarettes Second Hand Exposure: No; Do You Dip or Chew Tobacco: No; Hx Alcohol Use: No Hx Substance Use: No Preferred Language: Cymro Communication Ability: Effective Camera Repairer Required: No Beliefs That Will Affect Care: None marital status: Single Current Living Situation: Alone Current Living Situation Comment: Lives at home alone current occupational status: retired Feels Safe at Home: Yes Assistive Devices: None Review of Systems Review of Systems: All systems reviewed & are unremarkable except as noted in HPI & below Physical Exam Constitutional: + thin; no acute distress Eyes: PERRL, conjunctivae normal, anicteric sclerae ENMT: external ear and nose normal, oropharynx normal Neck: trachea midline, no thyromegaly Respiratory: normal respiratory effort, lungs clear to auscultation Cardiovascular: Rate/Rhythm: regular rate and regular rhythm Heart Sounds: normal S1, normal S2 and + murmur Vessels: no JVD Extremities: no edema Chest (Breasts): Chest: + pacemaker Skin: no rashes, warm and dry Results & Data Vital Signs (Past 12 Hours) Vital Signs Temp Pulse Pulse Resp BP BP Pulse Ox 06/09/23 08:09 78 06/09/23 06:00 83 18 112/75 100 06/09/23 04:41 82 16 89/51 L 95 06/09/23 04:18 133 H 16 92/68 L 95 06/09/23 04:09 139 H 06/09/23 03:54 131 H 22 88/72 L 92 06/09/23 03:50 93 06/09/23 03:25 36.8 C 147 H 18 117/72 92 O2 Del Method 06/09/23 08:09 06/09/23 06:00 Room Air 06/09/23 04:41 Room Air 06/09/23 04:18 Room Air 06/09/23 04:09 06/09/23 03:54 Room Air 06/09/23 03:50 Room Air 06/09/23 03:25 Room Air Laboratory Results Laboratory Results - last 24 hr 06/09/23 06/09/23 06/09/23 03:16 06:25 06:29 WBC 6.98 RBC 3.99 L Hgb 12.2 L 11.2 L Hct 35.3 L 32.4 L MCV 88.5 MCH 30.6 MCHC 34.6 RDW Std Deviation 38.7 RDW Coeff of Kim 11.9 Plt Count 288 MPV 8.2 L Immature Gran % (Auto) 0.3 Neut % (Auto) 82.5 Lymph % (Auto) 6.2 [place] % (Auto) 9.6 Eos % (Auto) 1.0 Baso % (Auto) 0.4 Reticulocyte % (Auto) 1.20 Neut # (Auto) 5.76 Lymph # (Auto) 0.43 L [place] # (Auto) 0.67 H Eos # (Auto) 0.07 Baso # (Auto) 0.03 Reticulocyte # 0.040 Immature Gran # (Auto) 0.02 PT 11.8 INR 1.1 APTT 26 PTT Ratio 0.9 Sodium 132 L Potassium 3.7 Chloride 98 Carbon Dioxide 26 Anion Gap 8 BUN 18 Creatinine 0.90 Est Cr Clr Drug Dosing 57.9 Est GFR ( Amer) 93.8 Est GFR (Non-Af Amer) 80.9 BUN/Creatinine Ratio 20.0 Glucose 159 H Lactate 1.2 Calcium 9.3 Magnesium 1.8 Iron 34 L Transferrin 162 L Ferritin 171.0 Total Bilirubin 0.6 AST 24 ALT 18 Alkaline Phosphatase 60 Troponin I High Sens 30.4 H 325.1 H* D Total Protein 7.6 Albumin 3.6 Globulin 4.0 Albumin/Globulin Ratio 0.9 Vitamin B12 1299 H Folate 21.26 TSH 5.646 H Free T4 1.09 Blood Type O Negative Antibody Screen NEGATIVE Diagnostic Findings Outpatient cardiology note September 2016-CAD (S/P LARGE ANTERIOR NE ; S/P NSTEMI 07/28, Rx BARE METAL STENTING 60 & 80 RCA IN [facility], OTHER ANATOMY AT THAT TIME: CALCIFIED DISTAL LEFT MAIN, UNABLE TO PASS IVUS CATHETER THRU DISTAL LEFT MAIN, 70 & 100 LAD, CALCIFIC OSTIAL Cx DISEASE [EXTENSION OF LM DISEASE])
[2023-06-09] MEDS: ASPIRIN 81 MG CHEW PO SCH (09:24)
[2023-06-09] MEDS: METOPROLOL SUCC 25MG EXT REL TAB PO SCH (09:24)
[2023-06-09] MEDS: CEROVITE ADV FORMULA TAB PO SCH ×2 (09:24→21:39)
[2023-06-09] MEDS: ENALAPRIL MALEATE 5 MG TAB PO SCH ×2 (09:25→21:40)
[2023-06-09] MEDS: ENOXAPARIN INJ 40 MG/0.4 ML SYR SQ SCH (09:26)
[2023-06-09] MEDS: LEVOTHYROXINE SODIUM 100 MCG TABLET PO SCH (09:34)
[2023-06-09] MEDS ORDERED: AMIODARONE 200 MG TAB PO ONE (11:15)
[2023-06-09] MEDS ORDERED: AMIODARONE 200 MG TAB PO SCH (12:00)
[2023-06-09] MEDS: AMIODARONE 200 MG TAB PO SCH ×2 (15:39→21:40)
[2023-06-09] MEDS ORDERED: bisacodyL 5 MG TABEC PO PRN (15:40)
--- NOTE | 2023-06-09 18:19 | Hospitalist Progress Note ---
Date of Service June 09, 2023 Assessment & Plan (1) Dizziness: Plan: SECONDARY TO PAROXYSMAL A-FIB (NEW ONSET) CAUSING HYPOTENSION LIKELY TBS, HISTORY SYMPTOMATIC BRADYCARDIA STATUS POST PPM Patient currently NSR post spontaneous conversion at the ER Cardiology service consulted Amiodarone 200 mg p.o. 3 times daily added Continue to monitor close TROPONIN ELEVATION SECONDARY TO RAPID A-FIB Likely secondary to demand ischemia No chest pain NEW ONSET ANEMIA, FOBT DONE AT THE ER WAS NEGATIVE Denies melena or hematochezia Monitor hemoglobin Repeat fecal occult blood test ordered CHRONIC SYSTOLIC HEART FAILURE SECONDARY TO ISCHEMIC CARDIOMYOPATHY patient on the dry side HX CAD HYPERTENSION Monitor HYPERLIPIDEMIA, on statin Rx HYPOTHYROIDISM, TSH slight elevated past tobacco abuse. DVT prophylaxis. Lovenox subcu Full code Admission and Anticipated Discharge Date Admission Date: June 09, 2023 Subjective Follow-up for A-fib, etc. Seen resting in bed, comfortable, not in distress States he feels improved overall No recurrence of dizziness no chest pain, dyspnea, palpitations No other new symptoms Review of Systems Review of Systems: all noted and negative except for above Physical Exam Physical Exam: General- oriented x 3, not in distress, speaks in sentences with no effort or accessory muscle use Eyes- anicteric Neck- no JVD Lungs- clear breath sounds bilaterally, no crackles or wheezes Heart- normal rate, regular rhythm; no murmurs Abdomen- normal bowel sounds, nondistended, soft, no tenderness Extremities- no pretibial edema, no calf tenderness Neuro- alert, oriented x 3; no gross focal neurologic deficits Skin- warm & dry Results & Data Results & Data Vital Signs (Past 12 Hours) Vital Signs Pulse Resp BP Pulse Ox O2 Del Method 06/09/23 16:30 66 22 06/09/23 16:05 76 24 06/09/23 15:41 116/66 06/09/23 15:41 74 18 06/09/23 15:30 74 24 06/09/23 15:25 77 06/09/23 15:20 80 22 06/09/23 15:16 Room Air 06/09/23 15:10 79 14 06/09/23 15:00 74 22 06/09/23 15:00 96/50 L 06/09/23 14:50 86 20 06/09/23 14:40 88 29 H 06/09/23 14:30 71 14 01/25/24 14:20 73 23 06/09/23 14:10 72 20 06/09/23 14:00 107/62 06/09/23 14:00 72 17 06/09/23 13:50 74 23 06/09/23 13:40 76 27 H 06/09/23 13:30 77 19 06/09/23 13:20 80 17 06/09/23 13:18 85 22 06/09/23 13:18 90/73 L 06/09/23 13:10 74 22 06/09/23 13:00 77 19 06/09/23 12:50 83 19 06/09/23 12:40 70 22 06/09/23 12:30 69 22 06/09/23 12:20 75 26 H 06/09/23 12:10 88 18 06/09/23 12:00 100/70 06/09/23 12:00 76 23 98 06/09/23 11:50 73 21 99 06/09/23 11:40 72 22 99 06/09/23 11:30 72 20 99 06/09/23 11:20 72 21 100 06/09/23 11:10 78 23 98 06/09/23 11:00 78 23 97 06/09/23 11:00 106/67 06/09/23 10:50 79 21 96 06/09/23 10:40 80 23 96 06/09/23 10:30 87 22 98 06/09/23 10:20 84 24 06/09/23 10:10 90 24 06/09/23 10:02 93 H 27 H 06/09/23 10:02 128/73 06/09/23 10:00 95 H 26 H 06/09/23 09:50 99 H 26 H 06/09/23 09:40 93 H 21 06/09/23 09:30 75 18 06/09/23 09:20 83 29 H 06/09/23 09:10 81 24 95 06/09/23 09:00 79 22 95 06/09/23 09:00 122/75 06/09/23 08:50 77 21 92 06/09/23 08:40 79 25 H 98 06/09/23 08:30 93 H 26 H 06/09/23 08:20 80 18 06/09/23 08:10 83 28 H 06/09/23 08:09 78 06/09/23 08:00 79 22 06/09/23 08:00 112/72 06/09/23 07:50 78 22 06/09/23 07:40 76 24 06/09/23 07:31 85 22 06/09/23 07:31 115/68 06/09/23 07:30 84 06/09/23 07:10 80 26 H 97 06/09/23 07:00 99/62 L 06/09/23 07:00 75 22 93 06/09/23 06:50 77 22 95 06/09/23 06:40 79 22 97 06/09/23 06:30 81 26 H 99 06/09/23 06:20 92 all noted and reviewed including below
[2023-06-09 19:07] LABS: Appearance Urine Clear (Clear); Bilirubin Urine Negative (Negative); Blood Urine Negative (Negative); Color Urine Yellow; Glucose Urine UA Negative (Negative); Ketones Urine Negative (Negative); Leukocyte Esterase Urine Negative (Negative); Nitrite Urine Negative (Negative); Protein Urine Negative (Negative); Urobilinogen Urine Negative (Negative); pH Urine 7.5 (4.5-7.5)
--- NOTE | 2023-06-09 19:55 | Electrocardiogram Report ---
Test Reason : Blood Pressure : / mmHG Vent. Rate : 138 BPM Atrial Rate : 000 BPM P-R Int : 000 ms QRS Dur : 136 ms QT Int : 330 ms P-R-T Axes : 000 -71 107 degrees QTc Int : 499 ms Atrial fibrillation with rapid ventricular response Left axis deviation Non-specific intra-ventricular conduction block Minimal voltage criteria for LVH, may be normal variant Cannot rule out Anteroseptal infarct (cited on or before 12-AUG-2021) T wave abnormality, consider lateral ischemia Abnormal ECG When compared with ECG of 11-DEC-2021 18:25, Atrial fibrillation has replaced Electronic atrial pacemaker Vent. rate has increased BY 73 BPM QRS duration has increased Confirmed by Manuel Carreon ([id number]) on 06/09/2023 7:54:38 PM Referred By: REFERRED SELF Confirmed By:Stephen Carreon
[2023-06-09] MEDS ORDERED: ATORVASTATIN 40 MG TAB PO SCH (21:00)
[2023-06-09] MEDS ORDERED: MULTIVITAMIN TAB PO SCH (21:00)
[2023-06-09] MEDS: bisacodyL 5 MG TABEC PO SCH (21:39)
[2023-06-10] MEDS: LEVOTHYROXINE SODIUM 100 MCG TABLET PO SCH (06:17)
[2023-06-10] MEDS ORDERED: LEVOTHYROXINE SODIUM 100 MCG TABLET PO SCH (06:30)
[2023-06-10 07:13] LABS: Basophils # (auto) 0.03 K/uL (0.00-0.20); Basophils % (auto) 0.4 %; Eosinophils # (auto) 0.08 K/uL (0.00-0.50); Eosinophils % (auto) 1.2 %; Hematocrit (blood only) 37.8 % (42.0-52.0); Hemoglobin 12.4 g/dl (14.0-18.0); Immature Granulocytes # (auto) 0.03 K/uL (0.01-0.20); Immature Granulocytes % (auto) 0.4 %; Lymphocytes # (auto) 0.76 K/uL (1.20-3.40); Lymphocytes % (auto) 11.4 %; Mean Corpuscular Hgb Conc 32.8 g/dL (32.0-36.0); Mean Corpuscular Volume 91.3 fL (80.0-100.0); Mean Platelet Volume 8.3 fL (9.4-12.4); Monocytes # (auto) 0.78 K/uL (0.11-0.59); Monocytes % (auto) 11.7 %; Neutrophils # (auto) 5.01 K/uL (1.40-6.50); Neutrophils % (auto) 74.9 %; Platelet Count 299 K/uL (130-400); RDW Coefficient of Variation 12.2 % (11.5-14.5); RDW Standard Deviation 41.1 fL (36.4-46.3); Red Blood Count 4.14 M/uL (4.70-6.10); White Blood Count 6.69 K/ul (4.8-10.8)
[2023-06-10 07:43] LABS: BUN Creatinine Ratio 18.3 (10-20); Calcium 9.6 mg/dl (8.6-10.3); Est GFR (African American) 90.2 ml/min; Est GFR (Non-African American) 77.8 ml/min
[2023-06-10] MEDS: METOPROLOL SUCC 25MG EXT REL TAB PO SCH (08:20)
[2023-06-10] MEDS: ASPIRIN 81 MG CHEW PO SCH (08:20)
[2023-06-10] MEDS: bisacodyL 5 MG TABEC PO SCH (08:20)
[2023-06-10] MEDS: ENALAPRIL MALEATE 5 MG TAB PO SCH (08:20)
[2023-06-10] MEDS: CEROVITE ADV FORMULA TAB PO SCH (08:20)
[2023-06-10] MEDS: ENOXAPARIN INJ 40 MG/0.4 ML SYR SQ SCH (08:21)
[2023-06-10] MEDS: AMIODARONE 200 MG TAB PO SCH (08:21)
--- NOTE | 2023-06-10 12:20 | Cardiology Progress Note ---
Date of Service June 10, 2023 Assessment & Plan (1) Paroxysmal atrial fibrillation with rapid ventricular response: (2) Elevated troponin: Plan: Secondary to chronic diffuse coronary disease, increased demand with atrial fibrillation with rapid response (3) Coronary artery disease: (4) Ischemic cardiomyopathy: Plan 77-year-old male with longstanding history of severe ischemic heart disease and ischemic cardiomyopathy with thinned and akinetic LV apex and severly reduced ejection fraction Patient last evening at rest lapsed into atrial fibrillation with rapid ventricular response with associated symptoms of dizziness and tachypalpitations. Patient with spontaneous conversion to sinus rhythm. Impression: 1. Atrial fibrillation with rapid ventricular response: Spontaneous conversion to sinus but poor tolerance of arrhythmia including hypotension and symptoms. Severe underlying ischemic heart disease noted. Pacer defibrillator already in place. Will begin antiarrhythmic therapy with oral amiodarone maintain telemetry additional 24 to 48 hours. EKG in a.m. 2. Elevated troponin secondary to demand issues of rapid ventricular response. Known severe coronary artery disease 3. Severe ischemic cardiomyopathy ejection fraction 20 to 25% with thinned and expanded apical infarct. Patient on appropriate medical therapies. No signs of congestive heart failure. May consider Entresto in future versus this admission depending on clinical course. Antiarrhythmic control most pressing 06/10/2023 No complaints. Tolerating amiodarone without break in rhythm. No QT prolongation Recommendations: Discharged home on amiodarone 200 mg twice per day, initiate anticoagulation with Eliquis 5 mg twice per day. May need discharge pack of medication Cardiology appointment [facility] 2 to 4 weeks Admission and Anticipated Discharge Date Admission Date: June 09, 2023 Subjective Patient seen and examined, chart, medications, telemetry reviewed. No further arrhythmias. No cardiac complaints. Remains in sinus rhythm and tolerating addition of amiodarone to regimen. No QT prolongation on EKG. Review of Systems Review of Systems: All systems reviewed & are unremarkable except as noted in Subjective Physical Exam Constitutional: + thin; no acute distress Eyes: PERRL, conjunctivae normal, anicteric sclerae ENMT: external ear and nose normal, oropharynx normal Neck: trachea midline, no thyromegaly Respiratory: normal respiratory effort, lungs clear to auscultation Cardiovascular: Rate/Rhythm: regular rate and regular rhythm Heart Sounds: normal S1, normal S2 and + murmur Vessels: no JVD Extremities: no edema Chest (Breasts): Chest: + pacemaker Skin: no rashes, warm and dry Results & Data Vital Signs (Past 12 Hours) Vital Signs Temp Pulse Pulse Pulse Resp BP BP 06/10/23 11:51 36.6 C 76 16 127/79 06/10/23 07:20 36.7 C 67 14 124/78 06/10/23 07:15 60 06/10/23 03:12 37.2 C 74 18 122/71 Pulse Ox O2 Del Method 06/10/23 11:51 98 Room Air 06/10/23 07:20 95 Room Air 06/10/23 07:15 06/10/23 03:12 97 Room Air Laboratory Results Laboratory Results - last 24 hr 06/09/23 06/10/23 18:45 06:28 WBC 6.69 RBC 4.14 L Hgb 12.4 L Hct 37.8 L MCV 91.3 MCH 30.0 MCHC 32.8 RDW Std Deviation 41.1 RDW Coeff of Kim 12.2 Plt Count 299 MPV 8.3 L Immature Gran % (Auto) 0.4 Neut % (Auto) 74.9 Lymph % (Auto) 11.4 [place] % (Auto) 11.7 Eos % (Auto) 1.2 Baso % (Auto) 0.4 Neut # (Auto) 5.01 Lymph # (Auto) 0.76 L [place] # (Auto) 0.78 H Eos # (Auto) 0.08 Baso # (Auto) 0.03 Immature Gran # (Auto) 0.03 Sodium 139 Potassium 4.0 Chloride 106 Carbon Dioxide 26 Anion Gap 7 BUN 17 Creatinine 0.93 Est Cr Clr Drug Dosing 56.0 Est GFR ( Amer) 90.2 Est GFR (Non-Af Amer) 77.8 BUN/Creatinine Ratio 18.3 Glucose 100 H Calcium 9.6 Urine Color Yellow Urine Appearance Clear Urine pH 7.5 Ur Specific [place] 1.010 Urine Protein Negative Urine Glucose (UA) Negative Urine Ketones Negative Urine Blood Negative Urine Nitrite Negative Urine Bilirubin Negative Urine Urobilinogen Negative Ur Leukocyte Esterase Negative
--- NOTE | 2023-06-10 16:14 | Hospitalist Progress Note ---
Date of Service June 10, 2023 delayed entry date of service noted above Assessment & Plan (1) Dizziness: Plan: SECONDARY TO PAROXYSMAL A-FIB (NEW ONSET) CAUSING HYPOTENSION LIKELY TBS, HISTORY SYMPTOMATIC BRADYCARDIA STATUS POST PPM Patient currently NSR post spontaneous conversion at the ER Cardiology service consulted Amiodarone 200 mg p.o. 3 times daily added tolerating Amiodarone well HR well controlled d/c plan: Discharged home on amiodarone 200 mg twice per day, initiate anticoagulation with Eliquis 5 mg twice per day. May need discharge pack of medication Cardiology appointment [facility] 2 to 4 weeks TROPONIN ELEVATION SECONDARY TO RAPID A-FIB Likely secondary to demand ischemia No chest pain NEW ONSET ANEMIA, FOBT DONE AT THE ER WAS NEGATIVE Denies melena or hematochezia HG stable at 12 monitor as outpatient CHRONIC SYSTOLIC HEART FAILURE SECONDARY TO ISCHEMIC CARDIOMYOPATHY euvolemic HX CAD HYPERTENSION Monitor HYPERLIPIDEMIA, on statin Rx HYPOTHYROIDISM, TSH slight elevated past tobacco abuse. DVT prophylaxis. Lovenox subcu Full code d/c home ff up with PCP in 1 week Admission and Anticipated Discharge Date Admission Date: June 09, 2023 Subjective ff up for afib etc seen resting in bed, comfortable states he feels fine overall no chest pain, dyspnea, palpitations, dizziness no other new symptoms states he is ready for discharge Review of Systems Review of Systems: all noted and negative except for above Physical Exam Physical Exam: General- oriented x 3, not in distress, speaks in sentences with no effort or accessory muscle use Eyes- anicteric Neck- no JVD Lungs- clear breath sounds bilaterally, no crackles/wheezing Heart- normal rate, regular rhythm; no murmurs Abdomen- normal bowel sounds, nondistended, soft, nontender Extremities- no pretibial edema, no calf tenderness Neuro- alert, oriented x 3; no gross focal neurologic deficits Skin- warm & dry Results & Data Results & Data Vital Signs (Past 12 Hours) Vital Signs Temp Pulse Pulse Pulse Resp BP BP 06/10/23 14:47 36.6 C 74 76 16 127/79 122/71 06/10/23 11:51 36.6 C 76 16 127/79 06/10/23 07:20 36.7 C 67 14 124/78 06/10/23 07:15 60 Pulse Ox O2 Del Method 06/10/23 14:47 98 06/10/23 11:51 98 Room Air 06/10/23 07:20 95 Room Air 06/10/23 07:15
--- NOTE | 2023-06-10 17:29 | Electrocardiogram Report ---
Test Reason : Blood Pressure : / mmHG Vent. Rate : 073 BPM Atrial Rate : 073 BPM P-R Int : 272 ms QRS Dur : 136 ms QT Int : 390 ms P-R-T Axes : 030 -63 112 degrees QTc Int : 429 ms Sinus rhythm with 1st degree A-V block Left axis deviation Non-specific intra-ventricular conduction block Minimal voltage criteria for LVH, may be normal variant Cannot rule out Septal infarct (cited on or before 12-AUG-2021) Possible Lateral infarct (cited on or before 12-AUG-2021) Abnormal ECG Confirmed by Manuel Carreon ([id number]) on 06/10/2023 5:28:31 PM Referred By: REFERRED SELF Confirmed By:Stephen Carreon
--- NOTE | 2023-06-10 17:32 | Electrocardiogram Report ---
Test Reason : Blood Pressure : / mmHG Vent. Rate : 069 BPM Atrial Rate : 081 BPM P-R Int : 302 ms QRS Dur : 140 ms QT Int : 402 ms P-R-T Axes : -49 -73 108 degrees QTc Int : 430 ms Atrial-paced rhythm with prolonged AV conduction Left axis deviation Non-specific intra-ventricular conduction block Possible Anterolateral infarct (cited on or before 12-AUG-2021) Abnormal ECG When compared with ECG of 09-JUN-2023 12:16, (unconfirmed) Electronic atrial pacemaker has replaced Sinus rhythm Confirmed by Manuel Carreon ([id number] on 06/10/2023 5:32:06 PM Referred By: REFERRED SELF Confirmed By:Stephen Carreon
[2023-06-10] MEDS ORDERED: AMIODARONE 200 MG TAB PO SCH (21:00)
[2023-06-10] MEDS ORDERED: APIXABAN 5 MG TABLET PO SCH (21:00)
--- NOTE | 2023-06-14 17:31 | Discharge Summary ---
Discharge Summary Date of Service June 14, 2023 delayed entry date of service 06/10/23 Notes For Next Care Provider Medication Changes From Visit AMIODARONE - for atrial fibrillation ELIQUIS - blood thinner to prevent stroke STOP ASPIRIN AFTER 1 MONTH. Admission HPI Per Admitting Provider History obtained from patient and records. Medical history significant for chronic systolic heart failure secondary to ischemic cardiomyopathy (EF 25 to 29%, TTE 2021) sp ICD, symptomatic bradycardia status post PPM, CAD, hypertension, hyperlipidemia, hypothyroidism, anxiety disorder, past tobacco abuse. Last confinement December 2020 for acute LGIB. Patient noted dizziness described as lightheadedness while bending over at home yesterday. Denies headache, chest pain, SOB, abdominal pain, overt GI/ bleed. Patient compliant with home medications. Patient noted to be in rapid A-fib upon arrival at the ER. Heart rate 130s to 140s, lowest SBP of 80s. Spontaneous conversion to NSR after IVF administration at the ER. Medical History as above No prior colonoscopies as per patient. 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 Admission Exam Per Admitting Provider GENERAL: Comfortable, pleasant, slightly hard of hearing, slightly anxious, no respiratory distress SKIN: Pallor, warm HEENT: Bespectacled, pale palpebral conjunctivae, no ptosis, dry buccal mucosa NECK : Supple, no tenderness CHEST : CTA, no tenderness HEART : RRR, diminished S1 S2, systolic murmur ABDOMEN: Some distention, no tenderness RECTAL : Intact sphincter, yellow brown stool (FOBT negative) EXTREMITIES : No LE swelling/tenderness, no other conspicuous deformities noted NEUROLOGIC : Coherent, no facial asymmetry, mild hearing impairment, no other gross focality Principal Dx & Hospital Course #1 = Principal Diagnosis (1) Dizziness: SECONDARY TO PAROXYSMAL A-FIB (NEW ONSET) CAUSING HYPOTENSION LIKELY TBS, HISTORY SYMPTOMATIC BRADYCARDIA STATUS POST PPM Patient currently NSR post spontaneous conversion at the ER Cardiology service consulted Amiodarone 200 mg p.o. 3 times daily added tolerating Amiodarone well HR well controlled d/c plan: Discharged home on amiodarone 200 mg twice per day, initiate anticoagulation with Eliquis 5 mg twice per day. May need discharge pack of medication Cardiology appointment Cailin Coon 2 to 4 weeks TROPONIN ELEVATION SECONDARY TO RAPID A-FIB Likely secondary to demand ischemia No chest pain NEW ONSET ANEMIA, FOBT DONE AT THE ER WAS NEGATIVE Denies melena or hematochezia HG stable at 12 monitor as outpatient CHRONIC SYSTOLIC HEART FAILURE SECONDARY TO ISCHEMIC CARDIOMYOPATHY euvolemic HX CAD HYPERTENSION Monitor HYPERLIPIDEMIA, on statin Rx HYPOTHYROIDISM, TSH slight elevated past tobacco abuse. DVT prophylaxis. Lovenox subcu Full code d/c home ff up with PCP in 1 week Discharge Exam General- oriented x 3, not in distress, speaks in sentences with no effort or accessory muscle use Eyes- anicteric Neck- no JVD Lungs- clear breath sounds bilaterally, no crackles/wheezing Heart- normal rate, regular rhythm; no murmurs Abdomen- normal bowel sounds, nondistended, soft, nontender Extremities- no pretibial edema, no calf tenderness Neuro- alert, oriented x 3; no gross focal neurologic deficits Skin- warm & dry Updated Medication List Medication Instructions Recorded Confirmed Type atorvastatin 40 mg tablet 40 mg PO HS 08/27/18 06/09/23 History cholecalciferol (vitamin D3) 25 See Rx Instructions .Route .COMPLEX 08/27/18 06/09/23 History mcg (1,000 unit) capsule (Vitamin D3) enalapril maleate 2.5 mg tablet 1.25 mg PO BID 08/27/18 06/09/23 History levothyroxine 100 mcg tablet 100 mcg PO DAILYBB 08/27/18 06/09/23 History nitroglycerin 0.4 mg sublingual 0.4 mg sublingual DIRECTED PRN 08/27/18 06/09/23 History tablet Chest Pain multivitamin 1 tab PO QPM 12/15/20 06/09/23 History vit C 250 mg-vit E 90 mg-zinc 40 1 tab PO BID 08/25/21 06/09/23 History mg-copper 1 [id number] capsule (PreserVision AREDS-2) amiodarone 200 mg tablet 200 mg PO BID 30 days #60 tabs 06/10/23 Rx apixaban 5 mg tablet (Eliquis) 5 mg PO BID 30 days #60 tabs 06/10/23 Rx aspirin 81 mg chewable tablet 81 mg PO QAM #30 tabs 06/10/23 06/09/23 Rx Hospital Stay Data Consultations 06/09/23 06:02 ED Decision to Admit Stat 06/09/23 08:00 Consult Cardiology Routine Diagnostic Imagining Performed Laboratory Results WBC 6.69 K/ul (4.8-10.8) 06/10/23 06:28 RBC 4.14 M/uL (4.70-6.10) L 06/10/23 06:28 Hgb 12.4 g/dl (14.0-18.0) L 06/10/23 06:28 Hct 37.8 % (42.0-52.0) L 06/10/23 06:28 MCV 91.3 fL (80.0-100.0) 06/10/23 06: MCH 30.0 pg (25.0-34.0) 06/10/23 06: MCHC 32.8 g/dL (32.0-36.0) 06/10/23 06: RDW Std Deviation 41.1 fL (36.4-46.3) 06/10/23 06: RDW Coeff of Kim 12.2 % (11.5-14.5) 06/10/23 06:28 Plt Count 299 K/uL (130-400) 06/10/23 06:28 MPV 8.3 fL (9.4-12.4) L 06/10/23 06:28 Immature Gran % (Auto) 0.4 % 06/10/23 06: Neut % (Auto) 74.9 % 06/10/23 06: Lymph % (Auto) 11.4 % 06/10/23 06:28 [place] % (Auto) 11.7 % 06/10/23 06:28 Eos % (Auto) 1.2 % 06/10/23 06:28 Baso % (Auto) 0.4 % 06/10/23 06:28 Reticulocyte % (Auto) 1.20 % (0.50-2.00) 06/09/23 06:25 Neut # (Auto) 5.01 K/uL (1.40-6.50) 06/10/23 06:28 Lymph # (Auto) 0.76 K/uL (1.20-3.40) L 06/10/23 06:28 [place] # (Auto) 0.78 K/uL (0.11-0.59) H 06/10/23 06:28 Eos # (Auto) 0.08 K/uL (0.00-0.50) 06/10/23 06:28 Baso # (Auto) 0.03 K/uL (0.00-0.20) 06/10/23 06:28 Reticulocyte # 0.040 10^6/uL (0.020-0.100) 06/09/23 06:25 Immature Gran # (Auto) 0.03 K/uL (0.01-0.20) 06/10/23 06:28 PT 11.8 Seconds (9.0-12.0) 06/09/23 03:16 INR 1.1 (0.9-1.1) 06/09/23 03:16 APTT 26 Seconds (21-31) 06/09/23 03:16 PTT Ratio 0.9 06/09/23 03:16 Sodium 139 mmol/L (136-145) 06/10/23 06:28 Potassium 4.0 mmol/L (3.5-5.1) 06/10/23 06:28 Chloride 106 mmol/L (98-107) 06/10/23 06:28 Carbon Dioxide 26 mmol/L (21-32) 06/10/23 06:28 Anion Gap 7 (3-11) 06/10/23 06:28 BUN 17 mg/dl (6-23) 06/10/23 06:28 Creatinine 0.93 mg/dl (0.6-1.4) 06/10/23 06:28 Est Cr Clr Drug Dosing 56.0 ml/min 06/10/23 06:28 Est GFR ( Amer) 90.2 ml/min 06/10/23 06:28 Est GFR (Non-Af Amer) 77.8 ml/min 06/10/23 06:28 BUN/Creatinine Ratio 18.3 (10-20) 06/10/23 06:28 Glucose 100 mg/dl (70-99(Fasting)) H 06/10/23 06:28 Lactate 1.2 mmol/L (0.4-2.0) 06/09/23 06:29 Calcium 9.6 mg/dl (8.6-10.3) 06/10/23 06:28 Magnesium 1.8 mg/dl (1.7-2.4) 06/09/23 03:16 Iron 34 mcg/dl (35-175) L 06/09/23 06:25 Transferrin 162 mg/dl (200-360) L 06/09/23 06:25 Ferritin 171.0 ng/ml (8-388) 06/09/23 06:25 Total Bilirubin 0.6 mg/dl (0.2-1.0) 06/09/23 03:16 AST 24 U/L (13-39) 06/09/23 03:16 ALT 18 U/L (7-52) 06/09/23 03:16 Alkaline Phosphatase 60 U/L (34-104) 06/09/23 03:16 Troponin I High Sens 325.1 pg/ml (0-20) H* D 06/09/23 06:25 Total Protein 7.6 gm/dl (6.0-8.3) 06/09/23 03:16 Albumin 3.6 gm/dl (3.4-5.0) 06/09/23 03:16 Globulin 4.0 gm/dl (2.5-4.0) 06/09/23 03:16 Albumin/Globulin Ratio 0.9 (0.9-2) 06/09/23 03:16 Vitamin B12 1299 pg/ml (180-914) H 06/09/23 06:25 Folate 21.26 ng/ml (>5.38) 06/09/23 06:25 TSH 5.646 uIu/ml (0.300-4.500) H 06/09/23 03:16 Free T4 1.09 ng/dl (0.61-1.60) 06/09/23 03:16 Urine Color Yellow 06/09/23 18:45 Urine Appearance Clear (Clear) 06/09/23 18:45 Urine pH 7.5 (4.5-7.5) 06/09/23 18:45 Ur Specific Harvel 1.010 (1.000-1.030) 06/09/23 18:45 Urine Protein Negative (Negative) 06/09/23 18:45 Urine Glucose (UA) Negative (Negative) 06/09/23 18:45 Urine Ketones Negative (Negative) 06/09/23 18:45 Urine Blood Negative (Negative) 06/09/23 18:45 Urine Nitrite Negative (Negative) 06/09/23 18:45 Urine Bilirubin Negative (Negative) 06/09/23 18:45 Urine Urobilinogen Negative (Negative) 06/09/23 18:45 Ur Leukocyte Esterase Negative (Negative) 06/09/23 18:45 Blood Type O Negative 06/09/23 06:25 Antibody Screen NEGATIVE 06/09/23 06:25 Impressions Chest X-Ray 06/09/23 03:26 XR chest 1V portable CLINICAL HISTORY: Dysrhythmia. COMPARISON STUDY: Chest CT December 20, 2019. Chest radiograph December 11, 2021. FINDINGS: Left subclavian pacer/AICD is in place. There is no pneumothorax or pleural effusion. Cardiac silhouette has increased in size since prior exam. There is pulmonary vascular congestion without overt pulmonary edema. There is no consolidation to suggest pneumonia. IMPRESSION: 1. Increase in size of the cardiac silhouette. This could be due to increase in cardiomegaly or a superimposed pericardial effusion. 2. Pulmonary vascular congestion without overt pulmonary edema. ACT 112: Negative or not required by law. Electronically signed by: Prasanna Cabrera M.D. 06/09/2023 6:57 AM Pending Results Patient Have Any Pending Studies at Discharge: No Discharge Instructions Given to Patient (Per Discharging Provider) PLEASE REFER TO YOUR NEW MEDICATION LIST AND FOLLOW INSTRUCTIONS CAREFULLY. YOUR NEW MEDICATIONS INCLUDE: AMIODARONE - for atrial fibrillation ELIQUIS - blood thinner to prevent stroke STOP ASPIRIN AFTER 1 MONTH. PLEASE CALL YOUR PRIMARY CARE PHYSICIAN OR RETURN TO THE ER IF WITH WORSENING OF SYMPTOMS, INCLUDING CHEST PAIN, DIZZINESS, SHORTNESS OF BREATH, UNCONTROLLED BREATHING, ETC. IF YOU SUSTAIN ANY HEAD TRAUMA, EVEN THOUGH YOU HAVE NO SYMPTOMS, PLEASE PROCEED TO THE ER IMMEDIATELY FOR EVALUATION. FOLLOW UP WITH PRIMARY CARE PHYSICIAN OUTLINED ABOVE. FOLLOW UP WITH [facility] - DR. REGALADO IN 2 WEEKS. PLEASE CALL HIS OFFICE FOR AN APPOINTMENT. CONTACT INFORMATION OUTLINED ABOVE. Total Time Total Time Spent Total Time Spent (In Minutes): > 30 minutes
== END 2023-06-10 16:05 | disposition home or self-care (01) ==
LOC: EDINP 03:03 → ED 03:03 → SUATTDRO 06:14 → 2S 08:02
DX: E78.5 Hyperlipidemia, unspecified; Z79.899 Other long term (current) drug therapy; I25.10 Atherosclerotic heart disease of native coronary artery without angina pectoris; E03.9 Hypothyroidism, unspecified; Z79.01 Long term (current) use of anticoagulants; I50.22 Chronic systolic (congestive) heart failure; Z79.82 Long term (current) use of aspirin; I48.0 Paroxysmal atrial fibrillation; I11.0 Hypertensive heart disease with heart failure; Z87.891 Personal history of nicotine dependence; Z79.890 Hormone replacement therapy

== ENCOUNTER 2023-07-02 20:25 | Inpatient (IN) ==
--- OUTSIDE RECORDS SUMMARY | 2023-07-02 20:30 | External Medical Summary | Summary of Care ---
Author Name Unknown Organization [facility] Address [address] [place] [address] Phone [phone] Care Team Providers Care Steel Die Engraver Name Role Phone Randell Gómez MD Primary Care Provider Reason for Visit * Reason Onset Date Comments Medication Refill 06/22/2023 Encounter Details Date Type Department Care Team (Late st Contact Info) Description 06/22/2023 Refill Family Medicine [address] [place] [phone] Randell Gómez MD [address] [place], [place] [address] [id number] Atherosclerosis of council coronary artery of council heart without angina pectoris; LV dysfunction Allergies Active Allergy Reactions Criticality Noted Date Comments Peanut-Containing Drug Products 08/2021 Tongue tingling documented as of this encounter (statuses as of 06/23/2023) Medications Medication Sig Dispensed Refills Start Date End Date Status VITAMIN D 1000 UNITS PO CAPS 3 capsules daily 0 Active ASPIRIN 81 MG PO TABS 1 tab daily--chewable 0 07/19/2014 Active One-A-Day Mens 50+ Oral Tablet Take by mouth . 0 Active Ondansetron 4 MG Oral Tablet Disintegrating (Zofran) Place on tongue 1 Tablet every 6 hours as needed for Nausea. 20 Tablet 0 01/05/2022 Active Metoprolol Succinate ER 25 MG Oral Tablet Extended Release 24 Hour (toPROL XL)Indications:Ather osclerosis of council coronary artery of council heart without angina pectoris,Ischemic cardiomyopathy Take 1 Tablet by mouth in the morning. 90 Tablet 3 06/21/2022 Active Additional Information Patient not taking.Reported on 06/15/2023 Atorvastatin Calcium 40 MG Oral Tablet (Lipitor)Indications :Atherosclerosis of council coronary artery of council heart without angina pectoris,Dyslipidemi a, goal LDL [...] MG Sublingual Tablet Sublingual (Nitrostat)Indicatio ns:Atherosclerosis of council coronary artery of council heart without angina pectoris take 1 tablet under the tongue every 5 minutes as needed for chest pain; if 3 tablets needed go to the er. 25 Tablet 3 04/11/2023 Active Enalapril Maleate 2.5 MG Oral Tablet (Vasotec)Indications :Atherosclerosis of council coronary artery of council heart without angina pectoris,LV dysfunction take 1/2 tablet twice a day 90 Tablet 1 04/21/2023 Active Escitalopram Oxalate 10 MG Oral Tablet (Lexapro)Indications :RAFA (generalized anxiety disorder) Take 1 Tablet by mouth in the morning. 30 Tablet 5 04/21/2023 Active [place] Seed Oral Powder Take by mouth. 0 Active documented as of this encounter (statuses as of 06/23/2023) Active Problems Problem Noted Date Diagnosed Date HTN, goal below 140/90 12/02/2020 Ischemic cardiomyopathy 03/03/[address] 03/03/2017 Dyslipidemia, goal LDL below 70 04/22/2009 Overview: Acquired hypothyroidism 10/18/2007 Overview: TSH 4.78 ADVANCE DIRECTIVE INFORMATION 04/19/2005 Overview: No, Advance Directive brochure given to patient at prior appointment. Mitral valve regurgitation 07/21/2004 Overview: 1-2+ by echo 01/21 Coronary artery disease invo lving council coronary artery of council heart without angina pectoris Iron deficiency anemia secon davy to inadequate dietary iron intake [place] (myocardial infarction) documented as of this encounter (statuses as of 06/23/2023) Resolved Problems Problem Noted Date Diagnosed Date Resolved Date Kidney disease, chronic, sta ge III (GFR 30-59 ml/min) 10/15/2010 10/28/2011 Overview: GFR 55.1 Mixed dyslipidemia 9 Overview: Per Lipid Taxonomy. CKD (chronic kidney disease), stage II 04/27/2021 documented as of this encounter (statuses as of 06/23/2023) Immunizations Name Administration Dates Next Due COVID-19 [...] encounter Miscellaneous Notes * Telephone Encounter - Efraín Pizano RPh - 06/23/2023 12:00 PM EST Refused Prescriptions: Disp Refills Enalapril Maleate 2.5 MG Oral Tablet (Vaso*90 Tab*1 Sig: take 1/2 tablet twice a dayRefused By: EF[facility]usal: Too soon documented in this encounter Plan of Treatment Upcoming Encounters Date Type Department Care Team (Late st Contact Info) Description 07/12/2023 12:30 PM EST Cardiac Studies Cardiology [address] [place] [address] [facility] [address] [place] [phone] 07/12/2023 1:00 PM EST Office Visit Cardiology [address] [place] [address] Elias Ricks PA-C [address] [place] [phone] 11/02/2023 5:40 PM EDT Office Visit Family Medicine [address] [place] [phone] Alphonse Ravi MD [address] [place] [address] [place] [address] Health Maintenance Due Date Last Done Comments Hepatitis C Screening 1961 Zoster Vaccines (1 of 2) 1993 Depression Screening 02/25/2021 02/26/2020 TSH 06/09/2024 06/09/2023, 12/10/2022, 11/03/2022, Additional history exists GFR 06/10/2024 06/10/2023, 05/17, 04/20/2023, Additional history exists Albumin/Creatinine Ratio 11/03/2025 023, 10/27/2021, 04/30/2021, Additional history exists DTaP,Tdap,and Td Vaccines (3 - Td or Tdap) 03/19/2032 03/19/2022, 11/06/2012 Pneumococcal Vaccine: 65+ Years Completed 10/28/2015, 10/21/2008, [...] this encounter Visit Diagnoses Diagnosis Atherosclerosis of council coronary artery of council heart without angina pectoris LV dysfunction Heart disease, unspecified documented in this encounter Care Teams Steel Die Engraver Relationship Specialty Start Date End Date Randell Gómez MD [address] [place] [address] [place] [address] PCP - General 12/29/1995 documented as of this encounter
--- OUTSIDE RECORDS SUMMARY | 2023-07-02 20:30 | External Medical Summary | Summary of Care ---
Author Name Unknown Organization [facility] Address [address] [place] [address] Phone [phone] Care Team Providers Care Cloth Shrinking Supervisor Name Role Phone Randell Gómez MD Primary Care Provider Encounter Details Date Type Department Care Team (Late st Contact Info) Description 06/15/2023 Orders Only Family Medicine [address] [phone] Randell Gómez MD [address] [place] [id number] Allergies Active Allergy Reactions Criticality Noted Date Comments Peanut-Containing Drug Products 08/2021 Tongue tingling documented as of this encounter (statuses as of 06/15/2023) Medications Medication Sig Dispensed Refills Start Date [...] Release 24 Hour (toPROL XL)Indications:Ather osclerosis of hopi coronary artery of hopi heart without angina pectoris,Ischemic cardiomyopathy Take 1 Tablet by mouth in the morning. 90 Tablet 3 06/21/2022 Active Additional Information Patient not taking.Reported on 06/15/2023 Atorvastatin Calcium 40 MG Oral Tablet (Lipitor)Indications :Atherosclerosis of hopi coronary artery of hopi heart without angina pectoris,Dyslipidemi a, goal LDL [...] MG Sublingual Tablet Sublingual (Nitrostat)Indicatio ns:Atherosclerosis of hopi coronary artery of hopi heart without angina pectoris take 1 tablet under the tongue every 5 minutes as needed for chest pain; if 3 tablets needed go to the er. 25 Tablet 3 04/11/2023 Active Enalapril Maleate 2.5 MG Oral Tablet (Vasotec)Indications :Atherosclerosis of hopi coronary artery of hopi heart without angina pectoris,LV dysfunction take 1/2 tablet twice a day 90 Tablet 1 04/21/2023 Active Escitalopram Oxalate 10 MG Oral Tablet (Lexapro)Indications :RAFA (generalized anxiety disorder) Take 1 Tablet by mouth in the morning. 30 Tablet 5 04/21/2023 Active [place] Seed Oral Powder Take by mouth. 0 Active documented as of this encounter (statuses as of 06/15/2023) Active Problems Problem Noted Date Diagnosed Date HTN, goal below 140/90 12/02/2020 Ischemic cardiomyopathy 03/03/[address] 03/03/2017 Dyslipidemia, goal LDL below 70 04/22/2009 Overview: Acquired hypothyroidism 10/18/2007 Overview: TSH 4.78 ADVANCE DIRECTIVE INFORMATION 04/19/2005 Overview: No, Advance Directive brochure given to patient at prior appointment. Mitral valve regurgitation 07/21/2004 Overview: 1-2+ by echo 01/21 Coronary artery disease invo lving hopi coronary artery of hopi heart without angina pectoris Iron deficiency anemia bethany garciay to inadequate dietary iron intake [place] (myocardial infarction) documented as of this encounter (statuses as of 06/15/2023) Resolved Problems Problem Noted Date Diagnosed Date Resolved Date Kidney disease, chronic, sta ge III (GFR 30-59 ml/min) 10/15/2010 10/28/2011 Overview: GFR 55.1 Mixed dyslipidemia 9 Overview: Per Lipid Taxonomy. CKD (chronic kidney disease), stage II 04/27/2021 documented as of this encounter (statuses as of 06/15/2023) Immunizations Name Administration Dates Next Due COVID-19 mRNA, LNP-s, No Pre serve, 2-Dose Series (Moderna) 07/19/2020,06/21/2020 COVID-19, MRNA-LNP, 23-24, P F, 30 MCG/0.3 mL, 12 YRS AND ABOVE, IM ([employer]) 04/20/2023 COVID-19, mRNA, LNP-s, PF, B ooster, 100mcg/0.5mg (Moderna) 08/18/2021,03/17/2021 Covid-19, Mrna, Lnp-s, Pf, B ivalent, 30 Mcg, IM, 12 yrs and above ([email or web address]) 05/04/2022 Pneumococcal Conjugate Vacc, 13 Valent (Prevnar) [...] 07/12/2023 12:30 PM EST Cardiac Studies Cardiology [address] [place] [address] [facility] [address] [place] [phone] 07/12/2023 1:00 PM EST Office Visit Cardiology [address] [place] [address] Elias Ricks PA-C [address] [place] [phone] 11/02/2023 5:40 PM EDT Office Visit Family Medicine [address] [place] [phone] Alphonse Ravi MD [address] [place] [address] [place] [address] Health Maintenance Due Date Last Done Comments Hepatitis C Screening 1963 Zoster Vaccines (1 of 2) 1993 Depression Screening 02/25/2021 02/26/2020 DTaP,Tdap,and Td Vaccines (2 - Td or Tdap) 11/06/2022 11/06/2012 TSH 06/09/2024 06/09/2023, 12/10/2022, 11/03/2022, Additional history [...] Not on filedocumented as of this encounter Procedures Procedure Name Priority Date/Time Associated Diagnosis Comments CHEMISTRY-OUTSIDE Routine 06/10/2023 CHEMISTRY-OUTSIDE Routine 06/09/2023 TSH Routine 06/09/2023 documented in this encounter Results * (ABNORMAL) CHEMISTRY-OUTSIDE (06/10/2023) Not all results display below - see scan for full detail OUTSIDE LAB (SEE SCANNED REPORT) Comment:SCAN INCLUDES - CBCD , BMP CREATININE-OUTSID E LAB 0.93 0.6 - 1.4 MG/DL OUTSIDE LAB (SEE SCANNED REPORT) EGFR-OUTSIDE LAB 77.8 ML/MIN OUT SIDE LAB (SEE SCANNED REPORT) POTASSIUM-OUTSIDE LAB 4.0 3.5 - 5.1 MMOL/L OUTSIDE LAB (SEE SCANNED REPORT) GLUCOSE-OUTSIDE LAB 100(A) 70 - 99 MG/DL OUTSIDE LAB (SEE SCANNED REPORT) HOURS FASTING OUTSID E LAB (SEE SCANNED REPORT) TRIGLYCERIDES-OUT SIDE LAB OUTSIDE LAB (SEE SCANNED REPORT) CHOLESTEROL-OUTSI DE LAB OUTSIDE LAB (SEE SCANNED REPORT) HDL-OUTSIDE LAB OUTS [place] LAB (SEE SCANNED REPORT) CHOL/HDL RATIO-OUTSIDE LAB OUTSIDE LA B (SEE SCANNED REPORT) LDL (CALCULATED)-OUTS [place] LAB OUTSIDE LAB (SEE SCANNED REPORT) LDL (DIRECT MEASURE)-OUTSIDE LAB OUTSIDE LAB (SEE SCANNED REPORT) HEMOGLOBIN, [id number] LAB OUTSIDE LAB (SEE SCANNED REPORT) PHOSPHORUS-OUTSID E LAB OUTSIDE LAB (SEE SCANNED REPORT) PTH-OUTSIDE LAB OUTS [place] [facility] (SEE SCANNED REPORT) MICROALBUMIN RATIO-OUTSIDE LAB OUTSIDE LA B (SEE SCANNED REPORT) PROTEIN, UA-OUTSIDE LAB OUTSIDE LAB (SEE SCANNED REPORT) HEMOGLOBIN-OUTSID E LAB 12.4(A) 14.0 - 18.0 G/DL OUTSIDE LAB (SEE SCANNED REPORT) 06/10/2023 Jimmy Ohara MD LABORATORY OUTSIDE LAB (SEE SCANNED REPORT) * (ABNORMAL) TSH (06/09/2023) TSH - OUTSIDE LAB 5.646(A) 0.300 - 4.500 UIU/ML OUTSIDE LAB (SEE SCANNED REPORT) Blood Venous blood specimen / Unknown 06/09/2023 Lauro Cervantes MD LAB BLOOD ORD ERABLES OUTSIDE LAB (SEE SCANNED REPORT) * (ABNORMAL) CHEMISTRY-OUTSIDE (06/09/2023) Not all results display below - see scan for full detail OUTSIDE LAB (SEE SCANNED REPORT) Comment:SCAN INCLUDES - PT I NR, PTT, CMP, MAGNESIUM, TROPONIN I, T4 FREE, TSH, LACTATE, B 12, FOLATE, TRANSFERRIN, FERRITIN, TROPONIN I CREATININE-OUTSID E LAB 0.90 0.6 - 1.4 MG/DL OUTSIDE LAB (SEE SCANNED REPORT) EGFR-OUTSIDE LAB 80.9 ML/MIN OUT SIDE LAB (SEE SCANNED REPORT) POTASSIUM-OUTSIDE LAB 3.7 3.5 - 5.1 MMOL/L OUTSIDE LAB (SEE SCANNED REPORT) GLUCOSE-OUTSIDE LAB 159(A) 70 - 99 MG/DL OUTSIDE LAB (SEE SCANNED REPORT) HOURS FASTING OUTSID E LAB (SEE SCANNED REPORT) TRIGLYCERIDES-OUT SIDE LAB OUTSIDE LAB (SEE SCANNED REPORT) CHOLESTEROL-OUTSI DE LAB OUTSIDE LAB (SEE SCANNED REPORT) HDL-OUTSIDE LAB OUTS [place] LAB (SEE SCANNED REPORT) CHOL/HDL RATIO-OUTSIDE LAB OUTSIDE LA B (SEE SCANNED REPORT) LDL (CALCULATED)-OUTS [place] LAB OUTSIDE LAB (SEE SCANNED REPORT) LDL (DIRECT MEASURE)-OUTSIDE LAB OUTSIDE LAB (SEE SCANNED REPORT) HEMOGLOBIN, [id number] LAB OUTSIDE LAB (SEE SCANNED REPORT) PHOSPHORUS-OUTSID E LAB OUTSIDE LAB (SEE SCANNED REPORT) PTH-OUTSIDE LAB OUTS [place] LAB (SEE SCANNED REPORT) MICROALBUMIN RATIO-OUTSIDE LAB OUTSIDE LA B (SEE SCANNED REPORT) PROTEIN, UA-OUTSIDE LAB OUTSIDE LAB (SEE SCANNED REPORT) HEMOGLOBIN-OUTSID E LAB OUTSIDE LAB (SEE SCANNED REPORT) 06/09/2023 Lauro Cervantes MD LABORATORY OUTSIDE LAB (SEE SCANNED REPORT) documented in this encounter Care Teams Cloth Shrinking Supervisor Relationship Specialty Start Date End Date Randell Gómez MD [address] [place] [address] [place] [address] PCP - General 12/29/1995 documented as of this encounter
--- OUTSIDE RECORDS SUMMARY | 2023-07-02 20:30 | External Medical Summary | Summary of Care ---
Author Name Unknown Organization [facility] Address [address] [place] [address] Phone [phone] Care Team Providers Care Geographic Information Systems Manager Name Role Phone Randell Gómez MD Primary Care Provider Encounter Details Date Type Department Care Team (Late st Contact Info) Description 06/14/2023 Orders Only Family Medicine [address] [phone] Randell Gómez MD [address] [place] [phone] Allergies Active Allergy Reactions Criticality Noted Date Comments Peanut-Containing Drug Products 08/2021 Tongue tingling documented as of this encounter (statuses as of 06/14/2023) Medications Medication Sig Dispensed Refills Start Date [...] Release 24 Hour (toPROL XL)Indications:Ather osclerosis of [place] coronary artery of [place] heart without angina pectoris,Ischemic cardiomyopathy Take 1 Tablet by mouth in the morning. 90 Tablet 3 06/21/2022 Active Atorvastatin Calcium 40 MG Oral Tablet (Lipitor)Indications :Atherosclerosis of [place] coronary artery of [place] heart without angina pectoris,Dyslipidemi a, goal LDL [...] MG Sublingual Tablet Sublingual (Nitrostat)Indicatio ns:Atherosclerosis of [place] coronary artery of [place] heart without angina pectoris take 1 tablet under the tongue every 5 minutes as needed for chest pain; if 3 tablets needed go to the er. 25 Tablet 3 04/11/2023 Active Enalapril Maleate 2.5 MG Oral Tablet (Vasotec)Indications :Atherosclerosis of [place] coronary artery of [place] heart without angina pectoris,LV dysfunction take 1/2 tablet twice a day 90 Tablet 1 04/21/2023 Active Escitalopram Oxalate 10 MG Oral Tablet (Lexapro)Indications :RAFA (generalized anxiety disorder) Take 1 Tablet by mouth in the morning. 30 Tablet 5 04/21/2023 Active documented as of this encounter (statuses as of 06/14/2023) Active Problems Problem Noted Date Diagnosed Date HTN, goal below 140/90 12/02/2020 Ischemic cardiomyopathy 03/03/[address] 03/03/2017 Dyslipidemia, goal LDL below 70 04/22/2009 Overview: Acquired hypothyroidism 10/18/2007 Overview: TSH 4.78 ADVANCE DIRECTIVE INFORMATION 04/19/2005 Overview: No, Advance Directive brochure given to patient at prior appointment. Mitral valve regurgitation 07/21/2004 Overview: 1-2+ by echo 01/21 Coronary artery disease invo lving [place] coronary artery of [place] heart without angina pectoris Iron deficiency anemia secon davy to inadequate dietary iron intake [place] (myocardial infarction) documented as of this encounter (statuses as of 06/14/2023) Resolved Problems Problem Noted Date Diagnosed Date Resolved Date Kidney disease, chronic, sta ge III (GFR 30-59 ml/min) 10/15/2010 10/28/2011 Overview: GFR 55.1 Mixed dyslipidemia 9 Overview: Per Lipid Taxonomy. CKD (chronic kidney disease), stage II 04/27/2021 documented as of this encounter (statuses as of 06/14/2023) Immunizations Name Administration Dates Next Due COVID-19 mRNA, LNP-s, No Pre serve, 2-Dose Series (Moderna) 07/19/2020,06/21/2020 COVID-19, MRNA-LNP, 23-24, P F, 30 MCG/0.3 mL, 12 YRS AND ABOVE, IM (PFIZER-Comirnat) 04/20/2023 COVID-19, mRNA, LNP-s, PF, B ooster, [...] Team (Late st Contact Info) Description 06/15/2023 11:40 AM EST Office Visit Family Medicine [address] [place] [phone] Jacqueline Zee PA-C [address] [place] [address] [place] [address] 07/12/2023 12:30 PM EST Cardiac Studies Cardiology [address] [place] [address] [facility], Pacer [facility] [address] [place] [address] 07/12/2023 1:00 PM EST Office Visit Cardiology [address] [place] [address] Elias Ricks PA-C [address] [place] [address] 11/02/2023 5:40 PM EDT Office Visit Family Medicine [address] [place] [phone] Alphonse Ravi MD [address] [place] [address] [place] [address] Health Maintenance Due Date Last Done Comments [...] Procedure Name Priority Date/Time Associated Diagnosis Comments XR CHEST 1 VIEW Routine 06/09/2023 documented in this encounter Results * XR CHEST 1 VIEW (06/09/2023) Anatomical Region Laterality Modality Chest Other 06/09/2023 Lauro Cervantes MD RADIOLOGY ([facility]) documented in this encounter Care Teams Geographic Information Systems Manager Relationship Specialty Start Date End Date Randell Gómez MD [address] [place] [address] [place] [phone] PCP - General 12/29/1995 documented as of this encounter
--- OUTSIDE RECORDS SUMMARY | 2023-07-02 20:30 | External Medical Summary | Summary of Care ---
Author Name Unknown Organization [facility] Address [address] [place] [address] Phone [phone] Care Team Providers Care Studio Owner Name Role Phone Randell Gómez MD Primary Care Provider Encounter Details Date Type Department Care Team (Late st Contact Info) Description 06/09/2023 Result Scan Unspecified Department <No scans attached> Allergies Active Allergy Reactions Criticality Noted Date [...] Release 24 Hour (toPROL XL)Indications:Ather osclerosis of [place] coronary artery of [place] heart without angina pectoris,Ischemic cardiomyopathy Take 1 Tablet by mouth in the morning. 90 Tablet 3 06/21/2022 Active Atorvastatin Calcium 40 MG Oral Tablet (Lipitor)Indications :Atherosclerosis of [place] coronary artery of [place] heart without angina pectoris,Dyslipidemi a, goal LDL [...] MG Sublingual Tablet Sublingual (Nitrostat)Indicatio ns:Atherosclerosis of [place] coronary artery of [place] heart without angina pectoris take 1 tablet under the tongue every 5 minutes as needed for chest pain; if 3 tablets needed go to the er. 25 Tablet 3 04/11/2023 Active Enalapril Maleate 2.5 MG Oral Tablet (Vasotec)Indications :Atherosclerosis of [place] coronary artery of [place] heart without angina pectoris,LV dysfunction take 1/2 [...] echo 01/21 Coronary artery disease invo lving [place] coronary artery of [place] heart without angina pectoris Iron deficiency anemia secon davy to inadequate dietary iron intake [place] (myocardial infarction) documented as of this encounter [...] MCG/0.3 mL, 12 YRS AND ABOVE, IM [facility] 04/20/2023 COVID-19, mRNA, LNP-s, PF, B ooster, [...] 06/15/2023 11:40 AM EST Office Visit Family [address] [place] [phone] Jacqueline Zee PA-C [address] [place] [address] [place] [address] 07/12/2023 12:30 PM EST Cardiac Studies Cardiology [address] [place] [address] [facility], Pacer [facility] [address] [place] [address] 07/12/2023 1:00 PM EST Office Visit Cardiology [address] [place] [address] Elias Ricks PA-C [address] [place] [address] 11/02/2023 5:40 PM EDT Office Visit Family Medicine [address] [place] [phone] Alphonse Ravi MD [address] [place] [address] [place] [address] Health Maintenance Due Date Last Done Comments [...] Procedure Name Priority Date/Time Associated Diagnosis Comments EKG SCANNED RESULT 06/09/2023 documented in this encounter Results * EKG SCANNED RESULT (06/09/2023) 06/09/2023 No Physician Data Unknown EKG documented in this encounter Care Teams Studio Owner Relationship Specialty Start Date End Date Randell Gómez MD [address] [place] [address] [place] [phone] PCP - General 12/29/1995 documented as of this encounter
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
--- OUTSIDE RECORDS SUMMARY | 2023-07-02 20:31 | External Medical Summary | Summary of Care ---
Author Name Unknown Organization [facility] Address [address] [place] [place] [address] Phone [phone] Care Team Providers Care Principal Embedded Software Engineer Name Role Phone Randell Gómez MD Primary Care Provider Reason for Visit * Reason Onset Date Comments Advice 06/10/2023 Encounter Details Date Type Department Care Team (Late st Contact Info) Description 06/10/2023 Telephone Cardiology, [facility] [address] [facility] [place] [address] Daniel Del Angel MD [address] [facility] [place] [phone] Advice Allergies Active Allergy Reactions Criticality Noted Date [...] Release 24 Hour (toPROL XL)Indications:Ather osclerosis of [place] coronary artery of [place] heart without angina pectoris,Ischemic cardiomyopathy Take 1 Tablet by mouth in the morning. 90 Tablet 3 06/21/2022 Active Atorvastatin Calcium 40 MG Oral Tablet (Lipitor)Indications :Atherosclerosis of [place] coronary artery of [place] heart without angina pectoris,Dyslipidemi a, goal LDL [...] MG Sublingual Tablet Sublingual (Nitrostat)Indicatio ns:Atherosclerosis of [place] coronary artery of [place] heart without angina pectoris take 1 tablet under the tongue every 5 minutes as needed for chest pain; if 3 tablets needed go to the er. 25 Tablet 3 04/11/2023 Active Enalapril Maleate 2.5 MG Oral Tablet (Vasotec)Indications :Atherosclerosis of [place] coronary artery of [place] heart without angina pectoris,LV dysfunction take 1/2 [...] echo 01/21 Coronary artery disease invo lving [place] coronary artery of [place] heart without angina pectoris Iron deficiency anemia secon davy to inadequate dietary iron intake [place] (myocardial infarction) documented as of this encounter [...] IM, 12 yrs and above (Pfizer) 05/04/2022 Influenza, Whole Virus 05/02/2000 Pneumococcal Conjugate Vacc, 13 Valent (Prevnar) 10/28/2015 Pneumococcal Polysaccharide PPV23 (Pneumovax) 10/21/2008,04/20/2001,03/16/1995 Season Influenza, Quad, PF, Adjuvanted, 65+ Yrs, IM (FLUAD) 03/04/2020 Seasonal Influenza, PF, 6 M & above, IM , (FluLaval or Fluzone) 02/21/2018,03/07/2017 Seasonal Influenza, Quadriva lent Hd (Fluzone Hd) 04/20/2023,01/28/2022,03/12/2021 Seasonal Influenza, Quadriva lent, No Preserve, IM 03/02/2016,03/18/2015 Seasonal Influenza, Split, I IV3, With Preserve, Inj 02/28/2014,02/15/2013,02/15/2012,10/0 09/2010,02/10/2010,01/28/2009,02/27/20 08,02/16/2007,02/17/2006,02/23/2005,1 ,02/19/2003,03/05/2002,04/2004/20/2002 Seasonal Influenza, Trivalen t, Adjuvanted, 65+ yrs [...] encounter Miscellaneous Notes * Telephone Encounter - Teagan Subramanian OSA - 06/14/2023 10:07 AM EST Appt scheduled for 07/12 with Elias. * Telephone Encounter - Elias Ricks PA-C - 06/13/2023 6:57 PM EST Looks like every spot has been filled (including all lunch breaks!) for at least the next month July 12, 2023 says "On hold, PT Adjustments." ? Availability on Wednesday, July 12, 2023 in [place] ? Elias Ricks PA-C Department of Cardiology * Telephone Encounter - Teagan Subramanian OSA - 06/13/2023 10:01 AM EST Elias, See Dr. Del Angel's message below. Is it okay to add Pt on to your schedule somewhere in 2-4 weeks? Your schedule is full. * Telephone Encounter - Daniel Del Angel MD - 06/10/2023 3:24 PM EST Patient unable to travel to [facility] * Telephone Encounter - Teagan Subramanian OSA - 06/10/2023 2:10 PM EST No openings in [facility]. Had to schedule for [address] Boyle. Jul 06 at 10:30. * Telephone Encounter - Daniel Del Angel MD - 06/10/2023 12:21 PM EST Patient hospitalized at [facility] with transient atrial fibrillation with rapid ventricular response. Spontaneous conversion to sinus rhythm on admission. Rhythm poorly tolerated with hypotension and elevated troponin given underlying ischemic cardiomyopathy. Patient begun on amiodarone 200 mg twice per day Eliquis 5 mg twice per day Needs follow-up with cardiology at [facility] in 2 to 4 weeks documented in this encounter Plan of Treatment Upcoming Encounters Date Type Department Care Team (Late st Contact Info) Description 06/15/2023 11:40 AM EST Office Visit Family Medicine [address] [place] [phone] Jacqueline Zee PA-C [address] [place] [address] [place] [address] 07/12/2023 12:30 PM EST Cardiac Studies Cardiology [address] [place] [address] Yudy Wilkins [facility] [address] [place] [address] 07/12/2023 1:00 PM EST Office Visit Cardiology [address] [place] [address] Elias Ricks PA-C [address] [place] [address] 11/02/2023 5:40 PM EDT Office Visit Family Medicine [address] [place] [phone] Alphonse Ravi MD [address] [place] [address] [place] [address] Health Maintenance Due Date Last Done Comments [...] filedocumented as of this encounter Care Teams Principal Embedded Software Engineer Relationship Specialty Start Date End Date Randell Gómez MD [address] [place] [address] [place] [address] PCP - General 12/29/1995 documented as of this encounter
--- OUTSIDE RECORDS SUMMARY | 2023-07-02 20:31 | External Medical Summary | Summary of Care ---
Author Name Unknown Organization [facility] Address [address] [place] [facility] [place] [address] Phone [phone] Care Team Providers Care Other Sports Official Name Role Phone Randell Gómez MD Primary Care Provider Reason for Visit * Reason Onset Date Comments Encounter Created in Error 06/14/2023 Encounter Details Date Type Department Care Team (Late st Contact Info) Description 06/14/2023 Telephone Family [address] [place] [address] Randell Gómez MD [address] [place], [place] [address] [address] Encounter Created in Error Allergies Active Allergy Reactions Criticality Noted Date [...] Release 24 Hour (toPROL XL)Indications:Ather osclerosis of [place] coronary artery of [place] heart without angina pectoris,Ischemic cardiomyopathy Take 1 Tablet by mouth in the morning. 90 Tablet 3 06/21/2022 Active Atorvastatin Calcium 40 MG Oral Tablet (Lipitor)Indications :Atherosclerosis of [place] coronary artery of [place] heart without angina pectoris,Dyslipidemi a, goal LDL [...] MG Sublingual Tablet Sublingual (Nitrostat)Indicatio ns:Atherosclerosis of [place] coronary artery of [place] heart without angina pectoris take 1 tablet under the tongue every 5 minutes as needed for chest pain; if 3 tablets needed go to the er. 25 Tablet 3 04/11/2023 Active Enalapril Maleate 2.5 MG Oral Tablet (Vasotec)Indications :Atherosclerosis of [place] coronary artery of [place] heart without angina pectoris,LV dysfunction take 1/2 [...] echo 01/21 Coronary artery disease invo lving [place] coronary artery of [place] heart without angina pectoris Iron deficiency anemia secon davy to inadequate dietary iron intake [place] (myocardial infarction) documented as of this encounter [...] 11:40 AM EST Office Visit Family Medicine [address] [place] [phone] Jacqueline Zee PA-C [address] [place] [address] [place] [address] 07/12/2023 9:30 AM EST Cardiac Studies Cardiology [address] [place] [address] [employer], Pacer [facility] [address] [place] [address] 07/12/2023 1:00 PM EST Office Visit Cardiology [address] [place] [address] Elias Ricks PA-C [address] [place] [address] 11/02/2023 5:40 PM EDT Office Visit Family Medicine [address] [place] [phone] Alphonse Ravi MD [address] [place] [address] [place] [address] Health Maintenance Due Date Last Done Comments [...] filedocumented as of this encounter Care Teams Other Sports Official Relationship Specialty Start Date End Date Randell Gómez MD [address] [place] [address] [place] [address] PCP - General 12/29/1995 documented as of this encounter
--- OUTSIDE RECORDS SUMMARY | 2023-07-02 20:31 | External Medical Summary | Summary of Care ---
Author Name Unknown Organization [facility] Address [address] [place] [place] [address] Phone [phone] Care Team Providers Care Bibliographic Services Specialist Name Role Phone Randell Gómez MD Primary Care Provider Reason for Visit * Reason Onset Date Comments Advice 06/10/2023 Encounter Details Date Type Department Care Team (Late st Contact Info) Description 06/10/2023 Telephone Cardiology, [facility] 132 [facility] [place] [phone] Daniel Del Angel MD 132 [facility] [place] [phone] Advice Allergies Active Allergy Reactions Criticality Noted Date Comments Peanut-Containing Drug Products 08/2021 Tongue tingling documented as of this encounter (statuses as of 06/10/2023) Medications Medication Sig Dispensed Refills Start Date [...] Release 24 Hour (toPROL XL)Indications:Ather osclerosis of [place] coronary artery of [place] heart without angina pectoris,Ischemic cardiomyopathy Take 1 Tablet by mouth in the morning. 90 Tablet 3 06/21/2022 Active Atorvastatin Calcium 40 MG Oral Tablet (Lipitor)Indications :Atherosclerosis of [place] coronary artery of [place] heart without angina pectoris,Dyslipidemi a, goal LDL [...] MG Sublingual Tablet Sublingual (Nitrostat)Indicatio ns:Atherosclerosis of [place] coronary artery of [place] heart without angina pectoris take 1 tablet under the tongue every 5 minutes as needed for chest pain; if 3 tablets needed go to the er. 25 Tablet 3 04/11/2023 Active Enalapril Maleate 2.5 MG Oral Tablet (Vasotec)Indications :Atherosclerosis of [place] coronary artery of [place] heart without angina pectoris,LV dysfunction take 1/2 tablet twice a day 90 Tablet 1 04/21/2023 Active Escitalopram Oxalate 10 MG Oral Tablet (Lexapro)Indications :RAFA (generalized anxiety disorder) Take 1 Tablet by mouth in the morning. 30 Tablet 5 04/21/2023 Active documented as of this encounter (statuses as of 06/10/2023) Active Problems Problem Noted Date Diagnosed Date HTN, goal below 140/90 12/02/2020 Ischemic cardiomyopathy 03/03/[address] 03/03/2017 Dyslipidemia, goal LDL below 70 04/22/2009 Overview: Acquired hypothyroidism 10/18/2007 Overview: TSH 4.78 ADVANCE DIRECTIVE INFORMATION 04/19/2005 Overview: No, Advance Directive brochure given to patient at prior appointment. Mitral valve regurgitation 07/21/2004 Overview: 1-2+ by echo 01/21 Coronary artery disease invo lving [place] coronary artery of [place] heart without angina pectoris Iron deficiency anemia secon davy to inadequate dietary iron intake [place] (myocardial infarction) documented as of this encounter (statuses as of 06/10/2023) Resolved Problems Problem Noted Date Diagnosed Date Resolved Date Kidney disease, chronic, sta ge III (GFR 30-59 ml/min) 10/15/2010 10/28/2011 Overview: GFR 55.1 Mixed dyslipidemia 9 Overview: Per Lipid Taxonomy. CKD (chronic kidney disease), stage II 04/27/2021 documented as of this encounter (statuses as of 06/10/2023) Immunizations Name Administration Dates Next Due COVID-19 [...] encounter Miscellaneous Notes * Telephone Encounter - Daniel Del Angel MD - 06/10/2023 12:21 PM EST Patient hospitalized at [facility] with transient atrial fibrillation with rapid ventricular response. Spontaneous conversion to sinus rhythm on admission. Rhythm poorly tolerated with hypotension and elevated troponin given underlying ischemic cardiomyopathy. Patient begun on amiodarone 200 mg twice per day Eliquis 5 mg twice per day Needs follow-up with cardiology at [facility] in 2 to 4 weeks documented in this encounter Plan of Treatment Upcoming Encounters Date Type Department Care Team (Late st Contact Info) Description 06/15/2023 11:40 AM EST Office Visit Family Medicine [facility] [address] [place] [phone] Jacqueline Zee PA-C [address] [place] [address] [place] [address] 07/12/2023 9:30 AM EST Cardiac Studies Cardiology [address] [place] [address] [facility] 132 [facility] [place] [address] 11/02/2023 5:40 PM EDT Office Visit Family Medicine [address] [place] [phone] Alphonse Ravi MD [address] [place] [address] [place] [phone] Health Maintenance Due Date Last Done Comments [...] filedocumented as of this encounter Care Teams Bibliographic Services Specialist Relationship Specialty Start Date End Date Pilgram, Randell A, MD [address] [place] [address] [place] [address] PCP - General 12/29/1995 documented as of this encounter
--- OUTSIDE RECORDS SUMMARY | 2023-07-02 20:31 | External Medical Summary | Summary of Care ---
Author Name Unknown Organization [facility] Address [address] [place] [facility] [place] [address] Phone [phone] Care Team Providers Care Idea Worker Name Role Phone Randell Gómez MD Primary Care Provider [phone] Reason for Visit * Reason Onset Date Comments Advice 06/10/2023 Encounter Details Date Type Department Care Team (Late st Contact Info) Description 06/10/2023 Telephone Cardiology, [facility] 132 [facility] [place] [phone] Daniel Del Angel MD 132 [facility] [place] [phone] Advice Allergies Active Allergy Reactions Criticality Noted [...] Release 24 Hour (toPROL XL)Indications:Ather osclerosis of [place] coronary artery of [place] heart without angina pectoris,Ischemic cardiomyopathy Take 1 Tablet by mouth in the morning. 90 Tablet 3 06/21/2022 Active Atorvastatin Calcium 40 MG Oral Tablet (Lipitor)Indications :Atherosclerosis of [place] coronary artery of [place] heart without angina pectoris,Dyslipidemi a, goal LDL [...] MG Sublingual Tablet Sublingual (Nitrostat)Indicatio ns:Atherosclerosis of [place] coronary artery of [place] heart without angina pectoris take 1 tablet under the tongue every 5 minutes as needed for chest pain; if 3 tablets needed go to the er. 25 Tablet 3 04/11/2023 Active Enalapril Maleate 2.5 MG Oral Tablet (Vasotec)Indications :Atherosclerosis of [place] coronary artery of [place] heart without angina pectoris,LV dysfunction take 1/2 [...] echo 01/21 Coronary artery disease invo lving [place] coronary artery of [place] heart without angina pectoris Iron deficiency anemia secon davy to inadequate dietary iron intake [place] (myocardial infarction) documented as of this encounter [...] 06/10/2023 2:10 PM EST No openings in [facility]. Had to schedule for [address] Boyle. Jul 06 at 10:30. * Telephone Encounter - Daniel Del Angel MD - 06/10/2023 12:21 PM EST Patient hospitalized at [facility] with transient atrial fibrillation with rapid ventricular response. Spontaneous conversion to sinus rhythm on admission. Rhythm poorly tolerated with hypotension and elevated troponin given underlying ischemic cardiomyopathy. Patient begun on amiodarone 200 mg twice per day Eliquis 5 mg twice per day Needs follow-up with cardiology at [facility] in 2 to 4 weeks documented in this encounter Plan of Treatment Upcoming Encounters Date Type Department Care Team (Late st Contact Info) Description 06/15/2023 11:40 AM EST Office Visit Family Medicine [address] [place] [phone] Jacqueline Zee PA-C [address] [place] [address] [place] [phone] 07/06/2023 10:30 AM EST Office Visit Cardiology, [facility] [address] [place] [address] Daniel Del Angel MD [address] [place] [address] 07/12/2023 9:30 AM EST Cardiac Studies Cardiology [address] [place] [address] [place] [address] [place] [address] 11/02/2023 5:40 PM EDT Office Visit Family Medicine [address] [place] [phone] Alphonse Ravi MD [address] [place] [address] [place] [address] Health Maintenance Due Date Last Done Comments [...] filedocumented as of this encounter Care Teams Idea Worker Relationship Specialty Start Date End Date Randell Gómez MD [address] [place] [address] [place] [phone] PCP - General 12/29/1995 documented as of this encounter
--- OUTSIDE RECORDS SUMMARY | 2023-07-02 20:31 | External Medical Summary | Summary of Care ---
Author Name Unknown Organization [facility] Address [address] [facility] [place] [address] Phone [phone] Care Team Providers Care Package Delivery Room Service Runner Name Role Phone Randell Gómez MD Primary Care Provider [phone] Reason for Visit * Reason Onset Date Comments Advice 06/10/2023 Encounter Details Date Type Department Care Team (Late st Contact Info) Description 06/10/2023 Telephone Cardiology, [facility] 132 [facility] [place] [address] Daniel Del Angel MD 132 [facility] [place] [phone] Advice Allergies Active Allergy Reactions Criticality Noted Date Comments Peanut-Containing Drug Products 08/2021 Tongue tingling documented as of this encounter (statuses as of 06/13/2023) Medications Medication Sig Dispensed Refills Start Date [...] Release 24 Hour (toPROL XL)Indications:Ather osclerosis of [place] coronary artery of [place] heart without angina pectoris,Ischemic cardiomyopathy Take 1 Tablet by mouth in the morning. 90 Tablet 3 06/21/2022 Active Atorvastatin Calcium 40 MG Oral Tablet (Lipitor)Indications :Atherosclerosis of [place] coronary artery of [place] heart without angina pectoris,Dyslipidemi a, goal LDL [...] MG Sublingual Tablet Sublingual (Nitrostat)Indicatio ns:Atherosclerosis of [place] coronary artery of [place] heart without angina pectoris take 1 tablet under the tongue every 5 minutes as needed for chest pain; if 3 tablets needed go to the er. 25 Tablet 3 04/11/2023 Active Enalapril Maleate 2.5 MG Oral Tablet (Vasotec)Indications :Atherosclerosis of [place] coronary artery of [place] heart without angina pectoris,LV dysfunction take 1/2 tablet twice a day 90 Tablet 1 04/21/2023 Active Escitalopram Oxalate 10 MG Oral Tablet (Lexapro)Indications :RAFA (generalized anxiety disorder) Take 1 Tablet by mouth in the morning. 30 Tablet 5 04/21/2023 Active documented as of this encounter (statuses as of 06/13/2023) Active Problems Problem Noted Date Diagnosed Date HTN, goal below 140/90 12/02/2020 Ischemic cardiomyopathy 03/03/[address] 03/03/2017 Dyslipidemia, goal LDL below 70 04/22/2009 Overview: Acquired hypothyroidism 10/18/2007 Overview: TSH 4.78 ADVANCE DIRECTIVE INFORMATION 04/19/2005 Overview: No, Advance Directive brochure given to patient at prior appointment. Mitral valve regurgitation 07/21/2004 Overview: 1-2+ by echo 01/21 Coronary artery disease invo lving [place] coronary artery of [place] heart without angina pectoris Iron deficiency anemia secon davy to inadequate dietary iron intake [place] (myocardial infarction) documented as of this encounter (statuses as of 06/13/2023) Resolved Problems Problem Noted Date Diagnosed Date Resolved Date Kidney disease, chronic, sta ge III (GFR 30-59 ml/min) 10/15/2010 10/28/2011 Overview: GFR 55.1 Mixed dyslipidemia 9 Overview: Per Lipid Taxonomy. CKD (chronic kidney disease), stage II 04/27/2021 documented as of this encounter (statuses as of 06/13/2023) Immunizations Name Administration Dates Next Due COVID-19 [...] PM EST Patient unable to travel to [facility] * Telephone Encounter - Teagan Subramainan OSA - 06/10/2023 2:10 PM EST No openings in [facility]. Had to schedule for [address] Boyle. Jul 06 at 10:30. * Telephone Encounter - Daniel Del Angel MD - 06/10/2023 12:21 PM EST Patient hospitalized at [facility] with transient atrial fibrillation with rapid ventricular response. Spontaneous conversion to sinus rhythm on admission. Rhythm poorly tolerated with hypotension and elevated troponin given underlying ischemic cardiomyopathy. Patient begun on amiodarone 200 mg twice per day Eliquis 5 mg twice per day Needs follow-up with cardiology at [facility] in 2 to 4 weeks documented in this encounter Plan of Treatment Upcoming Encounters Date Type Department Care Team (Late st Contact Info) Description 06/15/2023 11:40 AM EST Office Visit Family [address] [place] [phone] Jacqueline Zee PA-C [address] [place] [address] [place] [address] 07/12/2023 9:30 AM EST Cardiac Studies Cardiology [address] [place] [address] [place] [address] [place] [address] 11/02/2023 5:40 PM EDT Office Visit [address] [place] [phone] Alphonse Ravi MD [address] [place] [address] [place] [address] Health Maintenance Due Date Last Done Comments [...] filedocumented as of this encounter Care Teams Package Delivery Room Service Runner Relationship Specialty Start Date End Date Randell Gómez MD [address] [place] [address] [place] [phone] PCP - General 12/29/1995 documented as of this encounter
--- OUTSIDE RECORDS SUMMARY | 2023-07-02 20:31 | External Medical Summary | Summary of Care ---
Author Name Unknown Organization [facility] Address [address] [place] [facility] [place] [address] Phone [phone] Care Team Providers Care Casing Worker Name Role Phone Randell Gómez MD Primary Care Provider [phone] Reason for Visit * Reason Onset Date Comments Advice 06/10/2023 Encounter Details Date Type Department Care Team (Late st Contact Info) Description 06/10/2023 Telephone Cardiology, [facility] [place] [address] Daniel Del Angel MD 132 [facility] [place] [phone] Advice Allergies Active Allergy Reactions Criticality Noted [...] Release 24 Hour (toPROL XL)Indications:Ather osclerosis of [place] coronary artery of [place] heart without angina pectoris,Ischemic cardiomyopathy Take 1 Tablet by mouth in the morning. 90 Tablet 3 06/21/2022 Active Atorvastatin Calcium 40 MG Oral Tablet (Lipitor)Indications :Atherosclerosis of [place] coronary artery of [place] heart without angina pectoris,Dyslipidemi a, goal LDL [...] MG Sublingual Tablet Sublingual (Nitrostat)Indicatio ns:Atherosclerosis of [place] coronary artery of [place] heart without angina pectoris take 1 tablet under the tongue every 5 minutes as needed for chest pain; if 3 tablets needed go to the er. 25 Tablet 3 04/11/2023 Active Enalapril Maleate 2.5 MG Oral Tablet (Vasotec)Indications :Atherosclerosis of [place] coronary artery of [place] heart without angina pectoris,LV dysfunction take 1/2 [...] echo 01/21 Coronary artery disease invo lving [place] coronary artery of [place] heart without angina pectoris Iron deficiency anemia secon davy to inadequate dietary iron intake [place] (myocardial infarction) documented as of this encounter [...] encounter Miscellaneous Notes * Telephone Encounter - Elias Ricks PA-C - 06/13/2023 6:57 PM EST Looks like every spot has been filled (including all lunch breaks!) for at least the next month July 12, 2023 says "On hold, PT Adjustments." ? Availability on Wednesday, July 12, 2023 in [place] ? Elias Ricks PA-C Department of Cardiology * Telephone Encounter - Teagan Subramanian OSA - 06/13/2023 10:01 AM EST Elias, See Dr. Del Angel's message below. Is it okay to add Pt on to your schedule somewhere in 2-4 weeks? Your schedule is full. * Telephone Encounter - Daniel Del Angel MD - 06/10/2023 3:24 PM EST Patient unable to travel to [facility] * Telephone Encounter - Teagan Subramanian OSA - 06/10/2023 2:10 PM EST No openings in [facility]. Had to schedule for [address] Boyle. Jul 06 at 10:30. * Telephone Encounter - Daniel Del Angel MD - 06/10/2023 12:21 PM EST Patient hospitalized at [facility] with transient atrial fibrillation with rapid ventricular response. Spontaneous conversion to sinus rhythm on admission. Rhythm poorly tolerated with hypotension and elevated troponin given underlying ischemic cardiomyopathy. Patient begun on amiodarone 200 mg twice per day Eliquis 5 mg twice per day Needs follow-up with cardiology at [facility] in 2 to 4 weeks documented in this encounter Plan of Treatment Upcoming Encounters Date Type Department Care Team (Late st Contact Info) Description 06/15/2023 11:40 AM EST Office Visit Family Medicine [address] [place] [phone] Jacqueline Zee PA-C [address] [place] [address] [place] [address] 07/12/2023 9:30 AM EST Cardiac Studies Cardiology [address] [place] [address] [place] 132 [facility] [place] [address] 11/02/2023 5:40 PM EDT Office Visit Family Medicine [address] [place] [phone] Alphonse Ravi MD [address] [place] [address] [place] [address] Health Maintenance Due Date Last Done Comments [...] filedocumented as of this encounter Care Teams Casing Worker Relationship Specialty Start Date End Date Randell Gómez MD [address] [place] [address] [place] [phone] PCP - General 12/29/1995 documented as of this encounter
--- OUTSIDE RECORDS SUMMARY | 2023-07-02 20:31 | External Medical Summary | Summary of Care ---
Author Name Unknown Organization [facility] Address [address] [place] [facility] [place] [address] Phone [phone] Care Team Providers Care Auto Claim Representative Name Role Phone Randell Gómez MD Primary Care Provider [phone] Reason for Visit * Reason Onset Date Comments Advice 06/10/2023 Encounter Details Date Type Department Care Team (Late st Contact Info) Description 06/10/2023 Telephone Cardiology, [facility] 132 [facility] [place] [phone] Daniel Del Angel MD 132 [facility] [place] [phone] Advice Allergies Active Allergy Reactions Criticality Noted [...] Release 24 Hour (toPROL XL)Indications:Ather osclerosis of [place] coronary artery of [place] heart without angina pectoris,Ischemic cardiomyopathy Take 1 Tablet by mouth in the morning. 90 Tablet 3 06/21/2022 Active Atorvastatin Calcium 40 MG Oral Tablet (Lipitor)Indications :Atherosclerosis of [place] coronary artery of [place] heart without angina pectoris,Dyslipidemi a, goal LDL [...] MG Sublingual Tablet Sublingual (Nitrostat)Indicatio ns:Atherosclerosis of [place] coronary artery of [place] heart without angina pectoris take 1 tablet under the tongue every 5 minutes as needed for chest pain; if 3 tablets needed go to the er. 25 Tablet 3 04/11/2023 Active Enalapril Maleate 2.5 MG Oral Tablet (Vasotec)Indications :Atherosclerosis of [place] coronary artery of [place] heart without angina pectoris,LV dysfunction take 1/2 [...] echo 01/21 Coronary artery disease invo lving [place] coronary artery of [place] heart without angina pectoris Iron deficiency anemia secon davy to inadequate dietary iron intake [place] (myocardial infarction) documented as of this encounter [...] PM EST Patient unable to travel to [facility] * Telephone Encounter - Teagan Subramanian OSA - 06/10/2023 2:10 PM EST No openings in [facility]. Had to schedule for [address] Boyle. Jul 06 at 10:30. * Telephone Encounter - Daniel Del Angel MD - 06/10/2023 12:21 PM EST Patient hospitalized at [facility] with transient atrial fibrillation with rapid ventricular response. Spontaneous conversion to sinus rhythm on admission. Rhythm poorly tolerated with hypotension and elevated troponin given underlying ischemic cardiomyopathy. Patient begun on amiodarone 200 mg twice per day Eliquis 5 mg twice per day Needs follow-up with cardiology at [facility] in 2 to 4 weeks documented in this encounter Plan of Treatment Upcoming Encounters Date Type Department Care Team (Late st Contact Info) Description 06/15/2023 11:40 AM EST Office Visit Family Medicine [address] [place] [phone] Jacqueline Zee PA-C [address] [place] [address] [place] [address] 07/06/2023 10:30 AM EST Office Visit Cardiology, [facility] [address] [place] [address] Daniel Del Angel MD [address] [place] [address] 07/12/2023 9:30 AM EST Cardiac Studies Cardiology [address] [place] [address] [place] [address] [place] [address] 11/02/2023 5:40 PM EDT Office Visit Family [address] [place] [phone] Alphonse Ravi MD [address] [place] [address] [place] [address] Health Maintenance Due Date Last Done Comments [...] filedocumented as of this encounter Care Teams Auto Claim Representative Relationship Specialty Start Date End Date Randell Gómez MD [address] [place] [address] [place] [address] PCP - General 12/29/1995 documented as of this encounter
--- OUTSIDE RECORDS SUMMARY | 2023-07-02 20:31 | External Medical Summary | Summary of Care ---
Author Name Unknown Organization [facility] Address [address] [facility] [place] [address] Phone [phone] Care Team Providers Care Gasoline Attendant Name Role Phone Randell Gómez MD Primary Care Provider Reason for Visit * Reason Onset Date Comments Advice 06/10/2023 Encounter Details Date Type Department Care Team (Late st Contact Info) Description 06/10/2023 Telephone Cardiology, [facility] [address] [place] [phone] Daniel Del Angel MD [address] [facility] [place] [phone] Advice Allergies Active Allergy Reactions Criticality Noted [...] Release 24 Hour (toPROL XL)Indications:Ather osclerosis of [place] coronary artery of [place] heart without angina pectoris,Ischemic cardiomyopathy Take 1 Tablet by mouth in the morning. 90 Tablet 3 06/21/2022 Active Atorvastatin Calcium 40 MG Oral Tablet (Lipitor)Indications :Atherosclerosis of [place] coronary artery of [place] heart without angina pectoris,Dyslipidemi a, goal LDL [...] MG Sublingual Tablet Sublingual (Nitrostat)Indicatio ns:Atherosclerosis of [place] coronary artery of [place] heart without angina pectoris take 1 tablet under the tongue every 5 minutes as needed for chest pain; if 3 tablets needed go to the er. 25 Tablet 3 04/11/2023 Active Enalapril Maleate 2.5 MG Oral Tablet (Vasotec)Indications :Atherosclerosis of [place] coronary artery of [place] heart without angina pectoris,LV dysfunction take 1/2 [...] echo 01/21 Coronary artery disease invo lving [place] coronary artery of [place] heart without angina pectoris Iron deficiency anemia secon davy to inadequate dietary iron intake Old SD (myocardial infarction) documented as of this encounter [...] 06/10/2023 12:21 PM EST Patient hospitalized at [facility] with transient atrial fibrillation with rapid ventricular response. Spontaneous conversion to sinus rhythm on admission. Rhythm poorly tolerated with hypotension and elevated troponin given underlying ischemic cardiomyopathy. Patient begun on amiodarone 200 mg twice per day Eliquis 5 mg twice per day Needs follow-up with cardiology at [facility] in 2 to 4 weeks documented in this encounter Plan of Treatment Upcoming Encounters Date Type Department Care Team (Late st Contact Info) Description 06/15/2023 11:40 AM EST Office Visit Family Medicine [facility] [address] [place] [phone] Jacqueline Zee PA-C [address] [place] [address] [place] [id number] 07/12/2023 9:30 AM EST Cardiac Studies Cardiology [address] [place] [phone] Yudy Wilkins [facility] [address] [place] [address] 11/02/2023 5:40 PM EDT Office Visit Family Medicine [address] [place] [phone] Alphonse Ravi MD [address] [place] [address] [place] [id number] Health Maintenance Due Date Last Done Comments [...] filedocumented as of this encounter Care Teams Gasoline Attendant Relationship Specialty Start Date End Date Pilgram, Randell A, MD [address] [place] [address] [place] [id number] PCP - General 12/29/1995 documented as of this encounter
--- OUTSIDE RECORDS SUMMARY | 2023-07-02 20:31 | External Medical Summary | Summary of Care ---
Author Name Unknown Organization [facility] Address [address] [place] [place] [facility] [place] [address] Phone [phone] Care Team Providers Care Visual Effects Editor Name Role Phone Randell Gómez MD Primary Care Provider Reason for Visit * Reason Onset Date Comments Advice 06/10/2023 Encounter Details Date Type Department Care Team (Late st Contact Info) Description 06/10/2023 Telephone Cardiology, [facility] [address] [facility] [place] [phone] Daniel Del Angel MD [address] [facility] [place] [phone] Advice Allergies Active Allergy Reactions Criticality Noted [...] Release 24 Hour (toPROL XL)Indications:Ather osclerosis of [place] coronary artery of [place] heart without angina pectoris,Ischemic cardiomyopathy Take 1 Tablet by mouth in the morning. 90 Tablet 3 06/21/2022 Active Atorvastatin Calcium 40 MG Oral Tablet (Lipitor)Indications :Atherosclerosis of [place] coronary artery of [place] heart without angina pectoris,Dyslipidemi a, goal LDL [...] MG Sublingual Tablet Sublingual (Nitrostat)Indicatio ns:Atherosclerosis of [place] coronary artery of [place] heart without angina pectoris take 1 tablet under the tongue every 5 minutes as needed for chest pain; if 3 tablets needed go to the er. 25 Tablet 3 04/11/2023 Active Enalapril Maleate 2.5 MG Oral Tablet (Vasotec)Indications :Atherosclerosis of [place] coronary artery of [place] heart without angina pectoris,LV dysfunction take 1/2 [...] echo 01/21 Coronary artery disease invo lving [place] coronary artery of [place] heart without angina pectoris Iron deficiency anemia [...] PM EST Patient unable to travel to [facility] * Telephone Encounter - Teagan Subramanian OSA - 06/10/2023 2:10 PM EST No openings in [facility]. Had to schedule for 4 [...] per day Needs follow-up with cardiology at [facility] in 2 to 4 weeks documented in this encounter Plan of Treatment Upcoming Encounters Date Type Department Care Team (Late st Contact Info) Description 06/15/2023 11:40 AM EST Office Visit Family Medicine [address] [place] [phone] Jacqueline Zee PA-C [address] [place] [address] [place] [phone] 07/06/2023 10:30 AM EST Office Visit Cardiology, [facility] [address] [place] [phone] Daniel Del Angel MD [address] [place] [phone] 07/12/2023 9:30 AM EST Cardiac Studies Cardiology [address] [place] [phone] [place] [address] [place] [address] 11/02/2023 5:40 PM EDT Office Visit Family [address] [place] [phone] Alphonse Ravi MD [address] [place] [address] [place] [phone] Health Maintenance Due Date Last Done Comments [...] filedocumented as of this encounter Care Teams Visual Effects Editor Relationship Specialty Start Date End Date Randell Gómez MD [address] [place] [address] [place] [phone] PCP - General 12/29/1995 documented as of this encounter
[2023-07-02 21:26] LABS: Albumin Globulin Ratio 0.8 (0.9-2); BUN Creatinine Ratio 15.7 (10-20); Bilirubin,Total 0.6 mg/dl (0.2-1.0); Calcium 8.5 mg/dl (8.6-10.3); Creatinine Clr Calc Pharmacy 47.5 ml/min; Est GFR (African American) 74.7 ml/min; Est GFR (Non-African American) 64.5 ml/min; Potassium 4.1 mmol/L (3.5-5.1)
[2023-07-02 21:28] LABS: Basophils # (auto) 0.03 K/uL (0.00-0.20); Basophils % (auto) 0.3 %; Eosinophils # (auto) 0.01 K/uL (0.00-0.50); Eosinophils % (auto) 0.1 %; Hematocrit (blood only) 34.6 % (42.0-52.0); Hemoglobin 11.6 g/dl (14.0-18.0); Immature Granulocytes # (auto) 0.07 K/uL (0.01-0.20); Immature Granulocytes % (auto) 0.6 %; Lymphocytes # (auto) 0.46 K/uL (1.20-3.40); Lymphocytes % (auto) 3.9 %; Mean Corpuscular Hemoglobin 30.4 pg (25.0-34.0); Mean Corpuscular Hgb Conc 33.5 g/dL (32.0-36.0); Mean Corpuscular Volume 90.6 fL (80.0-100.0); Mean Platelet Volume 8.8 fL (9.4-12.4); Monocytes # (auto) 0.88 K/uL (0.11-0.59); Monocytes % (auto) 7.4 %; Neutrophils # (auto) 10.47 K/uL (1.40-6.50); Neutrophils % (auto) 87.7 %; Platelet Count 315 K/uL (130-400); RDW Coefficient of Variation 13.8 % (11.5-14.5); RDW Standard Deviation 45.4 fL (36.4-46.3); Red Blood Count 3.82 M/uL (4.70-6.10); White Blood Count 11.92 K/ul (4.8-10.8)
[2023-07-02 21:33] LABS: Troponin I High Sensitivity 43.9 pg/ml (0-20)
--- NOTE | 2023-07-02 21:41 | Emergency Department Note ---
Impression & Plan Acute dyspnea, Elevated troponin, Acute hyponatremia, Abnormal ECG ED Provider Note NAME: BRUNO MAGANA AGE: 78 SEX: Male INFORMANT: Patient ED PROVIDER(S): Lauro Cervantes MD CHIEF COMPLAINT: Shortness of breath PLAN: Disposition: Admitted Outpatient prescription management: none Referral: None MEDICAL DECISION MAKING: Patient presented and a workup was initiated. Patient had laboratory testing, x-ray imaging, and blood work obtained. His initial ECG revealed a sinus tachycardic at 102 bpm with a left bundle branch block. There was concerning discordant ST elevation greater than 5 mm in the 2, 3, and 4. Possible [address] elevation in V6. Concerning for Sgarbossa criteria. Patient's symptoms resolved with prehospital treatment and supplemental oxygen. His hypoxia resolved. Patient was feeling back to normal just slightly weak. His ECG was repeated given his resolution of symptoms and he had the sinus rhythm with a first-degree block and nonspecific interventricular delay however his ST segments appear normal. Chemistry panel revealed mild hyponatremia. The patient's CBC showed a slight leukocytosis. His cardiac troponin is borderline elevated. His recent cardiac troponin from last admission was significantly elevated. Difficult to ascertain the nature of the current troponin and this will need to be trended. [facility]. Discussed the case with Dr. Villafuerte. Recommended continuing current anticoagulation and hospitalist admission. Pacemaker was interrogated. No events tonight were reported by [employer]. It consultation was made with the [facility] hospitalist service. Discussed the case with Dr. Walsh. Patient was evaluated in the ER and admitted for further management. Care/management discussed with: concierge manager Level of care consideration(s): After review of the information above and other included data, I feel the patient requires escalation of care to admission Triage Nursing notes: reviewed and agree them. Vital Signs: reviewed and remarkable for hypoxia on admission Additional History obtained from: none Chronic Medical/Social Conditions affecting care: Anticoagulation, A-fib Prior/ Outside/ External records reviewed: none Differential Diagnosis: Reactive airway disease, pneumonia, pneumothorax, COPD, CHF, infections, cardiac ischemia, pulmonary embolism, musculoskeletal, gastrointestinal, as well as other pathologies. Diagnostics, independently interpreted by me: ECG: Twelve-lead ECG #1 reveals a sinus tachycardic rhythm with first-degree AV block at 102 bpm. Left axis deviation and left bundle branch block with discordant ST elevation in the 2, 3, and 4 equal to or greater than 5 mm[address] elevation that is concordant in V6. When compared to June 09, 2023 the bundle branch block is present with the changes in the ST segments. Twelve-lead ECG #2 reveals a sinus rhythm with first-degree block at 94 bpm. Left axis deviation with nonspecific intraventricular block. Patient's ST segments have improved significantly with resolution of the concordant and discordant elevations Cardiac Monitoring: Cardiac monitoring ordered by me: The patient was placed on continuous cardiac monitoring and observed. It revealed a sinus rhythm at 96 beats per minute without ectopy or evidence of dysrhythmia. Medical decision rules: none Imaging studies: Chest x-ray shows some cardiomegaly, fluid in the right fissure, and mild pulmonary edema when compared to prior. Radiology read pending. I refer you to the EMR for further details. HPI: 78 year old Male arrives for evaluation of shortness of breath. This started this evening. The patient states that he was getting up and was having trouble finding the light switch. He lost his balance and fell. He felt significantly weak. Does not feel that he injured himself at all from the fall. He could not get up and was having some difficulty breathing. EMS was summoned. He was evaluated and found to be hypoxic and rader. PAST MEDICAL HISTORY: See Below, atrial fibrillation, V. tach PAST SURGICAL HISTORY: See Below, pacemaker SOCIAL HISTORY: See Below, retired HOME MEDICATIONS: See Below ALLERGIES: See Below VITALS: See Below PHYSICAL EXAMINATION: GENERAL: Awake, alert, well-appearing, in no distress HENT: Normocephalic, atraumatic. Oropharynx unremarkable. EYES: Normal conjunctiva. Sclera non-icteric. NECK: Inspection normal. Non-tender. Supple. No nuchal rigidity. FROM. No masses. RESPIRATORY: Clear to auscultation. No wheezes. No rales. No mildly increased rmal respiratory effort. CARDIAC: Normal rate. Normal rhythm. No murmurs. No rubs. Extremities warm and well perfused. Pulses equal. No JVD. GI: Soft, non-distended. No tenderness to palpation. No rebound or guarding. No masses. RECTAL: Deferred. MUSCULOSKELETAL: Atraumatic. Chest examination reveals no tenderness. The back is symmetrical on inspection without obvious abnormality. There is no CVA tenderness to palpation. No joint edema. LOWER EXTREMITIES: Calves are equal size bilaterally and non-tender. No edema. No discoloration. NEURO: Normal sensorium. No sensory or motor deficits noted. SKIN: No rash or jaundice noted. PROCEDURES: none CRITICAL CARE: none OBSERVATION NOTE: none Past Med/Surg History Medical History (Updated 07/02/23 @ 21:41 by Lauro Cervantes MD) Pacemaker Wide-complex tachycardia Pneumonia Ischemic cardiomyopathy Hypotension Cardiac ischemia Coronary artery disease Myocardial infarction Surgical History Stented coronary artery H/O cardiac catheterization Family History Other Family history non-contributory Social History Smoking Status: Never smoker Tobacco Type: Cigarettes Second Hand Exposure: No; Do You Dip or Chew Tobacco: No; Hx Alcohol Use: No Hx Substance Use: No Preferred Language: Japanese Communication Ability: Effective Mortar Carrier Required: No Beliefs That Will Affect Care: None marital status: Single Current Living Situation: Alone Current Living Situation Comment: Lives at home alone current occupational status: retired Feels Safe at Home: Yes Assistive Devices: None Allergies Allergies Allergy/AdvReac Type Severity Reaction Status Date / Time No Known Allergies Allergy Verified 06/09/23 08:13 Home Meds Home Medications Medication Instructions Recorded Confirmed atorvastatin 40 mg tablet 40 mg PO HS 08/27/18 06/09/23 cholecalciferol (vitamin D3) 25 See Rx Instructions .Route .COMPLEX 08/27/18 06/09/23 mcg (1,000 unit) capsule (Vitamin D3) enalapril maleate 2.5 mg tablet 1.25 mg PO BID 08/27/18 06/09/23 levothyroxine 100 mcg tablet 100 mcg PO DAILYBB 08/27/18 06/09/23 nitroglycerin 0.4 mg sublingual 0.4 mg sublingual DIRECTED PRN 08/27/18 06/09/23 tablet Chest Pain multivitamin 1 tab PO QPM 12/15/20 06/09/23 vit C 250 mg-vit E 90 mg-zinc 40 1 tab PO BID 08/25/21 06/09/23 mg-copper 1 [id number] capsule (PreserVision AREDS-2) Previous Rx's Medication Instructions Recorded amiodarone 200 mg tablet 200 mg PO BID 30 days #60 tabs 06/10/23 apixaban 5 mg tablet (Eliquis) 5 mg PO BID 30 days #60 tabs 06/10/23 aspirin 81 mg chewable tablet 81 mg PO QAM #30 tabs 06/10/23 Results & Data (ED) Vital Signs Vital Signs - 24 hr 07/02/23 20:37 07/02/23 20:37 07/02/23 20:42 Temperature 36.8 C Temperature Source Oral Pulse Rate 96 H Respiratory Rate 32 H Respiratory Effort / Characteristics Labored Respiratory Depth Shallow Respiratory Pattern Tachypnea Blood Pressure 129/82 Blood Pressure Mean 97 Pulse Oximetry 81 L 94 Oxygen Delivery Method Nasal Cannula Oxymask Oxymask Oxygen Flow Rate 4 8 Sepsis Recent Fever Within 48 Hours No Sepsis New/Unexplained Change in Mental Status No Sepsis Action Taken by Nursing No Action Required Oxygen Flow Rate - Titration 10 Pulse Oximetry Post Tiitration 92 07/02/23 21:09 Temperature Temperature Source Pulse Rate Respiratory Rate Respiratory Effort / Characteristics Respiratory Depth Respiratory Pattern Blood Pressure Blood Pressure Mean Pulse Oximetry 95 Oxygen Delivery Method Oxymask Oxygen Flow Rate 8 Sepsis Recent Fever Within 48 Hours Sepsis New/Unexplained Change in Mental Status Sepsis Action Taken by Nursing Oxygen Flow Rate - Titration 6 Pulse Oximetry Post Tiitration 93 Laboratory Data 07/02/23 20:35 07/02/23 20:35 Lab Results 07/02/23 Range/Units 20:35 WBC 11.92 H (4.8-10.8) K/ul RBC 3.82 L (4.70-6.10) M/uL Hgb 11.6 L (14.0-18.0) g/dl Hct 34.6 L (42.0-52.0) % MCV 90.6 (80.0-100.0) fL MCH 30.4 (25.0-34.0) pg MCHC 33.5 (32.0-36.0) g/dL RDW Std Deviation 45.4 (36.4-46.3) fL RDW Coeff of Kim 13.8 (11.5-14.5) % Plt Count 315 (130-400) K/uL MPV 8.8 L (9.4-12.4) fL Immature Gran % (Auto) 0.6 % Neut % (Auto) 87.7 % Lymph % (Auto) 3.9 % Josephine % (Auto) 7.4 % Eos % (Auto) 0.1 % Baso % (Auto) 0.3 % Neut # (Auto) 10.47 H (1.40-6.50) K/uL Lymph # (Auto) 0.46 L (1.20-3.40) K/uL Josephine # (Auto) 0.88 H (0.11-0.59) K/uL Eos # (Auto) 0.01 (0.00-0.50) K/uL Baso # (Auto) 0.03 (0.00-0.20) K/uL Immature Gran # (Auto) 0.07 (0.01-0.20) K/uL PT 12.6 H (9.0-12.0) Seconds INR 1.2 H (0.9-1.1) APTT 25 (21-31) Seconds PTT Ratio 0.9 Sodium 129 L (136-145) mmol/L Potassium 4.1 (3.5-5.1) mmol/L Chloride 97 L (98-107) mmol/L Carbon Dioxide 21 (21-32) mmol/L Anion Gap 11 (3-11) BUN 17 (6-23) mg/dl Creatinine 1.08 (0.6-1.4) mg/dl Est Cr Clr Drug Dosing 47.5 ml/min Est GFR ( Amer) 74.7 ml/min Est GFR (Non-Af Amer) 64.5 ml/min BUN/Creatinine Ratio 15.7 (10-20) Glucose 234 H (70-99(Fasting)) mg/dl Calcium 8.5 L (8.6-10.3) mg/dl Magnesium 1.7 (1.7-2.4) mg/dl Total Bilirubin 0.6 (0.2-1.0) mg/dl AST 22 (13-39) U/L ALT 19 (7-52) U/L Alkaline Phosphatase 64 (34-104) U/L Troponin I High Sens 43.9 H (0-20) pg/ml Total Protein 7.0 (6.0-8.3) gm/dl Albumin 3.0 L (3.4-5.0) gm/dl Globulin 4.0 (2.5-4.0) gm/dl Albumin/Globulin Ratio 0.8 L (0.9-2) Discharge Plan Visit Data Chief Complaint: Shortness of Breath/Dyspnea ED Provider: Lauro Cervantes Discharge Problem: Acute dyspnea, Elevated troponin, Acute hyponatremia, Abnormal ECG Forms Stand Alone Forms: My [facility] Prescriptions Prescriptions: No Action atorvastatin 40 mg tablet 40 mg PO HS enalapril maleate 2.5 mg tablet 1.25 mg PO BID levothyroxine 100 mcg tablet 100 mcg PO DAILYBB cholecalciferol (vitamin D3) [Vitamin D3] 1,000 unit Capsule See Rx Instructions .ROUTE .COMPLEX Rx Instructions: Take 2000 units in the morning and 1000 unit in the with dinner. nitroglycerin 0.4 mg Tablet, Sublingual 0.4 mg sublingual DIRECTED PRN (Reason: Chest Pain) Rx Instructions: NEEDED FOR CHEST PAIN : ONE TABLET UNDER THE TONGUE EVERY FIVE MINUTES UP TO 3 DOSES. multivitamin Tablet 1 tab PO QPM PreserVision AREDS-2 250-90-40-1 mg Capsule 1 tab PO BID Eliquis 5 mg Tablet 5 mg PO BID 30 Days Qty: 60 1RF amiodarone 200 mg Tablet 200 mg PO BID 30 Days Qty: 60 1RF aspirin 81 mg Tablet,Chewable 81 mg PO QAM Qty: 30 0RF Rx Instructions: stop taking after 1 month Referrals Referrals: Randell Gómze MD [Primary Care Provider] -
[2023-07-02 21:44] LABS: INR 1.2 (0.9-1.1); Partial Thromboplastin Ratio 0.9; Partial Thromboplastin Time 25 Seconds (21-31); Prothrombin Time 12.6 Seconds (9.0-12.0)
[2023-07-02 22:12] LABS: Magnesium 1.7 mg/dl (1.7-2.4)
[2023-07-02 23:53] LABS: Influenza A virus by PCR Negative (Neg); Influenza B virus by PCR Negative (Neg); RSV by PCR Negative (Neg); SARS CoV2 RNA(COVID-19) Ceph NEGATIVE (Negative)
--- NOTE | 2023-07-03 00:53 | History & Physical Report ---
Date of Service July 03, 2023 Assessment & Plan (1) Acute dyspnea: Plan: 78-year-old male with past med significant for chronic systolic CHF, s/p ICD, history of symptomatic bradycardia s/p pacemaker, CAD, hypertension, hyperlipidemia, hypothyroidism, anxiety, history of tobacco abuse, history of lower GI bleed, presents because of fall and shortness of breath. Patient states he lost balance and fell down and could not get up. And was very short of breath. He called EMS and brought in here. Requiring oxygen. Initial EKG showed left bundle branch with ST changes. Repeat EKG is okay. Patient denies any chest pain. No palpitations. No dizziness prior to falling down. Currently shortness of breath improved. Hemodynamically stable. Did not hit his head when he fell down. Did not lose consciousness. Denies any headache. Vision is okay. No runny nose or sore throat. No headaches. No cough. No fevers. Currently no chest pain or shortness of breath. No nausea. No abdominal pain. Somewhat constipated. Micturating okay. States appetite is down last couple of days. Patient was in the hospital last week of May with dizziness and found to the rapid A-fib. He was discharged on amiodarone and Eliquis. Lives alone. Ambulates without support Acute dyspnea After falling down Currently seems to be doing okay History of CHF Will follow chest x-ray Closely monitor EKG changes New left bundle branch block with some ST changes Repeat EKG okay Troponin elevated initially 43 and repeat to 259 Possible non-ST elevated [place] Patient asymptomatic Will follow serial enzymes and echo Continue home Eliquis and aspirin Keep n.p.o. for now Telemetry Consult cardiology in a.m. History of A-fib On amiodarone and Eliquis Will monitor Chronic systolic CHF S/p ICD Echo done on June 09, 2023 shows EF of 20 to 25% and moderate to severe mitral regurgitation On enalapril Not on diuretics Will monitor History of symptomatic bradycardia S/p pacemaker Hypertension On enalapril Will monitor Hypothyroidism On Synthyroid Hyponatremia Sodium 129 Will follow repeat labs History of CAD On aspirin and statin and Eliquis DVT prophylaxis On Eliquis Disposition Telemetry Full code History of Present Illness Chief Complaint: Shortness of breath Primary Care Provider: Randell Gómez MD 78-year-old male with past med history significant for chronic systolic CHF, s/p ICD, history of symptomatic bradycardia s/p pacemaker, CAD, hypertension, hyperlipidemia, hypothyroidism, anxiety, history of tobacco abuse, history of lower GI bleed, presents because of fall and shortness of breath. Patient states he lost balance and fell down and could not get up. And was very short of breath. He called EMS and brought in here. Requiring oxygen. Initial EKG showed left bundle branch with ST changes. Repeat EKG is okay. Patient denies any chest pain. No palpitations. No dizziness prior to falling down. Currently shortness of breath improved. Hemodynamically stable. Did not hit his head when he fell down. Did not lose consciousness. Denies any headache. Vision is okay. No runny nose or sore throat. No headaches. No cough. No fevers. Currently no chest pain or shortness of breath. No nausea. No abdominal pain. Somewhat constipated. Micturating okay. States appetite is down last couple of days. Patient was in the hospital last week of May with dizziness and found to the rapid A-fib. He was discharged on amiodarone and Eliquis. Lives alone. Ambulates without support Past medical history. As mentioned above. Past surgical history. Cardiac cath. Dual-chamber pacemaker. Bilateral cataracts. Social history. Single. Quit smoking 1970. Smoked 1 pack a day for 10 years. No alcohol use. No drug use. Family history. No family history on file Allergies Allergy/AdvReac Type Severity Reaction Status Date / Time No Known Allergies Allergy Verified 06/09/23 08:13 Home Medications Medication Instructions Recorded Confirmed Type amiodarone 200 mg tablet 200 mg PO BID 07/03/23 07/03/23 History apixaban 5 mg tablet (Eliquis) 5 mg PO BID 07/03/23 07/03/23 History aspirin 81 mg tablet,delayed 81 mg PO DAILY 07/03/23 07/03/23 History release atorvastatin 40 mg tablet 40 mg PO DAILY 07/03/23 07/03/23 History cholecalciferol (vitamin D3) 25 25 mcg PO DAILY 07/03/23 07/03/23 History mcg (1,000 unit) tablet (Vitamin D3) enalapril maleate 2.5 mg tablet 1.25 mg PO BID 07/03/23 07/03/23 History levothyroxine 100 mcg tablet 100 mcg PO DAILY 07/03/23 07/03/23 History nitroglycerin 0.4 mg sublingual 0.4 mg sublingual Q5W PRN Chest 07/03/23 07/03/23 History tablet Pain vit C 250 mg-vit E 90 mg-zinc 40 1 tab PO BID 07/03/23 07/03/23 History mg-copper 1 [id number] capsule (PreserVision AREDS-2) Past Med/Surg History Medical History (Updated 07/02/23 @ 21:41 by Lauro Cervantes MD) Pacemaker Wide-complex tachycardia Pneumonia Ischemic cardiomyopathy Hypotension Cardiac ischemia Coronary artery disease Myocardial infarction Surgical History Stented coronary artery H/O cardiac catheterization Family History Other Family history non-contributory Social History Smoking Status: Former smoker Tobacco Type: Cigarettes and Smokeless Tobacco (Dip or Chew) Second Hand Exposure: No; Do You Dip or Chew Tobacco: No; Hx Alcohol Use: No Hx Substance Use: No Preferred Language: Bulgarian Communication Ability: Effective Director Toxicology Required: No Beliefs That Will Affect Care: None marital status: Single Current Living Situation: Alone Current Living Situation Comment: Lives at home alone current occupational status: retired Other Information That Helps Us Care for You: No Feels Safe at Home: Yes Assistive Devices: Glasses Review of Systems Review of Systems: All systems reviewed & are unremarkable except as noted in HPI & below Physical Exam Physical Exam: General- Not in distress. Head- atraumatic Eyes- PERRL. ENT- oropharynx clear Neck- supple, no JVD. Lungs- clear to auscultation no wheezing or crackles. Heart- regular rhythm; no murmur, no gallop. Abdomen- normal bowel sounds, soft, nontender, no distension. Extremities- no pretibial edema, no erythema seen Neuro- alert, oriented x 3; PERRL, no facial palsy; no dysarthria; moves extremities. Skin- warm & dry Results & Data Results & Data Vital Signs (Past 12 Hours) Vital Signs Temp Pulse Resp BP Pulse Ox O2 Del Method O2 Flow Rate 07/02/23 23:40 77 21 94 07/02/23 23:39 75 25 H 93 07/02/23 23:39 117/74 07/02/23 23:30 79 23 94 07/02/23 23:20 79 24 94 07/02/23 23:10 79 25 H 95 07/02/23 23:00 87 27 H 95 07/02/23 22:50 84 27 H 96 07/02/23 22:40 83 22 96 07/02/23 22:30 83 24 97 07/02/23 22:20 87 25 H 94 07/02/23 22:10 85 25 H 97 07/02/23 22:00 90 17 95 07/02/23 21:50 88 26 H 96 07/02/23 21:40 90 26 H 97 07/02/23 21:30 91 H 32 H 92 07/02/23 21:20 99 H 30 H 94 Oxymask 6 07/02/23 21:10 93 H 32 H 95 07/02/23 21:09 95 Oxymask 8 07/02/23 21:00 95 H 29 H 99 07/02/23 20:50 93 H 29 H 92 07/02/23 20:42 96 H 28 H 95 07/02/23 20:42 36.8 C 96 H 32 H 129/82 94 Oxymask 8 07/02/23 20:37 81 L Nasal Cannula, Oxymask 4 Diagnostic Findings Laboratory Results WBC 11.92 K/ul (4.8-10.8) H 07/02/23 20:35 RBC 3.82 M/uL (4.70-6.10) L 07/02/23 20:35 Hgb 11.6 g/dl (14.0-18.0) L 07/02/23 20:35 Hct 34.6 % (42.0-52.0) L 07/02/23 20:35 MCV 90.6 fL (80.0-100.0) 07/02/23 20:35 MCH 30.4 pg (25.0-34.0) 07/02/23 20:35 MCHC 33.5 g/dL (32.0-36.0) 07/02/23 20:35 RDW Std Deviation 45.4 fL (36.4-46.3) 07/02/23 20:35 RDW Coeff of Kim 13.8 % (11.5-14.5) 07/02/23 20:35 Plt Count 315 K/uL (130-400) 07/02/23 20:35 MPV 8.8 fL (9.4-12.4) L 07/02/23 20:35 Immature Gran % (Auto) 0.6 % 07/02/23 20:35 Neut % (Auto) 87.7 % 07/02/23 20:35 Lymph % (Auto) 3.9 % 07/02/23 20:35 [place] % (Auto) 7.4 % 07/02/23 20:35 Eos % (Auto) 0.1 % 07/02/23 20:35 Baso % (Auto) 0.3 % 07/02/23 20:35 Neut # (Auto) 10.47 K/uL (1.40-6.50) H 07/02/23 20:35 Lymph # (Auto) 0.46 K/uL (1.20-3.40) L 07/02/23 20:35 [place] # (Auto) 0.88 K/uL (0.11-0.59) H 07/02/23 20:35 Eos # (Auto) 0.01 K/uL (0.00-0.50) 07/02/23 20:35 Baso # (Auto) 0.03 K/uL (0.00-0.20) 07/02/23 20:35 Immature Gran # (Auto) 0.07 K/uL (0.01-0.20) 07/02/23 20:35 PT 12.6 Seconds (9.0-12.0) H 07/02/23 20:35 INR 1.2 (0.9-1.1) H 07/02/23 20:35 APTT 25 Seconds (21-31) 07/02/23 20:35 PTT Ratio 0.9 07/02/23 20:35 Sodium 129 mmol/L (136-145) L 07/02/23 20:35 Potassium 4.1 mmol/L (3.5-5.1) 07/02/23 20:35 Chloride 97 mmol/L (98-107) L 07/02/23 20:35 Carbon Dioxide 21 mmol/L (21-32) 07/02/23 20:35 Anion Gap 11 (3-11) 07/02/23 20:35 BUN 17 mg/dl (6-23) 07/02/23 20:35 Creatinine 1.08 mg/dl (0.6-1.4) 07/02/23 20:35 Est Cr Clr Drug Dosing 47.5 ml/min 07/02/23 20:35 Est GFR ( Amer) 74.7 ml/min 07/02/23 20:35 Est GFR (Non-Af Amer) 64.5 ml/min 07/02/23 20:35 BUN/Creatinine Ratio 15.7 (10-20) 07/02/23 20:35 Glucose 234 mg/dl (70-99(Fasting)) H 07/02/23 20:35 Calcium 8.5 mg/dl (8.6-10.3) L 07/02/23 20:35 Magnesium 1.7 mg/dl (1.7-2.4) 07/02/23 20:35 Total Bilirubin 0.6 mg/dl (0.2-1.0) 07/02/23 20:35 AST 22 U/L (13-39) 07/02/23 20:35 ALT 19 U/L (7-52) 07/02/23 20:35 Alkaline Phosphatase 64 U/L (34-104) 07/02/23 20:35 Troponin I High Sens 259.7 pg/ml (0-20) H* D 07/02/23 22:50 Total Protein 7.0 gm/dl (6.0-8.3) 07/02/23 20:35 Albumin 3.0 gm/dl (3.4-5.0) L 07/02/23 20:35 Globulin 4.0 gm/dl (2.5-4.0) 07/02/23 20:35 Albumin/Globulin Ratio 0.8 (0.9-2) L 07/02/23 20:35 SARS-CoV-2 (PCR) NEGATIVE (Negative) 07/02/23 22:54 Influenza Type A (PCR) Negative (Neg) 07/02/23 22:54 Influenza Type B (PCR) Negative (Neg) 07/02/23 22:54 RSV (RT-PCR) Negative (Neg) 02/17/24 22:54 ECG Additional Comments: ECG. Wide QRS rhythm at a rate of 102. Left axis deviation. Left bundle branch. ST changes in leads V2, V3, V4 Repeat ECG sinus rhythm with first-degree AV block with rate of 94. Left axis deviation. Nonspecific intraventricular conduction block. Code Status & VTE Plan VTE Prophylaxis Plan VTE Prophylaxis will be ordered: Yes
[2023-07-03] MEDS ORDERED: ACETAMINOPHEN 325 MG TAB PO PRN (01:21)
[2023-07-03] MEDS ORDERED: NITROGLYCERIN SL 0.4 MG/TAB TAB SL PRN (01:21)
[2023-07-03] MEDS: APIXABAN 5 MG TABLET PO STA (01:32)
[2023-07-03] MEDS: AMIODARONE 200 MG TAB PO STA (01:33)
[2023-07-03 04:27] LABS: Basophils # (auto) 0.03 K/uL (0.00-0.20); Basophils % (auto) 0.3 %; Eosinophils # (auto) 0.02 K/uL (0.00-0.50); Eosinophils % (auto) 0.2 %; Hematocrit (blood only) 29.8 % (42.0-52.0); Immature Granulocytes # (auto) 0.06 K/uL (0.01-0.20); Immature Granulocytes % (auto) 0.6 %; Mean Corpuscular Hemoglobin 30.1 pg (25.0-34.0); Mean Corpuscular Hgb Conc 33.6 g/dL (32.0-36.0); Mean Corpuscular Volume 89.8 fL (80.0-100.0); Mean Platelet Volume 8.2 fL (9.4-12.4); Monocytes # (auto) 1.02 K/uL (0.11-0.59); Monocytes % (auto) 10.3 %; Neutrophils % (auto) 83.6 %; Platelet Count 264 K/uL (130-400); RDW Coefficient of Variation 13.7 % (11.5-14.5); RDW Standard Deviation 44.7 fL (36.4-46.3); Red Blood Count 3.32 M/uL (4.70-6.10); White Blood Count 9.93 K/ul (4.8-10.8)
[2023-07-03 04:40] LABS: BUN Creatinine Ratio 17.4 (10-20); Calcium 8.1 mg/dl (8.6-10.3); Creatinine Clr Calc Pharmacy 59.6 ml/min; Est GFR (African American) 94.9 ml/min; Est GFR (Non-African American) 81.9 ml/min; Magnesium 1.8 mg/dl (1.7-2.4)
[2023-07-03 04:54] LABS: Troponin I High Sensitivity 633.8 pg/ml (0-20)
[2023-07-03 04:56] LABS: Thyroid Stimulating Hormone 7.218 uIu/ml (0.300-4.500)
[2023-07-03 05:32] LABS: T4 Free Thyroxine 1.06 ng/dl (0.61-1.60)
[2023-07-03] MEDS: LEVOTHYROXINE SODIUM 100 MCG TABLET PO SCH (06:29)
[2023-07-03] MEDS: ATORVASTATIN 40 MG TAB PO SCH (08:24)
[2023-07-03] MEDS: APIXABAN 5 MG TABLET PO SCH (08:24)
[2023-07-03] MEDS: ASPIRIN 81 MG ECTAB PO SCH (08:24)
[2023-07-03] MEDS: CHOLECALCIFEROL 25 MCG (1000 UNITS) TAB PO SCH (08:24)
[2023-07-03] MEDS: CEROVITE ADV FORMULA TAB PO SCH (08:25)
[2023-07-03] MEDS: ENALAPRIL MALEATE 5 MG TAB PO SCH (08:25)
[2023-07-03] MEDS: AMIODARONE 200 MG TAB PO SCH (08:25)
--- NOTE | 2023-07-03 08:25 | XRay Report ---
XR chest 1V portable CLINICAL HISTORY: Chest pain, nonspecific COMPARISON STUDY: Chest CT December 20, 2019. Chest radiograph June 09, 2023. FINDINGS: Left subclavian pacer/AICD is unchanged in position. Moderate cardiomegaly is unchanged. In terstitial thickening has developed. No pneumothorax. No definite pleural effusion. Right infrahilar airspace opacity is present. IMPRESSION: 1. Cardiomegaly with interval development of moderate interstitial pulmonary edema. 2. Right infrahilar opacity. This could reflect atelectasis or superimposed pneumonia. Radiographic f ollow up to ensure resolution is recommended. ACT 112: Negative or not required by law. Electronically signed by: Prasanna Cabrera M.D. 07/03/2023 8:24 AM
--- NOTE | 2023-07-03 08:33 | XRay Report ---
XR chest 1V portable CLINICAL HISTORY: chf COMPARISON STUDY: Chest radiograph July 02, 2023. FINDINGS: There is no pneumothorax. A small right pleural effusion has developed. Right perihilar and basilar airspace opacity is present. Left subclavian pacer/AICD is in place. There is moderate cardi omegaly. Interstitial pulmonary edema persists. IMPRESSION: 1. Cardiomegaly with persistent interstitial pulmonary edema. 2. Interval development of a small right pleural effusion. Persistent right perihilar and right basil ar opacity. ACT 112: Negative or not required by law. Electronically signed by: Prasanna Cabrera M.D. 07/03/2023 8:31 AM
--- NOTE | 2023-07-03 11:57 | Cardiology Consultation ---
Date of Consultation July 03, 2023 Assessment & Plan (1) Acute on chronic HFrEF (heart failure with reduced ejection fraction): (2) Ischemic cardiomyopathy: (3) NSTEMI (non-ST elevated myocardial infarction): (4) Paroxysmal atrial fibrillation with rapid ventricular response: Plan Suspect shortness of breath, hypoxia , and transient ischemia with resultant NSTEMI in the setting of mechanical fall. Patient had great difficulty trying to get up and likely had resultant ischemia. Feels well now with supportive care. Mild high sensitivity troponin elevation that has trended down. No symptoms suggestive of angina. EKG stable with chronic LBBB. Advance diet. Furosemide 20 mg IV x 1 now. Had brief run of AF RVR at 130 bpm during my exam, with offset to SR in the 70s. Pt without subjective recognition of the AF episode that I witness. Continue amiodarone and Eliquis. Will consider adding low dose beta kojo. Has dual chamber AICD for heart rate support , but would like to avoid RV pacing if possible. I spent a total of 55 minutes on the date of service in preparation, delivery, and documentation of the care provided to this patient, excluding any time spent in the performance of separately billed services. History of Present Illness Attending Physician: Lowell Olsen MD History of Present Illness Hari Khalil is an 78 year old male seen in cardiology consultation per the request of Dr Walsh for the evaluation of shortness of breath and transient hypoxia. Patient recently hospitalized just over 3 weeks ago at the end of May, with having developed paroxysmal atrial fibrillation with rapid ventricular response with noted subjective symptoms of dizziness and tachypalpitations. Patient was treated with amiodarone with spontaneous conversion to sinus rhythm. He was discharged on amiodarone 200 mg twice daily as well as Eliquis. Patient describes he was feeling well in the interim until yesterday. He typically takes a nap in the afternoon. When he awoke from his nap he states that it was dark in his house and he lost his balance and fell down. He states that he was on his right side and had a great deal of difficulty trying to use his arms to get up. He was unable to provide a timeframe of how long it took him to try to maneuver but ultimately he was able to call EMS. On arrival he wa s noted to be hypoxic. On arrival to the emergency department his pulse oximetry remained low in the 80s. His initial EKG revealed findings of his previously noted left bundle branch block, however repolarization changes were noted in the anterior precordial leads suggestive of superimposed ischemia. After he received supplemental oxygen and his hypoxia improved, repeat EKG was back to normal discharge observed to baseline last month. Patient describes having felt short of breath, but no gerald chest heaviness to suggest angina. High-sensitivity troponin was trended from 43, 259, 633, and has been most recent measurement today at 11 AM it was down to 460 PG per mL. Repeat EKG performed at the bedside during my assessment revealed sinus rhythm with left bundle branch block, unchanged compared to May,. Cardiac History: 1. Extensive coronary artery disease. -Per review of records, patient presented with his first myocardial infarction in 1994 and had a large LAD territory infarct that encompassed the anterior septum, anterior wall, and apex with resultant diffuse thinning and severe left ventricular systolic dysfunction. -He was hospitalized at [facility] in 2014 and had episodes of ventricular tachycardia. Cardiac catheterization performed by Dr. Berrios. With findings of severe distal calcification of the left main coronary artery that extended into the bifurcation of the LAD and the circumflex. An attempt to assess the left main with IVUS was pursued but the catheter could not be passed through the calcification. The left anterior descending coronary was known to be diffusely diseased with a 70% proximal stenosis, 100% mid stenosis with left to left collaterals Circumflex was noted to have ostial calcification extending from the left main with resultant ostial stenosis. The circumflex was noted to have mild luminal irregularities otherwise and provided flow to the LV apex And ramus intermedius vessel was noted to be patent The right coronary artery was noted to have a 70% proximal stenosis and 80% mid stenosis which were addressed with drug-eluting stents at that time 07/16/2014 --- Per review of his outpatient chart, his cardiac catheterization films had subsequently been reviewed with interventional cardiology at [facility] and it was felt that complex PCI to improve flow to the circumflex was a possibility however felt to be high risk and would require rotational atherectomy due to the calcific stenosis, at that time the patient was doing well clinically without additional angina and medical therapy was recommended. As noted at that time the LAD territory was not viable and therefore intervention not indicated at that time with remote LAD territory scar dating back to 1994 2. Ischemic cardiomyopathy, EF 20-25%, status post ICD placement, 02/23/2017, [employer] Evera MRI XT DR RAYA MELO 1 D4 3. 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 4. Dyslipidemia. 5. Stage III chronic kidney disease. 6. Mitral regurgitation. 7. Hypothyroidism. 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 Lives alone PODanny is his niece, Alyse Wright, phone [phone] Allergies Allergy/AdvReac Type Severity Reaction Status Date / Time No Known Allergies Allergy Verified 06/09/23 08:13 Home Medications Medication Instructions Recorded Confirmed Type amiodarone 200 mg tablet 200 mg PO BID 07/03/23 07/03/23 History apixaban 5 mg tablet (Eliquis) 5 mg PO BID 07/03/23 07/03/23 History aspirin 81 mg tablet,delayed 81 mg PO DAILY 07/03/23 07/03/23 History release atorvastatin 40 mg tablet 40 mg PO DAILY 07/03/23 07/03/23 History cholecalciferol (vitamin D3) 25 25 mcg PO DAILY 07/03/23 07/03/23 History mcg (1,000 unit) tablet (Vitamin D3) enalapril maleate 2.5 mg tablet 1.25 mg PO BID 07/03/23 07/03/23 History levothyroxine 100 mcg tablet 100 mcg PO DAILY 07/03/23 07/03/23 History nitroglycerin 0.4 mg sublingual 0.4 mg sublingual Q5W PRN Chest 07/03/23 07/03/23 History tablet Pain vit C 250 mg-vit E 90 mg-zinc 40 1 tab PO BID 07/03/23 07/03/23 History mg-copper 1 [id number] capsule (PreserVision AREDS-2) Patient History Medical History (Updated 07/03/23 @ 12:20 by Bi Villafuerte DO) Pacemaker Wide-complex tachycardia Pneumonia Ischemic cardiomyopathy Hypotension Cardiac ischemia Coronary artery disease Myocardial infarction Surgical History Stented coronary artery H/O cardiac catheterization Family History Other Family history non-contributory Social History Smoking Status: Former smoker Tobacco Type: Cigarettes and Smokeless Tobacco (Dip or Chew) Second Hand Exposure: No; Do You Dip or Chew Tobacco: No; Hx Alcohol Use: No Hx Substance Use: No Preferred Language: French Communication Ability: Effective Toxicology Teacher Required: No Beliefs That Will Affect Care: None marital status: Single Current Living Situation: Alone Current Living Situation Comment: Lives at home alone current occupational status: retired Other Information That Helps Us Care for You: No Feels Safe at Home: Yes Assistive Devices: Glasses Review of Systems Review of Systems: All systems reviewed & are unremarkable except as noted in HPI & below Physical Exam Physical Exam: Temp Pulse Resp BP Pulse Ox O2 Del Method O2 Flow Rate 36.5 C 75 20 149/77 H 93 Room Air 2 07/03/23 10:44 07/03/23 10:44 07/03/23 10:44 07/03/23 10:44 07/03/23 10:44 07/03/23 10:44 07/03/23 08:25 Constitutional: WD/WN, vitals as above Respiratory: normal respiratory effort, lungs clear to auscultation Cardiovascular: RRR, no murmur, no edema Gastrointestinal (Abdomen): normal bowel sounds, soft, nontender, no hepatosplenomegaly Skin: no rashes, warm and dry Neurologic: PERRL, EOMI, accommodation nl, no face palsy, no dysarthria Results & Data Laboratory Results Cardiac Enzymes 07/02/23 07/02/23 07/03/23 Range/Units 20:35 22:50 03:57 AST 22 (13-39) U/L Troponin I High Sens 43.9 H 259.7 H* D 633.8 H* D (0-20) pg/ml 07/03/23 Range/Units 11:00 AST (13-39) U/L Troponin I High Sens 460.6 H* D (0-20) pg/ml Coagulation 07/02/23 Range/Units 20:35 PT 12.6 H (9.0-12.0) Seconds APTT 25 (21-31) Seconds CBC 07/02/23 07/03/23 Range/Units 20:35 03:57 WBC 11.92 H 9.93 (4.8-10.8) K/ul RBC 3.82 L 3.32 L (4.70-6.10) M/uL Hgb 11.6 L 10.0 L (14.0-18.0) g/dl Hct 34.6 L 29.8 L (42.0-52.0) % Plt Count 315 264 (130-400) K/uL Neut # (Auto) 10.47 H 8.30 H (1.40-6.50) K/uL Lymph # (Auto) 0.46 L 0.50 L (1.20-3.40) K/uL [place] # (Auto) 0.88 H 1.02 H (0.11-0.59) K/uL Eos # (Auto) 0.01 0.02 (0.00-0.50) K/uL Baso # (Auto) 0.03 0.03 (0.00-0.20) K/uL Comprehensive Metabolic Panel 07/02/23 07/03/23 Range/Units 20:35 03:57 Sodium 129 L 133 L (136-145) mmol/L Potassium 4.1 4.0 (3.5-5.1) mmol/L Chloride 97 L 103 (98-107) mmol/L Carbon Dioxide 21 24 (21-32) mmol/L BUN 17 15 (6-23) mg/dl Creatinine 1.08 0.86 (0.6-1.4) mg/dl Glucose 234 H 112 H (70-99(Fasting)) mg/dl Calcium 8.5 L 8.1 L (8.6-10.3) mg/dl AST 22 (13-39) U/L ALT 19 (7-52) U/L Alkaline Phosphatase 64 (34-104) U/L Total Protein 7.0 (6.0-8.3) gm/dl Albumin 3.0 L (3.4-5.0) gm/dl
[2023-07-03] MEDS: FUROSEMIDE INJ 20 MG/2 ML VIAL IV ONE (12:47)
[2023-07-03] MEDS: bisacodyL 5 MG TABEC PO ONE (14:16)
--- NOTE | 2023-07-03 14:26 | Hospitalist Progress Note ---
Date of Service July 03, 2023 Assessment & Plan (1) Acute dyspnea: (2) Acute on chronic HFrEF (heart failure with reduced ejection fraction): (3) NSTEMI (non-ST elevated myocardial infarction): (4) Paroxysmal atrial fibrillation with rapid ventricular response: Plan: 78-year-old male with past med significant for chronic systolic CHF, s/p ICD, history of symptomatic bradycardia s/p pacemaker, CAD, hypertension, hyperlipidemia, hypothyroidism, anxiety, history of tobacco abuse, history of lower GI bleed, presents because of fall and shortness of breath. Patient states he lost balance and fell down and could not get up. And was very short of breath. He called EMS and brought in here. Acute on chronic systolic heart failure Ischemic cardiomyopathy NSTEMI Paroxysmal A-fib with RVR Patient presents with shortness of breath and mechanical fall. No syncope/presyncope EKG on admission shows sinus rhythm with left bundle branch block High sensitive troponin was 49 initially; up trended to 633 and down trended Chest x-ray on admission shows cardiomegaly with interstitial pulmonary edema Echocardiogram shows EF of 20 to 25%; with small loculated anterior and right lateral pericardial effusion. Unchanged from previous echocardiogram. Cardiology consulted for comanagement; status post 1 dose of Lasix Continue on aspirin, Lipitor, enalapril Continue on amiodarone and Eliquis for A-fib Strict input and output monitoring Telemonitoring History of symptomatic bradycardia S/p pacemaker Hypertension On enalapril Will monitor Hypothyroidism On Synthyroid Hyponatremia Likely hypervolemic hyponatremia Sodium 129 on admission; improved to 133 History of CAD On aspirin and statin and Eliquis DVT prophylaxis On Eliquis Disposition Admitted for acute on chronic systolic heart failure, NSTEMI. Requires close monitoring. PT OT ordered. Discharge in next few days Full code Time spent evaluating patient, direct bedside care, chart review, placing orders, interpretation of diagnostic studies, discussion with consultants, patient, and family members, as well as other required patient management activities is 55 minutes Please note the above document was generated using voice recognition software. It may contain grammatical, syntax or spelling errors. Any formal questions or concerns about the content, text or information contained within the body of this dictation should be directly addressed to the provider for clarification Admission and Anticipated Discharge Date Admission Date: July 03, 2023 Subjective Patient seen in the ICU. Is comfortably sitting up on the bed; not in distress. No shortness of breath or chest pain. Review of Systems Review of Systems: All systems reviewed & are unremarkable except as noted in Subjective Physical Exam Physical Exam: Constitutional: WD/WN, vitals as above, NAD, sitting up in bed, pleasant, conversing easily Respiratory: normal respiratory effort, lungs clear to auscultation, no wheeze, rales, rhonchi. Normal insp/exp effort, no accessory muscle use Cardiovascular: RRR, no murmur, no edema Vessels: no JVD or carotid bruit Chest: normal inspection of chest Abdomen: normal bowel sounds, soft, nontender, no hepatosplenomegaly Musculoskeletal: no cyanosis or clubbing, extremities motor strength 5/5 Skin: no rashes, warm and dry normal turgor Neurologic: PERRL, EOMI, accommodation nl, no face palsy, no dysarthria CN's II- XI intact bilaterally and moves all extremities Psychiatric: A+Ox3, euthymic affect Results & Data Results & Data Vital Signs (Past 12 Hours) Vital Signs Temp Pulse Pulse Resp BP Pulse Ox Pulse Ox 07/03/23 10:44 36.5 C 75 20 149/77 H 93 07/03/23 08:25 83 21 143/80 H 95 07/03/23 07:16 80 07/03/23 03:00 97 07/03/23 03:00 65 20 132/79 97 07/03/23 02:42 O2 Del Method O2 Del Method O2 Flow Rate 07/03/23 10:44 Room Air 07/03/23 08:25 Oxymask 2 07/03/23 07:16 07/03/23 03:00 Room Air 07/03/23 03:00 Room Air 07/03/23 02:42 Oxymask 2
[2023-07-03] MEDS: POLYETHYLENE (MIRALAX) 17 GM PACK PO PRN (20:38)
[2023-07-04 04:40] LABS: Basophils # (auto) 0.02 K/uL (0.00-0.20); Basophils % (auto) 0.2 %; Eosinophils # (auto) 0.03 K/uL (0.00-0.50); Eosinophils % (auto) 0.4 %; Hematocrit (blood only) 31.8 % (42.0-52.0); Hemoglobin 10.7 g/dl (14.0-18.0); Immature Granulocytes # (auto) 0.03 K/uL (0.01-0.20); Immature Granulocytes % (auto) 0.4 %; Lymphocytes # (auto) 0.42 K/uL (1.20-3.40); Mean Corpuscular Hemoglobin 30.1 pg (25.0-34.0); Mean Corpuscular Hgb Conc 33.6 g/dL (32.0-36.0); Mean Corpuscular Volume 89.6 fL (80.0-100.0); Mean Platelet Volume 8.2 fL (9.4-12.4); Monocytes # (auto) 0.65 K/uL (0.11-0.59); Monocytes % (auto) 7.7 %; Neutrophils # (auto) 7.31 K/uL (1.40-6.50); Neutrophils % (auto) 86.3 %; Platelet Count 312 K/uL (130-400); RDW Coefficient of Variation 13.8 % (11.5-14.5); RDW Standard Deviation 45.2 fL (36.4-46.3); Red Blood Count 3.55 M/uL (4.70-6.10); White Blood Count 8.46 K/ul (4.8-10.8)
[2023-07-04 05:16] LABS: Albumin Globulin Ratio 0.8 (0.9-2); Albumin Level 2.7 gm/dl (3.4-5.0); BUN Creatinine Ratio 25.5 (10-20); Bilirubin,Total 0.5 mg/dl (0.2-1.0); Calcium 8.7 mg/dl (8.6-10.3); Creatinine Clr Calc Pharmacy 50.2 ml/min; Est GFR (African American) 80.1 ml/min; Est GFR (Non-African American) 69.1 ml/min; Globulin 3.6 gm/dl (2.5-4.0); Magnesium 1.7 mg/dl (1.7-2.4); Potassium 3.8 mmol/L (3.5-5.1); Total Protein 6.3 gm/dl (6.0-8.3)
--- NOTE | 2023-07-04 06:29 | Electrocardiogram Report ---
Test Reason : Blood Pressure : / mmHG Vent. Rate : 102 BPM Atrial Rate : 000 BPM P-R Int : 000 ms QRS Dur : 198 ms QT Int : 498 ms P-R-T Axes : 000 -57 142 degrees QTc Int : 649 ms Suspect atrial flutter with 2:1 AV conduction Left axis deviation Left bundle branch block , could be rate related Abnormal ECG When compared with ECG of 10-JUN-2023 04:56, LBBB has replaced Electronic atrial pacemaker Confirmed by Eugene Malagon ([id number]) on 07/04/2023 6:29:25 AM Referred By: REFERRED SELF Confirmed By:Eugene Malagon
--- NOTE | 2023-07-04 06:34 | Electrocardiogram Report ---
Test Reason : Blood Pressure : / mmHG Vent. Rate : 094 BPM Atrial Rate : 094 BPM P-R Int : 246 ms QRS Dur : 152 ms QT Int : 386 ms P-R-T Axes : 018 -69 105 degrees QTc Int : 482 ms Sinus rhythm with 1st degree A-V block Left axis deviation Non-specific intra-ventricular conduction block Possible Lateral infarct , age undetermined Abnormal ECG When compared with ECG of 02-JUL-2023 20:31, (unconfirmed) IVCD has replaced LBBB Confirmed by Eugene Malagon ([id number]) on 07/04/2023 6:33:49 AM Referred By: REFERRED SELF Confirmed By:Eugene Malagon
--- NOTE | 2023-07-04 07:01 | Electrocardiogram Report ---
Test Reason : Blood Pressure : / mmHG Vent. Rate : 072 BPM Atrial Rate : 072 BPM P-R Int : 282 ms QRS Dur : 142 ms QT Int : 408 ms P-R-T Axes : -22 -70 108 degrees QTc Int : 446 ms Sinus rhythm with 1st degree A-V block Left axis deviation Non-specific intra-ventricular conduction block Possible Anterolateral infarct (cited on or before 02-JUL-2023) Abnormal ECG When compared with ECG of 02-JUL-2023 21:32, (unconfirmed) No significant change was found Confirmed by Eugene Malagon ([id number]) on 07/04/2023 7:01:18 AM Referred By: REFERRED SELF Confirmed By:Eugene Malagon
--- NOTE | 2023-07-04 11:04 | Electrocardiogram Report ---
Test Reason : Blood Pressure : / mmHG Vent. Rate : 078 BPM Atrial Rate : 078 BPM P-R Int : 242 ms QRS Dur : 142 ms QT Int : 422 ms P-R-T Axes : -03 -66 116 degrees QTc Int : 481 ms Sinus rhythm with 1st degree A-V block Left axis deviation Non-specific intra-ventricular conduction block T wave abnormality, consider lateral ischemia Abnormal ECG Confirmed by Manuel Carreon ([id number]) on 07/04/2023 11:04:00 AM Referred By: REFERRED SELF Confirmed By:Stephen Carreon
--- NOTE | 2023-07-04 11:13 | Cardiology Progress Note ---
Date of Service July 04, 2023 Assessment & Plan (1) Acute on chronic HFrEF (heart failure with reduced ejection fraction): (2) Ischemic cardiomyopathy: (3) NSTEMI (non-ST elevated myocardial infarction): (4) Paroxysmal atrial fibrillation with rapid ventricular response: Plan Suspect shortness of breath, hypoxia , and transient ischemia with resultant NSTEMI in the setting of mechanical fall. Patient had great difficulty trying to get up and likely had resultant ischemia. Feels well now with supportive care. Mild high sensitivity troponin elevation that has trended down. Otherwise, no symptoms suggestive of angina. EKG stable with chronic LBBB. Patient feeling well. No volume overloaded on examination. Walking in unit and stairs with PT and reportedly did well. Continue ASA, Eliquis, amiodarone 200 mg PO BID, atorvastatin 40 mg daily, enalapril 1.25 mg BID. Not on furosemide as outpt. Volume status stable / euvolemic at present. Holding off on starting beta kojo due to left bundle branch block and need for amiodarone therapy. Stable for discharge from cardiac perspective. Outpt follow up with [facility]. Admission and Anticipated Discharge Date Admission Date: July 03, 2023 Subjective Patient seen in cardiology follow up. Denies chest pain or shortness of breath. Has a pain in his right shoulder and neck, not works with moving his right arm and has come and gone. It it not worse with deep breathing and does not sound characteristic of angina. Telemetry reveals SR in the 70s. Had a brief run of AF on 07/03/23 at 12:11 pm. Physical Exam Constitutional: WD/WN, vitals as above Respiratory: normal respiratory effort, lungs clear to auscultation Cardiovascular: RRR, no murmur, no edema Gastrointestinal (Abdomen): normal bowel sounds, soft, nontender, no hepatosplenomegaly Skin: no rashes, warm and dry Neurologic: PERRL, EOMI, accommodation nl, no face palsy, no dysarthria Results & Data Vital Signs (Past 12 Hours) Vital Signs Temp Pulse Resp BP Pulse Ox O2 Del Method 07/04/23 06:00 70 23 90 07/04/23 05:44 96/48 L 07/04/23 05:44 67 24 91 07/04/23 05:00 72 22 92 07/04/23 04:44 128/69 07/04/23 04:44 74 27 H 90 07/04/23 04:10 37.8 C H 07/04/23 04:00 72 28 H 89 L 07/04/23 03:44 75 25 H 91 07/04/23 03:44 123/72 07/04/23 03:00 79 25 H 86 L 07/04/23 03:00 Room Air 07/04/23 02:44 73 21 89 L 07/04/23 02:44 118/69 07/04/23 02:00 78 26 H 92 07/04/23 01:44 80 28 H 90 07/04/23 01:44 128/77 07/04/23 01:00 68 19 94 07/04/23 00:44 73 22 90 07/04/23 00:44 116/77 07/04/23 00:08 93 H 07/04/23 00:00 79 29 H 92 07/03/23 23:47 36.7 C 07/03/23 23:44 83 28 H 94 07/03/23 23:44 134/73 Laboratory Results Cardiac Enzymes 07/03/23 07/03/23 07/04/23 Range/Units 11:00 19:04 04:15 AST 25 (13-39) U/L Troponin I High Sens 460.6 H* D 254.4 H* D (0-20) pg/ml CBC 07/04/23 Range/Units 04:15 WBC 8.46 (4.8-10.8) K/ul RBC 3.55 L (4.70-6.10) M/uL Hgb 10.7 L (14.0-18.0) g/dl Hct 31.8 L (42.0-52.0) % Plt Count 312 (130-400) K/uL Neut # (Auto) 7.31 H (1.40-6.50) K/uL Lymph # (Auto) 0.42 L (1.20-3.40) K/uL [place] # (Auto) 0.65 H (0.11-0.59) K/uL Eos # (Auto) 0.03 (0.00-0.50) K/uL Baso # (Auto) 0.02 (0.00-0.20) K/uL Comprehensive Metabolic Panel 07/04/23 Range/Units 04:15 Sodium 134 L (136-145) mmol/L Potassium 3.8 (3.5-5.1) mmol/L Chloride 104 (98-107) mmol/L Carbon Dioxide 22 (21-32) mmol/L BUN 26 H (6-23) mg/dl Creatinine 1.02 (0.6-1.4) mg/dl Glucose 117 H (70-99(Fasting)) mg/dl Calcium 8.7 (8.6-10.3) mg/dl AST 25 (13-39) U/L ALT 17 (7-52) U/L Alkaline Phosphatase 57 (34-104) U/L Total Protein 6.3 (6.0-8.3) gm/dl Albumin 2.7 L (3.4-5.0) gm/dl Intake and Output 07/03/23 07/04/23 07/04/23 22:59 06:59 14:59 Intake Total 300 / 300 Output Total 200 / 1226 101 / 1226 Balance -200 / -926 199 / -926 Intake: Oral 300 / 300 Output: Urine 200 / 1225 100 / 1225 # Bowel Movements Other: Weight 63 kg Weight Measurement Method Built in [facility]
--- NOTE | 2023-07-04 11:48 | Hospitalist Progress Note ---
Date of Service July 04, 2023 Assessment & Plan (1) Acute dyspnea: (2) Acute on chronic HFrEF (heart failure with reduced ejection fraction): (3) NSTEMI (non-ST elevated myocardial infarction): (4) Paroxysmal atrial fibrillation with rapid ventricular response: Plan: 78-year-old male with past med significant for chronic systolic CHF, s/p ICD, history of symptomatic bradycardia s/p pacemaker, CAD, hypertension, hyperlipidemia, hypothyroidism, anxiety, history of tobacco abuse, history of lower GI bleed, presents because of fall and shortness of breath. Patient states he lost balance and fell down and could not get up. And was very short of breath. He called EMS and brought in here. Acute on chronic systolic heart failure Ischemic cardiomyopathy NSTEMI Paroxysmal A-fib with RVR Patient presents with shortness of breath and mechanical fall. No syncope/presyncope EKG on admission shows sinus rhythm with left bundle branch block High sensitive troponin was 49 initially; up trended to 633 and down trended Chest x-ray on admission shows cardiomegaly with interstitial pulmonary edema Echocardiogram shows EF of 20 to 25%; with small loculated anterior and right lateral pericardial effusion. Unchanged from previous echocardiogram. Cardiology consulted for comanagement; status post IV diuretics Continue on aspirin, Lipitor, enalapril Continue on amiodarone and Eliquis for A-fib Strict input and output monitoring Telemonitoring History of symptomatic bradycardia S/p pacemaker Hypertension On enalapril Will monitor Hypothyroidism On Synthyroid Hyponatremia Likely hypervolemic hyponatremia Sodium 129 on admission; improved to 134 History of CAD On aspirin and statin and Eliquis DVT prophylaxis On Eliquis Disposition Admitted for acute on chronic systolic heart failure, NSTEMI. Requires close monitoring. Patient lives alone; PT OT evaluation in progress. Full code Time spent evaluating patient, direct bedside care, chart review, placing orders, interpretation of diagnostic studies, discussion with consultants, patient, and family members, as well as other required patient management activities is 50 minutes Please note the above document was generated using voice recognition software. It may contain grammatical, syntax or spelling errors. Any formal questions or concerns about the content, text or information contained within the body of this dictation should be directly addressed to the provider for clarification Admission and Anticipated Discharge Date Admission Date: July 03, 2023 Subjective Seen and examined at bedside. Is sitting up on the chair; not in distress. He is saturating well on room air. Review of Systems Review of Systems: All systems reviewed & are unremarkable except as noted in Subjective Physical Exam Physical Exam: Constitutional: WD/WN, vitals as above, NAD, sitting up in bed, pleasant, conversing easily Respiratory: Bilateral clear breath sound. Cardiovascular: RRR, no murmur, no edema Vessels: no JVD or carotid bruit Chest: normal inspection of chest Abdomen: normal bowel sounds, soft, nontender, no hepatosplenomegaly Musculoskeletal: no cyanosis or clubbing, extremities motor strength 5/5 Skin: no rashes, warm and dry normal turgor Neurologic: PERRL, EOMI, accommodation nl, no face palsy, no dysarthria CN's II- XI intact bilaterally and moves all extremities Psychiatric: A+Ox3, euthymic affect Results & Data Results & Data Vital Signs (Past 12 Hours) Vital Signs Temp Pulse Resp BP Pulse Ox O2 Del Method 07/04/23 06:00 70 23 90 07/04/23 05:44 96/48 L 07/04/23 05:44 67 24 91 07/04/23 05:00 72 22 92 07/04/23 04:44 128/69 07/04/23 04:44 74 27 H 90 07/04/23 04:10 37.8 C H 07/04/23 04:00 72 28 H 89 L 07/04/23 03:44 75 25 H 91 07/04/23 03:44 123/72 07/04/23 03:00 79 25 H 86 L 07/04/23 03:00 Room Air 07/04/23 02:44 73 21 89 L 07/04/23 02:44 118/69 07/04/23 02:00 78 26 H 92 07/04/23 01:44 80 28 H 90 07/04/23 01:44 128/77 07/04/23 01:00 68 19 94 07/04/23 00:44 73 22 90 07/04/23 00:44 116/77 07/04/23 00:08 93 H 07/04/23 00:00 79 29 H 92 07/03/23 23:47 36.7 C
[2023-07-05 07:29] LABS: Basophils # (auto) 0.03 K/uL (0.00-0.20); Basophils % (auto) 0.4 %; Eosinophils # (auto) 0.04 K/uL (0.00-0.50); Eosinophils % (auto) 0.5 %; Hematocrit (blood only) 31.1 % (42.0-52.0); Hemoglobin 10.3 g/dl (14.0-18.0); Immature Granulocytes # (auto) 0.04 K/uL (0.01-0.20); Immature Granulocytes % (auto) 0.5 %; Lymphocytes # (auto) 0.45 K/uL (1.20-3.40); Lymphocytes % (auto) 6.2 %; Mean Corpuscular Hemoglobin 29.9 pg (25.0-34.0); Mean Corpuscular Hgb Conc 33.1 g/dL (32.0-36.0); Mean Corpuscular Volume 90.1 fL (80.0-100.0); Mean Platelet Volume 8.3 fL (9.4-12.4); Monocytes # (auto) 0.68 K/uL (0.11-0.59); Monocytes % (auto) 9.3 %; Neutrophils # (auto) 6.06 K/uL (1.40-6.50); Neutrophils % (auto) 83.1 %; Platelet Count 313 K/uL (130-400); RDW Standard Deviation 45.9 fL (36.4-46.3); Red Blood Count 3.45 M/uL (4.70-6.10)
[2023-07-05 07:46] LABS: Albumin Globulin Ratio 0.8 (0.9-2); Albumin Level 2.6 gm/dl (3.4-5.0); BUN Creatinine Ratio 25.5 (10-20); Bilirubin,Total 0.5 mg/dl (0.2-1.0); Calcium 8.4 mg/dl (8.6-10.3); Creatinine Clr Calc Pharmacy 54.5 ml/min; Est GFR (African American) 88.4 ml/min; Est GFR (Non-African American) 76.3 ml/min; Globulin 3.4 gm/dl (2.5-4.0); Magnesium 1.7 mg/dl (1.7-2.4)
--- NOTE | 2023-07-05 11:11 | Electrocardiogram Report ---
Test Reason : Blood Pressure : / mmHG Vent. Rate : 075 BPM Atrial Rate : 075 BPM P-R Int : 252 ms QRS Dur : 144 ms QT Int : 432 ms P-R-T Axes : 000 -70 102 degrees QTc Int : 482 ms Sinus rhythm with 1st degree A-V block Right bundle branch block Left anterior fascicular block Bifascicular block Poor R wave progression, consider anterior KS vs. lead placement vs. LVH Abnormal ECG When compared with ECG of 04-JUL-2023 06:08, Right bundle branch block has replaced Non-specific intra-ventricular conduction block Confirmed by Manuel Carreon ([id number]) on 07/05/2023 11:11:22 AM Referred By: REFERRED SELF Confirmed By:Stephen Carreon
--- NOTE | 2023-07-05 14:52 | Discharge Summary ---
Date of Service July 05, 2023 Admission HPI Per Admitting Provider 78-year-old male with past med history significant for chronic systolic CHF, s/p ICD, history of symptomatic bradycardia s/p pacemaker, CAD, hypertension, hyperlipidemia, hypothyroidism, anxiety, history of tobacco abuse, history of lower GI bleed, presents because of fall and shortness of breath. Patient states he lost balance and fell down and could not get up. And was very short of breath. He called EMS and brought in here. Requiring oxygen. Initial EKG showed left bundle branch with ST changes. Repeat EKG is okay. Patient denies any chest pain. No palpitations. No dizziness prior to falling down. Currently shortness of breath improved. Hemodynamically stable. Did not hit his head when he fell down. Did not lose consciousness. Denies any headache. Vision is okay. No runny nose or sore throat. No headaches. No cough. No fevers. Currently no chest pain or shortness of breath. No nausea. No abdominal pain. Somewhat constipated. Micturating okay. States appetite is down last couple of days. Patient was in the hospital last week of May with dizziness and found to the rapid A-fib. He was discharged on amiodarone and Eliquis. Lives alone. Ambulates without support Past medical history. As mentioned above. Past surgical history. Cardiac cath. Dual-chamber pacemaker. Bilateral cataracts. Social history. Single. Quit smoking 1970. Smoked 1 pack a day for 10 years. No alcohol use. No drug use. Family history. No family history on file Admission Exam Per Admitting Provider General- Not in distress. Head- atraumatic Eyes- PERRL. ENT- oropharynx clear Neck- supple, no JVD. Lungs- clear to auscultation no wheezing or crackles. Heart- regular rhythm; no murmur, no gallop. Abdomen- normal bowel sounds, soft, nontender, no distension. Extremities- no pretibial edema, no erythema seen Neuro- alert, oriented x 3; PERRL, no facial palsy; no dysarthria; moves extremities. Skin- warm & dry Principal Diagnosis Acute on chronic systolic heart failure Discharge Exam Constitutional: WD/WN, vitals as above, NAD, sitting up in bed, pleasant, conversing easily Respiratory: Bilateral clear breath sound. Cardiovascular: RRR, no murmur, no edema Vessels: no JVD or carotid bruit Chest: normal inspection of chest Abdomen: normal bowel sounds, soft, nontender, no hepatosplenomegaly Musculoskeletal: no cyanosis or clubbing, extremities motor strength 5/5 Skin: no rashes, warm and dry normal turgor Neurologic: PERRL, EOMI, accommodation nl, no face palsy, no dysarthria CN's II- XI intact bilaterally and moves all extremities Psychiatric: A+Ox3, euthymic affect Discharge Data Allergies Allergy/AdvReac Type Severity Reaction Status Date / Time No Known Allergies Allergy Verified 06/09/23 08:13 Consultations 07/02/23 22:14 ED Decision to Admit Stat 07/03/23 08:00 Consult Cardiology Routine Hospital Course (1) Acute dyspnea: (2) Acute on chronic HFrEF (heart failure with reduced ejection fraction): (3) NSTEMI (non-ST elevated myocardial infarction): (4) Paroxysmal atrial fibrillation with rapid ventricular response: 78-year-old male with past med significant for chronic systolic CHF, s/p ICD, history of symptomatic bradycardia s/p pacemaker, CAD, hypertension, hyperlipidemia, hypothyroidism, anxiety, history of tobacco abuse, history of lower GI bleed, presents because of fall and shortness of breath. Patient states he lost balance and fell down and could not get up. And was very short of breath. He called EMS and brought in here. Acute on chronic systolic heart failure Ischemic cardiomyopathy NSTEMI Paroxysmal A-fib with RVR Patient presents with shortness of breath and mechanical fall. No syncope/presyncope EKG on admission shows sinus rhythm with left bundle branch block High sensitive troponin was 49 initially; up trended to 633 and down trended Chest x-ray on admission shows cardiomegaly with interstitial pulmonary edema Echocardiogram shows EF of 20 to 25%; with small loculated anterior and right lateral pericardial effusion. Unchanged from previous echocardiogram. During the hospitalization, patient was diuresed with IV Lasix Cardiology was consulted for comanagement Patient reported improvement in the symptoms; was saturating on room air. Vitals were stable PT OT evaluation was done; recommend home with home health Patient was discharged on oral Lasix 20 mg 3 times a week. Patient to follow-up with PCP after discharge Please note the above document was generated using voice recognition software. It may contain grammatical, syntax or spelling errors. Any formal questions or concerns about the content, text or information contained within the body of this dictation should be directly addressed to the provider for clarification Total Time Total Time Spent Total Time Spent (In Minutes): 45 Total Time Includes: Examination of the Patient, Discharge Planning, Medication Reconciliation, Communication With Other Providers and Other Discharge Plan Discharge Items Patient Disposition: Home - Self-Care Reason For Visit: SOB, EKG CHANGES Discharge Diagnosis: (1) Acute dyspnea: (2) Acute on chronic HFrEF (heart failure with reduced ejection fraction): (3) NSTEMI (non-ST elevated myocardial infarction): (4) Paroxysmal atrial fibrillation with rapid ventricular response: Activity: Resume your previous activity Non-emergency contact: Primary Care Provider Call non-emergency contact if: you have any medication questions and your symptoms worsen Follow-up/Referrals: Randell Gómez MD [Primary Care Provider] - (Date & Time 07/07/2023 9:40 AM Provider Randell Gómez MD Department Family Medicine [facility] ) Diet: Regular Addtl Attending Provider Instructions: You were admitted to the hospital due to heart failure. You are evaluated by cardiology during the hospitalization. They recommend Lasix 20 mg to be taken every other day(take them on Mondays, Wednesdays and Fridays) Please follow-up with your primary care doctor as scheduled Pending Studies at Discharge: No Stand-Alone Forms: [employer] Smoking Cessation Medications and DC Order Prescriptions: New furosemide [Lasix] 20 mg tablet 20 mg PO Q OTHER DAY Qty: 30 0RF Continued atorvastatin 40 mg tablet 40 mg PO DAILY amiodarone 200 mg tablet 200 mg PO BID enalapril maleate 2.5 mg tablet 1.25 mg PO BID aspirin 81 mg Tablet,Delayed Release (Dr/Ec) 81 mg PO DAILY levothyroxine 100 mcg tablet 100 mcg PO DAILY nitroglycerin 0.4 mg tablet, sublingual 0.4 mg sublingual Q5W PRN (Reason: Chest Pain) cholecalciferol (vitamin D3) [Vitamin D3] 25 mcg (1,000 unit) Tablet 25 mcg PO DAILY Eliquis 5 mg tablet 5 mg PO BID PreserVision AREDS-2 250-90-40-1 mg Capsule 1 tab PO BID Discharge Orders: Discharge Order (Routine); Ordered 07/05/23 Ordered By: Lowell Olsen Admission Data Admit Date/Time: 07/03/23 00:40 Attending Provider: Lowell Olsen Admit Provider: Loi Walsh Primary Care Provider: Randell Gómez Other Providers: Loi Walsh; Bi Villafuerte Other Interventions: Discharge Summary Assessment (RN) Last Done: 07/05/23 11:26
== END 2023-07-05 12:01 | disposition home or self-care (01) | DRG 280 ==
LOC: ED 20:25 → EDINP 07-03 00:40 → 1E 07-03 01:21 → 2S 07-05 04:45
DX: I34.0 Nonrheumatic mitral (valve) insufficiency; I44.0 Atrioventricular block, first degree; Z79.890 Hormone replacement therapy; I50.23 Acute on chronic systolic (congestive) heart failure; I13.0 Hypertensive heart and chronic kidney disease with heart failure and stage 1 through stage 4 chronic kidney disease, or unspecified chronic kidney disease; I48.0 Paroxysmal atrial fibrillation; I44.7 Left bundle-branch block, unspecified; N18.30 Chronic kidney disease, stage 3 unspecified; Z79.82 Long term (current) use of aspirin; I25.10 Atherosclerotic heart disease of native coronary artery without angina pectoris; Z95.810 Presence of automatic (implantable) cardiac defibrillator; Z87.891 Personal history of nicotine dependence; I25.2 Old myocardial infarction; I21.4 Non-ST elevation (NSTEMI) myocardial infarction; I25.5 Ischemic cardiomyopathy; E87.1 Hypo-osmolality and hyponatremia; I31.39 Other pericardial effusion (noninflammatory); E03.9 Hypothyroidism, unspecified

== ENCOUNTER 2024-11-13 12:32 | Inpatient (IN) ==
--- NOTE | 2024-11-13 12:49 | Emergency Department Note ---
Impression & Plan Rhabdomyolysis, Elevated troponin, Open wound of chest wall ED Provider Note Diagnosis: Rhabdomyolysis, infected right chest wall wound Disposition: Admit CHIEF COMPLAINT: Fall HPI: Patient is an 79-year-old male presenting from home. Patient reportedly had laid on the ground for 2 days time. Patient states mechanical fall for the cause of the original incident. Patient on exam has pressured wounds on his body due to laying on the ground for significant period of time. Patient hemodynamically stable. Patient denies any neck pain. Patient has wound under the right breast that is approximately 2 to 3 cm in diameter with surrounding cellulitis. Patient complaining of some abdominal pain and hip pain. PAST MEDICAL HISTORY: See Below PAST SURGICAL HISTORY: See Below SOCIAL HISTORY: See Below HOME MEDICATIONS: See Below ALLERGIES: See Below VITALS: See Below Primary survey Airway patent Breathing breath sounds equal bilaterally Circulation strong 2+ radial pulses bilaterally GCS 15 Cervical collar no midline tenderness cleared on physical exam Secondary Survey: GENERAL: Well appearing, well nourished, NAD, non-toxic. EYE EXAM: Normal conjunctiva. Pupils 3 and equal reactive bilaterally OROPHARYNX: Moist mucus membranes. Grossly normal dentition. TMs clear, NECK: Supple, no midline tenderness LUNGS: Clear to auscultation. Normal chest wall mechanics. HEART: NSR ABDOMEN: Abdomen soft, non-tender, normo-active bowel sounds, no masses, no rebound or guarding BACK: No CVA TTP. No thoracic or lumbar spine tenderness SKIN: Wound right chest wall proximately 6-7th rib location UPPER EXTREMITIES: Upper extremities are grossly normal LOWER EXTREMITIES: Grossly normal, no edema. NEURO EXAM: A&O x3,, normal speech, moves all 4 extremities PSYCH: Cooperative MEDICAL DECISION MAKING: History obtained from: Patient ER Course: Patient is a 79-year-old male presenting from home after laying on the ground for over 2 days time. Patient states that he tripped with for the original incident of why he was on the ground. Patient complains of right chest wall pain and abdominal pain currently. Patient does not have any cervical spine tenderness. Patient has a wound with surrounding cellulitis to the right chest wall. Patient found to have elevated CK and is in rhabdomyolysis. Patient given bolus of IV fluids. Patient found to have an elevated lactate and with the chest wall wound was started on broad-spectrum antibiotics. Patient has slight elevation of his troponin level without signs of ischemia on EKG. This most likely due to the rhabdomyolysis. Patient's case discussed with hospitalist service agreed to keep him for further treatment and evaluation. Patient CT scans did not show any traumatic injuries. Labs (independently interpreted) are significant for: CK elevated, lactate elevated Imaging results (independently interpreted): Chest x-ray without pneumothorax EKG interpretation (independently interpreted): Normal sinus rhythm no ST segment elevation or depression Medications given: Zosyn, vancomycin Consultants: Hospitalist Triage Nursing notes reviewed and agree them. Vital Signs: reviewed and remarkable for: no significant abnormalities Past Med/Surg History Problem List (Updated 11/13/24 @ 18:33 by Kunal Lino DO) Open wound of chest wall (Acute) Elevated troponin (Acute) Rhabdomyolysis (Acute) Pleural effusion, left Cellulitis Wound of skin Chronic HFrEF (heart failure with reduced ejection fraction) Fall Acute on chronic HFrEF (heart failure with reduced ejection fraction) Abnormal ECG (Acute) Acute hyponatremia (Acute) Elevated troponin (Acute) Acute dyspnea (Acute) Elevated troponin Paroxysmal atrial fibrillation with rapid ventricular response Dizziness Atrial fibrillation with rapid ventricular response (Acute) Acute lower GI bleeding Abdominal pain (Acute) Diarrhea (Acute) Near syncope (Acute) Coronary artery disease (Chronic) Stented coronary artery (Chronic) Ischemic cardiomyopathy Pneumonia Medical History (Updated 11/13/24 @ 18:33 by Kunal Lino DO) NSTEMI (non-ST elevated myocardial infarction) Pacemaker Family History Other Family history non-contributory Social History Smoking Status: Former smoker Tobacco Type: Cigarettes Second Hand Exposure: No; Do You Dip or Chew Tobacco: No; Hx Alcohol Use: No Hx Substance Use: No Preferred Language: Georgian Communication Ability: Effective Telephone Diaphragm Assembler Required: No Beliefs That Will Affect Care: None marital status: Single Current Living Situation: Alone Current Living Situation Comment: Lives at home alone current occupational status: retired Feels Safe at Home: Hesitant to Answer Assistive Devices: None Allergies Allergies Allergy/AdvReac Type Severity Reaction Status Date / Time No Known Allergies Allergy Verified 12/12/23 16:46 Home Meds Home Medications Medication Instructions Recorded Confirmed amiodarone 200 mg tablet 200 mg PO QPM 07/03/23 11/13/24 apixaban 5 mg tablet (Eliquis) 5 mg PO BID 07/03/23 11/13/24 aspirin 81 mg tablet,delayed 81 mg PO DAILY 07/03/23 11/13/24 release atorvastatin 40 mg tablet 40 mg PO HS 07/03/23 11/13/24 cholecalciferol (vitamin D3) 25 25 mcg PO DAILY 07/03/23 11/13/24 mcg (1,000 unit) tablet (Vitamin D3) nitroglycerin 0.4 mg sublingual 0.4 mg sublingual Q5W PRN Chest 07/03/23 11/13/24 tablet Pain vit C 250 mg-vit E 90 mg-zinc 40 1 tab PO BID 07/03/23 11/13/24 mg-copper 1 [id number] capsule (PreserVision AREDS-2) levothyroxine 150 mcg tablet 150 mcg PO DAILYBB 12/12/23 11/13/24 metoprolol succinate 25 mg 25 mg PO DAILY 12/12/23 11/13/24 tablet,extended release 24 hr sacubitril 24 mg-valsartan 26 mg 1 tab PO BID 12/12/23 11/13/24 tablet (Entresto) spironolactone 25 mg tablet 25 mg PO DAILY 12/12/23 11/13/24 Previous Rx's Medication Instructions Recorded furosemide 20 mg tablet (Lasix) 20 mg PO Q OTHER DAY #30 tabs 07/05/23 Results & Data (ED) Vital Signs Vital Signs - 24 hr 11/13/24 12:50 11/13/24 13:06 11/13/24 13:13 Temperature 36.8 C Temperature Source Oral Pulse Rate 74 60 Pulse Rate [Apical] Pulse Rhythm [Apical] Pulse Strength [Apical] Respiratory Rate 23 Respiratory Effort / Characteristics Respiratory Depth Respiratory Pattern Blood Pressure 124/77 Blood Pressure [Right Arm] Blood Pressure Mean 92 Blood Pressure Mean [Right Arm] Blood Pressure Position [Right Arm] Pulse Oximetry 95 92 Oxygen Delivery Method Room Air Room Air Sepsis Recent Fever Within 48 Hours No Sepsis New/Unexplained Change in Mental Status No Sepsis Action Taken by Nursing No Action Required 11/13/24 13:13 11/13/24 13:36 11/13/24 14:00 Temperature Temperature Source Pulse Rate Pulse Rate [Apical] 95 H 60 60 Pulse Rhythm [Apical] Regular Regular Pulse Strength [Apical] Normal Normal Respiratory Rate 20 18 16 Respiratory Effort / Characteristics Non-Labored Non-Labored Spontaneous Non-Labored Spontaneous Respiratory Depth Normal Normal Normal Respiratory Pattern Regular Regular Blood Pressure Blood Pressure [Right Arm] 124/74 124/74 Blood Pressure Mean Blood Pressure Mean [Right Arm] 90 90 Blood Pressure Position [Right Arm] Lying Pulse Oximetry 91 94 94 Oxygen Delivery Method Room Air Room Air Room Air Sepsis Recent Fever Within 48 Hours Sepsis New/Unexplained Change in Mental Status Sepsis Action Taken by Nursing 11/13/24 15:00 11/13/24 16:00 Temperature Temperature Source Pulse Rate Pulse Rate [Apical] 60 60 Pulse Rhythm [Apical] Regular Regular Pulse Strength [Apical] Respiratory Rate 15 19 Respiratory Effort / Characteristics Non-Labored Non-Labored Spontaneous Respiratory Depth Normal Normal Respiratory Pattern Blood Pressure Blood Pressure [Right Arm] 124/77 132/70 Blood Pressure Mean Blood Pressure Mean [Right Arm] 92 90 Blood Pressure Position [Right Arm] Lying Lying Pulse Oximetry 96 99 Oxygen Delivery Method Room Air Room Air Sepsis Recent Fever Within 48 Hours Sepsis New/Unexplained Change in Mental Status Sepsis Action Taken by Nursing Laboratory Data 11/13/24 12:57 11/13/24 12:57 Lab Results 11/13/24 11/13/24 Range/Units 12:57 15:22 WBC 8.90 (4.8-10.8) K/ul RBC 4.62 L (4.70-6.10) M/uL Hgb 14.9 (14.0-18.0) g/dl Hct 41.8 L (42.0-52.0) % MCV 90.5 (80.0-100.0) fL MCH 32.3 (25.0-34.0) pg MCHC 35.6 (32.0-36.0) g/dL RDW Std Deviation 41.9 (36.4-46.3) fL RDW Coeff of Kim 12.7 (11.5-14.5) % Plt Count 234 (130-400) K/uL MPV 8.7 L (9.4-12.4) fL Immature Gran % (Auto) 0.3 % Neut % (Auto) 91.2 % Lymph % (Auto) 1.7 % Gage % (Auto) 6.7 % Eos % (Auto) 0.0 % Baso % (Auto) 0.1 % Neut # (Auto) 8.11 H (1.40-6.50) K/uL Lymph # (Auto) 0.15 L (1.20-3.40) K/uL Gage # (Auto) 0.60 H (0.11-0.59) K/uL Eos # (Auto) 0.00 (0.00-0.50) K/uL Baso # (Auto) 0.01 (0.00-0.20) K/uL Immature Gran # (Auto) 0.03 (0.01-0.20) K/uL PT 10.9 (9.0-12.0) Seconds INR 1.0 (0.9-1.1) APTT 25 (21-31) Seconds PTT Ratio 0.9 Sodium 138 (136-145) mmol/L Potassium 3.9 (3.5-5.1) mmol/L Chloride 103 (98-107) mmol/L Carbon Dioxide 25 (21-32) mmol/L Anion Gap 10 (3-11) BUN 27 H (6-23) mg/dl Creatinine 1.26 (0.6-1.4) mg/dl Est Cr Clr Drug Dosing 39.9 ml/min eGFR 57.30 BUN/Creatinine Ratio 21.4 H (10-20) Glucose 143 H (70-99(Fasting)) mg/dl Lactate 2.5 H* 2.3 H* (0.4-2.0) mmol/L Calcium 9.5 (8.6-10.3) mg/dl Total Bilirubin 0.9 (0.2-1.0) mg/dl AST 141 H (13-39) U/L ALT 42 (7-52) U/L Alkaline Phosphatase 58 (34-104) U/L Total Creatine Kinase 8786 H (30-223) U/L Troponin I High Sens 131.2 H* 142.3 H* (0-20) pg/ml Total Protein 7.5 (6.0-8.3) gm/dl Albumin 3.5 (3.4-5.0) gm/dl Globulin 4.0 (2.5-4.0) gm/dl Albumin/Globulin Ratio 0.9 (0.9-2) Lipase 21 (11-82) U/L Administered Medications Discontinued Medications Acetaminophen (Acetaminophen 325 Mg Tab) 650 mg PO NOW STA Stop: 11/13/24 17:09 Last Admin: 11/13/24 17:53 Dose: 650 mg Documented By: ANNA Sodium Chloride (Nss) 1,000 mls @ 999 mls/hr IV .Q1H1M ONE Stop: 11/13/24 13:44 Last Infusion: 11/13/24 14:48 Dose: Infused Documented By: Admin: 11/13/24 12:56 Dose: 999 mls/hr Documented By: RUTHIE Piperacillin Sod/Tazobactam Sod (Zosyn) 4.5 gm in 100 mls @ 200 mls/hr IV NOW ONE; Protocol Stop: 11/13/24 15:11 Last Infusion: 11/13/24 15:39 Dose: Infused Documented By: Admin: 11/13/24 15:08 Dose: 200 mls/hr Documented By: KAITLYNN Vancomycin HCl 1,250 mg/ (Sodium Chloride) 525 mls @ 200 mls/hr IV NOW ONE Stop: 11/13/24 17:19 Last Admin: 11/13/24 16:22 Dose: 200 mls/hr Documented By: ANNA Ioversol (Optiray 320 100ml) 93 ml IV ONCE ONE Stop: 11/13/24 14:48 Last Admin: 11/13/24 14:48 Dose: 93 ml Documented By: PUSHPA Imaging Data Radiologist's Impression: Abdomen/Pelvis CT 11/13/24 12:42 CT SCAN OF THE ABDOMEN AND PELVIS WITH IV CONTRAST CLINICAL HISTORY: Trauma. The patient lay on the ground for 2 days COMPARISON STUDY: Abdominal CT dated 12/15/2020 TECHNIQUE: Following the IV administration of 93 cc of Optiray 320, CT scan of the abdomen and pelvis is performed from the lung bases to the proximal femora. Images are reviewed in the axial, sagittal, and coronal planes. IV contrast was administered without complication. A dose lowering technique was utilized adhering to the principles of ALARA. The examination is degraded by motion artifact. CT DOSE: 2416.82 mGy.cm FINDINGS: Lung bases: The heart is enlarged Trace pericardial effusion. A pacemaker lead is in place. The coronary arteries are densely calcified. There is a moderate left pleural effusion/collection with dependent consolidation. Mild pleural thickening is noted at the left lung base. The right lung base is clear noting dependent scar/atelectasis. There is a small hiatal hernia. Liver: The contrast-enhanced liver is normal in size, contour, and attenuation. There is no intrahepatic biliary ductal dilatation. The hepatic veins and portal veins are patent. Scattered hepatic cysts measure 1.6 cm. Gallbladder: Unremarkable. Spleen: Normal in size and attenuation. Pancreas: A 1.3 cm ovoid cyst in the pancreatic neck is unchanged. The pancreas is otherwise normal as imaged. Adrenal glands: Unremarkable. Kidneys: The contrast enhanced kidneys are normal in size and without hydronephrosis. The kidneys enhance symmetrically. Scattered renal cysts measure up to 4.2 cm. Additional subcentimeter cortical hypodensities also likely represent cysts but are too small for definitive characterization. Abdominal vasculature: The abdominal aorta is normal in course and caliber noting mild atherosclerotic calcification. Bowel: There is rectosigmoid fecal impaction and ophy-yh-cryjbhtz constipation. There are mildly distended and fluid-filled loops of small bowel with no transition point identified or evidence of high-grade obstruction. The appendix is nonvisualized. Peritoneum: There is no intraperitoneal free air or abdominal ascites. Lymphadenopathy: None. Pelvic viscera: The prostate gland is enlarged and heterogeneous. The bladder is mildly distended, and the wall is thickened/trabeculated indicating chronic outlet obstruction. There are bilateral groin hernias. The left coronary contains a segment of the colon. Skeletal structures: The skeletal structures are osteopenic. There is moderate lumbosacral spondylosis. No lytic or blastic lesions are seen. There are chronic/healed right-sided rib fractures. IMPRESSION: 1. There is no evidence of solid organ injury in the abdomen or pelvis. 2. Cardiomegaly and cardiac pacemaker. 3. There is a moderate left pleural effusion/pleural collection with left basilar consolidation. The sterility of this fluid cannot be assessed imaging and clinical correlation will be required. 4. There is rectosigmoid fecal impaction noting awve-or-dzzilvid constipation. 5. There are bilateral inguinal hernias, left side larger than right. The left inguinal hernia contains a segment of the colon. 6. There are mildly distended and fluid-filled loops of small bowel with no CT evidence of high-grade obstruction. Correlate clinically for evidence of a nonspecific enteritis. 7. Additional findings as above. ACT 112: Negative or not required by law. Electronically signed by: Roger Pappas M.D. 11/13/2024 3:[address] 11/13/24 12:42 CT SCAN OF THE CHEST WITH IV CONTRAST CLINICAL HISTORY: Trauma. The patient lay on the ground for 2 days. COMPARISON STUDY: Chest CT dated 12/20/2019. Chest x-ray dated 11/13/2024. TECHNIQUE: Following the IV administration of 93 cc of Optiray 320, CT scan of the thorax was performed from the thoracic inlet to the upper abdomen. Images are reviewed in the axial, sagittal, and coronal planes. IV contrast was administered without complication. A dose lowering technique was utilized adhering to the principles of ALARA. The examination is degraded by motion artifact. FINDINGS: Thyroid: Atrophic. Thoracic aorta: There is atherosclerotic calcification of the thoracic aorta, with is normal in caliber and demonstrates standard 3-vessel arch anatomy. No dissection is seen. Pulmonary vasculature: The main pulmonary arteries are dilated suggesting pulmonary artery hypertension. There are no filling defects identified in the central pulmonary vessels to indicate pulmonary embolus. Note that this examination was not protocoled for evaluation of the pulmonary arteries. Heart: A cardiac pacemaker is seen in the left chest wall. The heart is enlarged there is trace pericardial effusion. The coronary arteries are densely calcified. Lungs and pleural spaces: Evaluation of the lung parenchyma is degraded by motion artifact. There is a moderate to large left pleural effusion with left basilar consolidation. Mild pleural thickening suggested at the left lung base. There is a large calcified granuloma in the left lower lung. The right-sided pleural effusion is identified and no pneumothorax is seen. A 0.7 cm nodular opacity in the lingula on image #103 and a 1.5 cm nodular opacity in the lingula on image #110 rising previously and they're present scarring/atelectasis. A 6 mm left lower lobe nodule on image #53 was not seen previously. The trachea and central airways are clear. Mediastinum: There are mildly enlarged calcification containing mediastinal lymph nodes. These are similar to the examination. A subcarinal node measures 1.6 cm short axis. A precarinal node measures 1.5 cm in short axis. No mediastinal hematoma is seen. Esthela: Clear. Axillae: There is no axillary lymphadenopathy. Upper abdomen: A 4.2 cm left renal cyst is noted. A 1.3 cm ovoid cyst is again seen in the pancreatic neck. Hepatic cysts measuring up to 1.6 cm. See report of today's abdominal CT for detailed intra-abdominal findings. Skeletal structures: The skeletal structures are osteopenic. The bony thorax appears intact. Degenerative change and mild hyperkyphosis is noted in the thoracic spine. No lytic or blastic bony lesions are seen. IMPRESSION: 1. No acute posttraumatic intrathoracic abnormality is identified. 2. Moderate to large left pleural effusion with dependent consolidation. The sterility of this fluid cannot be assessed imaging and clinical correlation will be required. 3. There is no right-sided pleural effusion, and no pneumothorax is seen. 4. There are linear nodular opacities in the lingula, as well as a 6 mm left lower lobe pulmonary nodule. These are pathologically indeterminant, and were not seen on 12/20/2019. A follow-up chest CT in 3 months time is recommended for reevaluation. 5. Cardiomegaly and cardiac pacemaker with evidence of pulmonary artery hypertension. 6. Additional findings as above. ACT 112: Positive. There are findings on this exam that require communication between the performing entity and the patient following Patient Test Result Information Act ([place] Act 112) guidelines. Electronically signed by: Roger Pappas M.D. 11/13/2024 3:29 PM Chest X-Ray 11/13/24 12:42 XR chest 1V portable CLINICAL HISTORY: Trauma COMPARISON STUDY: 07/03/2023 FINDINGS: Stable pacemaker. Stable cardiomegaly without pulmonary vascular congestion. There is an interval small left pleural effusion and associated consolidation at the left lung base. No pneumothorax seen. No grossly displaced rib fractures seen. IMPRESSION: Interval left pleural effusion and consolidation at the left lung base. ACT 112: Negative or not required by law. Electronically signed by: Anthony Avila M.D. 11/13/2024 1:[address] 11/13/24 12:43 CT SCAN OF THE CERVICAL SPINE CLINICAL HISTORY: Trauma. COMPARISON STUDY: Cervical spine CT December 20, 2019. TECHNIQUE: CT scan of the cervical spine is performed from the skull base to the upper thoracic spine. Images are reviewed in the axial, sagittal, and coronal planes. IV contrast was not administered for this examination. A dose lowering technique was utilized adhering to the principles of ALARA. FINDINGS: Skeletal structures: There is no evidence of fracture or subluxation involving the cervical spine. Vertebral body height and alignment are maintained. The odontoid process and lateral masses are intact. The atlantoaxial articulation is preserved. The spinous processes appear intact. Moderate multilevel facet arthrosis is present. There is mild to moderate multilevel disc space narrowing and endplate osteophytosis within the cervical spine. Soft tissues: The prevertebral and paraspinous soft tissues are within normal limits. Calvarium: The visualized calvarium at the skull base appears intact. Brain parenchyma: Partially visualized brain parenchyma at the skull base is within normal limits. Lung apices: A left pleural effusion is better depicted on the chest CT which will be reported separately. IMPRESSION: No acute cervical spine fracture or subluxation. ACT 112: Negative or not required by law. Electronically signed by: Prasanna Cabrera M.D. 11/13/2024 3:[address] 11/13/24 12:43 CT head/brain wo con CLINICAL HISTORY: Trauma. TECHNIQUE: Multiple axial CT images of the head were obtained without contrast. A dose lowering technique was utilized adhering to the principles of ALARA. CT DOSE: 2416 COMPARISON: 12/12/2023 FINDINGS: No intracranial hemorrhage seen. No mass effect, midline shift, or hydrocephalus. No skull fracture seen. Visualized paranasal sinuses and mastoid air cells are clear. IMPRESSION: No acute findings. ACT 112: Negative or not required by law. The above report was generated using voice recognition software. It may contain grammatical, syntax or spelling errors. Electronically signed by: Anthony Avila M.D. 11/13/2024 3:01 PM Discharge Plan Visit Data Chief Complaint: Fall Stated Complaint: FALL ED Provider: Kunal Lino Discharge Problem: Rhabdomyolysis, Elevated troponin, Open wound of chest wall Patient Disposition: Admitted As Inpatient Condition: Serious Discharge Instructions Interventions: ED Discharge Assessment Last Done: 11/13/24 17:46
[2024-11-13] MEDS: SODIUM CHLORIDE 0.9% 1,000 ML IV ONE (12:56)
--- NOTE | 2024-11-13 13:16 | XRay Report ---
XR chest 1V portable CLINICAL HISTORY: Trauma COMPARISON STUDY: 07/03/2023 FINDINGS: Stable pacemaker. Stable cardiomegaly without pulmonary vascular congestion. There is an in terval small left pleural effusion and associated consolidation at the left lung base. No pneumothora x seen. No grossly displaced rib fractures seen. IMPRESSION: Interval left pleural effusion and consolidation at the left lung base. ACT 112: Negative or not required by law. Electronically signed by: Anthony Avila M.D. 11/13/2024 1:14 PM
[2024-11-13 13:31] LABS: Hematocrit (blood only) 41.8 % (42.0-52.0); Hemoglobin 14.9 g/dl (14.0-18.0); Mean Corpuscular Hemoglobin 32.3 pg (25.0-34.0); Mean Corpuscular Volume 90.5 fL (80.0-100.0); Platelet Count 234 K/uL (130-400); RDW Standard Deviation 41.9 fL (36.4-46.3); Red Blood Count 4.62 M/uL (4.70-6.10); White Blood Count 8.90 K/ul (4.8-10.8)
[2024-11-13 13:47] LABS: Anion Gap 10.0 (3-11); Blood Urea Nitrogen 27.0 mg/dl (6-23); Calcium 9.5 mg/dl (8.6-10.3); Carbon Dioxide 25.0 mmol/L (21-32); Chloride 103.0 mmol/L (98-107); Creatinine Clr Calc Pharmacy 39.9 ml/min; Glucose 143.0 mg/dl (70-99(Fasting)); Potassium 3.9 mmol/L (3.5-5.1); Sodium 138.0 mmol/L (136-145)
[2024-11-13 13:54] LABS: Immature Granulocytes # (auto) 0.03 K/uL (0.01-0.20); Immature Granulocytes % (auto) 0.3 %
[2024-11-13 13:56] LABS: INR 1.0 (0.9-1.1); Partial Thromboplastin Time 25 Seconds (21-31); Prothrombin Time 10.9 Seconds (9.0-12.0)
[2024-11-13 14:11] LABS: Alanine Aminotransferase 42.0 U/L (7-52); Albumin Globulin Ratio 0.9 (0.9-2); Alkaline Phosphatase 58.0 U/L (34-104); Bilirubin,Total 0.9 mg/dl (0.2-1.0); Creatine Kinase 8786.0 U/L (30-223); Globulin 4.0 gm/dl (2.5-4.0); Lipase 21.0 U/L (11-82); Total Protein 7.5 gm/dl (6.0-8.3)
[2024-11-13] MEDS ORDERED: VANCOMYCIN CONSULT ACTIVE PRN (14:42)
[2024-11-13] MEDS: OPTIRAY 320 100ml IV ONE (14:48)
--- NOTE | 2024-11-13 15:02 | CT Scan Report ---
CT head/brain wo con CLINICAL HISTORY: Trauma. TECHNIQUE: Multiple axial CT images of the head were obtained without contrast. A dose lowering tech nique was utilized adhering to the principles of ALARA. CT DOSE: 2416 COMPARISON: 12/12/2023 FINDINGS: No intracranial hemorrhage seen. No mass effect, midline shift, or hydrocephalus. No skull fracture seen. Visualized paranasal sinuses and mastoid air cells are clear. IMPRESSION: No acute findings. ACT 112: Negative or not required by law. The above report was generated using voice recognition software. It may contain grammatical, syntax o r spelling errors. Electronically signed by: Anthony Avila M.D. 11/13/2024 3:01 PM
[2024-11-13] MEDS: PIPERACILLIN/TAZOBACTAM 4.5 GM/100 ML BAG IV ONE (15:08)
--- NOTE | 2024-11-13 15:10 | CT Scan Report ---
CT SCAN OF THE CERVICAL SPINE CLINICAL HISTORY: Trauma. COMPARISON STUDY: Cervical spine CT December 20, 2019. TECHNIQUE: CT scan of the cervical spine is performed from the skull base to the upper thoracic spine . Images are reviewed in the axial, sagittal, and coronal planes. IV contrast was not administered fo r this examination. A dose lowering technique was utilized adhering to the principles of ALARA. FINDINGS: Skeletal structures: There is no evidence of fracture or subluxation involving the cervical spine. Ve rtebral body height and alignment are maintained. The odontoid process and lateral masses are intact . The atlantoaxial articulation is preserved. The spinous processes appear intact. Moderate multileve l facet arthrosis is present. There is mild to moderate multilevel disc space narrowing and endplate osteophytosis within the cervical spine. Soft tissues: The prevertebral and paraspinous soft tissues are within normal limits. Calvarium: The visualized calvarium at the skull base appears intact. Brain parenchyma: Partially visualized brain parenchyma at the skull base is within normal limits. Lung apices: A left pleural effusion is better depicted on the chest CT which will be reported separa tely. IMPRESSION: No acute cervical spine fracture or subluxation. ACT 112: Negative or not required by law. Electronically signed by: Prasanna Cabrera M.D. 11/13/2024 3:08 PM
--- NOTE | 2024-11-13 15:16 | CT Scan Report ---
CT SCAN OF THE ABDOMEN AND PELVIS WITH IV CONTRAST CLINICAL HISTORY: Trauma. The patient lay on the ground for 2 days COMPARISON STUDY: Abdominal CT dated 12/15/2020 TECHNIQUE: Following the IV administration of 93 cc of Optiray 320, CT scan of the abdomen and pelvi s is performed from the lung bases to the proximal femora. Images are reviewed in the axial, sagittal , and coronal planes. IV contrast was administered without complication. A dose lowering technique wa s utilized adhering to the principles of ALARA. The examination is degraded by motion artifact. CT DOSE: 2416.82 mGy.cm FINDINGS: Lung bases: The heart is enlarged Trace pericardial effusion. A pacemaker lead is in place. The coronary arteries are densely calcified . There is a moderate left pleural effusion/collection with dependent consolidation. Mild pleural thi ckening is noted at the left lung base. The right lung base is clear noting dependent scar/atelectasi s. There is a small hiatal hernia. Liver: The contrast-enhanced liver is normal in size, contour, and attenuation. There is no intrahepa tic biliary ductal dilatation. The hepatic veins and portal veins are patent. Scattered hepatic cysts measure 1.6 cm. Gallbladder: Unremarkable. Spleen: Normal in size and attenuation. Pancreas: A 1.3 cm ovoid cyst in the pancreatic neck is unchanged. The pancreas is otherwise normal a s imaged. Adrenal glands: Unremarkable. Kidneys: The contrast enhanced kidneys are normal in size and without hydronephrosis. The kidneys enh ance symmetrically. Scattered renal cysts measure up to 4.2 cm. Additional subcentimeter cortical hyp odensities also likely represent cysts but are too small for definitive characterization. Abdominal vasculature: The abdominal aorta is normal in course and caliber noting mild atheroscleroti c calcification. Bowel: There is rectosigmoid fecal impaction and wddz-cd-lqhcthgl constipation. There are mildly dist ended and fluid-filled loops of small bowel with no transition point identified or evidence of high-g rade obstruction. The appendix is nonvisualized. Peritoneum: There is no intraperitoneal free air or abdominal ascites. Lymphadenopathy: None. Pelvic viscera: The prostate gland is enlarged and heterogeneous. The bladder is mildly distended, an d the wall is thickened/trabeculated indicating chronic outlet obstruction. There are bilateral groin hernias. The left coronary contains a segment of the colon. Skeletal structures: The skeletal structures are osteopenic. There is moderate lumbosacral spondylosi s. No lytic or blastic lesions are seen. There are chronic/healed right-sided rib fractures. IMPRESSION: 1. There is no evidence of solid organ injury in the abdomen or pelvis. 2. Cardiomegaly and cardiac pacemaker. 3. There is a moderate left pleural effusion/pleural collection with left basilar consolidation. The sterility of this fluid cannot be assessed imaging and clinical correlation will be required. 4. There is rectosigmoid fecal impaction noting srqr-gp-[id number] constipation. 5. There are bilateral inguinal hernias, left side larger than right. The left inguinal hernia contai ns a segment of the colon. 6. There are mildly distended and fluid-filled loops of small bowel with no CT evidence of high-grade obstruction. Correlate clinically for evidence of a nonspecific enteritis. 7. Additional findings as above. ACT 112: Negative or not required by law. Electronically signed by: Roger Pappas M.D. 11/13/2024 3:15 PM
--- NOTE | 2024-11-13 15:30 | CT Scan Report ---
CT SCAN OF THE CHEST WITH IV CONTRAST CLINICAL HISTORY: Trauma. The patient lay on the ground for 2 days. COMPARISON STUDY: Chest CT dated 12/20/2019. Chest x-ray dated 11/13/2024. TECHNIQUE: Following the IV administration of 93 cc of Optiray 320, CT scan of the thorax was perform ed from the thoracic inlet to the upper abdomen. Images are reviewed in the axial, sagittal, and natasha nal planes. IV contrast was administered without complication. A dose lowering technique was utilize d adhering to the principles of ALARA. The examination is degraded by motion artifact. FINDINGS: Thyroid: Atrophic. Thoracic aorta: There is atherosclerotic calcification of the thoracic aorta, with is normal in calib er and demonstrates standard 3-vessel arch anatomy. No dissection is seen. Pulmonary vasculature: The main pulmonary arteries are dilated suggesting pulmonary artery hypertensi on. There are no filling defects identified in the central pulmonary vessels to indicate pulmonary em bolus. Note that this examination was not protocoled for evaluation of the pulmonary arteries. Heart: A cardiac pacemaker is seen in the left chest wall. The heart is enlarged there is trace peric ardial effusion. The coronary arteries are densely calcified. Lungs and pleural spaces: Evaluation of the lung parenchyma is degraded by motion artifact. There is a moderate to large left pleural effusion with left basilar consolidation. Mild pleural thickening hernandez ggested at the left lung base. There is a large calcified granuloma in the left lower lung. The right -sided pleural effusion is identified and no pneumothorax is seen. A 0.7 cm nodular opacity in the li ngula on image #103 and a 1.5 cm nodular opacity in the lingula on image #110 rising previously and t hey're present scarring/atelectasis. A 6 mm left lower lobe nodule on image #53 was not seen previous ly. The trachea and central airways are clear. Mediastinum: There are mildly enlarged calcification containing mediastinal lymph nodes. These are si milar to the examination. A subcarinal node measures 1.6 cm short axis. A precarinal node keerthi sures 1.5 cm in short axis. No mediastinal hematoma is seen. Esthela: Clear. Axillae: There is no axillary lymphadenopathy. Upper abdomen: A 4.2 cm left renal cyst is noted. A 1.3 cm ovoid cyst is again seen in the pancreatic neck. Hepatic cysts measuring up to 1.6 cm. See report of today's abdominal CT for detailed intra-ab dominal findings. Skeletal structures: The skeletal structures are osteopenic. The bony thorax appears intact. Degenera tive change and mild hyperkyphosis is noted in the thoracic spine. No lytic or blastic bony lesions a re seen. IMPRESSION: 1. No acute posttraumatic intrathoracic abnormality is identified. 2. Moderate to large left pleural effusion with dependent consolidation. The sterility of this fluid cannot be assessed imaging and clinical correlation will be required. 3. There is no right-sided pleural effusion, and no pneumothorax is seen. 4. There are linear nodular opacities in the lingula, as well as a 6 mm left lower lobe pulmonary nod ule. These are pathologically indeterminant, and were not seen on 12/20/2019. A follow-up chest CT in 3 months time is recommended for reevaluation. 5. Cardiomegaly and cardiac pacemaker with evidence of pulmonary artery hypertension. 6. Additional findings as above. ACT 112: Positive. There are findings on this exam that require communication between the performing entity and the patient following Patient Test Result Information Act ([place] Act 112) guidelines. Electronically signed by: Roger Pappas M.D. 11/13/2024 3:29 PM
--- NOTE | 2024-11-13 15:53 | Electrocardiogram Report ---
Test Reason : Blood Pressure : */* mmHG Vent. Rate : 65 BPM Atrial Rate : 65 BPM P-R Int : 282 ms QRS Dur : 146 ms QT Int : 476 ms P-R-T Axes : * -73 64 degrees QTcB Int : 495 ms Atrial-paced rhythm with prolonged AV conduction Left axis deviation Non-specific intra-ventricular conduction block Minimal voltage criteria for LVH, may be normal variant Possible Lateral infarct (cited on or before 02-Jul-2023) Abnormal ECG When compared with ECG of 12-Dec-2023 14:52, Questionable change in initial forces of Lateral leads Nonspecific T wave abnormality now evident in Inferior leads Confirmed by Bert Mitchell ([id number]) on 11/13/2024 3:52:58 PM Referred By: REFERRED SELF Confirmed By: Bert Mitchell
[2024-11-13] MEDS: VANCOMYCIN HCL 1,250 MG in SODIUM CHLORIDE 0.9% 500 ML IV ONE (16:22)
--- NOTE | 2024-11-13 16:24 | History & Physical Report ---
Date of Service November 13, 2024 Assessment & Plan (1) Fall: (2) Chronic HFrEF (heart failure with reduced ejection fraction): (3) Elevated troponin: (4) Coronary artery disease: (5) Ischemic cardiomyopathy: (6) Wound of skin: (7) Cellulitis: (8) Pleural effusion, left: Plan Mechanical Fall Rhabdomyolysis with CK +8700 Elevated Lactate Cellulitis R chest wall - Admit to med surg tele - EKG without acute changes - Troponin elevated initially 142, trend, next at 2130 - last echo: reviewed in [facility] from 01/04/24 showing Wall thickness is moderately increased in segments with normal wall motion, extensive expanded anterior, anterior septal and apical myocardial infarction with akinesis of moderate apical aneurysm expansion. EF of 25 to 29%, mild aortic valve sclerosis, and regurgitation, moderate mitral regurg, moderate tricuspid regurg -- will repeat echo here - Continue home meds: Entresto, metoprolol succinate 25, amiodarone 200 daily, baby aspirin, Eliquis - consider cardiology consultation in AM - Cr. baseline 1.1-1.2 - Cont IVFs for hydration and rhabdo with lactate of 2.3, CK, 8786, and troponin elevation likely all secondary to such. Pt does not describe chest complaints to suspect ACS. - PT/OT consults - CM to assist with dc planning to SNF vs acute rehab Cellulitis R chest wall Skin tear/Wound - Wound consult for pressure wound on R chest wall - vanc given in the ER, would de-escalate tomorrow to po abx - see abx therapy below Left pleural effusion, possible pneumonia - CXr findings suggestive, breath sounds are clear throughout otherwise, no o2 needs - Switch abx to ceftriaxone + doxy - May become more apparent on cxr with hydration Chronic systolic CHF S/p ICD/pacemaker History of A-fib HTN HLD -On amiodarone and aspirin, eliquis, entresto, spironolactone, furosemide - holding diuretics at this time -History of symptomatic bradycardia Hypothyroidism - cont Synthyroid DVT ppx: eliquis Lines: PIV x 1 FEN/GI: heart healthy CODE: Full code Dispo: From home, likely to remain in the hospital x 1-2 days I spent a total of 77 minutes with greater than 50% of that time face to face with the patient, personally reviewing all current laboratories, imaging studies, past medication reconciliation, outpatient chart review, and discussion with specialists to collaborate care for the patient excluding time spent in the performance of separately billed services or time spent by another provider/QHP. Please see attending documentation for corrections and/or additions. History of Present Illness Chief Complaint: Fall, layed on ground x 2 days Primary Care Provider: TANYA PCP This is an 79 yo M with PMHx of chronic systolic CHF, s/p ICD, history of symptomatic bradycardia s/p pacemaker, CAD, hypertension, hyperlipidemia, hypothyroidism, anxiety, history of tobacco abuse, history of lower GI bleed, presents after mechanical fall at home vs slid down to the ground which he is unable to recal. Was unable to get up and laid on the ground for 2 days. He did try to scoot around on the hardwood/lenolium floor but couldn't get up. He did not take any of his meds since the fall. He was unable to have food or drink, soiled himself. Eventually he was able to reach a phone and called EMS to come get him. Pt is found to have a right sided chest pressure wound from the way he was laying. Troponin is initially 142.3, lactate 2.3, CK is 8700+, cre atinine is 1.26 and slightly elevated compared to his baseline. He lives at home alone, admit to medicine for further evaluation, he likely will require placement for rehab after his acute hospital stay. . Allergies Allergy/AdvReac Type Severity Reaction Status Date / Time No Known Allergies Allergy Verified 12/12/23 16:46 Home Medications Medication Instructions Recorded Confirmed Type amiodarone 200 mg tablet 200 mg PO QPM 07/03/23 11/13/24 History apixaban 5 mg tablet (Eliquis) 5 mg PO BID 07/03/23 11/13/24 History aspirin 81 mg tablet,delayed 81 mg PO DAILY 07/03/23 11/13/24 History release atorvastatin 40 mg tablet 40 mg PO HS 07/03/23 11/13/24 History cholecalciferol (vitamin D3) 25 25 mcg PO DAILY 07/03/23 11/13/24 History mcg (1,000 unit) tablet (Vitamin D3) nitroglycerin 0.4 mg sublingual 0.4 mg sublingual Q5W PRN Chest 07/03/23 11/13/24 History tablet Pain vit C 250 mg-vit E 90 mg-zinc 40 1 tab PO BID 07/03/23 11/13/24 History mg-copper 1 [id number] capsule (PreserVision AREDS-2) furosemide 20 mg tablet (Lasix) 20 mg PO Q OTHER DAY #30 tabs 07/05/23 11/13/24 Rx levothyroxine 150 mcg tablet 150 mcg PO DAILYBB 12/12/23 11/13/24 History metoprolol succinate 25 mg 25 mg PO DAILY 12/12/23 11/13/24 History tablet,extended release 24 hr sacubitril 24 mg-valsartan 26 mg 1 tab PO BID 12/12/23 11/13/24 History tablet (Entresto) spironolactone 25 mg tablet 25 mg PO DAILY 12/12/23 11/13/24 History Past Med/Surg History Problem List (Updated 11/13/24 @ 17:27 by Divya Rivera PA-C) Pleural effusion, left Cellulitis Wound of skin Chronic HFrEF (heart failure with reduced ejection fraction) Fall Acute on chronic HFrEF (heart failure with reduced ejection fraction) Abnormal ECG (Acute) Acute hyponatremia (Acute) Elevated troponin (Acute) Acute dyspnea (Acute) Elevated troponin Paroxysmal atrial fibrillation with rapid ventricular response Dizziness Atrial fibrillation with rapid ventricular response (Acute) Acute lower GI bleeding Abdominal pain (Acute) Diarrhea (Acute) Near syncope (Acute) Coronary artery disease (Chronic) Stented coronary artery (Chronic) Ischemic cardiomyopathy Pneumonia Medical History (Updated 11/13/24 @ 17:27 by Divya Rivera PA-C) NSTEMI (non-ST elevated myocardial infarction) Pacemaker Family History Other Family history non-contributory Social History Smoking Status: Former smoker Tobacco Type: Cigarettes Second Hand Exposure: No; Do You Dip or Chew Tobacco: No; Hx Alcohol Use: No Hx Substance Use: No Preferred Language: Tongan Communication Ability: Effective Retort Load Expediter Required: No Beliefs That Will Affect Care: None marital status: Single Current Living Situation: Alone Current Living Situation Comment: Lives at home alone current occupational status: retired Feels Safe at Home: Hesitant to Answer Assistive Devices: None Review of Systems Review of Systems: Constitutional: No fever, sweats or chills Eyes: No diplopia, no worsening or blurred vision ENT: normal hearing, no trouble swallowing Respiratory: No cough, sputum, dyspnea at rest or on exertion Cardiovascular: No chest pain, tightness or palpitations Abdomen: No pain, nausea, vomiting, diarrhea or constipation Musculoskeletal: No joint pain, calf pain, swelling Neurologic: No weakness, numbness/tingling, or balance problems Psychiatric: No anxiety or depression Skin: No rash or itch, + wound / skin tear on the right chest wall Physical Exam Physical Exam: General: awake, alert, no apparent distress, Thin white male, unkempt, foul smel ling body odor EENT: PERRL, EOMI, MM very dry Chest: ICD/pacemaker visible through chest wall due to thinness, Clear to auscultation, on room air, no adventitious breath sounds Cardiac: Regular rate and rhythm, no murmur, no JVD, normal peripheral pulses, good capillary refill Abdominal: NABS x 4 quadrants, soft, nondistended, nontender to palpation, no rebound or guarding Extremities: Normal inspection, no peripheral edema or erythema, calfs nontender to palpation Psych: Normal mood and affect Skin: ~ 2.5 cm diameter chest skin tear near 6-7th rib MCL, surrounding erythema, possible pressure wound. Knees and areas of lower extremities with pressure wound injury and ecchymosis developing. Neuro: AAO x 3, strength diminished throughout rated 3/5, he cannot sit himself up in bed independently, no gross motor deficits, speech is clear, no peripheral sensory deficits Results & Data Results & Data Vital Signs (Past 12 Hours) Vital Signs Temp Pulse Pulse Resp BP BP Pulse Ox 11/13/24 15:00 60 15 124/77 96 11/13/24 14:00 60 16 94 11/13/24 13:36 60 18 124/74 94 11/13/24 13:13 95 H 20 124/74 91 11/13/24 13:13 92 11/13/24 13:06 60 11/13/24 12:50 36.8 C 74 23 124/77 95 O2 Del Method 11/13/24 15:00 Room Air 11/13/24 14:00 Room Air 11/13/24 13:36 Room Air 11/13/24 13:13 Room Air 11/13/24 13:13 Room Air 11/13/24 13:06 11/13/24 12:50 Room Air Laboratory Results 11/13/24 15:22 Aerobic Blood Culture - Pending Blood Anaerobic Blood Culture - Pending 11/13/24 12:57 Aerobic Blood Culture - Pending Blood Anaerobic Blood Culture - Pending 11/13/24 11/13/24 15:22 12:57 WBC 8.90 RBC 4.62 L Hgb 14.9 Hct 41.8 L MCV 90.5 MCH 32.3 MCHC 35.6 RDW Std Deviation 41.9 RDW Coeff of Kim 12.7 Plt Count 234 MPV 8.7 L Immature Gran % (Auto) 0.3 Neut % (Auto) 91.2 Lymph % (Auto) 1.7 [place] % (Auto) 6.7 Eos % (Auto) 0.0 Baso % (Auto) 0.1 Neut # (Auto) 8.11 H Lymph # (Auto) 0.15 L [place] # (Auto) 0.60 H Eos # (Auto) 0.00 Baso # (Auto) 0.01 Immature Gran # (Auto) 0.03 PT 10.9 INR 1.0 APTT 25 PTT Ratio 0.9 Sodium 138 Potassium 3.9 Chloride 103 Carbon Dioxide 25 Anion Gap 10 BUN 27 H Creatinine 1.26 Est Cr Clr Drug Dosing 39.9 eGFR 57.30 BUN/Creatinine Ratio 21.4 H Glucose 143 H Lactate 2.3 H* 2.5 H* Calcium 9.5 Total Bilirubin 0.9 AST 141 H ALT 42 Alkaline Phosphatase 58 Total Creatine Kinase 8786 H Troponin I High Sens 142.3 H* 131.2 H* Total Protein 7.5 Albumin 3.5 Globulin 4.0 Albumin/Globulin Ratio 0.9 Lipase 21 Diagnostic Findings Abdomen/Pelvis CT 11/13/24 12:42 CT SCAN OF THE ABDOMEN AND PELVIS WITH IV CONTRAST CLINICAL HISTORY: Trauma. The patient lay on the ground for 2 days COMPARISON STUDY: Abdominal CT dated 12/15/2020 TECHNIQUE: Following the IV administration of 93 cc of Optiray 320, CT scan of the abdomen and pelvis is performed from the lung bases to the proximal femora. Images are reviewed in the axial, sagittal, and coronal planes. IV contrast was administered without complication. A dose lowering technique was utilized adhering to the principles of ALARA. The examination is degraded by motion artifact. CT DOSE: 2416.82 mGy.cm FINDINGS: Lung bases: The heart is enlarged Trace pericardial effusion. A pacemaker lead is in place. The coronary arteries are densely calcified. There is a moderate left pleural effusion/collection with dependent consolidation. Mild pleural thickening is noted at the left lung base. The right lung base is clear noting dependent scar/atelectasis. There is a small hiatal hernia. Liver: The contrast-enhanced liver is normal in size, contour, and attenuation. There is no intrahepatic biliary ductal dilatation. The hepatic veins and portal veins are patent. Scattered hepatic cysts measure 1.6 cm. Gallbladder: Unremarkable. Spleen: Normal in size and attenuation. Pancreas: A 1.3 cm ovoid cyst in the pancreatic neck is unchanged. The pancreas is otherwise normal as imaged. Adrenal glands: Unremarkable. Kidneys: The contrast enhanced kidneys are normal in size and without hydronephrosis. The kidneys enhance symmetrically. Scattered renal cysts measure up to 4.2 cm. Additional subcentimeter cortical hypodensities also likely represent cysts but are too small for definitive characterization. Abdominal vasculature: The abdominal aorta is normal in course and caliber noting mild atherosclerotic calcification. Bowel: There is rectosigmoid fecal impaction and [id number]-us-[id number] constipation. There are mildly distended and fluid-filled loops of small bowel with no transition point identified or evidence of high-grade obstruction. The appendix is nonvisualized. Peritoneum: There is no intraperitoneal free air or abdominal ascites. Lymphadenopathy: None. Pelvic viscera: The prostate gland is enlarged and heterogeneous. The bladder is mildly distended, and the wall is thickened/trabeculated indicating chronic outlet obstruction. There are bilateral groin hernias. The left coronary contains a segment of the colon. Skeletal structures: The skeletal structures are osteopenic. There is moderate lumbosacral spondylosis. No lytic or blastic lesions are seen. There are chronic/healed right-sided rib fractures. IMPRESSION: 1. There is no evidence of solid organ injury in the abdomen or pelvis. 2. Cardiomegaly and cardiac pacemaker. 3. There is a moderate left pleural effusion/pleural collection with left basilar consolidation. The sterility of this fluid cannot be assessed imaging and clinical correlation will be required. 4. There is rectosigmoid fecal impaction noting [id number] constipation. 5. There are bilateral inguinal hernias, left side larger than right. The left inguinal hernia contains a segment of the colon. 6. There are mildly distended and fluid-filled loops of small bowel with no CT evidence of high-grade obstruction. Correlate clinically for evidence of a nonspecific enteritis. 7. Additional findings as above. ACT 112: Negative or not required by law. Electronically signed by: Roger Pappas M.D. 11/13/2024 3:[address] 11/13/24 12:42 CT SCAN OF THE CHEST WITH IV CONTRAST CLINICAL HISTORY: Trauma. The patient lay on the ground for 2 days. COMPARISON STUDY: Chest CT dated 12/20/2019. Chest x-ray dated 11/13/2024. TECHNIQUE: Following the IV administration of 93 cc of Optiray 320, CT scan of the thorax was performed from the thoracic inlet to the upper abdomen. Images are reviewed in the axial, sagittal, and coronal planes. IV contrast was administered without complication. A dose lowering technique was utilized adhering to the principles of ALARA. The examination is degraded by motion artifact. FINDINGS: Thyroid: Atrophic. Thoracic aorta: There is atherosclerotic calcification of the thoracic aorta, with is normal in caliber and demonstrates standard 3-vessel arch anatomy. No dissection is seen. Pulmonary vasculature: The main pulmonary arteries are dilated suggesting pulmonary artery hypertension. There are no filling defects identified in the central pulmonary vessels to indicate pulmonary embolus. Note that this examination was not protocoled for evaluation of the pulmonary arteries. Heart: A cardiac pacemaker is seen in the left chest wall. The heart is enlarged there is trace pericardial effusion. The coronary arteries are densely calcified. Lungs and pleural spaces: Evaluation of the lung parenchyma is degraded by motion artifact. There is a moderate to large left pleural effusion with left basilar consolidation. Mild pleural thickening suggested at the left lung base. There is a large calcified granuloma in the left lower lung. The right-sided pleural effusion is identified and no pneumothorax is seen. A 0.7 cm nodular opacity in the lingula on image #103 and a 1.5 cm nodular opacity in the lingula on image #110 rising previously and they're present scarring/atelectasis. A 6 mm left lower lobe nodule on image #53 was not seen previously. The trachea and central airways are clear. Mediastinum: There are mildly enlarged calcification containing mediastinal lymph nodes. These are similar to the examination. A subcarinal node measures 1.6 cm short axis. A precarinal node measures 1.5 cm in short axis. No mediastinal hematoma is seen. Esthela: Clear. Axillae: There is no axillary lymphadenopathy. Upper abdomen: A 4.2 cm left renal cyst is noted. A 1.3 cm ovoid cyst is again seen in the pancreatic neck. Hepatic cysts measuring up to 1.6 cm. See report of today's abdominal CT for detailed intra-abdominal findings. Skeletal structures: The skeletal structures are osteopenic. The bony thorax appears intact. Degenerative change and mild hyperkyphosis is noted in the thoracic spine. No lytic or blastic bony lesions are seen. IMPRESSION: 1. No acute posttraumatic intrathoracic abnormality is identified. 2. Moderate to large left pleural effusion with dependent consolidation. The sterility of this fluid cannot be assessed imaging and clinical correlation will be required. 3. There is no right-sided pleural effusion, and no pneumothorax is seen. 4. There are linear nodular opacities in the lingula, as well as a 6 mm left lower lobe pulmonary nodule. These are pathologically indeterminant, and were no t seen on 12/20/2019. A follow-up chest CT in 3 months time is recommended for reevaluation. 5. Cardiomegaly and cardiac pacemaker with evidence of pulmonary artery hypertension. 6. Additional findings as above. ACT 112: Positive. There are findings on this exam that require communication between the performing entity and the patient following Patient Test Result Information Act ([place] Act 112) guidelines. Electronically signed by: Roger Pappas M.D. 11/13/2024 3:29 PM Chest X-Ray 11/13/24 12:42 XR chest 1V portable CLINICAL HISTORY: Trauma COMPARISON STUDY: 07/03/2023 FINDINGS: Stable pacemaker. Stable cardiomegaly without pulmonary vascular congestion. There is an interval small left pleural effusion and associated consolidation at the left lung base. No pneumothorax seen. No grossly displaced rib fractures seen. IMPRESSION: Interval left pleural effusion and consolidation at the left lung base. ACT 112: Negative or not required by law. Electronically signed by: Anthony Avila M.D. 11/13/2024 1:[address] 11/13/24 12:43 CT SCAN OF THE CERVICAL SPINE CLINICAL HISTORY: Trauma. COMPARISON STUDY: Cervical spine CT December 20, 2019. TECHNIQUE: CT scan of the cervical spine is performed from the skull base to the upper thoracic spine. Images are reviewed in the axial, sagittal, and coronal planes. IV contrast was not administered for this examination. A dose lowering technique was utilized adhering to the principles of ALARA. FINDINGS: Skeletal structures: There is no evidence of fracture or subluxation involving the cervical spine. Vertebral body height and alignment are maintained. The odontoid process and lateral masses are intact. The atlantoaxial articulation is preserved. The spinous processes appear intact. Moderate multilevel facet arthrosis is present. There is mild to moderate multilevel disc space narrowing and endplate osteophytosis within the cervical spine. Soft tissues: The prevertebral and paraspinous soft tissues are within normal limits. Calvarium: The visualized calvarium at the skull base appears intact. Brain parenchyma: Partially visualized brain parenchyma at the skull base is within normal limits. Lung apices: A left pleural effusion is better depicted on the chest CT which will be reported separately. IMPRESSION: No acute cervical spine fracture or subluxation. ACT 112: Negative or not required by law. Electronically signed by: Prasanna Cabrera M.D. 11/13/2024 3:[address] 11/13/24 12:43 CT head/brain wo con CLINICAL HISTORY: Trauma. TECHNIQUE: Multiple axial CT images of the head were obtained without contrast. A dose lowering technique was utilized adhering to the principles of ALARA. CT DOSE: 2416 COMPARISON: 12/12/2023 FINDINGS: No intracranial hemorrhage seen. No mass effect, midline shift, or hydrocephalus. No skull fracture seen. Visualized paranasal sinuses and mastoid air cells are clear. IMPRESSION: No acute findings. ACT 112: Negative or not required by law. The above report was generated using voice recognition software. It may contain grammatical, syntax or spelling errors. Electronically signed by: Anthony Avila M.D. 11/13/2024 3:01 PM Code Status & VTE Plan Code Status Full code Supervising Physician Co-Signing Physician Notes Attending addendum: The patient was seen and examined in emergency room He was brought in with a history of possible fall and unable to get off for about 2 days or so He denies any falling and denies any symptoms prior to being on the floor Could not get up from the floor due to generalized weakness but does not have any weakness involving any side of the body in particular Did not take his medications and did not eat or drink anything during this time On examination Lying in bed without any acute distress Hemodynamically stable and is afebrile Chestclear to auscultate bilaterally HeartS1-S2, regular Abdomenbenign Extremitiesno edema CNSalert, awake and oriented x 3. Generally weak but no focal sensory or motor deficit appreciated His labs, EKG and imaging studies reviewed Noted to have high CK of more than 8000 with dehydration and also skin tear involving the right cerebral wall Assessment and plan Status post likely mechanical fall and being on the floor for more than 48 hours # Rhabdomyolysis and dehydration secondary to not been eating or drinking Significant heart disease with EF 25 to 29% and aortic valve stenosis Possible left lower lobe pneumonia Will give cautious amount of intravenous fluid and monitor CK and kidney function and electrolytes Antibiotic for possible left lower lobe pneumonia Agree with assessment and plan as documented above by Divya Rivera PA-C and take the full responsibility of care in the hospital Dr Monty Whitt
[2024-11-13 17:36] LABS: Appearance Urine Clear (Clear); Bacteria Urine Automated None Seen (None Seen); Epithelial Cell Urine Auto 0-2 /hpf (0-2); Glucose Urine UA Negative (Negative)
[2024-11-13] MEDS: ACETAMINOPHEN 325 MG TAB PO STA (17:53)
[2024-11-13] MEDS ORDERED: ONDANSETRON INJ 2 MG/ML 2 ML VIAL IV PRN (18:29)
[2024-11-13] MEDS ORDERED: NITROGLYCERIN SL 0.4 MG/TAB TAB SL PRN (18:29)
[2024-11-13] MEDS: SODIUM CHLORIDE 0.9% 1,000 ML IV SCH (20:29)
[2024-11-13] MEDS: cefTRIAXone SODIUM 1,000 MG/50 ML BAG IV SCH (20:36)
[2024-11-13] MEDS: APIXABAN 5 MG TABLET PO SCH (20:57)
[2024-11-13] MEDS: AMIODARONE 200 MG TAB PO SCH (20:57)
[2024-11-13] MEDS: VALSARTAN/SACUBITRIL 26/24MG TAB PO SCH (20:58)
[2024-11-13] MEDS: ATORVASTATIN 40 MG TAB PO SCH (20:58)
[2024-11-13] MEDS: DOXYCYCLINE HYCLATE 100 MG in DEXTROSE 5% MINI-B 100 ML IV SCH (20:59)
[2024-11-14] MEDS: LEVOTHYROXINE SODIUM 150 MCG TABLET PO SCH (06:17)
[2024-11-14] MEDS: ACETAMINOPHEN 325 MG TAB PO PRN (06:41)
[2024-11-14 07:17] LABS: Hematocrit (blood only) 35.4 % (42.0-52.0); Hemoglobin 12.2 g/dl (14.0-18.0); Immature Granulocytes # (auto) 0.03 K/uL (0.01-0.20); Immature Granulocytes % (auto) 0.4 %; Mean Corpuscular Hemoglobin 31.8 pg (25.0-34.0); Mean Corpuscular Volume 92.2 fL (80.0-100.0); Platelet Count 192 K/uL (130-400); RDW Standard Deviation 42.9 fL (36.4-46.3); Red Blood Count 3.84 M/uL (4.70-6.10); White Blood Count 7.47 K/ul (4.8-10.8)
[2024-11-14 07:36] LABS: Anion Gap 6.0 (3-11); Blood Urea Nitrogen 29.0 mg/dl (6-23); Calcium 8.2 mg/dl (8.6-10.3); Carbon Dioxide 23.0 mmol/L (21-32); Chloride 109.0 mmol/L (98-107); Creatinine Clr Calc Pharmacy 43.1 ml/min; Glucose 102.0 mg/dl (70-99(Fasting)); Potassium 4.3 mmol/L (3.5-5.1); Sodium 138.0 mmol/L (136-145)
[2024-11-14 07:52] LABS: Creatine Kinase 6422.0 U/L (30-223); Magnesium 1.7 mg/dl (1.7-2.4)
[2024-11-14] MEDS: CEROVITE ADV FORMULA TAB PO SCH (08:55)
[2024-11-14] MEDS: ASPIRIN 81 MG ECTAB PO SCH (08:55)
[2024-11-14] MEDS: CHOLECALCIFEROL 25 MCG (1000 UNITS) TAB PO SCH (08:55)
[2024-11-14] MEDS: METOPROLOL SUCC 25MG EXT REL TAB PO SCH (08:55)
[2024-11-14] MEDS: POLYETHYLENE (MIRALAX) 17 GM PACK PO SCH (08:56)
--- NOTE | 2024-11-14 10:41 | Hospitalist Progress Note ---
Date of Service November 14, 2024 Assessment & Plan (1) Fall: (2) Chronic HFrEF (heart failure with reduced ejection fraction): (3) Elevated troponin: (4) Coronary artery disease: (5) Ischemic cardiomyopathy: (6) Wound of skin: (7) Cellulitis: (8) Pleural effusion, left: Plan Fall Rhabdomyolysis Elevated Lactate Lactate of 2.3, CK, 8786 EKG showed paced rhythm Troponin elevated initially 142->152 TTE today noted EF 20-25%, mod conc LVH, extensive septal, apical infarct with akinesis to dyskinesis, entire apex is thinned, scarred and inferior apex is expanded. Inferior wall is hypokinetic at base. Septal motion consistent with Conduction abnormality. EF is 20 to 25%, grade 1 diastolic dysfunction, trace AR, trace MR, trace TR Telemetry noted paced rhythm. imaging technician reported ?pacer noncapture vs leads considering patient's. considering patient reports this morning, cannot rule out syncopal episode. Will get cardiology evaluation and interrogation of the pacemaker. Continue IV fluids Cellulitis R chest wall Skin tear/Wound Wound care Left pleural effusion, possible pneumonia CT chest noted moderate to large left pleural effusion with dependent consolidation Continue ceftriaxone and doxycycline Chronic systolic CHF S/p ICD/pacemaker History of A-fib HTN HLD Continue [employer] Eliquis, aspirin, amiodarone, Toprol-XL, Entresto Holding diuretics at this time Hypothyroidism Cont Synthyroid DVT ppx: eliquis CODE: Full code I spent a total of 50 minutes coordinating, documenting and providing care for this patient excluding time spent in performance of separately billed services Admission and Anticipated Discharge Date Admission Date: November 13, 2024 Subjective Patient seen and examined Reports fall at home. Reported he was going to his kitchen area and then found himself on the floor. Does not recall exactly what happened Stated he could not get up afterwards due to severe weakness. He stated he may have been down for hours He was able to finally reach his phone to call for help Denied any chest pain, palpitation prior to incident Denied head trauma. Stated he must have fallen on his buttock Denied cough, SOB, nausea or vomiting Physical Exam Constitutional: + well hydrated; no acute distress Eyes: PERRL, conjunctivae normal, anicteric sclerae ENMT: external ear and nose normal, oropharynx normal Respiratory: normal respiratory effort, lungs clear to auscultation Cardiovascular: Rate/Rhythm: regular rate and regular rhythm Gastrointestinal (Abdomen): normal bowel sounds, soft, nontender, no hepatosplenomegaly Musculoskeletal: Wounds, bruises on extremities and anterior chest wall No pedal edema Neurologic: PERRL, EOMI, accommodation nl, no face palsy, no dysarthria Psychiatric: A+Ox3, euthymic affect Results & Data Results & Data Vital Signs (Past 12 Hours) Vital Signs Temp Pulse Pulse Resp BP Pulse Ox O2 Del Method 11/14/24 09:32 60 11/14/24 07:46 Room Air 11/14/24 07:27 36.8 C 60 18 129/66 96 Room Air 11/14/24 02:46 37.8 C H 62 18 125/66 95 Room Air 11/13/24 22:59 37.0 C 60 18 111/61 97 Room Air Laboratory Results Abnormal lab results 11/13/24 11/13/24 11/13/24 Range/Units 12:57 15:22 17:08 RBC 4.62 L (4.70-6.10) M/uL Hgb (14.0-18.0) g/dl Hct 41.8 L (42.0-52.0) % MPV 8.7 L (9.4-12.4) fL Neut # (Auto) 8.11 H (1.40-6.50) K/uL Lymph # (Auto) 0.15 L (1.20-3.40) K/uL [place] # (Auto) 0.60 H (0.11-0.59) K/uL Chloride (98-107) mmol/L BUN 27 H (6-23) mg/dl BUN/Creatinine Ratio 21.4 H (10-20) Glucose 143 H (70-99(Fasting)) mg/dl Lactate 2.5 H* 2.3 H* (0.4-2.0) mmol/L Calcium (8.6-10.3) mg/dl AST 141 H (13-39) U/L Total Creatine Kinase 8786 H (30-223) U/L Troponin I High Sens 131.2 H* 142.3 H* (0-20) pg/ml Ur Specific [place] > 1.045 H (1.000-1.030) Urine Protein 2+ H (Negative) Urine Ketones Trace H (Negative) Urine Blood 3+ H (Negative) Ur Leukocyte Esterase Trace H (Negative) Urine WBC (Auto) 6-10 H (0-5) /hpf Urine RBC (Auto) 11-20 H (0-2) /hpf U Hyaline Cast (Auto) 3-5 H (0-2) /lpf 11/13/24 11/14/24 Range/Units 21:22 06:45 RBC 3.84 L (4.70-6.10) M/uL Hgb 12.2 L (14.0-18.0) g/dl Hct 35.4 L (42.0-52.0) % MPV 8.7 L (9.4-12.4) fL Neut # (Auto) (1.40-6.50) K/uL Lymph # (Auto) 0.28 L (1.20-3.40) K/uL [place] # (Auto) 0.71 H (0.11-0.59) K/uL Chloride 109 H (98-107) mmol/L BUN 29 H (6-23) mg/dl BUN/Creatinine Ratio 24.8 H (10-20) Glucose 102 H (70-99(Fasting)) mg/dl Lactate (0.4-2.0) mmol/L Calcium 8.2 L (8.6-10.3) mg/dl AST (13-39) U/L Total Creatine Kinase 6422 H (30-223) U/L Troponin I High Sens 152.4 H* (0-20) pg/ml Ur Specific [place] (1.000-1.030) Urine Protein (Negative) Urine Ketones (Negative) Urine Blood (Negative) Ur Leukocyte Esterase (Negative) Urine WBC (Auto) (0-5) /hpf Urine RBC (Auto) (0-2) /hpf U Hyaline Cast (Auto) (0-2) /lpf
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
[2024-11-15 06:02] LABS: Hematocrit (blood only) 33.6 % (42.0-52.0); Hemoglobin 11.6 g/dl (14.0-18.0); Mean Corpuscular Hemoglobin 30.9 pg (25.0-34.0); Mean Corpuscular Volume 89.6 fL (80.0-100.0); Platelet Count 178 K/uL (130-400); RDW Standard Deviation 41.7 fL (36.4-46.3); Red Blood Count 3.75 M/uL (4.70-6.10); White Blood Count 5.98 K/ul (4.8-10.8)
[2024-11-15 06:25] LABS: Anion Gap 7.0 (3-11); Blood Urea Nitrogen 28.0 mg/dl (6-23); Calcium 8.0 mg/dl (8.6-10.3); Carbon Dioxide 20.0 mmol/L (21-32); Chloride 110.0 mmol/L (98-107); Creatinine Clr Calc Pharmacy 57.3 ml/min; Glucose 100.0 mg/dl (70-99(Fasting)); Potassium 3.8 mmol/L (3.5-5.1); Sodium 137.0 mmol/L (136-145)
[2024-11-15 06:42] LABS: Creatine Kinase 3450.0 U/L (30-223)
--- NOTE | 2024-11-15 09:48 | Cardiology Progress Note ---
Date of Service November 15, 2024 Assessment & Plan (1) Open wound of chest wall: (2) Elevated troponin: (3) Rhabdomyolysis: (4) Pleural effusion, left: (5) Cellulitis: (6) Chronic HFrEF (heart failure with reduced ejection fraction): (7) Fall: Plan 79-year-old male who presented to the ER via EMS on November 13, 2024 following a probable mechanical fall late in the evening of November 11 - resultant right chest wound, cellulitis, and hematoma, rhabdomyolysis. Concern for as piration noted, imaging with possible left-sided pneumonia, large pleural effusion undefined. Cardiology consultation requested due to uncertainty of event, possible syncope associated with arrhythmia. [employer]ya device interrogation demonstrated appropriate function without arrhythmia. Patient without angina. Examination without overt volume overload. Rhabdomyolysis improving. Consider transiently holding Eliquis anticoagulation. Furosemide, spironolactone, and atorvastatin appropriately held. Continue metoprolol succinate, amiodarone, Entresto, and aspirin. Patient will likely require reduct ion in prior to arrival medications noting mild hypotension throughout hospitalization, perhaps starting with holding furosemide and reducing spironolactone to 1/2 tablet daily. If ongoing hypotension observed would then reduce Entresto. Would not hold metoprolol. Please contact with any cardiac questions or concerns. Admission and Anticipated Discharge Date Admission Date: November 13, 2024 Supervising Physician Co-Signing Physician Notes Patient was seen and personally examined. Full assessment and planned treatments as outlined by advanced provider as above. Care and management discussed and personally endorsed 79-year-old male with ischemic cardiomyopathy with indwelling pacer defibrillator. Patient suffered an ill-defined fall and was unable to arise without help remaining on the floor for 48 hours or greater. Evidence of rhabdomyolysis and significant hematoma with chest contusion on presentation. No findings of congestive heart failure presentation. Renal function stable. Pacer defibrillator interrogated without evidence of arrhythmia or device malfunction Plan as above Reduce diuretic dosing at least transiently given hypotension and rhabdomyolysis. Gradual increase in activities in hospital Contact with additional question Subjective Patient seen and examined. Chart, medications, telemetry reviewed. Still sore. No angina. No shortness of breath. No palpitations. No subjective fevers or rigors. Review of Systems Review of Systems: Complete Review of Systems is as stated above, negative, or noncontributory. Physical Exam Physical Exam: General: No acute distress Skin: The 4-5 cm pressure sore/skin tear on the inferior right breast looks worse today, with increased erythema, purulent discharge. Eyes: PER. Conjunctiva pink, sclera clear. HENT: Normocephalic. Atraumatic. Neck: No carotid bruits. No JVD. No HJR. Heart: RRR. Grade II/ systolic murmur. No diastolic murmur. + Gallop. No rub. Lungs: Clear to auscultation on the right. Absent breath sound 1/2 up on the left. No wheeze. Abdomen: +BS. Soft. Nontender. No masses. No organomegaly. Extremities: Trivial edema. No cyanosis. Pulses: Posterior tibial=1/4. Limited neurological examination: No focal deficit. Results & Data Vital Signs (Past 12 Hours) Vital Signs Temp Pulse Pulse Resp BP Pulse Ox O2 Del Method 11/15/24 07:59 61 11/15/24 07:51 Room Air 11/15/24 07:48 37.1 C 60 18 104/61 94 Room Air 11/15/24 03:48 38 C H 58 L 16 124/63 94 Room Air 11/14/24 23:33 Room Air 11/14/24 23:32 60 11/14/24 23:10 37 C 64 18 104/64 96 Room Air Laboratory Results CBC 11/15/24 Range/Units 05:24 WBC 5.98 (4.8-10.8) K/ul RBC 3.75 L (4.70-6.10) M/uL Hgb 11.6 L (14.0-18.0) g/dl Hct 33.6 L (42.0-52.0) % Plt Count 178 (130-400) K/uL Comprehensive Metabolic Panel 11/15/24 Range/Units 05:24 Sodium 137 (136-145) mmol/L Potassium 3.8 (3.5-5.1) mmol/L Chloride 110 H (98-107) mmol/L Carbon Dioxide 20 L (21-32) mmol/L BUN 28 H (6-23) mg/dl Creatinine 0.88 (0.6-1.4) mg/dl Glucose 100 H (70-99(Fasting)) mg/dl Calcium 8.0 L (8.6-10.3) mg/dl Intake and Output 07/02/25 07/03/25 07/03/25 22:59 06:59 14:59 Intake Total 1630 / 2690 960 / 2690 Output Total 450 / 1350 900 / 1350 Balance 1180 / 1340 60 / 1340 Intake: IV 1150 / 1250 Doxycycline Hyclate 100 mg In 100 / 200 Dextrose 5% Mini-B 100 ml @ 50 mls/hr IV Q12H [facility] Rx#:[id number] Sodium Chloride 0.9% 1,000 ml @ 1000 / 1000 80 mls/hr IV .[id number] [facility] Rx#: [id number] cefTRIAXone SODIUM 1,000 mg In 50 / 50 50 ml @ 100 mls/hr IV Q24H [facility] Rx#:[id number] Oral 480 / 1440 960 / 1440 Output: Urine 450 / 1350 900 / 1350 Other: Weight 63.9 kg Weight Measurement Method Built in [facility] Diagnostic Findings Quick look device interrogation on 11/14/2024 demonstrated appropriate function, without arrhythmia or malfunction. No AT, AF, SVT, NS-VT, VT, VF, ATP, or shocks. Rhythm predominantly atrial paced. This is a [employer] device that appears to be MR conditional November 14, 2024 TTE ([facility], Dr. Del Angel): Normal size left ventricle. Moderate concentric LVH. Extensive septal and apical infarct with akinesis to dyskinesis. The entire apex is thin, scarred, and the inferior apex is expanded. The inferior wall is hypokinetic at the base. Septal motion is consistent with conduction abnormality. Left ventricular ejection fraction 20 to 25%. Grade 1 diastolic dysfunction. Trace aortic regurgitation. Trace mitral regurgitation. Trace tricuspid regurgitation. Doppler findings do not suggest pulmonary hypertension. In comparison to prior study from July 03, 2023, pulmonary pressures are no longer elevated; otherwise no significant change. Telemetry: Atrial paced in the 60s PG Care Time/CCT Total # of Minutes Spent Total Time Spent with Patient: Total time spent is greater than 50% in coordination of care (as documented) at patient's floor/unit and/or counseling patient: Coding Level of Care Code 96110 SUB INP/OBS CARE 3/50MIN Diagnoses Open wound of chest wall S21.109A Elevated troponin R79.89 Rhabdomyolysis M62.82 Pleural effusion, left J90 Cellulitis L03.90 Chronic HFrEF (heart failure with reduced ejection fraction) I50.22 Fall W19.XXXA
--- NOTE | 2024-11-15 10:54 | Hospitalist Progress Note ---
Date of Service November 15, 2024 Assessment & Plan (1) Fall: (2) Chronic HFrEF (heart failure with reduced ejection fraction): (3) Elevated troponin: (4) Coronary artery disease: (5) Ischemic cardiomyopathy: (6) Wound of skin: (7) Cellulitis: (8) Pleural effusion, left: Plan Fall Rhabdomyolysis Elevated Lactate On admission, Lactate of 2.3, CK, 8786 EKG showed paced rhythm Troponin elevated initially 142->152 TTE noted EF 20-25%, mod conc LVH, extensive septal, apical infarct with akinesis to dyskinesis, entire apex is thinned, scarred and inferior apex is expanded. Inferior wall is hypokinetic at base. Septal motion consistent with Conduction abnormality. EF is 20 to 25%, grade 1 diastolic dysfunction, trace AR, trace MR, trace TR Cardiology eval noted. Pacemaker interrogation does not indicate any arrhythmic cause PT/OT eval noted. Rehab recommended CM notified to start making arrangements Cellulitis R chest wall Skin tear/Wound Wound care Left pleural effusion, Possible pneumonia Fever CT chest noted moderate to large left pleural effusion with dependent consolidation Patient having fevers Continue ceftriaxone and doxycycline Blood culture today showing GPC in clusters in 1 bottle. 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 Dose may be adjusted on discharge Hypothyroidism Cont Synthroid DVT ppx: eliquis CODE: Full code I spent a total of 50 minutes coordinating, documenting and providing care for this patient excluding time spent in performance of separately billed services Admission and Anticipated Discharge Date Admission Date: November 13, 2024 Subjective Patient seen and examined Reports cough. Stated he may have had some cough prior to episode at home Still weak Denied any other complaints Physical Exam Constitutional: + well hydrated; no acute distress Eyes: PERRL, conjunctivae normal, anicteric sclerae ENMT: external ear and nose normal, oropharynx normal Respiratory: normal respiratory effort; no respiratory distress Reduced breath sound left lung base Not in respiratory distress Cardiovascular: Rate/Rhythm: regular rate and regular rhythm Chest (Breasts): Additional Comments: Right anterior chest wound just below nipple, with some purulent discharge on dressing Gastrointestinal (Abdomen): normal bowel sounds, soft, nontender, no hepatosplenomegaly Musculoskeletal: No pedal edema Neurologic: PERRL, EOMI, accommodation nl, no face palsy, no dysarthria Psychiatric: A+Ox3, euthymic affect Results & Data Results & Data Vital Signs (Past 12 Hours) Vital Signs Temp Pulse Pulse Resp BP Pulse Ox O2 Del Method 11/15/24 07:59 61 11/15/24 07:51 Room Air 11/15/24 07:48 37.1 C 60 18 104/61 94 Room Air 11/15/24 03:48 38 C H 58 L 16 124/63 94 Room Air 11/14/24 23:33 Room Air 11/14/24 23:32 60 11/14/24 23:10 37 C 64 18 104/64 96 Room Air Laboratory Results Abnormal lab results 11/13/24 11/15/24 Range/Units 12:57 05:24 RBC 3.75 L (4.70-6.10) M/uL Hgb 11.6 L (14.0-18.0) g/dl Hct 33.6 L (42.0-52.0) % MPV 8.8 L (9.4-12.4) fL Chloride 110 H (98-107) mmol/L Carbon Dioxide 20 L (21-32) mmol/L BUN 28 H (6-23) mg/dl BUN/Creatinine Ratio 31.8 H (10-20) Glucose 100 H (70-99(Fasting)) mg/dl Calcium 8.0 L (8.6-10.3) mg/dl Total Creatine Kinase 3450 H (30-223) U/L Staphylococcus sp PCR DETECTED A (NotDetected)
[2024-11-15 11:26] LABS: A calco-baum cmplx NotReported Not Detected (NotDetected); Bact fragilis Not Reported Not Detected (NotDetected); Blood Culture Id Panel See PCR Comment (NotDetected); C auris Not Reported Not Detected (NotDetected); Calbicans Not Reported Not Detected (NotDetected); Candida glabrata Not Reported Not Detected (NotDetected); Candida krusei Not Reported Not Detected (NotDetected); Cneoformans/gatti Not Reported Not Detected (NotDetected); Cparapsilosis Not Reported Not Detected (NotDetected); Ctropicalis Not Reported Not Detected (NotDetected); E cloacae compx Not Reported Not Detected (NotDetected); Efaecalis Not Reported Not Detected (NotDetected); Efaecium Not Reported Not Detected (NotDetected); Enterobacterales Not Reported Not Detected (NotDetected); Escherichia coli Not Reported Not Detected (NotDetected); H influenzae Not Reported Not Detected (NotDetected); K aerogenes Not Reported Not Detected (NotDetected); Koxytoca Not Reported Not Detected (NotDetected); Kpneumoniae grp Not Reported Not Detected (NotDetected); Lmonocyt Not Reported Not Detected (NotDetected); N meningitidis Not Reported Not Detected (NotDetected); P aeruginosa Not Reported Not Detected (NotDetected); Proteus spp Not Reported Not Detected (NotDetected); Salmonella spp Not Reported Not Detected (NotDetected); Staph lugdunensis Not Reported Not Detected (NotDetected); Staphaureus Not Reported Not Detected (NotDetected); Staphepi Not Reported Not Detected (NotDetected); Staphylococcus spp. DETECTED (NotDetected); Stenmaltophilia Not Reported Not Detected (NotDetected); Strep agal(GrpB) Not Reported Not Detected (NotDetected); Strep pneum Not Reported Not Detected (NotDetected); Strep pyog (GrpA) Not Reported Not Detected (NotDetected); Strep spp Not Reported Not Detected (NotDetected)
[2024-11-15 12:01] LABS: Staph spp. Not Reported DETECTED (NotDetected)
[2024-11-15] MEDS ORDERED: VANCOMYCIN CONSULT ACTIVE PRN (12:44)
[2024-11-15] MEDS: VANCOMYCIN HCL 1,250 MG in SODIUM CHLORIDE 0.9% 250 ML IV ONE (13:35)
--- NOTE | 2024-11-15 14:00 | Pharmacy Report ---
Pharmacy PK ABX Note - Date of Service November 15, 2024 - Assessment and Plan Assessment 79 year old M started on vancomycin for positive blood culture. Gm+cocci - BCID2 positive for staph, 1/2 bottles positive however provider opting to treat due to ongoing fevers despite being on antibiotics (doxycycline/rocephin). Patient also with concerns for possible pneumonia, cellulitis of R chest wall. Patient previously given a one time dose of vancomycin in ER on 11/13 - will reload with vancomycin now as level likely undetectable from previous dose. Plan Vancomycin * Loading dose: 1250 mg IV x 1 * Maintenance dose: 750 mg IV every 12 hours * Regimen is predicted to achieve target AUC/TRINH of 400-600 mg/L.hr * Level will be ordered if continued >48 hours Pharmacy will continue to follow and will adjust dose/frequency as necessary. Thank you. Pharmacy has transitioned to AUC monitoring for vancomycin. AUC/TRINH is the preferred PK/PD target and is associated with decreased risk of nephrotoxicity compared to traditional trough targets.
[2024-11-15] MEDS: VANCOMYCIN 750 MG in SODIUM CHLORIDE 0.9% 250 ML IV SCH (21:23)
[2024-11-16 06:22] LABS: Hematocrit (blood only) 35.8 % (42.0-52.0); Hemoglobin 12.0 g/dl (14.0-18.0); Mean Corpuscular Hemoglobin 30.5 pg (25.0-34.0); Mean Corpuscular Volume 90.9 fL (80.0-100.0); Platelet Count 205 K/uL (130-400); RDW Standard Deviation 41.8 fL (36.4-46.3); Red Blood Count 3.94 M/uL (4.70-6.10); White Blood Count 7.03 K/ul (4.8-10.8)
[2024-11-16 06:58] LABS: Anion Gap 7.0 (3-11); Blood Urea Nitrogen 25.0 mg/dl (6-23); Calcium 8.4 mg/dl (8.6-10.3); Carbon Dioxide 23.0 mmol/L (21-32); Chloride 107.0 mmol/L (98-107); Creatinine Clr Calc Pharmacy 46.2 ml/min; Glucose 114.0 mg/dl (70-99(Fasting)); Potassium 3.6 mmol/L (3.5-5.1); Sodium 137.0 mmol/L (136-145)
--- NOTE | 2024-11-16 10:35 | Hospitalist Progress Note ---
Date of Service November 16, 2024 Assessment & Plan (1) Fall: (2) Chronic HFrEF (heart failure with reduced ejection fraction): (3) Elevated troponin: (4) Coronary artery disease: (5) Ischemic cardiomyopathy: (6) Wound of skin: (7) Cellulitis: (8) Pleural effusion, left: Plan Fall Rhabdomyolysis Elevated Lactate On admission, Lactate of 2.3, CK, 8786 EKG showed paced rhythm Troponin elevated initially 142->152 TTE noted EF 20-25%, mod conc LVH, extensive septal, apical infarct with akinesis to dyskinesis, entire apex is thinned, scarred and inferior apex is expanded. Inferior wall is hypokinetic at base. Septal motion consistent with Conduction abnormality. EF is 20 to 25%, grade 1 diastolic dysfunction, trace AR, trace MR, trace TR Cardiology eval noted. Pacemaker interrogation does not indicate any arrhythmic cause PT/OT eval noted. Rehab recommended However, patient still reluctant about rehab Continue PT/OT while inpatient Cellulitis R chest wall Skin tear/Wound Wound care Left pleural effusion, Possible pneumonia Fever CT chest noted moderate to large left pleural effusion with dependent consolidation Fevers stopped. Last was on 11/15 Continue ceftriaxone and doxycycline Blood culture growing GPC in clusters in 1 bottle. 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 Dose may be adjusted on discharge Hypothyroidism Cont Synthroid DVT ppx: eliquis CODE: Full code I spent a total of 50 minutes coordinating, documenting and providing care for this patient excluding time spent in performance of separately billed services Admission and Anticipated Discharge Date Admission Date: November 13, 2024 Subjective Patient seen and examined Reports cough is improved Reports feeling better Last fever was on 11/15/24 Physical Exam Constitutional: + well hydrated; no acute distress Eyes: PERRL, conjunctivae normal, anicteric sclerae ENMT: external ear and nose normal, oropharynx normal Respiratory: normal respiratory effort; no respiratory distress Reduced breath sounds left lung base Cardiovascular: Rate/Rhythm: regular rate and regular rhythm Chest (Breasts): Additional Comments: Clean dressing over anterior chest wound Gastrointestinal (Abdomen): normal bowel sounds, soft, nontender, no hepatosplenomegaly Musculoskeletal: No pedal edema Neurologic: PERRL, EOMI, accommodation nl, no face palsy, no dysarthria Psychiatric: A+Ox3, euthymic affect Results & Data Results & Data Vital Signs (Past 12 Hours) Vital Signs Temp Pulse Pulse Resp BP Pulse Ox O2 Del Method 11/16/24 07:42 37.0 C 58 L 16 136/76 94 Room Air 11/16/24 02:29 36.6 C 74 16 119/75 95 Room Air 11/15/24 23:49 Room Air 11/15/24 23:47 71 11/15/24 23:15 36.7 C 75 20 153/77 H 93 Room Air Laboratory Results Abnormal lab results 11/16/24 Range/Units 05:39 RBC 3.94 L (4.70-6.10) M/uL Hgb 12.0 L (14.0-18.0) g/dl Hct 35.8 L (42.0-52.0) % MPV 8.7 L (9.4-12.4) fL BUN 25 H (6-23) mg/dl BUN/Creatinine Ratio 22.9 H (10-20) Glucose 114 H (70-99(Fasting)) mg/dl Calcium 8.4 L (8.6-10.3) mg/dl
[2024-11-17 07:33] LABS: Hematocrit (blood only) 37.9 % (42.0-52.0); Hemoglobin 12.8 g/dl (14.0-18.0); Mean Corpuscular Hemoglobin 30.7 pg (25.0-34.0); Mean Corpuscular Volume 90.9 fL (80.0-100.0); Platelet Count 223 K/uL (130-400); RDW Standard Deviation 42.1 fL (36.4-46.3); Red Blood Count 4.17 M/uL (4.70-6.10); White Blood Count 6.37 K/ul (4.8-10.8)
[2024-11-17 07:56] LABS: Anion Gap 6.0 (3-11); Blood Urea Nitrogen 20.0 mg/dl (6-23); Calcium 8.4 mg/dl (8.6-10.3); Carbon Dioxide 26.0 mmol/L (21-32); Chloride 105.0 mmol/L (98-107); Creatinine Clr Calc Pharmacy 53.0 ml/min; Glucose 121.0 mg/dl (70-99(Fasting)); Potassium 3.5 mmol/L (3.5-5.1); Sodium 137.0 mmol/L (136-145)
--- NOTE | 2024-11-17 09:36 | Hospitalist Progress Note ---
Date of Service November 17, 2024 Assessment & Plan (1) Fall: (2) Chronic HFrEF (heart failure with reduced ejection fraction): (3) Elevated troponin: (4) Coronary artery disease: (5) Ischemic cardiomyopathy: (6) Wound of skin: (7) Cellulitis: (8) Pleural effusion, left: Plan Fall Rhabdomyolysis Elevated Lactate On admission, Lactate of 2.3, CK, 8786 EKG showed paced rhythm Troponin elevated initially 142->152 TTE noted EF 20-25%, mod conc LVH, extensive septal, apical infarct with akinesis to dyskinesis, entire apex is thinned, scarred and inferior apex is expanded. Inferior wall is hypokinetic at base. Septal motion consistent with Conduction abnormality. EF is 20 to 25%, grade 1 diastolic dysfunction, trace AR, trace MR, trace TR Cardiology eval noted. Pacemaker interrogation does not indicate any arrhythmic cause PT/OT eval noted. Rehab recommended Patient now agreeable to rehab. CM working on placement Continue PT/OT while inpatient Cellulitis R chest wall Skin tear/Wound Wound care Left pleural effusion, Possible pneumonia Fever CT chest noted moderate to large left pleural effusion with dependent consolidation Had fever yesterday Continue ceftriaxone and doxycycline Blood cultures grew CONS in 1 bottle. 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 Will follow up Cards recs at time of discharge Hypothyroidism Cont Synthroid DVT ppx: eliquis CODE: Full code I spent a total of 40 minutes coordinating, documenting and providing care for this patient excluding time spent in performance of separately billed services Admission and Anticipated Discharge Date Admission Date: November 13, 2024 Subjective Patient seen and examined Reports feeling better each day Cough improving No SOB Had fever yesterday Physical Exam Constitutional: + well hydrated; no acute distress Eyes: PERRL, conjunctivae normal, anicteric sclerae ENMT: external ear and nose normal, oropharynx normal Respiratory: normal respiratory effort; no respiratory distress Reduced breath sounds LL zone Cardiovascular: Rate/Rhythm: regular rate and regular rhythm Gastrointestinal (Abdomen): normal bowel sounds, soft, nontender, no hepatosplenomegaly Musculoskeletal: No pedal edema Neurologic: PERRL, EOMI, accommodation nl, no face palsy, no dysarthria Psychiatric: A+Ox3, euthymic affect Results & Data Results & Data Vital Signs (Past 12 Hours) Vital Signs Temp Pulse Pulse Resp BP BP Pulse Ox 11/17/24 09:27 60 11/17/24 08:01 36.4 C L 57 L 20 136/76 95 11/17/24 07:44 11/17/24 03:53 36.8 C 60 18 114/69 92 11/16/24 23:55 60 11/16/24 23:47 36.8 C 60 18 114/68 93 O2 Del Method 11/17/24 09:27 11/17/24 08:01 Room Air 11/17/24 07:44 Room Air 11/17/24 03:53 Room Air 11/16/24 23:55 11/16/24 23:47 Room Air Laboratory Results Abnormal lab results 11/17/24 Range/Units 06:44 RBC 4.17 L (4.70-6.10) M/uL Hgb 12.8 L (14.0-18.0) g/dl Hct 37.9 L (42.0-52.0) % MPV 8.8 L (9.4-12.4) fL BUN/Creatinine Ratio 21.1 H (10-20) Glucose 121 H (70-99(Fasting)) mg/dl Calcium 8.4 L (8.6-10.3) mg/dl
[2024-11-18 07:09] LABS: Hematocrit (blood only) 35.9 % (42.0-52.0); Hemoglobin 12.2 g/dl (14.0-18.0); Mean Corpuscular Hemoglobin 30.7 pg (25.0-34.0); Mean Corpuscular Volume 90.4 fL (80.0-100.0); Platelet Count 229 K/uL (130-400); RDW Standard Deviation 41.5 fL (36.4-46.3); Red Blood Count 3.97 M/uL (4.70-6.10); White Blood Count 7.93 K/ul (4.8-10.8)
[2024-11-18 07:27] LABS: Anion Gap 4.0 (3-11); Blood Urea Nitrogen 22.0 mg/dl (6-23); Calcium 8.4 mg/dl (8.6-10.3); Carbon Dioxide 24.0 mmol/L (21-32); Chloride 107.0 mmol/L (98-107); Creatinine Clr Calc Pharmacy 53.0 ml/min; Glucose 121.0 mg/dl (70-99(Fasting)); Potassium 3.7 mmol/L (3.5-5.1); Sodium 135.0 mmol/L (136-145)
--- NOTE | 2024-11-18 08:52 | Hospitalist Progress Note ---
Date of Service November 18, 2024 Assessment & Plan (1) Fall: (2) Chronic HFrEF (heart failure with reduced ejection fraction): (3) Elevated troponin: (4) Coronary artery disease: (5) Ischemic cardiomyopathy: (6) Wound of skin: (7) Cellulitis: (8) Pleural effusion, left: Plan Fall Rhabdomyolysis Elevated Lactate On admission, Lactate of 2.3, CK, 8786 EKG showed paced rhythm Troponin elevated initially 142->152 TTE noted EF 20-25%, mod conc LVH, extensive septal, apical infarct with akinesis to dyskinesis, entire apex is thinned, scarred and inferior apex is expanded. Inferior wall is hypokinetic at base. Septal motion consistent with Conduction abnormality. EF is 20 to 25%, grade 1 diastolic dysfunction, trace AR, trace MR, trace TR Cardiology eval noted. Pacemaker interrogation does not indicate any arrhythmic cause PT/OT eval noted. Rehab recommended Patient now agreeable to rehab. CM working on placement Continue PT/OT while inpatient Cellulitis R chest wall Skin tear/Wound Wound care Left pleural effusion, Possible pneumonia Fever CT chest on admission noted moderate to large left pleural effusion with dependent consolidation Continues to have intermittent fever Continue ceftriaxone and doxycycline Blood cultures grew CONS in 1 bottle. 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 IV lasix for now Pulm consulted. Discussed with pulm due to concern for possible parapneumonic effusion with patient's persistent fevers. Pulm evaluation noted. Recommends IR thoracentesis for sampling of fluid. Eliquis on hold for procedure Chronic systolic CHF S/p ICD/pacemaker History of A-fib HTN HLD Continue MEASUREMENT ADVISOR Eliquis, aspirin, amiodarone, Toprol-XL, Entresto MEASUREMENT ADVISOR diuretics were initially held on admission due to rhabdomyolysis/dehydration. Resumed as above Cards eval noted Hypothyroidism Cont Synthroid DVT ppx: eliquis CODE: Full code I spent a total of 55 minutes coordinating, documenting and providing care for this patient excluding time spent in performance of separately billed services Admission and Anticipated Discharge Date Admission Date: November 13, 2024 Subjective Patient seen and examined Reports weakness is improving Still has cough Still having intermittent fevers. Remains on room air Denied other complaints Physical Exam Constitutional: + well hydrated; no acute distress Eyes: PERRL, conjunctivae normal, anicteric sclerae ENMT: external ear and nose normal, oropharynx normal Respiratory: normal respiratory effort; no respiratory distress Decreased breath sounds left lung zone Cardiovascular: Rate/Rhythm: regular rate and regular rhythm Gastrointestinal (Abdomen): normal bowel sounds, soft, nontender, no hepatosplenomegaly Musculoskeletal: No pedal edema Neurologic: PERRL, EOMI, accommodation nl, no face palsy, no dysarthria Psychiatric: A+Ox3, euthymic affect Results & Data Results & Data Vital Signs (Past 12 Hours) Vital Signs Temp Pulse Resp BP BP Pulse Ox O2 Del Method 11/18/24 07:51 36.6 C 60 24 150/75 H 90 Room Air 11/18/24 07:32 Room Air 11/18/24 04:01 37.4 C 62 18 131/73 92 Room Air 11/17/24 23:45 36.9 C 66 18 144/75 H 93 Room Air Laboratory Results Abnormal lab results 11/18/24 11/18/24 Range/Units 06:43 10:39 RBC 3.97 L (4.70-6.10) M/uL Hgb 12.2 L (14.0-18.0) g/dl Hct 35.9 L (42.0-52.0) % MPV 8.9 L (9.4-12.4) fL Sodium 135 L (136-145) mmol/L BUN/Creatinine Ratio 23.2 H (10-20) Glucose 121 H (70-99(Fasting)) mg/dl Calcium 8.4 L (8.6-10.3) mg/dl B-Natriuretic Peptide 892 H (0-100) pg/ml
--- NOTE | 2024-11-18 09:23 | XRay Report ---
XR chest 2V PA/lateral CLINICAL HISTORY: Better assess effusion/consolidation COMPARISON STUDY: Chest radiograph and chest CT November 13, 2024. FINDINGS: Left subclavian pacer/AICD is in place. Cardiomegaly is again noted. Mild interstitial pulm onary edema is present. A large left pleural effusion has increased in size since prior examination. Associated airspace opacity is noted. A trace right pleural effusion has developed. There is no pneum othorax. IMPRESSION: 1. Increase in size of a large left pleural effusion and associated airspace opacity. 2. Interval development of a trace right pleural effusion. 3. Cardiomegaly with mild interstitial pulmonary edema. ACT 112: Negative or not required by law. Electronically signed by: Prasanna Cabrera M.D. 11/18/2024 9:22 AM
[2024-11-18] MEDS: DOXYCYCLINE HYCLATE 100 MG CAP PO SCH (09:34)
--- NOTE | 2024-11-18 10:17 | Pulmonary Consultation ---
Date of Consultation November 18, 2024 Assessment & Plan (1) Pleural effusion, left: (2) Acute on chronic HFrEF (heart failure with reduced ejection fraction): (3) Acute dyspnea: (4) Paroxysmal atrial fibrillation with rapid ventricular response: (5) Ex-smoker: (6) Multiple pulmonary nodules: Plan 79-year-old male was admitted to the hospital s/p mechanical fall and rhabdomyolysis. Pulmonary consulted for pleural effusion and persistent fever Past medical history: Systolic CHF, s/p AICD, A-fib on Eliquis, hypertension, dyslipidemia, hypothyroidism CT chest 11/13/2024 personally reviewed: Moderate to large left-sided pleural effusion Nodular opacity inferior lobe of the lingula 1.5 cm Another pulmonary nodule in perifissural left lower lobe Cardiomegaly Subcarinal lymphadenopathy with some calcification 2D echo 11/14/2024: EF 20-25%, grade 1 diastolic dysfunction, moderate concentric LVH, trace MR, trace TR, RV normal in size and function -- Left-sided pleural effusion Multifactorial Does have a EF 20-25% with grade 1 diastolic dysfunction BNP 892, procalcitonin 0.1 Nasal MRSA negative -- Multiple pulmonary nodules Mostly on the left side Could represent infection Approximately [id number] smoking history Quit around the age of 48 Continue with antibiotics Would recommend repeat CT chest in 3 months --A-fib On Eliquis, last dose was 11/19/2019 5 in the morning Plan: In/out: +4.4 L since coming to the hospital. Patient did not get fluid as he came in with rhabdomyolysis. Follow-up BNP as well as procalcitonin The reason for left-sided pleural effusion could likely be because of systolic CHF but given it is on the left side and patient does have history of significant smoking as well as he is spiking fever Sampling the fluid will be helpful Hold Eliquis for at least 48 hours for thoracentesis on the left side. last dose was 11/19/2019 5 in the morning Order has been placed for IR guided thoracentesis to be done on Tuesday which would be more than 48 hours since stopping the Eliquis Plan was discussed with primary team as well as RN I spent more than 75 minutes looking in the chart, images, discussing the plan of care with the patient, RN as well as primary team Please note the above document was generated using voice recognition software. It may contain grammatical, syntax or spelling errors.Any formal questions or concerns about the content, text or information contained within the body of this dictation should be directly addressed to the provider for clarification. History of Present Illness Attending Physician: Any Zhong MD History of Present Illness 79-year-old male was admitted to the hospital s/p mechanical fall and rhabdomyolysis. Pulmonary consulted for pleural effusion and persistent fever Past medical history: Systolic CHF, s/p AICD, A-fib on Eliquis, hypertension, dyslipidemia, hypothyroidism At the time of examination patient was not in any respiratory distress He was saturating 97-98% on room air He did complain of diffuse body pain likely from fall. Breathing is at its baseline. Denies any chest pain on taking deep breaths. No nausea or vomiting No dysuria or diarrhea prior to coming to the hospital No headache, no blurry vision No dizziness Social history: Approximately 12-mrbl-lome smoking history, quit around the age of 48. 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 No history of lung cancer in the family Allergies Allergy/AdvReac Type Severity Reaction Status Date / Time No Known Allergies Allergy Verified 12/12/23 16:46 Home Medications Medication Instructions Recorded Confirmed Type amiodarone 200 mg tablet 200 mg PO QPM 07/03/23 11/13/24 History apixaban 5 mg tablet (Eliquis) 5 mg PO BID 07/03/23 11/13/24 History aspirin 81 mg tablet,delayed 81 mg PO DAILY 07/03/23 11/13/24 History release atorvastatin 40 mg tablet 40 mg PO HS 07/03/23 11/13/24 History cholecalciferol (vitamin D3) 25 25 mcg PO DAILY 07/03/23 11/13/24 History mcg (1,000 unit) tablet (Vitamin D3) nitroglycerin 0.4 mg sublingual 0.4 mg sublingual Q5W PRN Chest 07/03/23 11/13/24 History tablet Pain vit C 250 mg-vit E 90 mg-zinc 40 1 tab PO BID 07/03/23 11/13/24 History mg-copper 1 [id number] capsule (PreserVision AREDS-2) furosemide 20 mg tablet (Lasix) 20 mg PO Q OTHER DAY #30 tabs 07/05/23 11/13/24 Rx levothyroxine 150 mcg tablet 150 mcg PO DAILYBB 12/12/23 11/13/24 History metoprolol succinate 25 mg 25 mg PO DAILY 12/12/23 11/13/24 History tablet,extended release 24 hr sacubitril 24 mg-valsartan 26 mg 1 tab PO BID 12/12/23 11/13/24 History tablet (Entresto) spironolactone 25 mg tablet 25 mg PO DAILY 12/12/23 11/13/24 History Patient History Medical History (Updated 11/18/24 @ 11:47 by Toni Ambriz MD, [facility]) NSTEMI (non-ST elevated myocardial infarction) Pacemaker Family History Other Family history non-contributory Social History Smoking Status: Former smoker Tobacco Type: Cigarettes Second Hand Exposure: No; Do You Dip or Chew Tobacco: No; Tobacco Cessation Education Requested by Patient: No Hx Alcohol Use: No Hx Substance Use: No Preferred Language: Fijian Communication Ability: Effective [employer] Physical Education Teacher Required: No Beliefs That Will Affect Care: None marital status: Single Current Living Situation: Alone Current Living Situation Comment: Lives at home alone current occupational status: retired Other Information That Helps Us Care for You: No Feels Safe at Home: Yes Safety Concerns: Feels Safe At This Time Assistive Devices: None Review of Systems 2 Review of Systems: All systems reviewed & are unremarkable except as noted in HPI & below Physical Exam 2 Physical Exam: Constitutional: No acute distress HEENT: EOMI, PERRLA Respiratory system: Decreased air entry on the left side, no wheeze, no rhonchi, positive crackles bilaterally CVS: S1-S2 positive, distant heart sounds Abdomen: Soft, nontender, nondistended, positive bowel sounds x4 Extremities: +2 pulses bilaterally radialis/ dorsalis pedis, no cyanosis, no edema Neuro: Awake alert oriented x3 Psych: Normal mood and affect G/U: No Oliver Skin: no rashes, warm and dry Lymphatic: no cervical or axillary lymphadenopathy Results & Data Results & Data Vital Signs (Past 12 Hours) Vital Signs Temp Pulse Pulse Resp BP BP Pulse Ox 11/18/24 09:27 60 07/06/25 07:51 36.6 C 60 24 150/75 H 90 11/18/24 07:32 11/18/24 04:01 37.4 C 62 18 131/73 92 11/17/24 23:45 36.9 C 66 18 144/75 H 93 O2 Del Method 11/18/24 09:27 11/18/24 07:51 Room Air 11/18/24 07:32 Room Air 11/18/24 04:01 Room Air 11/17/24 23:45 Room Air Laboratory Results 11/18/24 06:43 11/18/24 06:43 PG Care Time/CCT Total # of Minutes Spent Total Time Spent with Patient: Total time spent is greater than 50% in coordination of care (as documented) at patient's floor/unit and/or counseling patient: Coding Level of Care Code 41122 INT INP/OBS CARE 3/75MIN Diagnoses Pleural effusion, left J90 Acute on chronic HFrEF (heart failure with reduced ejection fraction) I50.23 Acute dyspnea R06.00 Paroxysmal atrial fibrillation with rapid ventricular response I48.0 Ex-smoker Z87.891 Multiple pulmonary nodules R91.8
[2024-11-18] MEDS: FUROSEMIDE INJ 20 MG/2 ML VIAL IV SCH (10:28)
[2024-11-18] MEDS: SPIRONOLACTONE 25 MG TAB PO SCH (11:05)
--- NOTE | 2024-11-18 11:50 | Procedure Note ---
Procedure Note Date of Service November 18, 2024 Bedside Ultrasound: Lung: Right:-No pleural effusion, A-line's anteriorly and posteriorly Left:-Moderate left-sided pleural effusion with compressive atelectasis of the left lower lobe, same fibrin stranding appreciated, no clear loculations Please note the above document was generated using voice recognition software. It may contain grammatical, syntax or spelling errors.Any formal questions or concerns about the content, text or information contained within the body of this dictation should be directly addressed to the provider for clarification. [facility] [place] Procedure Codes (Charges) Pulmonary/Thoracic Procedure 1: Pulmonary and Thoracic: 32722 US, Chest, real time with imaging documentation Coding CPT Codes Pulmonary/Thoracic - Pulmonary and Thoracic: 70886 US, Chest, real time with imaging documentation ([id number]) Additional Codes Date of Service (PG.SURGERY)
[2024-11-19 07:19] LABS: Hematocrit (blood only) 36.9 % (42.0-52.0); Hemoglobin 12.4 g/dl (14.0-18.0); Mean Corpuscular Hemoglobin 30.5 pg (25.0-34.0); Mean Corpuscular Volume 90.9 fL (80.0-100.0); Platelet Count 288 K/uL (130-400); RDW Standard Deviation 42.5 fL (36.4-46.3); Red Blood Count 4.06 M/uL (4.70-6.10); White Blood Count 9.27 K/ul (4.8-10.8)
[2024-11-19 07:35] LABS: Anion Gap 6.0 (3-11); Blood Urea Nitrogen 24.0 mg/dl (6-23); Calcium 8.7 mg/dl (8.6-10.3); Carbon Dioxide 24.0 mmol/L (21-32); Chloride 104.0 mmol/L (98-107); Creatinine Clr Calc Pharmacy 51.4 ml/min; Glucose 119.0 mg/dl (70-99(Fasting)); Magnesium 1.6 mg/dl (1.7-2.4); Potassium 4.1 mmol/L (3.5-5.1); Sodium 134.0 mmol/L (136-145)
[2024-11-19] MEDS: MAGNESIUM OXIDE 400 MG TAB PO SCH (09:32)
--- NOTE | 2024-11-19 09:48 | Pulmonology Progress Note ---
Date of Service November 19, 2024 Assessment & Plan (1) Pleural effusion, left: (2) Acute on chronic HFrEF (heart failure with reduced ejection fraction): (3) Acute dyspnea: (4) Paroxysmal atrial fibrillation with rapid ventricular response: (5) Ex-smoker: (6) Multiple pulmonary nodules: Plan 79-year-old male was admitted to the hospital s/p mechanical fall and rhabdomyolysis. Pulmonary consulted for pleural effusion and persistent fever Past medical history: Systolic CHF, s/p AICD, A-fib on Eliquis, hypertension, dyslipidemia, hypothyroidism CT chest 11/13/2024 personally reviewed: Moderate to large left-sided pleural effusion Nodular opacity inferior lobe of the lingula 1.5 cm Another pulmonary nodule in perifissural left lower lobe Cardiomegaly Subcarinal lymphadenopathy with some calcification 2D echo 11/14/2024: EF 20-25%, grade 1 diastolic dysfunction, moderate concentric LVH, trace MR, trace TR, RV normal in size and function -- Left-sided pleural effusion Multifactorial Does have a EF 20-25% with grade 1 diastolic dysfunction BNP 892, procalcitonin 0.1 Nasal MRSA negative -- Multiple pulmonary nodules Mostly on the left side Could represent infection Approximately [id number] smoking history Quit around the age of 48 Continue with antibiotics Would recommend repeat CT chest in 3 months --A-fib On Eliquis, last dose was 11/19/2019 5 in the morning Plan: IR thoracentesis tomorrow of left pleural effusion. Admission and Anticipated Discharge Date Admission Date: November 13, 2024 Subjective Patient seen and examined. Denies any significant dyspnea at present. Denies any chest pain. Review of Systems Review of Systems: All systems reviewed & are unremarkable except as noted in HPI & below Physical Exam Physical Exam: Constitutional: No acute distress HEENT: EOMI, PERRLA Respiratory system: Decreased air entry on the left side, no wheeze, no rhonchi, positive crackles bilaterally CVS: S1-S2 positive, distant heart sounds Abdomen: Soft, nontender, nondistended, positive bowel sounds x4 Extremities: +2 pulses bilaterally radialis/ dorsalis pedis, no cyanosis, no edema Neuro: Awake alert oriented x3 Psych: Normal mood and affect G/U: No Oliver Skin: no rashes, warm and dry Lymphatic: no cervical or axillary lymphadenopathy Results & Data Results & Data Vital Signs (Past 12 Hours) Vital Signs Temp Pulse Pulse Resp BP BP Pulse Ox 11/19/24 09:29 11/19/24 08:16 36.6 C 67 20 120/74 93 11/19/24 07:34 60 11/19/24 04:26 36.8 C 71 18 119/74 96 11/18/24 23:25 36.7 C 64 18 125/75 94 11/18/24 23:15 67 O2 Del Method 11/19/24 09:29 Room Air 11/19/24 08:16 Room Air 11/19/24 07:34 11/19/24 04:26 Room Air 11/18/24 23:25 Room Air 11/18/24 23:15 PG Care Time/CCT Total # of Minutes Spent Total Time Spent with Patient: Total time spent is greater than 50% in coordination of care (as documented) at patient's floor/unit and/or counseling patient: Coding Level of Care Code 17406 SUB INP/OBS CARE 06/09MIN Diagnoses Pleural effusion, left J90 Acute on chronic HFrEF (heart failure with reduced ejection fraction) I50.23 Acute dyspnea R06.00 Paroxysmal atrial fibrillation with rapid ventricular response I48.0 Ex-smoker Z87.891 Multiple pulmonary nodules R91.8
--- NOTE | 2024-11-19 11:49 | Hospitalist Progress Note ---
Date of Service November 19, 2024 Assessment & Plan (1) Fall: (2) Chronic HFrEF (heart failure with reduced ejection fraction): (3) Elevated troponin: (4) Coronary artery disease: (5) Ischemic cardiomyopathy: (6) Wound of skin: (7) Cellulitis: (8) Pleural effusion, left: Plan Fall Rhabdomyolysis Elevated Lactate On admission, Lactate of 2.3, CK, 8786 EKG showed paced rhythm Troponin elevated initially 142->152 TTE noted EF 20-25%, mod conc LVH, extensive septal, apical infarct with akinesis to dyskinesis, entire apex is thinned, scarred and inferior apex is expanded. Inferior wall is hypokinetic at base. Septal motion consistent with Conduction abnormality. EF is 20 to 25%, grade 1 diastolic dysfunction, trace AR, trace MR, trace TR Cardiology eval noted. Pacemaker interrogation does not indicate any arrhythmic cause PT/OT eval noted. Rehab recommended Patient now agreeable to rehab. CM working on placement Continue PT/OT while inpatient Cellulitis R chest wall Skin tear/Wound Wound care Left pleural effusion, Possible pneumonia Fever CT chest on admission noted moderate to large left pleural effusion with dependent consolidation Continues to have intermittent fever Continue ceftriaxone and doxycycline Blood cultures grew CONS in 1 bottle. Possibly contaminant Repeat blood cultures negative so far TTE on 11/14 did not show vegetation/sign of infective endocarditis CXR today showed increased Left pleural effusion Resumed [employer] spironolactone. IV lasix for now Pulm eval noted Planned for IR thoracentesis for sampling of fluid. Eliquis on hold for procedure Chronic systolic CHF S/p ICD/pacemaker History of A-fib HTN HLD Continue [employer] Eliquis, aspirin, amiodarone, Toprol-XL, Entresto [employer] diuretics were initially held on admission due to rhabdomyolysis/dehydr ation. Resumed as above Cards eval noted Replete hypomagnesemia Hypothyroidism Cont Synthroid DVT ppx: eliquis on hold for thoracentesis tomorrow CODE: Full code I spent a total of 50 minutes coordinating, documenting and providing care for this patient excluding time spent in performance of separately billed services Admission and Anticipated Discharge Date Admission Date: November 13, 2024 Subjective Patient seen and examined Reports some cough Denied SOB, chest pain No new complaints Continues to have intermittent fevers Physical Exam Constitutional: + well hydrated; no acute distress Eyes: PERRL, conjunctivae normal, anicteric sclerae ENMT: external ear and nose normal, oropharynx normal Respiratory: normal respiratory effort; no respiratory distress Diminished breath sounds left lung zone Cardiovascular: Rate/Rhythm: regular rate and regular rhythm Gastrointestinal (Abdomen): normal bowel sounds, soft, nontender, no hepatosplenomegaly Musculoskeletal: No pedal edema Neurologic: PERRL, EOMI, accommodation nl, no face palsy, no dysarthria Psychiatric: A+Ox3, euthymic affect Results & Data Results & Data Vital Signs (Past 12 Hours) Vital Signs Temp Pulse Pulse Resp BP BP Pulse Ox 11/19/24 11:30 36.2 C L 68 20 122/79 94 11/19/24 09:29 11/19/24 08:16 36.6 C 67 20 120/74 93 11/19/24 07:34 60 11/19/24 04:26 36.8 C 71 18 119/74 96 O2 Del Method 11/19/24 11:30 Room Air 11/19/24 09:29 Room Air 11/19/24 08:16 Room Air 11/19/24 07:34 11/19/24 04:26 Room Air Laboratory Results Abnormal lab results 11/19/24 Range/Units 06:13 RBC 4.06 L (4.70-6.10) M/uL Hgb 12.4 L (14.0-18.0) g/dl Hct 36.9 L (42.0-52.0) % MPV 9.1 L (9.4-12.4) fL Sodium 134 L (136-145) mmol/L BUN 24 H (6-23) mg/dl BUN/Creatinine Ratio 24.5 H (10-20) Glucose 119 H (70-99(Fasting)) mg/dl Magnesium 1.6 L (1.7-2.4) mg/dl
--- NOTE | 2024-11-20 09:08 | Hospitalist Progress Note ---
Date of Service November 20, 2024 Assessment & Plan (1) Fall: (2) Chronic HFrEF (heart failure with reduced ejection fraction): (3) Elevated troponin: (4) Coronary artery disease: (5) Ischemic cardiomyopathy: (6) Wound of skin: (7) Cellulitis: (8) Pleural effusion, left: Plan Fall Rhabdomyolysis Elevated Lactate On admission, Lactate of 2.3, CK, 8786 EKG showed paced rhythm Troponin elevated initially 142->152 TTE noted EF 20-25%, mod conc LVH, extensive septal, apical infarct with akinesis to dyskinesis, entire apex is thinned, scarred and inferior apex is expanded. Inferior wall is hypokinetic at base. Septal motion consistent with Conduction abnormality. EF is 20 to 25%, grade 1 diastolic dysfunction, trace AR, trace MR, trace TR Cardiology eval noted. Pacemaker interrogation does not indicate any arrhythmic cause PT/OT eval noted. Rehab recommended Patient now agreeable to rehab. CM working on placement Continue PT/OT while inpatient Cellulitis R chest wall Skin tear/Wound Continue Wound care Left pleural effusion, Possible pneumonia Fever CT chest on admission noted moderate to large left pleural effusion with dependent consolidation Currently on ceftriaxone and doxycycline. Day 7 today. Will hold off after today and monitor if fever recurs or pleural fluid workup suggests infection Blood cultures grew CONS in 1 bottle. Possibly contaminant Repeat blood cultures negative so far TTE on 11/14 did not show vegetation/sign of infective endocarditis CXR on 11/18 showed increased Left pleural effusion Continue [employer] spironolactone. Continue IV lasix for now Pulm eval noted IR rescheduled thoracentesis to tomorrow as they want eliquis to be on hold for 3 days prior to procedure. Eliquis on hold for procedure Follow up fluid analysis/workup Chronic systolic CHF S/p ICD/pacemaker History of A-fib HTN HLD Continue [employer]ER[employer] MA[employer]GER Eliquis, aspirin, amiodarone, Toprol-XL, Entresto [employer]ER[employer] diuretics were initially held on admission due to rhabdomyolysis/dehydration. Resumed as above Cards eval noted Monitor labs Hypothyroidism Cont Synthroid DVT ppx: eliquis on hold for thoracentesis CODE: Full code I spent a total of 50 minutes coordinating, documenting and providing care for this patient excluding time spent in performance of separately billed services Admission and Anticipated Discharge Date Admission Date: November 13, 2024 Subjective Patient seen and examined Reports feeling better. Still reports some cough Denied SOB Reports some pain at site of bruise on chest and buttock but improving Denied any other complaints Last fever was 7/6 at 38.5. Did have low grade temp yesterday evening at 37.7 Physical Exam Constitutional: + well hydrated; no acute distress Eyes: PERRL, conjunctivae normal, anicteric sclerae ENMT: external ear and nose normal, oropharynx normal Respiratory: normal respiratory effort; no respiratory distress Reduced breath sounds left lung zone Cardiovascular: Rate/Rhythm: regular rate and regular rhythm Gastrointestinal (Abdomen): normal bowel sounds, soft, nontender, no hepatosplenomegaly Musculoskeletal: No pedal edema Neurologic: PERRL, EOMI, accommodation nl, no face palsy, no dysarthria Psychiatric: A+Ox3, euthymic affect Results & Data Results & Data Vital Signs (Past 12 Hours) Vital Signs Temp Pulse Pulse Resp BP BP Pulse Ox 11/20/24 08:12 37.0 C 59 L 20 104/60 90 11/20/24 08:00 11/20/24 06:49 66 11/20/24 02:58 37.4 C 62 16 114/72 92 11/19/24 22:22 67 11/19/24 22:15 37.5 C 61 16 112/67 91 11/19/24 21:30 O2 Del Method 11/20/24 08:12 Room Air 11/20/24 08:00 Room Air 11/20/24 06:49 11/20/24 02:58 Room Air 11/19/24 22:22 11/19/24 22:15 Room Air 11/19/24 21:30 Room Air Laboratory Results Abnormal lab results 11/20/24 Range/Units 09:56 RBC 4.26 L (4.70-6.10) M/uL Hgb 13.0 L (14.0-18.0) g/dl Hct 38.4 L (42.0-52.0) % MPV 8.9 L (9.4-12.4) fL Sodium 134 L (136-145) mmol/L BUN 26 H (6-23) mg/dl BUN/Creatinine Ratio 23.9 H (10-20) Glucose 183 H (70-99(Fasting)) mg/dl
--- NOTE | 2024-11-20 10:05 | Pulmonology Progress Note ---
Date of Service November 20, 2024 Assessment & Plan (1) Pleural effusion, left: (2) Acute on chronic HFrEF (heart failure with reduced ejection fraction): (3) Acute dyspnea: (4) Paroxysmal atrial fibrillation with rapid ventricular response: (5) Ex-smoker: (6) Multiple pulmonary nodules: Plan 79-year-old male was admitted to the hospital s/p mechanical fall and rhabdomyolysis. Pulmonary consulted for pleural effusion and persistent fever Past medical history: Systolic CHF, s/p AICD, A-fib on Eliquis, hypertension, dyslipidemia, hypothyroidism CT chest 11/13/2024 personally reviewed: Moderate to large left-sided pleural effusion Nodular opacity inferior lobe of the lingula 1.5 cm Another pulmonary nodule in perifissural left lower lobe Cardiomegaly Subcarinal lymphadenopathy with some calcification 2D echo 11/14/2024: EF 20-25%, grade 1 diastolic dysfunction, moderate concentric LVH, trace MR, trace TR, RV normal in size and function -- Left-sided pleural effusion Multifactorial Does have a EF 20-25% with grade 1 diastolic dysfunction BNP 892, procalcitonin 0.1 Nasal MRSA negative -- Multiple pulmonary nodules Mostly on the left side Could represent infection Approximately 02-sdrd-[id number] smoking history Quit around the age of 48 Continue with antibiotics Would recommend repeat CT chest in 3 months --A-fib On Eliquis, last dose was 11/18/2024 in the morning Plan: IR thoracentesis today with pleural studies to be obtained. Okay to restart anticoagulation tomorrow as long as no complications. Admission and Anticipated Discharge Date Admission Date: November 13, 2024 Subjective Patient seen and examined. He is comfortable sitting up in a chair. He does endorse dyspnea with exertion. He denies any chest pain or fevers. Review of Systems Review of Systems: All systems reviewed & are unremarkable except as noted in HPI & below Physical Exam Physical Exam: Constitutional: No acute distress HEENT: EOMI, PERRLA Respiratory system: Decreased air entry on the left side, no wheeze, no rhonchi, positive crackles bilaterally CVS: S1-S2 positive, distant heart sounds Abdomen: Soft, nontender, nondistended, positive bowel sounds x4 Extremities: +2 pulses bilaterally radialis/ dorsalis pedis, no cyanosis, no edema Neuro: Awake alert oriented x3 Psych: Normal mood and affect G/U: No Oliver Skin: no rashes, warm and dry Lymphatic: no cervical or axillary lymphadenopathy Results & Data Results & Data Vital Signs (Past 12 Hours) Vital Signs Temp Pulse Pulse Resp BP BP Pulse Ox 11/20/24 08:12 37.0 C 59 L 20 104/60 90 11/20/24 08:00 11/20/24 06:49 66 11/20/24 02:58 37.4 C 62 16 114/72 92 11/19/24 22:22 67 11/19/24 22:15 37.5 C 61 16 112/67 91 O2 Del Method 11/20/24 08:12 Room Air 11/20/24 08:00 Room Air 11/20/24 06:49 11/20/24 02:58 Room Air 11/19/24 22:22 11/19/24 22:15 Room Air PG Care Time/CCT Total # of Minutes Spent Total Time Spent with Patient: Total time spent is greater than 50% in coordination of care (as documented) at patient's floor/unit and/or counseling patient: Coding Level of Care Code 55235 SUB INP/OBS CARE 06/09MIN Diagnoses Pleural effusion, left J90 Acute on chronic HFrEF (heart failure with reduced ejection fraction) I50.23 Acute dyspnea R06.00 Paroxysmal atrial fibrillation with rapid ventricular response I48.0 Ex-smoker Z87.891 Multiple pulmonary nodules R91.8
[2024-11-20 10:30] LABS: Hematocrit (blood only) 38.4 % (42.0-52.0); Hemoglobin 13.0 g/dl (14.0-18.0); Mean Corpuscular Hemoglobin 30.5 pg (25.0-34.0); Mean Corpuscular Volume 90.1 fL (80.0-100.0); Platelet Count 348 K/uL (130-400); RDW Standard Deviation 42.8 fL (36.4-46.3); Red Blood Count 4.26 M/uL (4.70-6.10); White Blood Count 8.76 K/ul (4.8-10.8)
[2024-11-20 10:45] LABS: Anion Gap 9.0 (3-11); Blood Urea Nitrogen 26.0 mg/dl (6-23); Calcium 9.3 mg/dl (8.6-10.3); Carbon Dioxide 24.0 mmol/L (21-32); Chloride 101.0 mmol/L (98-107); Creatinine Clr Calc Pharmacy 46.2 ml/min; Glucose 183.0 mg/dl (70-99(Fasting)); Magnesium 1.7 mg/dl (1.7-2.4); Potassium 3.8 mmol/L (3.5-5.1); Sodium 134.0 mmol/L (136-145)
[2024-11-21 07:45] LABS: Hematocrit (blood only) 32.3 % (42.0-52.0); Hemoglobin 11.1 g/dl (14.0-18.0); Mean Corpuscular Hemoglobin 31.2 pg (25.0-34.0); Mean Corpuscular Volume 90.7 fL (80.0-100.0); Platelet Count 267 K/uL (130-400); RDW Standard Deviation 40.9 fL (36.4-46.3); Red Blood Count 3.56 M/uL (4.70-6.10); White Blood Count 7.72 K/ul (4.8-10.8)
[2024-11-21 07:56] LABS: Anion Gap 5.0 (3-11); Blood Urea Nitrogen 26.0 mg/dl (6-23); Calcium 8.4 mg/dl (8.6-10.3); Carbon Dioxide 24.0 mmol/L (21-32); Chloride 104.0 mmol/L (98-107); Creatinine Clr Calc Pharmacy 47.5 ml/min; Glucose 108.0 mg/dl (70-99(Fasting)); Potassium 4.2 mmol/L (3.5-5.1); Sodium 133.0 mmol/L (136-145)
--- NOTE | 2024-11-21 12:27 | Hospitalist Progress Note ---
Date of Service November 21, 2024 Assessment & Plan (1) Fall: (2) Chronic HFrEF (heart failure with reduced ejection fraction): (3) Elevated troponin: (4) Coronary artery disease: (5) Ischemic cardiomyopathy: (6) Wound of skin: (7) Cellulitis: (8) Pleural effusion, left: Plan Fall at home Rhabdomyolysis Elevated Lactate On admission, Lactate of 2.3, CK, 8786, trending down EKG shows paced rhythm Troponin elevated initially 142->152, relatively flat. chronic elevation in past TTE noted EF 20-25%, mod conc LVH, extensive septal, apical infarct with akinesis to dyskinesis, entire apex is thinned, scarred and inferior apex is expanded. Inferior wall is hypokinetic at base. Septal motion consistent with Conduction abnormality. EF is 20 to 25%, grade 1 diastolic dysfunction, trace AR, trace MR, trace TR Cardiology eval appreciated. Pacemaker interrogation does not indicate any arrhythmic cause PT/OT eval noted. Rehab recommended. Working on [place] Patient now agreeable to rehab. CM working on placement Continue PT/OT while inpatient Cellulitis R chest wall Skin tear/Wound Continue Wound care Left pleural effusion, Possible pneumonia Fever CT chest on admission noted moderate to large left pleural effusion with dependent consolidation Completed course of ceftriaxone and doxycycline. Blood cultures grew CONS in 1 bottle. 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 Continue IV lasix Pulm eval noted, thoracentesis today Eliquis on hold for procedure. Restart post Follow up fluid analysis/workup Chronic systolic CHF S/p ICD/pacemaker History of A-fib HTN HLD Continue PACKAGING [employer]ERK Eliquis post procedure, aspirin, amiodarone, Toprol-XL, Entresto [employer]AGING [employer]ERK diuretics were initially held on admission due to rhabdomyolysis/dehydration. Resumed as above Monitor labs Hypothyroidism Cont Synthroid DVT ppx: eliquis on hold for thoracentesis CODE: Full code I spent a total of 55 minutes coordinating, documenting and providing care for this patient excluding time spent in performance of separately billed services Admission and Anticipated Discharge Date Admission Date: November 13, 2024 Subjective Patient seen and examined at bedside. He feels weak and has dyspnea with exertion. He denies any chest pain or fevers. He is scheduled for a paracentesis today Review of Systems Review of Systems: Constitutional- no fever; no chills, feels weak Pulmonary- no cough, no wheezing, has some shortness of breath with exertion Cardiac- no chest pain, no palpitations, , no dependent edema GI- no nausea, no vomiting, no diarrhea, no melena, no hematochezia - no dysuria, no hematuria Neuro- no headaches, no focal neurologic symptoms Psych- no anxiety, no depression Physical Exam Physical Exam: General- adult elderly male seen at bedside. Seen this am. Chronic ill appearance Eyes- PERRL, EOMI, anicteric ENT- oropharynx clear Neck- supple, no JVD, no adenopathy, no thyromegaly; carotids +2/2, no bruits appreciated Lungs- diminished BS in the bases. R<L. clear to auscultation and percussion otherwise Heart- regular rhythm; no murmur, no gallop, no rub appreciated Abdomen- normal bowel sounds, soft, nontender, no masses or hepatosplenomegaly Extremities- no pretibial edema, no calf tenderness; peripheral pulses intact Neuro- alert, oriented; PERRL, EOMI; no facial palsy; no dysarthria; Skin- warm & dry Results & Data Results & Data Vital Signs (Past 12 Hours) Vital Signs Temp Pulse Pulse Resp BP Pulse Ox O2 Del Method 11/21/24 11:27 37.5 C 63 16 101/62 91 Room Air 11/21/24 11:00 Room Air 11/21/24 08:00 60 11/21/24 08:00 36.9 C 60 20 115/64 93 Room Air 11/21/24 02:34 37.2 C 63 16 118/67 90 Room Air Diagnostic Findings Laboratory Results WBC 7.72 K/ul (4.8-10.8) 11/21/24 07:12 RBC 3.56 M/uL (4.70-6.10) L 11/21/24 07:12 Hgb 11.1 g/dl (14.0-18.0) L 11/21/24 07:12 Hct 32.3 % (42.0-52.0) L 11/21/24 07:12 MCV 90.7 fL (80.0-100.0) 11/21/24 07:12 MCH 31.2 pg (25.0-34.0) 11/21/24 07:12 MCHC 34.4 g/dL (32.0-36.0) 11/21/24 07:12 RDW Std Deviation 40.9 fL (36.4-46.3) 11/21/24 07:12 RDW Coeff of Kim 12.3 % (11.5-14.5) 11/21/24 07:12 Plt Count 267 K/uL (130-400) 11/21/24 07:12 MPV 8.8 fL (9.4-12.4) L 11/21/24 07:12 Immature Gran % (Auto) 0.4 % 11/14/24 06:45 Neut % (Auto) 86.2 % 11/14/24 06:45 Lymph % (Auto) 3.7 % 11/14/24 06:45 Schuyler % (Auto) 9.5 % 11/14/24 06:45 Eos % (Auto) 0.1 % 11/14/24 06:45 Baso % (Auto) 0.1 % 11/14/24 06:45 Neut # (Auto) 6.43 K/uL (1.40-6.50) 11/14/24 06:45 Lymph # (Auto) 0.28 K/uL (1.20-3.40) L 11/14/24 06:45 Schuyler # (Auto) 0.71 K/uL (0.11-0.59) H 11/14/24 06:45 Eos # (Auto) 0.01 K/uL (0.00-0.50) 11/14/24 06:45 Baso # (Auto) 0.01 K/uL (0.00-0.20) 11/14/24 06:45 Immature Gran # (Auto) 0.03 K/uL (0.01-0.20) 11/14/24 06:45 PT 10.9 Seconds (9.0-12.0) 11/13/24 12:57 INR 1.0 (0.9-1.1) 11/13/24 12:57 APTT 25 Seconds (21-31) 11/13/24 12:57 PTT Ratio 0.9 11/13/24 12:57 Sodium 133 mmol/L (136-145) L 11/21/24 07:12 Potassium 4.2 mmol/L (3.5-5.1) 11/21/24 07:12 Chloride 104 mmol/L (98-107) 11/21/24 07:12 Carbon Dioxide 24 mmol/L (21-32) 11/21/24 07:12 Anion Gap 5 (3-11) 11/21/24 07:12 BUN 26 mg/dl (6-23) H 11/21/24 07:12 Creatinine 1.06 mg/dl (0.6-1.4) 11/21/24 07:12 Est Cr Clr Drug Dosing 47.5 ml/min 11/21/24 07:12 eGFR 70.51 11/21/24 07:12 BUN/Creatinine Ratio 24.5 (10-20) H 11/21/24 07:12 Glucose 108 mg/dl (70-99(Fasting)) H 11/21/24 07:12 Lactate 2.3 mmol/L (0.4-2.0) H* 11/13/24 15:22 Calcium 8.4 mg/dl (8.6-10.3) L 11/21/24 07:12 Phosphorus 3.2 mg/dl (2.5-4.9) 11/19/24 06:13 Magnesium 1.7 mg/dl (1.7-2.4) 11/20/24 09:56 Total Bilirubin 0.9 mg/dl (0.2-1.0) 11/13/24 12:57 AST 141 U/L (13-39) H 11/13/24 12:57 ALT 42 U/L (7-52) 11/13/24 12:57 Alkaline Phosphatase 58 U/L (34-104) 11/13/24 12:57 Total Creatine Kinase 3450 U/L (30-223) H 11/15/24 05:24 Troponin I High Sens 152.4 pg/ml (0-20) H* 11/13/24 21:22 B-Natriuretic Peptide 892 pg/ml (0-100) H 11/18/24 10:39 Total Protein 7.5 gm/dl (6.0-8.3) 11/13/24 12:57 Albumin 3.5 gm/dl (3.4-5.0) 11/13/24 12:57 Globulin 4.0 gm/dl (2.5-4.0) 11/13/24 12:57 Albumin/Globulin Ratio 0.9 (0.9-2) 11/13/24 12:57 Lipase 21 U/L (11-82) 11/13/24 12:57 Procalcitonin 0.10 ng/ml (0-0.5) 11/18/24 10:39 Urine Color Yellow 11/13/24 17:08 Urine Appearance Clear (Clear) 11/13/24 17:08 Urine pH 5.5 (4.5-7.5) 11/13/24 17:08 Ur Specific Piercy > 1.045 (1.000-1.030) H 11/13/24 17:08 Urine Protein 2+ (Negative) H 11/13/24 17:08 Urine Glucose (UA) Negative (Negative) 11/13/24 17:08 Urine Ketones Trace (Negative) H 11/13/24 17:08 Urine Blood 3+ (Negative) H 11/13/24 17:08 Urine Nitrite Negative (Negative) 11/13/24 17:08 Urine Bilirubin Negative (Negative) 11/13/24 17:08 Urine Urobilinogen Negative (Negative) 11/13/24 17:08 Ur Leukocyte Esterase Trace (Negative) H 11/13/24 17:08 Urine WBC (Auto) 6-10 /hpf (0-5) H 11/13/24 17:08 Urine RBC (Auto) 11-20 /hpf (0-2) H 11/13/24 17:08 U Hyaline Cast (Auto) 3-5 /lpf (0-2) H 11/13/24 17:08 U Epithel Cells (Auto) 0-2 /hpf (0-2) 11/13/24 17:08 Urine Bacteria (Auto) None Seen (None Seen) 11/13/24 17:08 Urine Comment 11/13/24 17:08 Nasal Screen MRSA (PCR) Negative (Negative) 11/15/24 13:44 Staphylococcus sp PCR DETECTED (NotDetected) A 11/13/24 12:57 Bld Cult ID Panel PCR See PCR Comment (NotDetected) 11/13/24 12:57 Impressions Abdomen/Pelvis CT 07/01/25 12:42 CT SCAN OF THE ABDOMEN AND PELVIS WITH IV CONTRAST CLINICAL HISTORY: Trauma. The patient lay on the ground for 2 days COMPARISON STUDY: Abdominal CT dated 12/15/2020 TECHNIQUE: Following the IV administration of 93 cc of Optiray 320, CT scan of the abdomen and pelvis is performed from the lung bases to the proximal femora. Images are reviewed in the axial, sagittal, and coronal planes. IV contrast was administered without complication. A dose lowering technique was utilized adhering to the principles of ALARA. The examination is degraded by motion artifact. CT DOSE: 2416.82 mGy.cm FINDINGS: Lung bases: The heart is enlarged Trace pericardial effusion. A pacemaker lead is in place. The coronary arteries are densely calcified. There is a moderate left pleural effusion/collection with dependent consolidation. Mild pleural thickening is noted at the left lung base. The right lung base is clear noting dependent scar/atelectasis. There is a small hiatal hernia. Liver: The contrast-enhanced liver is normal in size, contour, and attenuation. There is no intrahepatic biliary ductal dilatation. The hepatic veins and portal veins are patent. Scattered hepatic cysts measure 1.6 cm. Gallbladder: Unremarkable. Spleen: Normal in size and attenuation. Pancreas: A 1.3 cm ovoid cyst in the pancreatic neck is unchanged. The pancreas is otherwise normal as imaged. Adrenal glands: Unremarkable. Kidneys: The contrast enhanced kidneys are normal in size and without hydronephrosis. The kidneys enhance symmetrically. Scattered renal cysts measure up to 4.2 cm. Additional subcentimeter cortical hypodensities also likely represent cysts but are too small for definitive characterization. Abdominal vasculature: The abdominal aorta is normal in course and caliber noting mild atherosclerotic calcification. Bowel: There is rectosigmoid fecal impaction and [id number] constipation. There are mildly distended and fluid-filled loops of small bowel with no transition point identified or evidence of high-grade obstruction. The appendix is nonvisualized. Peritoneum: There is no intraperitoneal free air or abdominal ascites. Lymphadenopathy: None. Pelvic viscera: The prostate gland is enlarged and heterogeneous. The bladder is mildly distended, and the wall is thickened/trabeculated indicating chronic outlet obstruction. There are bilateral groin hernias. The left coronary contains a segment of the colon. Skeletal structures: The skeletal structures are osteopenic. There is moderate lumbosacral spondylosis. No lytic or blastic lesions are seen. There are chronic/healed right-sided rib fractures. IMPRESSION: 1. There is no evidence of solid organ injury in the abdomen or pelvis. 2. Cardiomegaly and cardiac pacemaker. 3. There is a moderate left pleural effusion/pleural collection with left basilar consolidation. The sterility of this fluid cannot be assessed imaging and clinical correlation will be required. 4. There is rectosigmoid fecal impaction noting [id number] constipation. 5. There are bilateral inguinal hernias, left side larger than right. The left inguinal hernia contains a segment of the colon. 6. There are mildly distended and fluid-filled loops of small bowel with no CT evidence of high-grade obstruction. Correlate clinically for evidence of a nonspecific enteritis. 7. Additional findings as above. ACT 112: Negative or not required by law. Electronically signed by: Roger Pappas M.D. 11/13/2024 3:[address] 11/13/24 12:42 CT SCAN OF THE CHEST WITH IV CONTRAST CLINICAL HISTORY: Trauma. The patient lay on the ground for 2 days. COMPARISON STUDY: Chest CT dated 12/20/2019. Chest x-ray dated 11/13/2024. TECHNIQUE: Following the IV administration of 93 cc of Optiray 320, CT scan of the thorax was performed from the thoracic inlet to the upper abdomen. Images are reviewed in the axial, sagittal, and coronal planes. IV contrast was administered without complication. A dose lowering technique was utilized adhering to the principles of ALARA. The examination is degraded by motion artifact. FINDINGS: Thyroid: Atrophic. Thoracic aorta: There is atherosclerotic calcification of the thoracic aorta, with is normal in caliber and demonstrates standard 3-vessel arch anatomy. No dissection is seen. Pulmonary vasculature: The main pulmonary arteries are dilated suggesting pulmonary artery hypertension. There are no filling defects identified in the central pulmonary vessels to indicate pulmonary embolus. Note that this examination was not protocoled for evaluation of the pulmonary arteries. Heart: A cardiac pacemaker is seen in the left chest wall. The heart is enlarged there is trace pericardial effusion. The coronary arteries are densely calcified. Lungs and pleural spaces: Evaluation of the lung parenchyma is degraded by motion artifact. There is a moderate to large left pleural effusion with left basilar consolidation. Mild pleural thickening suggested at the left lung base. There is a large calcified granuloma in the left lower lung. The right-sided pleural effusion is identified and no pneumothorax is seen. A 0.7 cm nodular opacity in the lingula on image #103 and a 1.5 cm nodular opacity in the lingula on image #110 rising previously and they're present scarring/atelectasis. A 6 mm left lower lobe nodule on image #53 was not seen previously. The trachea and central airways are clear. Mediastinum: There are mildly enlarged calcification containing mediastinal lymph nodes. These are similar to the examination. A subcarinal node me asures 1.6 cm short axis. A precarinal node measures 1.5 cm in short axis. No mediastinal hematoma is seen. Esthela: Clear. Axillae: There is no axillary lymphadenopathy. Upper abdomen: A 4.2 cm left renal cyst is noted. A 1.3 cm ovoid cyst is again seen in the pancreatic neck. Hepatic cysts measuring up to 1.6 cm. See report of today's abdominal CT for detailed intra-abdominal findings. Skeletal structures: The skeletal structures are osteopenic. The bony thorax appears intact. Degenerative change and mild hyperkyphosis is noted in the thoracic spine. No lytic or blastic bony lesions are seen. IMPRESSION: 1. No acute posttraumatic intrathoracic abnormality is identified. 2. Moderate to large left pleural effusion with dependent consolidation. The sterility of this fluid cannot be assessed imaging and clinical correlation will be required. 3. There is no right-sided pleural effusion, and no pneumothorax is seen. 4. There are linear nodular opacities in the lingula, as well as a 6 mm left lower lobe pulmonary nodule. These are pathologically indeterminant, and were not seen on 12/20/2019. A follow-up chest CT in 3 months time is recommended for reevaluation. 5. Cardiomegaly and cardiac pacemaker with evidence of pulmonary artery hypertension. 6. Additional findings as above. ACT 112: Positive. There are findings on this exam that require communication b etween the performing entity and the patient following Patient Test Result Information Act ([place] Act 112) guidelines. Electronically signed by: Roger Pappas M.D. 11/13/2024 3:[address] 11/13/24 12:43 CT SCAN OF THE CERVICAL SPINE CLINICAL HISTORY: Trauma. COMPARISON STUDY: Cervical spine CT December 20, 2019. TECHNIQUE: CT scan of the cervical spine is performed from the skull base to the upper thoracic spine. Images are reviewed in the axial, sagittal, and coronal planes. IV contrast was not administered for this examination. A dose lowering technique was utilized adhering to the principles of ALARA. FINDINGS: Skeletal structures: There is no evidence of fracture or subluxation involving the cervical spine. Vertebral body height and alignment are maintained. The odontoid process and lateral masses are intact. The atlantoaxial articulation is preserved. The spinous processes appear intact. Moderate multilevel facet arthrosis is present. There is mild to moderate multilevel disc space narrowing and endplate osteophytosis within the cervical spine. Soft tissues: The prevertebral and paraspinous soft tissues are within normal limits. Calvarium: The visualized calvarium at the skull base appears intact. Brain parenchyma: Partially visualized brain parenchyma at the skull base is within normal limits. Lung apices: A left pleural effusion is better depicted on the chest CT which will be reported separately. IMPRESSION: No acute cervical spine fracture or subluxation. ACT 112: Negative or not required by law. Electronically signed by: Prasanna Cabrera M.D. 11/13/2024 3:[address] 11/13/24 12:43 CT head/brain wo con CLINICAL HISTORY: Trauma. TECHNIQUE: Multiple axial CT images of the head were obtained without contrast. A dose lowering technique was utilized adhering to the principles of ALARA. CT DOSE: 2416 COMPARISON: 12/12/2023 FINDINGS: No intracranial hemorrhage seen. No mass effect, midline shift, or hydrocephalus. No skull fracture seen. Visualized paranasal sinuses and mastoid air cells are clear. IMPRESSION: No acute findings. ACT 112: Negative or not required by law. The above report was generated using voice recognition software. It may contain grammatical, syntax or spelling errors. Electronically signed by: Anthony Avila M.D. 11/13/2024 3:01 PM Chest X-Ray 11/18/24 07:46 XR chest 2V PA/lateral CLINICAL HISTORY: Better assess effusion/consolidation COMPARISON STUDY: Chest radiograph and chest CT November 13, 2024. FINDINGS: Left subclavian pacer/AICD is in place. Cardiomegaly is again noted. Mild interstitial pulmonary edema is present. A large left pleural effusion has increased in size since prior examination. Associated airspace opacity is noted. A trace right pleural effusion has developed. There is no pneumothorax. IMPRESSION: 1. Increase in size of a large left pleural effusion and associated airspace opacity. 2. Interval development of a trace right pleural effusion. 3. Cardiomegaly with mild interstitial pulmonary edema. ACT 112: Negative or not required by law. Electronically signed by: Prasanna Cabrera M.D. 11/18/2024 9:22 AM
--- NOTE | 2024-11-21 13:22 | XRay Report ---
XR chest 1V not portable CLINICAL HISTORY: Status post left thoracentesis. COMPARISON STUDY: Chest CT November 13, 2024. Chest radiograph November 18, 2024. FINDINGS: There is no pneumothorax following left thoracentesis. Left pleural effusion has significan tly decreased in size. A residual pleural effusion with left basilar opacity is noted. Left lung aera tion has improved. Left subclavian pacer/AICD is in place. Cardiomegaly is noted with the vascular co ngestion. IMPRESSION: No pneumothorax following left thoracentesis. ACT 112: Negative or not required by law. Electronically signed by: Prasanna Cabrera M.D. 11/21/2024 1:20 PM
[2024-11-21 15:00] LABS: Appearance Pleural Fluid Cloudy; Color Pleural Fluid Amber; Lymphocytes, Fluid 24 %; Mono,Macrophage,Mesothelial 12 %; Neutrophils, Fluid 64 %; RBC Pleural Fluid Auto < 2000 /uL; Source Pleural Fluid Left Lung; WBC Pleural Fluid Auto 1115 /uL
--- NOTE | 2024-11-21 15:21 | Ultrasound Report ---
ULTRASOUND-GUIDED LEFT THORACENTESIS CLINICAL HISTORY: Large loculated left pleural effusion COMPARISON STUDY: CT scan of the chest dated 11/13/2024. PROCEDURE: Procedure and risks were explained. Informed consent was obtained. A final timeout was com pleted. The left posterior thorax was prepped and draped in sterile fashion. 1% lidocaine was utilize d for skin anesthesia. Utilizing ultrasound guidance, a 5 Romansh safety centesis catheter was advanced into the left pleural effusion. Ultrasound images were obtained. A total of 1500 mL of yellow pleural fluid was removed an d sent to the lab. The catheter was removed and Band-Aid applied. The patient tolerated the procedure well. A chest x-ray will be obtained post procedure. Vital signs will be monitored on the floor. IMPRESSION: Ultrasound-guided left thoracentesis as above. Performed, dictated, and signed by Benito Rashid PA-C; to be co-signed by Dr. Roger Pappas. Electronically signed by: Roger Pappas M.D. 11/21/2024 3:53 PM
--- NOTE | 2024-11-21 17:41 | Pulmonology Progress Note ---
Date of Service November 21, 2024 Assessment & Plan (1) Pleural effusion, left: (2) Acute on chronic HFrEF (heart failure with reduced ejection fraction): (3) Acute dyspnea: (4) Paroxysmal atrial fibrillation with rapid ventricular response: (5) Ex-smoker: (6) Multiple pulmonary nodules: Plan Okay to restart anticoagulation tomorrow. Pleural fluid studies indicate a mild exudate. Follow-up cytology and cultures. Mild exudate can be seen in heart failure patients who are being actively diuresed. Follow-up with chest CT in 3 months to follow-up on the pulmonary nodules identified on chest CT 11/13/2024. Patient can be dismissed from the hospital from a pulmonary perspective at this time. Thank you for the consult. Please call with questions. Admission and Anticipated Discharge Date Admission Date: November 13, 2024 Subjective Patient's status post 1.5 L left-sided thoracentesis today with significant improvement in dyspnea. Review of Systems Review of Systems: All systems reviewed & are unremarkable except as noted in HPI & below Physical Exam Physical Exam: Constitutional: No acute distress HEENT: EOMI, PERRLA Respiratory system: Decreased air entry on the left side, no wheeze, no rhonchi, positive crackles bilaterally CVS: S1-S2 positive, distant heart sounds Abdomen: Soft, nontender, nondistended, positive bowel sounds x4 Extremities: +2 pulses bilaterally radialis/ dorsalis pedis, no cyanosis, no edema Neuro: Awake alert oriented x3 Psych: Normal mood and affect G/U: No Oliver Skin: no rashes, warm and dry Lymphatic: no cervical or axillary lymphadenopathy Results & Data Results & Data Vital Signs (Past 12 Hours) Vital Signs Temp Pulse Pulse Pulse Resp BP Pulse Ox 11/21/24 14:38 64 17 108/71 96 11/21/24 14:08 63 17 101/65 96 11/21/24 13:56 74 11/21/24 13:38 63 17 95/60 L 94 11/21/24 13:08 66 17 98/63 L 94 11/21/24 12:38 64 16 95/61 L 93 11/21/24 12:23 16 100/65 93 11/21/24 11:27 37.5 C 63 16 101/62 91 11/21/24 11:00 11/21/24 08:00 60 11/21/24 08:00 36.9 C 60 20 115/64 93 O2 Del Method 11/21/24 14:38 Room Air 11/21/24 14:08 Room Air 11/21/24 13:56 11/21/24 13:38 Room Air 11/21/24 13:08 Room Air 11/21/24 12:38 Room Air 11/21/24 12:23 Room Air 11/21/24 11:27 Room Air 11/21/24 11:00 Room Air 11/21/24 08:00 11/21/24 08:00 Room Air PG Care Time/CCT Total # of Minutes Spent Total Time Spent with Patient: Total time spent is greater than 50% in coordination of care (as documented) at patient's floor/unit and/or counseling patient: Coding Level of Care Code 52395 SUB INP/OBS CARE 2/35MIN Diagnoses Pleural effusion, left J90 Acute on chronic HFrEF (heart failure with reduced ejection fraction) I50.23 Acute dyspnea R06.00 Paroxysmal atrial fibrillation with rapid ventricular response I48.0 Ex-smoker Z87.891 Multiple pulmonary nodules R91.8
[2024-11-22 07:53] VITALS: TEMP 98.2
[2024-11-22 09:39] LABS: Hematocrit (blood only) 37.7 % (42.0-52.0); Hemoglobin 12.7 g/dl (14.0-18.0); Mean Corpuscular Hemoglobin 30.6 pg (25.0-34.0); Mean Corpuscular Volume 90.8 fL (80.0-100.0); Platelet Count 294 K/uL (130-400); RDW Standard Deviation 42.3 fL (36.4-46.3); Red Blood Count 4.15 M/uL (4.70-6.10); White Blood Count 8.14 K/ul (4.8-10.8)
[2024-11-22 09:58] LABS: Anion Gap 7.0 (3-11); Blood Urea Nitrogen 28.0 mg/dl (6-23); Calcium 8.8 mg/dl (8.6-10.3); Carbon Dioxide 25.0 mmol/L (21-32); Chloride 103.0 mmol/L (98-107); Creatinine Clr Calc Pharmacy 48.7 ml/min; Glucose 109.0 mg/dl (70-99(Fasting)); Potassium 4.4 mmol/L (3.5-5.1); Sodium 135.0 mmol/L (136-145)
[2024-11-22 11:48] VITALS: RESP 16
--- NOTE | 2024-11-22 14:57 | Hospitalist Progress Note ---
Date of Service November 22, 2024 Assessment & Plan (1) Fall: (2) Chronic HFrEF (heart failure with reduced ejection fraction): (3) Elevated troponin: (4) Coronary artery disease: (5) Ischemic cardiomyopathy: (6) Wound of skin: (7) Cellulitis: (8) Pleural effusion, left: Plan Fall at home Rhabdomyolysis Elevated Lactate On admission, Lactate of 2.3, CK, 8786, trending down EKG shows paced rhythm Troponin elevated initially 142->152, relatively flat. chronic elevation in past TTE noted EF 20-25%, mod conc LVH, extensive septal, apical infarct with akinesis to dyskinesis, entire apex is thinned, scarred and inferior apex is expanded. Inferior wall is hypokinetic at base. Septal motion consistent with Conduction abnormality. EF is 20 to 25%, grade 1 diastolic dysfunction, trace AR, trace MR, trace TR Cardiology eval appreciated. Pacemaker interrogation does not indicate any arrhythmic cause PT/OT eval noted. Rehab recommended. Working on [facility] Patient now agreeable to rehab. CM working on placement Continue PT/OT while inpatient Cellulitis R chest wall Skin tear/Wound Continue Wound care Left pleural effusion, Possible pneumonia Fever CT chest on admission noted moderate to large left pleural effusion with dependent consolidation Completed course of ceftriaxone and doxycycline. Blood cultures grew CONS in 1 bottle. Probably contaminant Repeat blood cultures negative to date TTE on 11/14 did not show vegetation/sign of infective endocarditis CXR on 11/18 showed increased Left pleural effusion Continue [employer] spironolactone. Discontinue IV lasix and convert to oral Pulm eval noted, thoracentesis today Eliquis on hold for procedure. Restart post Follow up fluid analysis/workup Okay to restart anticoagulation tomorrow. Follow-up cytology and cultures. Mild exudate can be seen in heart failure patients who are being actively diuresed. Follow-up with chest CT in 3 months to follow-up on the pulmonary nodules identified on chest CT 11/13/2024. Chronic systolic CHF S/p ICD/pacemaker History of A-fib HTN HLD Continue [employer] Eliquis post procedure, aspirin, amiodarone, Toprol-XL, Entresto [employer] diuretics were initially held on admission due to rhabdomyolysis /dehydration. Resumed as above Monitor labs Hypothyroidism Cont Synthroid Disposition: Case management is working on a rehab stay at [facility]. Awaiting for authorization DVT ppx: rui on hold for thoracentesis. restart tomorrow CODE: Full code I spent a total of 50 minutes coordinating, documenting and providing care for this patient excluding time spent in performance of separately billed services Admission and Anticipated Discharge Date Admission Date: November 13, 2024 Subjective Chart, data and vital signs were reviewed. Patient is status post 1.5 L left- sided thoracentesis yesterday. He is with significant improvement in dyspnea. Patient is seen with the physical therapist today. He denies chest pain. He had less dyspnea on working with the physical therapist. He is working with a walker. He denies nausea, vomiting or diarrhea. Pleural fluid studies indicate a mild exudate Physical Exam Physical Exam: General- adult elderly male seen at bedside. Seen this am. Chronic ill appearance Eyes- PERRL, EOMI, anicteric ENT- oropharynx clear Neck- supple, no JVD, no adenopathy, Lungs- diminished BS in the bases. No active wheezing or rhonchi e Heart- regular rhythm; Abdomen- normal bowel sounds, soft, nontender, no masses or hepatosplenomegaly Extremities- no pretibial edema, no calf tenderness; peripheral pulses intact Neuro- alert, oriented; PERRL, EOMI; no focal deficits; Skin- warm & dry Results & Data Results & Data Vital Signs (Past 12 Hours) Vital Signs Temp Pulse Pulse Resp BP Pulse Ox O2 Del Method 11/22/24 13:00 65 11/22/24 11:47 36.8 C 68 16 95/60 L 96 Room Air 11/22/24 09:29 Room Air 11/22/24 07:52 36.8 C 68 20 111/66 94 Room Air 11/22/24 05:59 60 11/22/24 03:15 36.6 C 66 18 113/73 96 Room Air Diagnostic Findings Laboratory Results WBC 8.14 K/ul (4.8-10.8) 11/22/24 07:46 RBC 4.15 M/uL (4.70-6.10) L 11/22/24 07:46 Hgb 12.7 g/dl (14.0-18.0) L 11/22/24 07:46 Hct 37.7 % (42.0-52.0) L 11/22/24 07:46 MCV 90.8 fL (80.0-100.0) 11/22/24 07:46 MCH 30.6 pg (25.0-34.0) 11/22/24 07:46 MCHC 33.7 g/dL (32.0-36.0) 11/22/24 07:46 RDW Std Deviation 42.3 fL (36.4-46.3) 11/22/24 07:46 RDW Coeff of Kim 12.9 % (11.5-14.5) 11/22/24 07:46 Plt Count 294 K/uL (130-400) 11/22/24 07:46 MPV 9.1 fL (9.4-12.4) L 11/22/24 07:46 Immature Gran % (Auto) 0.4 % 11/14/24 06:45 Neut % (Auto) 86.2 % 11/14/24 06:45 Lymph % (Auto) 3.7 % 11/14/24 06:45 [place] % (Auto) 9.5 % 11/14/24 06:45 Eos % (Auto) 0.1 % 11/14/24 06:45 Baso % (Auto) 0.1 % 11/14/24 06:45 Neut # (Auto) 6.43 K/uL (1.40-6.50) 11/14/24 06:45 Lymph # (Auto) 0.28 K/uL (1.20-3.40) L 11/14/24 06:45 [place] # (Auto) 0.71 K/uL (0.11-0.59) H 11/14/24 06:45 Eos # (Auto) 0.01 K/uL (0.00-0.50) 11/14/24 06:45 Baso # (Auto) 0.01 K/uL (0.00-0.20) 11/14/24 06:45 Immature Gran # (Auto) 0.03 K/uL (0.01-0.20) 11/14/24 06:45 PT 10.9 Seconds (9.0-12.0) 11/13/24 12:57 INR 1.0 (0.9-1.1) 11/13/24 12:57 APTT 25 Seconds (21-31) 11/13/24 12:57 PTT Ratio 0.9 11/13/24 12:57 Sodium 135 mmol/L (136-145) L 11/22/24 07:46 Potassium 4.4 mmol/L (3.5-5.1) 11/22/24 07:46 Chloride 103 mmol/L (98-107) 11/22/24 07:46 Carbon Dioxide 25 mmol/L (21-32) 11/22/24 07:46 Anion Gap 7 (3-11) 11/22/24 07:46 BUN 28 mg/dl (6-23) H 11/22/24 07:46 Creatinine 1.03 mg/dl (0.6-1.4) 11/22/24 07:46 Est Cr Clr Drug Dosing 48.7 ml/min 11/22/24 07:46 eGFR 72.98 11/22/24 07:46 BUN/Creatinine Ratio 27.2 (10-20) H 11/22/24 07:46 Glucose 109 mg/dl (70-99(Fasting)) H 11/22/24 07:46 Lactate 2.3 mmol/L (0.4-2.0) H* 11/13/24 15:22 Calcium 8.8 mg/dl (8.6-10.3) 11/22/24 07:46 Phosphorus 3.2 mg/dl (2.5-4.9) 11/19/24 06:13 Magnesium 1.7 mg/dl (1.7-2.4) 11/20/24 09:56 Total Bilirubin 0.9 mg/dl (0.2-1.0) 11/13/24 12:57 AST 141 U/L (13-39) H 11/13/24 12:57 ALT 42 U/L (7-52) 11/13/24 12:57 Alkaline Phosphatase 58 U/L (34-104) 11/13/24 12:57 Total Creatine Kinase 3450 U/L (30-223) H 11/15/24 05:24 Troponin I High Sens 152.4 pg/ml (0-20) H* 11/13/24 21:22 B-Natriuretic Peptide 892 pg/ml (0-100) H 11/18/24 10:39 Total Protein 7.5 gm/dl (6.0-8.3) 11/13/24 12:57 Albumin 3.5 gm/dl (3.4-5.0) 11/13/24 12:57 Globulin 4.0 gm/dl (2.5-4.0) 11/13/24 12:57 Albumin/Globulin Ratio 0.9 (0.9-2) 11/13/24 12:57 Lipase 21 U/L (11-82) 11/13/24 12:57 Procalcitonin 0.10 ng/ml (0-0.5) 11/18/24 10:39 Urine Color Yellow 11/13/24 17:08 Urine Appearance Clear (Clear) 11/13/24 17:08 Urine pH 5.5 (4.5-7.5) 11/13/24 17:08 Ur Specific [place] > 1.045 (1.000-1.030) H 11/13/24 17:08 Urine Protein 2+ (Negative) H 11/13/24 17:08 Urine Glucose (UA) Negative (Negative) 11/13/24 17:08 Urine Ketones Trace (Negative) H 11/13/24 17:08 Urine Blood 3+ (Negative) H 11/13/24 17:08 Urine Nitrite Negative (Negative) 11/13/24 17:08 Urine Bilirubin Negative (Negative) 11/13/24 17:08 Urine Urobilinogen Negative (Negative) 11/13/24 17:08 Ur Leukocyte Esterase Trace (Negative) H 11/13/24 17:08 Urine WBC (Auto) 6-10 /hpf (0-5) H 11/13/24 17:08 Urine RBC (Auto) 11-20 /hpf (0-2) H 11/13/24 17:08 U Hyaline Cast (Auto) 3-5 /lpf (0-2) H 11/13/24 17:08 U Epithel Cells (Auto) 0-2 /hpf (0-2) 11/13/24 17:08 Urine Bacteria (Auto) None Seen (None Seen) 11/13/24 17:08 Urine Comment 11/13/24 17:08 Fluid Neutrophils % 64 % 11/21/24 Unknown Fluid Lymphocytes % 24 % 11/21/24 Unknown Fluid Mes[place]/Macro/M[place] % 12 % 11/21/24 Unknown Fluid Comment 11/21/24 Unknown Pleural Fluid Source Left Lung 11/21/24 Unknown Pleural Color Tova 11/21/24 Unknown Pleural Appearance Cloudy 11/21/24 Unknown Pleural pH 7.37 (7.3-7.4) 11/21/24 Unknown Pleural WBC (Auto) 1115 /uL 11/21/24 Unknown Pleural RBC (Auto) < 2000 /uL 11/21/24 Unknown Pleural Total Protein 4.0 gm/dl 11/21/24 Unknown Pleural LDH 638 U/L 11/21/24 Unknown Pleural Glucose 107 mg/dl 11/21/24 Unknown Nasal Screen MRSA (PCR) Negative (Negative) 11/15/24 13:44 Staphylococcus sp PCR DETECTED (NotDetected) A 11/13/24 12:57 Bld Cult ID Panel PCR See PCR Comment (NotDetected) 11/13/24 12:57 Impressions Abdomen/Pelvis CT 11/13/24 12:42 CT SCAN OF THE ABDOMEN AND PELVIS WITH IV CONTRAST CLINICAL HISTORY: Trauma. The patient lay on the ground for 2 days COMPARISON STUDY: Abdominal CT dated 12/15/2020 TECHNIQUE: Following the IV administration of 93 cc of Optiray 320, CT scan of the abdomen and pelvis is performed from the lung bases to the proximal femora. Images are reviewed in the axial, sagittal, and coronal planes. IV contrast was administered without complication. A dose lowering technique was utilized adhering to the principles of ALARA. The examination is degraded by motion artifact. CT DOSE: 2416.82 mGy.cm FINDINGS: Lung bases: The heart is enlarged Trace pericardial effusion. A pacemaker lead is in place. The coronary arteries are densely calcified. There is a moderate left pleural effusion/collection with dependent consolidation. Mild pleural thickening is noted at the left lung base. The right lung base is clear noting dependent scar/atelectasis. There is a small hiatal hernia. Liver: The contrast-enhanced liver is normal in size, contour, and attenuation. There is no intrahepatic biliary ductal dilatation. The hepatic veins and portal veins are patent. Scattered hepatic cysts measure 1.6 cm. Gallbladder: Unremarkable. Spleen: Normal in size and attenuation. Pancreas: A 1.3 cm ovoid cyst in the pancreatic neck is unchanged. The pancreas is otherwise normal as imaged. Adrenal glands: Unremarkable. Kidneys: The contrast enhanced kidneys are normal in size and without hydronephrosis. The kidneys enhance symmetrically. Scattered renal cysts measure up to 4.2 cm. Additional subcentimeter cortical hypodensities also likely represent cysts but are too small for definitive characterization. Abdominal vasculature: The abdominal aorta is normal in course and caliber noting mild atherosclerotic calcification. Bowel: There is rectosigmoid fecal impaction and [id number] constipation. There are mildly distended and fluid-filled loops of small bowel with no transition point identified or evidence of high-grade obstruction. The appendix is nonvisualized. Peritoneum: There is no intraperitoneal free air or abdominal ascites. Lymphadenopathy: None. Pelvic viscera: The prostate gland is enlarged and heterogeneous. The bladder is mildly distended, and the wall is thickened/trabeculated indicating chronic outlet obstruction. There are bilateral groin hernias. The left coronary contains a segment of the colon. Skeletal structures: The skeletal structures are osteopenic. There is moderate lumbosacral spondylosis. No lytic or blastic lesions are seen. There are chronic/healed right-sided rib fractures. IMPRESSION: 1. There is no evidence of solid organ injury in the abdomen or pelvis. 2. Cardiomegaly and cardiac pacemaker. 3. There is a moderate left pleural effusion/pleural collection with left basilar consolidation. The sterility of this fluid cannot be assessed imaging and clinical correlation will be required. 4. There is rectosigmoid fecal impaction noting [id number] constipation. 5. There are bilateral inguinal hernias, left side larger than right. The left inguinal hernia contains a segment of the colon. 6. There are mildly distended and fluid-filled loops of small bowel with no CT evidence of high-grade obstruction. Correlate clinically for evidence of a nonspecific enteritis. 7. Additional findings as above. ACT 112: Negative or not required by law. Electronically signed by: Roger Pappas M.D. 11/13/2024 3:[address] 11/13/24 12:42 CT SCAN OF THE CHEST WITH IV CONTRAST CLINICAL HISTORY: Trauma. The patient lay on the ground for 2 days. COMPARISON STUDY: Chest CT dated 12/20/2019. Chest x-ray dated 11/13/2024. TECHNIQUE: Following the IV administration of 93 cc of Optiray 320, CT scan of the thorax was performed from the thoracic inlet to the upper abdomen. Images are reviewed in the axial, sagittal, and coronal planes. IV contrast was administered without complication. A dose lowering technique was utilized adhering to the principles of ALARA. The examination is degraded by motion artifact. FINDINGS: Thyroid: Atrophic. Thoracic aorta: There is atherosclerotic calcification of the thoracic aorta, with is normal in caliber and demonstrates standard 3-vessel arch anatomy. No dissection is seen. Pulmonary vasculature: The main pulmonary arteries are dilated suggesting pulmonary artery hypertension. There are no filling defects identified in the central pulmonary vessels to indicate pulmonary embolus. Note that this examination was not protocoled for evaluation of the pulmonary arteries. Heart: A cardiac pacemaker is seen in the left chest wall. The heart is enlarged there is trace pericardial effusion. The coronary arteries are densely calcified. Lungs and pleural spaces: Evaluation of the lung parenchyma is degraded by motion artifact. There is a moderate to large left pleural effusion with left basilar consolidation. Mild pleural thickening suggested at the left lung base. There is a large calcified granuloma in the left lower lung. The right-sided pleural effusion is identified and no pneumothorax is seen. A 0.7 cm nodular opacity in the lingula on image #103 and a 1.5 cm nodular opacity in the lingula on image #110 rising previously and they're present scarring/atelectasis. A 6 mm left lower lobe nodule on image #53 was not seen previously. The trachea and central airways are clear. Mediastinum: There are mildly enlarged calcification containing mediastinal lymph nodes. These are similar to the examination. A subcarinal node measures 1.6 cm short axis. A precarinal node measures 1.5 cm in short axis. No mediastinal hematoma is seen. [place]: Clear. Axillae: There is no axillary lymphadenopathy. Upper abdomen: A 4.2 cm left renal cyst is noted. A 1.3 cm ovoid cyst is again seen in the pancreatic neck. Hepatic cysts measuring up to 1.6 cm. See report of today's abdominal CT for detailed intra-abdominal findings. Skeletal structures: The skeletal structures are osteopenic. The bony thorax appears intact. Degenerative change and mild hyperkyphosis is noted in the thoracic spine. No lytic or blastic bony lesions are seen. IMPRESSION: 1. No acute posttraumatic intrathoracic abnormality is identified. 2. Moderate to large left pleural effusion with dependent consolidation. The sterility of this fluid cannot be assessed imaging and clinical correlation will be required. 3. There is no right-sided pleural effusion, and no pneumothorax is seen. 4. There are linear nodular opacities in the lingula, as well as a 6 mm left lower lobe pulmonary nodule. These are pathologically indeterminant, and were not seen on 12/20/2019. A follow-up chest CT in 3 months time is recommended for reevaluation. 5. Cardiomegaly and cardiac pacemaker with evidence of pulmonary artery hypertension. 6. Additional findings as above. ACT 112: Positive. There are findings on this exam that require communication between the performing entity and the patient following Patient Test Result Inf ormation Act ([place] Act 112) guidelines. Electronically signed by: Roger Pappas M.D. 11/13/2024 3:[address] 11/13/24 12:43 CT SCAN OF THE CERVICAL SPINE CLINICAL HISTORY: Trauma. COMPARISON STUDY: Cervical spine CT December 20, 2019. TECHNIQUE: CT scan of the cervical spine is performed from the skull base to the upper thoracic spine. Images are reviewed in the axial, sagittal, and coronal planes. IV contrast was not administered for this examination. A dose lowering technique was utilized adhering to the principles of ALARA. FINDINGS: Skeletal structures: There is no evidence of fracture or subluxation involving the cervical spine. Vertebral body height and alignment are maintained. The odontoid process and lateral masses are intact. The atlantoaxial articulation is preserved. The spinous processes appear intact. Moderate multilevel facet arthrosis is present. There is mild to moderate multilevel disc space narrowing and endplate osteophytosis within the cervical spine. Soft tissues: The prevertebral and paraspinous soft tissues are within normal limits. Calvarium: The visualized calvarium at the skull base appears intact. Brain parenchyma: Partially visualized brain parenchyma at the skull base is within normal limits. Lung apices: A left pleural effusion is better depicted on the chest CT which will be reported separately. IMPRESSION: No acute cervical spine fracture or subluxation. ACT 112: Negative or not required by law. Electronically signed by: Prasanna Cabrera M.D. 11/13/2024 3:[address] 11/13/24 12:43 CT head/brain wo con CLINICAL HISTORY: Trauma. TECHNIQUE: Multiple axial CT images of the head were obtained without contrast. A dose lowering technique was utilized adhering to the principles of ALARA. CT DOSE: 2416 COMPARISON: 12/12/2023 FINDINGS: No intracranial hemorrhage seen. No mass effect, midline shift, or hydrocephalus. No skull fracture seen. Visualized paranasal sinuses and mastoid air cells are clear. IMPRESSION: No acute findings. ACT 112: Negative or not required by law. The above report was generated using voice recognition software. It may contain grammatical, syntax or spelling errors. Electronically signed by: Anthony Avila M.D. 11/13/2024 3:01 PM Thoracentesis/Paracentesis US 11/21/24 00:00 ULTRASOUND-GUIDED LEFT THORACENTESIS CLINICAL HISTORY: Large loculated left pleural effusion COMPARISON STUDY: CT scan of the chest dated 11/13/2024. PROCEDURE: Procedure and risks were explained. Informed consent was obtained. A final timeout was completed. The left posterior thorax was prepped and draped in sterile fashion. 1% lidocaine was utilized for skin anesthesia. Utilizing ultrasound guidance, a 5 [place] safety centesis catheter was advanced into the left pleural effusion. Ultrasound images were obtained. A total of 1500 mL of yellow pleural fluid was removed and sent to the lab. The catheter was removed and Band-Aid applied. The patient tolerated the procedure well. A chest x-ray will be obtained post procedure. Vital signs will be monitored on the floor. IMPRESSION: Ultrasound-guided left thoracentesis as above. Performed, dictated, and signed by Benito Rashid PA-C; to be co-signed by Dr. Roger Pappas. Electronically signed by: Roger Pappas M.D. 11/21/2024 3:53 PM Chest X-Ray 11/21/24 12:23 XR chest 1V not portable CLINICAL HISTORY: Status post left thoracentesis. COMPARISON STUDY: Chest CT November 13, 2024. Chest radiograph November 18, 2024. FINDINGS: There is no pneumothorax following left thoracentesis. Left pleural effusion has significantly decreased in size. A residual pleural effusion with left basilar opacity is noted. Left lung aeration has improved. Left subclavian pacer/AICD is in place. Cardiomegaly is noted with the vascular congestion. IMPRESSION: No pneumothorax following left thoracentesis. ACT 112: Negative or not required by law. Electronically signed by: Prasanna Cabrera M.D. 11/21/2024 1:20 PM
[2024-11-22 15:18] VITALS: O2SAT 94
[2024-11-22 16:07] VITALS: BP 114/72; PULSE 64
--- NOTE | 2024-11-22 17:05 | Discharge Summary ---
Discharge Summary Date of Service November 22, 2024 Principal Dx & Hospital Course #1 = Principal Diagnosis (1) Fall: (2) Chronic HFrEF (heart failure with reduced ejection fraction): (3) Elevated troponin: (4) Coronary artery disease: (5) Ischemic cardiomyopathy: (6) Wound of skin: (7) Cellulitis: (8) Pleural effusion, left: Plan Fall at home Rhabdomyolysis Elevated Lactate On admission, Lactate of 2.3, CK, 8786, trending down EKG shows paced rhythm Troponin elevated initially 142->152, relatively flat. chronic elevation in past TTE noted EF 20-25%, mod conc LVH, extensive septal, apical infarct with yo esis to dyskinesis, entire apex is thinned, scarred and inferior apex is expanded. Inferior wall is hypokinetic at base. Septal motion consistent with Conduction abnormality. EF is 20 to 25%, grade 1 diastolic dysfunction, trace AR, trace MR, trace TR Cardiology eval appreciated. Pacemaker interrogation does not indicate any arrhythmic cause PT/OT eval noted. Rehab recommended. Working on [facility] Patient now agreeable to rehab. CM working on placement Continue PT/OT while inpatient Cellulitis R chest wall Skin tear/Wound Continue Wound care Left pleural effusion, Possible pneumonia Fever CT chest on admission noted moderate to large left pleural effusion with dependent consolidation Completed course of ceftriaxone and doxycycline. Blood cultures grew CONS in 1 bottle. Probably contaminant Repeat blood cultures negative to date TTE on 11/14 did not show vegetation/sign of infective endocarditis CXR on 11/18 showed increased Left pleural effusion Continue HOOD FITTER spironolactone. Discontinue IV lasix and convert to oral Pulm eval noted, thoracentesis today Eliquis on hold for procedure. Restart post Follow up fluid analysis/workup Okay to restart anticoagulation tomorrow. Follow-up cytology and cultures. Mild exudate can be seen in heart failure patients who are being actively diuresed. Follow-up with chest CT in 3 months to follow-up on the pulmonary nodules identified on chest CT 11/13/2024. Chronic systolic CHF S/p ICD/pacemaker History of A-fib HTN HLD Continue HOOD FITTER Eliquis post procedure, aspirin, amiodarone, Toprol-XL, Entresto HOOD FITTER diuretics were initially held on admission due to rhabdomyolysis/dehydration. Resumed as above Monitor labs Hypothyroidism Cont Synthroid Disposition: Case management is working on a rehab stay at [facility]. Awaiting for authorization DVT ppx: eliquis on hold for thoracentesis. restart tomorrow CODE: Full code Patient did well post thoracentesis. He felt less short of breath. Patient was accepted at [facility] for continuing rehab. At the time of discharge his vital signs are stable. [facility]. Notes For Next Care Provider Medication Changes From Visit See discharge list Admission HPI Per Admitting Provider This is an 79 yo M with PMHx of chronic systolic CHF, s/p ICD, history of symptomatic bradycardia s/p pacemaker, CAD, hypertension, hyperlipidemia, hypothyroidism, anxiety, history of tobacco abuse, history of lower GI bleed, presents after mechanical fall at home vs slid down to the ground which he is unable to recal. Was unable to get up and laid on the ground for 2 days. He did try to scoot around on the hardwood/lenolium floor but couldn't get up. He did not take any of his meds since the fall. He was unable to have food or drink, soiled himself. Eventually he was able to reach a phone and called EMS to come get him. Pt is found to have a right sided chest pressure wound from the way he was laying. Troponin is initially 142.3, lactate 2.3, CK is 8700+, creatinine is 1.26 and slightly elevated compared to his baseline. He lives at home alone, admit to medicine for further evaluation, he likely will require placement for rehab after his acute hospital stay. . Updated Medication List Medication Instructions Recorded Confirmed Type amiodarone 200 mg tablet 200 mg PO QPM 07/03/23 11/13/24 History apixaban 5 mg tablet (Eliquis) 5 mg PO BID 07/03/23 11/13/24 History aspirin 81 mg tablet,delayed 81 mg PO DAILY 07/03/23 11/13/24 History release atorvastatin 40 mg tablet 40 mg PO HS 07/03/23 11/13/24 History cholecalciferol (vitamin D3) 25 25 mcg PO DAILY 07/03/23 11/13/24 History mcg (1,000 unit) tablet (Vitamin D3) nitroglycerin 0.4 mg sublingual 0.4 mg sublingual Q5W PRN Chest 07/03/23 11/13/24 History tablet Pain vit C 250 mg-vit E 90 mg-zinc 40 1 tab PO BID 07/03/23 11/13/24 History mg-copper 1 [id number] capsule (PreserVision AREDS-2) furosemide 20 mg tablet (Lasix) 20 mg PO Q OTHER DAY #30 tabs 07/05/23 11/13/24 Rx levothyroxine 150 mcg tablet 150 mcg PO DAILYBB 12/12/23 11/13/24 History metoprolol succinate 25 mg 25 mg PO DAILY 12/12/23 11/13/24 History tablet,extended release 24 hr sacubitril 24 mg-valsartan 26 mg 1 tab PO BID 12/12/23 11/13/24 History tablet (Entresto) spironolactone 25 mg tablet 25 mg PO DAILY 12/12/23 11/13/24 History Hospital Stay Data Consultations 11/13/24 16:21 ED Decision to Admit Stat 11/18/24 09:40 Consult Pulmonology Routine Diagnostic Imagining Performed 11/13/24 12:42 CT abd pelvis IV con only Stat CT chest diagnostic w con Stat 11/13/24 12:43 CT cervical spine wo con Stat CT head/brain wo con Stat 11/18/24 10:19 US point of care ultrasound Urgent 11/21/24 IR thoracentesis wo tube US Routine Pending Results Patient Have Any Pending Studies at Discharge: No Discharge Instructions Given to Patient (Per Discharging Provider) Check CBC and BMP within 1 week Follow-up with pulmonary medicine Follow-up with cardiology Patient needs a repeat CT scan of the chest in 3 months for follow-up of pulmonary nodules Total Time Total Time Spent Total Time Spent (In Minutes): Total time spent in discharge planning for this patient was over 60 minutes.
[2024-11-23] MEDS ORDERED: FUROSEMIDE 20 MG TAB PO SCH (09:00)
== END 2024-11-22 17:20 | DRG 557 ==
LOC: ED 12:32 → 2N 16:46 → SUATTDRO 16:46 → 2N 17:46